=== PATIENT | male | born 1960 | race Caucasian/White ===

== ENCOUNTER → 2020-11-03 08:41 | Outpatient (CLI) | payer OTHER, SELFPAY ==
[2020-10-24 14:31] VITALS: BMI 29.0
--- NOTE | 2020-11-03 08:43 | ECHOD_ITS ---
Reason For Study: Syncope Procedure This was a 2D Doppler, Color Flow transthoracic echocardiogram. Myocardial strain analysis was performed in this exam to aid in the assessment of cardiac function. The exam was of adequate technical quality. Exam performed in department. Left Ventricle Normal LV size. Left ventricular systolic function is normal. The estimated ejection fraction is 60 %. The global longitudinal strain = -18 % (normal). Transmitral doppler flow suggestive of impaired relaxation of left ventricle. No regional wall motion abnormalities noted. Right Ventricle Normal RV size. Normal systolic function. Atria Normal left atrium. Normal right atrium. No doppler evidence for ASD. Mitral Valve There is no mitral annular calcification. Normal mitral valve. Trivial mitral valve insufficiency. Tricuspid Valve Normal tricuspid valve. Mild tricuspid valve insufficiency. Right ventricular systolic pressure estimated to be 25 mmHg. Aortic Valve Trisinus/trileaflet aortic valve. Normal aortic valve. Pulmonic Valve The pulmonic valve is not well visualized. Trivial pulmonic valve insufficiency. Great Vessels Normal sized aortic root. Pericardium/Pleural No pericardial effusion. MMode/2D Measurements & Calculations LVIDd: 4.8 cm IVSd: 0.95 cm Ao root diam: 3.5 cm LVIDs: 3.0 cm LVPWd: 0.95 cm RVDd: 3.4 cm FS: 37.5 % LAV(MOD-bp): 42.6 ml LA A4 area: 18.4 cm2 LA dimension(2D): 3.8 cm LAV(MOD-bp) Indexed: 19.4 ml/m2 LAV(MOD-sp2): 34.8 ml LAV(MOD-sp4): 51.5 ml RA A4 area: 14.2 cm2 Doppler Measurements & Calculations MV E max mao: 60.5 cm/sec Lat Peak E' Mao: 6.9 cm/sec Med Peak E' Mao: 5.7 cm/sec MV A max mao: 104.9 cm/sec E/E' lat: 8.7 E/E' med: 10.6 MV E/A: 0.58 Ao V2 max: 160.7 cm/sec LV V1 max: 104.7 cm/sec PA V2 max: 108.6 cm/sec Ao max P.3 mmHg LV V1 max P.4 mmHg TR max mao: 236.7 cm/sec TR max P.4 mmHg ECHO/Echo Complete Interpretation Summary Left ventricular systolic function is normal. The estimated ejection fraction is 60 %. The global longitudinal strain = -18 % (normal). Trivial mitral valve insufficiency. Mild tricuspid valve insufficiency. Trivial pulmonic valve insufficiency. Right ventricular systolic pressure estimated to be 25 mmHg. Transmitral doppler flow suggestive of impaired relaxation of left ventricle Ordering Physician: Jb Lozada Referring Physician: Isabel Chu Performed By: Joyce Goodman RDCS
--- NOTE | 2020-11-03 08:43 | RDU_ITS ---
Reason For Study: HTN Right Renal Artery Left Renal Artery Right renal artery ostium 133.8/35.3 Left renal artery ostium 133.7/37.8 RSV/EDV. PSV/EDV. Right renal artery proximal Left renal artery proximal PSV/EDV 180.4/68.9 PSV/EDV. 154.5/35.2 . Right renal artery mid 155.2/50.6 Left renal artery mid 167.9/57.9 PSV/EDV. PSV/EDV . Right renal artery distal 146.2/49.6 Left renal artery distal 197/64.4 PSV/EDV. PSV/EDV. Right RAR 2.00. Left RAR 2.18. Right Renal Parenchyma Left Renal Parenchyma Upper Pole Medula 27.8/12.4 PSV/EDV. Left upper pole medulla 35.7/16.4 Right upper pole medulla EDR 0.45 . PSV/EDV . Right upper pole medulla R.I. 0.55 . Left upper pole medulla EDR 0.46 . Upper Roe Cortx 17.4/7.5 PSV/EDV. Left upper pole medulla R.I. 0.54 . Right upper pole cortex EDR 0.43 . UP Cortex 24.1/8.7 PSV/EDV. Right upper pole cortex R.I. 0.57 . Left upper pole cortex EDR 0.36 . Right lower Pole medulla 32.2/14.1 Left upper pole cortex R.I. 0.64 . PSV/EDV . Left lower Pole medulla 30.7/13.1 Right lower pole medulla EDR 0.44 . PSV/EDV . Right lower pole medulla R.I. 0.56 . Left lower pole medulla EDR 0.43 . Lower Pole Cortex 22.9/10.2 PSV/EDV. Left lower pole medulla R.I. 0.57 . Right lower pole cortex EDR 0.45 . Lower Pole Cortx 23/8.7 PSV/EDV. Right lower pole cortex R.I. 0.55 . Left lower pole cortex EDR 0.38 . Right Renal Hilar Left lower pole cortex R.I. 0.62 . Right Hilar avg 70.5/23.1 PSV/EDV. Left Renal Hilar Right hilar acceleration time 40 LT Hilar avg 58.3/21.9 PSV/EDV . m/sec. Left hilar acceleration time 50 Right Renal Dimensions m/sec. Right kidney size 12.4 cm . Left Renal Dimensions Right cortical dimension 1.62 cm . Left kidney size 13.15 cm . Nonvascularized structure noted on Left cortical dimension 1.74 cm . the upper pole of the right kidney Nonvascularized structure noted on that measures 1.76 x 1.96 cm. the mid pole of the left kidney that measures 1.12 x 1.13 cm. Aorta Proximal abdominal aorta 1.71 x 1.71 cm . Proximal abdominal aorta peak systolic velocity is 90.4 cm/sec . Distal abdominal aorta 1.54 x 1.53 cm . Distal abdominal aorta peak systolic velocity is 91.6 cm/sec . VL/Renal Artery Duplex Ultrasound Interpretation Summary Bilateral renal arteries with less than 60% stenosis. Ordering Physician: Jb Lozada Referring Physician: Isabel Chu Performed By: Shruti Leung RVT
== END ==
PROVIDERS: Referring Provider Internal Medicine Cardiovascular Disease; Visit Provider Internal Medicine Cardiovascular Disease
DX: I10 Essential (primary) hypertension (principal); E78.5 Hyperlipidemia, unspecified; R55 Syncope and collapse
CPT/HCPCS: 93306; 93975

== ENCOUNTER → 2021-01-12 20:31 | Outpatient (CLI) | payer OTHER, SELFPAY | PROVIDERS: Visit Provider Physician Assistant Medical | DX: G47.33 Obstructive sleep apnea (adult) (pediatric) (principal) | CPT/HCPCS: 95810 ==

== ENCOUNTER → 2021-02-28 20:06 | Outpatient (CLI) | payer OTHER, SELFPAY | PROVIDERS: Visit Provider Nurse Practitioner Acute Care | DX: G47.33 Obstructive sleep apnea (adult) (pediatric) (principal) | CPT/HCPCS: 95811 ==

== ENCOUNTER 2021-06-02 09:03 | Outpatient (CLI) | payer OTHER, SELFPAY ==
[2021-06-02 09:33] LABS: Erythrocyte Sedimentation Rate 3 mm/hr (0-20)
[2021-06-02 09:35] LABS: Absolute Lymphocyte Count 1.25 X10^3/uL (0.83-4.51); Absolute Neutrophil Count 2.9 X10^3/uL (2.0-7.7); Basophil# 0.06 X10^3/uL; Basophil% 1.3 % (0-1); Eosinophil# 0.08 X10^3/uL; Eosinophils% 1.7 % (0-5); Hematocrit 41.4 % (40-54); Hemoglobin 14.6 g/dL (13.0-16.5); Lymphocyte # 1.25 X10^3/ul (0.83-4.51); Lymphocyte % 26.1 % (19-41); Mean Corp Hgb Conc 35.3 g/dL (32-36); Mean Corpuscular Hgb 29.9 pg (27.0-32.0); Mean Corpuscular Volume 84.8 fL (80-94); Mean Platelet Vol. 9.8 fl (6.2-12.0); Monocyte# 0.46 X10^3/uL; Monocyte% 9.6 % (0-10); NRBC Flagged by Analyzer 0 % (0-5); Neutrophil % 60.5 % (47-70); Platelet Count 207 K/mm3 (150-450); RBC Distribution Width CV 13.2 % (11.6-14.6); RBC Distribution Width SD 40.8 fl (35.1-43.9); Red Blood Count 4.88 M/mm3 (4.6-6.2); White Blood Count 4.8 K/mm3 (4.4-11.0)
[2021-06-02 09:58] LABS: ALB/GLOB Ratio 1.2 RATIO (0.9-2.4); AST(SGOT) 25 U/L (15-37); Alanine Aminotransfer ALT/SGPT 66 U/L (16-61); Albumin, Serum 4.2 g/dL (3.2-5.0); Alkaline Phosphatase 71 U/L (45-117); Anion Gap 4 (5-15); BUN 19 mg/dL (7-18); BUN/Creat Ratio 15.7 RATIO (10-20); CRP < 2.90 mg/L (0.0-3.0); Calcium,Total 9.2 mg/dL (8.5-10.1); Chloride 103 mmol/L (98-107); Creatinine, Serum 1.21 mg/dL (0.70-1.30); EST Glomerular Filtration Rate 65 mL/min (>60); Est Glom Filt Rate - Afr Amer 79 mL/min (>60); Globulin 3.5 g/dL (2.2-4.2); Glucose 180 mg/dL (74-106); Potassium 3.8 mmol/L (3.5-5.1); Protein, Total 7.7 g/dL (6.4-8.2); Sodium Level 137 mmol/L (136-145)
== END 2021-06-02 23:59 | disposition home or self-care (01) ==
LOC: LAB 09:05
PROVIDERS: Referring Provider Nurse Practitioner Adult Health; Visit Provider Nurse Practitioner Adult Health
DX: R19.7 Diarrhea, unspecified (principal); R19.8 Other specified symptoms and signs involving the digestive system and abdomen; R15.9 Full incontinence of feces; K62.5 Hemorrhage of anus and rectum
CPT/HCPCS: 36415; 80053; 85025; 85652; 86140

== ENCOUNTER 2021-06-08 10:14 | Outpatient (CLI) | payer OTHER, SELFPAY ==
[2021-06-09 16:09] LABS: Giardia Lamblia, Stool EIA Negative (Negative)
[2021-06-09 21:28] LABS: Calprotectin, Stool <16 ug/g (0-120)
== END 2021-06-08 23:59 | disposition home or self-care (01) ==
LOC: LAB 10:15
PROVIDERS: Referring Provider Nurse Practitioner Adult Health; Visit Provider Nurse Practitioner Adult Health
DX: K62.5 Hemorrhage of anus and rectum (principal); R15.9 Full incontinence of feces; R19.8 Other specified symptoms and signs involving the digestive system and abdomen; R19.7 Diarrhea, unspecified
CPT/HCPCS: 83630; 83993; 87177; 87209; 87329; 87493; 87506

== ENCOUNTER 2021-06-23 08:16 | Outpatient (CLI) | payer OTHER, SELFPAY ==
--- NOTE | 2021-06-23 08:23 | CT_ITS ---
STUDY: CT ABDOMEN AND PELVIS WITH CONTRAST REASON FOR EXAM: Male, 60 years old. Lower abd pain, blood per rectum, diarrhea -- oral and IV please RADIATION DOSAGE (If Supplied By Facility): CTDIvol = ( 16.29 ) mGy, DLP = ( 1139.51 ) mGycm TECHNIQUE: Transaxial images were obtained from the dome of the diaphragm to the symphysis pubis with oral contrast. Oral and amp; IV Readi-CAT and amp; 100mL Isovue-300 was administered. Sagittal and coronal images were reconstructed. Individualized dose optimization techniques were used for this CT. COMPARISON: None. FINDINGS: Mild degree of increased markings at the lung bases suggestive of atelectasis. There is a faint 3.5 mm noncalcified nodule at the right lung base. The visualized portions of the heart are within normal limits. There is decreased attenuation of the liver consistent with steatosis. The patient is status post cholecystectomy. There are multiple benign calcified granulomata of the spleen. Normal pancreas. Normal bilateral adrenal glands. There is a 2.7 cm cyst in the posterior medial aspect of the upper pole of the right kidney. There is a 1.2 cm cyst in the posterior lower pole of the left kidney. Normal visualized stomach. Normal small intestine. There are scattered colonic diverticula consistent with diverticulosis. The appendix is visualized and appears normal. There is scattered atherosclerotic calcification of the abdominal aorta, without a demonstrated aneurysm. Normal inferior vena cava. Normal retroperitoneum. Normal urinary bladder. There are prostatic calcifications. Prostatic enlargement. This causes indentation of the bladder base. The prostate measures 3.9 cm x 5.5 cm. Normal abdominal wall. Normal osseous structures. CT/Abdomen/Pelvis WITH Contrast IMPRESSION: Fatty infiltration of the liver. Faint 3.5 mm noncalcified nodule at the base of the right lung. Scattered sigmoid diverticula. Electronically Signed: Bennett Ivey MD at 10:27 EDT ,
== END 2021-06-23 23:59 | disposition home or self-care (01) ==
LOC: CT 08:17
PROVIDERS: Referring Provider Nurse Practitioner Adult Health; Visit Provider Nurse Practitioner Adult Health
DX: K62.5 Hemorrhage of anus and rectum (principal); R15.9 Full incontinence of feces; R19.8 Other specified symptoms and signs involving the digestive system and abdomen; R19.7 Diarrhea, unspecified
CPT/HCPCS: 74177; Q9967

== ENCOUNTER 2021-07-07 05:24 | Day surgery (SDC) | payer OTHER, SELFPAY ==
[2021-07-07] VITALS (7 sets, daily range): BP systolic 109–145; BP diastolic 69–97; PULSE 62–73; RESP 16; TEMP 36.1–36.8; O2SAT 94–97; BMI 29.2
[2021-07-07] MEDS: Lactated Ringers 1,000 ML 15 ML IV (05:45)
[2021-07-07 06:16] LABS: Bedside Glucose 207 mg/dL (74-106)
--- NOTE | 2021-07-07 06:30 | COLBX_PTH ---
PATIENT: GORDO JOSHI LOC: [facility] – [place] U#:[id number] AGE/SX: 60/M ROOM: RE07/07/[address]: Dr. Jeffrey Marshall DO : 1960 BED: DIS: 07/07/2021 SPEC #: [id number] RECD: 07/07/21 10:22 STATUS: TRACY CHAU #: [id number] HELDER: 07/07/21 06:[address]: Jeffrey Marshall DEPT: SURGICAL PATHOLOGY RECD BY: Bessy Patterson ENTERED: 07/07/21 10:32 SP TYPE: COLON BX OTHR DR: DIANA Martinez Tissues: A - Cecum, NOS B - Sigmoid colon biopsy Procedures: Surgery Specimen Level IV HEADER OPERATION: Colonoscopy (MAC) PRE-OP DIAGNOSIS: Diarrhea, tenesmus, fecal incontinence, blood per rectum, rectal pain TISSUE SUBMITTED: A ? Cecum biopsy, B ? Sigmoid colon biopsy MICROSCOPIC DIAGNOSIS A. Cecum, biopsy: No pathologic change. B. Sigmoid colon, biopsy: No pathologic change. AM:josemanuel 07/10/2021 MICROSCOPIC DESCRIPTION Slides are reviewed. GROSS DESCRIPTION A - Received in fixative is one container labeled with the patient's name and designated cecum biopsy. The specimen consists of two irregular fragments of light art soft tissue that in aggregate measure 0.6 x 0.5 x 0.1 cm. The specimen is totally submitted in one cassette. B - Received in fixative is one container labeled with the patient's name and designated sigmoid colon biopsy. The specimen consists of one irregular fragment of light art soft tissue that measures 0.6 x 0.4 x 0.1 cm. The specimen is totally submitted in one cassette. / SJ:josemanuel 07/07/2021 TC:5 [facility]: [id number] x2
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
--- NOTE | 2021-07-07 07:30 | OP.CCLET_ITS ---
12/21/2021 Newton Martinez Re : Colonoscopy procedure for Keith Espinosa Dear Vlad This procedure was performed on Wednesday, July 07, 2021. My impressions and recommendations are as follows: Impressions : - Anal fissure found on perianal exam. - Hemorrhoids found on perianal exam. - Internal hemorrhoids that prolapse with straining, but spontaneously regress to the resting position (Grade II) and hypertrophied anal papilla(e) found on perianal exam. - Congested mucosa in the sigmoid colon. Biopsied. - Congested mucosa in the cecum. Biopsied. Recommendations : - Discharge patient to home. - Resume previous diet. - Continue present medications. - Await pathology results. - Repeat colonoscopy in 5 years for surveillance based on pathology results. - Refer to a surgeon. My findings are described in the full procedure note, which is enclosed. If I can be of further assistance, please feel free to contact me at . Sincerely, Jeffrey Marshall, 07/07/2021 7:29:52 AM This report has been signed electronically.
--- NOTE | 2021-07-07 07:30 | OP.COLON_ITS ---
Patient Name: Keith Espinosa Procedure Date: 07/07/2021 6:36 AM Date of : 1960 Age: 60 Procedure: Colonoscopy Indications: Screening for colorectal malignant neoplasm Providers: Jeffrey Marshall DO Medicines: Sedation Required Anesthesia Staff Assistance Patient Profile: This is a 60 year old male. Refer to note in patient chart for documentation of history and physical. Last Colonoscopy: 10 years ago. Complications: No immediate complications. Procedure: Pre-Anesthesia Assessment: - Prior to the procedure, a History and Physical was performed, and patient medications and allergies were reviewed. The patient is competent. The risks and benefits of the procedure and the sedation options and risks were discussed with the patient. All questions were answered and informed consent was obtained. Patient identification and proposed procedure were verified by the physician in the pre-procedure area. Mental Status Examination: alert and oriented. Airway Examination: normal oropharyngeal airway and neck mobility. Respiratory Examination: clear to auscultation. CV Examination: normal. Prophylactic Antibiotics: The patient does not require prophylactic antibiotics. Prior Anticoagulants: The patient has taken no previous anticoagulant or antiplatelet agents. ASA Grade Assessment: II - A patient with mild systemic disease. After reviewing the risks and benefits, the patient was deemed in satisfactory condition to undergo the procedure. The anesthesia plan was to use moderate sedation / analgesia (conscious sedation). Immediately prior to administration of medications, the patient was re-assessed for adequacy to receive sedatives. The heart rate, respiratory rate, oxygen saturations, blood pressure, adequacy of pulmonary ventilation, and response to care were monitored throughout the procedure. The physical status of the patient was re-assessed after the procedure. After I obtained informed consent, the scope was passed under direct vision. Throughout the procedure, the patient's blood pressure, pulse, and oxygen saturations were monitored continuously. The colonoscope was introduced through the anus and advanced to the cecum, identified by appendiceal orifice and ileocecal valve. The colonoscopy was performed without difficulty. The patient tolerated the procedure well. The quality of the bowel preparation was good. Moderate Sedation: Moderate (conscious) sedation was administered by the endoscopy nurse and supervised by the endoscopist. The patient's oxygen saturation, heart rate, blood pressure and response to care were monitored. Total physician intraservice time was 15 minutes. Scope In: 7:00:16 AM Scope Withdrawal Time 0 hours 19 minutes 23 seconds Scope Out: 7:22:52 AM Total Procedure Duration Time 0 hours 22 minutes 36 seconds Findings: An anal fissure was found on perianal exam. Hemorrhoids were found on perianal exam. The perianal exam findings include internal hemorrhoids that prolapse with straining, but spontaneously regress to the resting position (Grade II) and hypertrophied anal papilla(e). An area of mildly congested mucosa was found in the sigmoid colon. Biopsies were taken with a cold forceps for histology. Verification of patient identification for the specimen was done. Estimated blood loss was minimal. An area of mildly congested mucosa was found in the cecum. Biopsies were taken with a cold forceps for histology. Verification of patient identification for the specimen was done. Estimated blood loss was minimal. A few small-mouthed diverticula were found in the sigmoid colon. Impression: - Anal fissure found on perianal exam. - Hemorrhoids found on perianal exam. - Internal hemorrhoids that prolapse with straining, but spontaneously regress to the resting position (Grade II) and hypertrophied anal papilla(e) found on perianal exam. - Congested mucosa in the sigmoid colon. Biopsied. - Congested mucosa in the cecum. Biopsied. Recommendation: - Discharge patient to home. - Resume previous diet. - Continue present medications. - Await pathology results. - Repeat colonoscopy in 5 years for surveillance based on pathology results. - Refer to a surgeon. Procedure Code(s): --- Professional --- 51266, Colonoscopy, flexible; with biopsy, single or multiple G0500, Moderate sedation services provided by the same physician or other qualified health patient care assistant performing a gastrointestinal endoscopic service that sedation supports, requiring the presence of an independent trained observer to assist in the monitoring of the patient's level of consciousness and physiological status; initial 15 minutes of intra-service time; patient age 5 years or older (additional time may be reported with 14026, as appropriate) CPT copyright 2017 [employer]. All rights reserved. The codes documented in this report are preliminary and upon certified procedural coder review may be revised to meet current compliance requirements. Jeffrey Marshall DO 07/07/2021 7:29:52 AM This report has been signed electronically. Number of Addenda: 1 Note Initiated On: 07/07/2021 6:36 AM Addendum Number: 1 Addendum Date: 12/21/2021 6:36:50 AM MAC was used as sedation for this procedure. Jeffrey Marshall, 12/21/2021 6:36:54 AM This report has been signed electronically.
[2021-07-07 07:46] LABS: Bedside Glucose 205 mg/dL (74-106)
== END 2021-07-07 08:50 | disposition home or self-care (01) ==
LOC: SDC 05:25 → AC 05:26
PROVIDERS: Visit Provider Internal Medicine Gastroenterology
PROC: 0DJD8ZZ Inspection of Lower Intestinal Tract, Via Natural or Artificial Opening Endoscopic (ICD-10-PCS; CPT 45378; principal; 2021-07-07 06:25)
DX: Z12.11 Encounter for screening for malignant neoplasm of colon (principal); K57.31 Diverticulosis of large intestine without perforation or abscess with bleeding; K60.2 Anal fissure, unspecified; E11.9 Type 2 diabetes mellitus without complications; K64.1 Second degree hemorrhoids; R19.7 Diarrhea, unspecified; R19.8 Other specified symptoms and signs involving the digestive system and abdomen; R15.9 Full incontinence of feces; K63.89 Other specified diseases of intestine; E78.5 Hyperlipidemia, unspecified; G47.33 Obstructive sleep apnea (adult) (pediatric); Z79.84 Long term (current) use of oral hypoglycemic drugs; Z79.899 Other long term (current) drug therapy; Z87.891 Personal history of nicotine dependence
CPT/HCPCS: 45380; 82962; 87426; 88305; C9803; J7120; J2405

== ENCOUNTER 2021-07-26 07:14 | Day surgery (SDC) | payer OTHER, SELFPAY ==
[2021-07-26] VITALS (11 sets, daily range): BP systolic 109–152; BP diastolic 51–89; PULSE 62–78; RESP 16–17; TEMP 35.6–36.9; O2SAT 93–99; BMI 29.6
--- NOTE | 2021-07-26 | HEM_PTH ---
PATIENT: GORDO JOSHI [place] [facility] [place][id number] AGE/SX: 60/M ROOM: RE07/26/[address]: Dr. Yohannes Rand MD : 1960 BED: DIS: 07/26/2021 SPEC #: [id number] RECD: 07/26/21 12:39 STATUS: TRACY REAdilson #: [id number] HELDER: 07/26/21 00:[address]: Yohannes Rand DEPT: SURGICAL PATHOLOGY RECD BY: Leroy Munson ENTERED: 07/27/21 08:06 SP TYPE: HEMORRHOID OTHR DR: DIANA Martinez Tissues: A - HEMORRHOIDS B - HEMORRHOIDS Procedures: Surgery Specimen Level III HEADER OPERATION: Hemorrhoidectomy PRE-OP DIAGNOSIS: External hemorrhoid, bleeding TISSUE SUBMITTED: A - Left lateral hemorrhoid, B - Right anterior hemorrhoid MICROSCOPIC DIAGNOSIS A. Left lateral hemorrhoid, hemorrhoidectomy: A piece of colonic mucosa with dilated and congested blood vessels, consistent with hemorrhoid. B. Right anterior hemorrhoid, hemorrhoidectomy: Pieces of anorectal mucosa with dilated and congested blood vessels, consistent with hemorrhoid. GENESIS:josemanuel 07/28/2021 MICROSCOPIC DESCRIPTION Slides are reviewed. GROSS DESCRIPTION A - Received in fixative is one container labeled with the patient's name and designated left lateral hemorrhoid. The specimen consists of a congested piece of mucosal tissue measuring 2 x 1.5 x 1 cm. Sections reveal congested and hemorrhagic cut surfaces. Mechanical Apprentice sections are submitted in one cassette. B - Received in fixative is one container labeled with the patient's name and designated right anterior hemorrhoid. The specimen consists of three pieces of congested and hemorrhagic tissue measuring in aggregate 1.5 x 1 x 1 cm. The largest piece is sectioned. The entire specimen is submitted in one cassette. / GENESIS:josemanuel 07/27/2021 TC: 5 CPT: 67030 x2
[2021-07-26] MEDS: Lactated Ringers 1,000 ML 15 ML IV (07:30)
[2021-07-26 08:00] LABS: Bedside Glucose 221 mg/dL (74-106)
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
[2021-07-26] MEDS: Lubricating Jelly 60 GM Tube 30 GM (09:10)
[2021-07-26] MEDS: Cefotetan 2 GM in 0.9% NS 100 ML IV (09:17)
[2021-07-26] MEDS: Dibucaine 30 GM Tube 1 APPLIC (09:46)
[2021-07-26] MEDS: Bupivacaine 0.25% 30 ML Vial OPERA.SITE (10:11)
[2021-07-26 10:40] LABS: Bedside Glucose 170 mg/dL (74-106)
--- NOTE | 2021-07-26 10:55 | PCM.OPRPT ---
Problems Associated Problem List Diagnoses (1) Hemorrhoids, internal, with bleeding: Report of Operation Date of Procedure: 07/26/21 Pre-Operative Diagnosis: Bleeding hemorrhoids Post-Operative Diagnosis: Bleeding internal hemorrhoids Surgery/Procedure Performed:: Exam under anesthesia with hemorrhoidectomy internal and external x2 Specimen's removed: Left lateral hemorrhoid Right anterior hemorrhoid Description of Procedure: Patient was brought to the operating room and general anesthesia was induced. The patient was placed in prone jackknife position. Next the perirectal area was prepped and draped in usual sterile fashion. The rectal area was examined and then a speculum was placed. The left lateral hemorrhoid was taken down using harmonic. Next 2-0 chromic was used to ligate the pedicle and then running suture close the mucosal from internal to external. In the same fashion the right anterior column was identified and the vessel was taken down using harmonic scalpel. The 2-0 chromic was used to ligate the vessel and then run the mucosa closed from internal to external. The rectal area was inspected and there was good hemostasis. He was irrigated and suctioned dry. A Gelfoam was soaked in Dibucaine and placed into the rectum and left there. Local anesthetic was injected into the perirectal area in 4 quadrants to block the nerves. Next patient was awoken and taken to PACU in stable condition. Admit VTE Documentation VTE Mechan Device Prophylaxis: SCD's
--- NOTE | 2021-07-26 10:57 | EX.PCM.DISCH ---
Discharge Instructions Procedure Rectal Surgery Diet Discharge Diet: Light diet - advance as tolerated (Pain medication may cause nausea. You should typically eat light foods as you take your pain medication.) Activity Discharge Activity: Return to Normal Activity and May Not Drive (while you are taking narcotic pain medications. Do not drive, work with heavy equipment or sign legal documents for 24 hours after your surgery.) May resume sexual activity in: No Restrictions Additional Activity Instructions:: Be aware that pain medications may cause nausea. You should typically eat light foods as you take your pain medications. Pain medications may also cause constipation, if you have difficulty with this please discuss with your doctor. Dressing / Incision Call your doctor if your incision/area has: Continuous Slow Oozing, Sudden Increased Bleeding, Increased Pain/ Swelling, Increased Redness, Foul Smelling Discharge and Swelling at the incision site Call your doctor if you observe: Fever of 101 or Higher and Uncontrolled pain Cleanse incision/area with: Soap & Water Additional Dressing/Incision Instructions:: Leave the operative bandage on for 2 days. If a local anesthetic plug was placed in the anal area, try not to expel for 24-[address] dibucaine ointment on the perianal area as needed. Sitz baths twice daily and after bowel movements. Follow Up Care Please Follow Up With: Yohannes Rand MD When: Please call to schedule 2 week follow up appointment. [phone] Test Results: Test results from this visit will be discussed in further detail at your follow-up appointment, if applicable. Discharge Plan Admission Attending Provider: Yohannes Rand Primary Care Provider: Isabel Chu Discharge Orders/Prescriptions Prescriptions: New oxycodone-acetaminophen [Percocet] 5-325 mg tablet 1 - 2 tab PO Q4H PRN (Reason: pain) 7 Days Qty: 40 RF: 0 No Action cholecalciferol (vitamin D3) 25 mcg (1,000 unit) tablet 25 mcg PO DAILY RF: 0 lovastatin 20 mg tablet 20 mg PO QPM RF: 0 amlodipine 10 mg tablet 10 mg PO DAILY Qty: 90 RF: 3 losartan-hydrochlorothiazide 100-25 mg tablet 1 tab PO DAILY Qty: 90 RF: 3 metformin 500 mg tablet 500 mg PO DAILY Qty: 1 RF: 0 allopurinol 100 mg tablet 100 mg PO DAILY Qty: 1 RF: 0 hydrocortisone 100 mg/60 mL enema 100 mg SD BID Qty: 1680 RF: 0 Referrals / Follow Up: Isabel Chu PA [Primary Care Provider] - Disposition Disposition (needs filled in before D/C Order can be placed): Home, Self Care
[2021-07-26] MEDS: Acetaminophen 500 MG Tablet PO (12:27)
[2021-07-26] MEDS: oxyCODONE 5 MG Tablet 10 MG PO (12:28)
[2021-07-26] MEDS: Tamsulosin HCl 0.4 MG Capsule 0.8 MG PO (16:16)
== END 2021-07-26 16:39 | disposition home or self-care (01) ==
LOC: SDC 07:17 → AC 07:17
PROVIDERS: Referring Provider Surgery; Visit Provider Surgery
PROC: (CPT 46260; principal; 2021-07-26 08:45)
DX: K64.8 Other hemorrhoids (principal); E11.9 Type 2 diabetes mellitus without complications; K64.4 Residual hemorrhoidal skin tags; I10 Essential (primary) hypertension; E78.5 Hyperlipidemia, unspecified; G47.33 Obstructive sleep apnea (adult) (pediatric); M10.9 Gout, unspecified; F17.220 Nicotine dependence, chewing tobacco, uncomplicated; Z79.84 Long term (current) use of oral hypoglycemic drugs; Z79.899 Other long term (current) drug therapy; Z87.891 Personal history of nicotine dependence
CPT/HCPCS: 46260; 00902; 82962; 87426; 88304; J7120; J2405

== ENCOUNTER → 2021-08-16 | Outpatient (CLI) | payer OTHER, SELFPAY ==
--- NOTE | 2021-08-16 07:44 | US_ITS ---
STUDY: ABDOMINAL ULTRASOUND - ELASTOGRAPHY REASON FOR VISIT: Male, 60 years old. Fatty infiltration of the liver. TECHNIQUE: Liver stiffness measurements were obtained on a [employer] RS 85 ultrasound machine using a CA 1-7 probe following the SRU guidelines. 3 measurements were obtained using a 2-D-SWE method. The IQR/M was 12% suggesting a quality data set. TECHNICAL QUALITY: Adequate. COMPARISON: Comparison is made with prior study done earlier today. FINDINGS: Liver: Fatty infiltration of the liver. Median liver stiffness measured 9 kPa. US/Elastography Parenchyma/Organ IMPRESSION: Liver stiffness measures 9 kPa compatible with F2-F3 (Mild to moderate liver fibrosis) Metavir score. Electronically Signed: Bennett Ivey MD at 10:20 EDT ,
--- NOTE | 2021-08-16 07:50 | US_ITS ---
STUDY: ABDOMINAL ULTRASOUND - RIGHT UPPER QUADRANT REASON FOR VISIT: Male, 60 years old FATTY LIVER TECHNIQUE: Ultrasound evaluation of the right upper quadrant was performed with real-time and static sidhu-scale imaging. TECHNICAL QUALITY: Adequate. COMPARISON: Comparison is made with prior CT scan of the abdomen and pelvis dated 06/23/2021. FINDINGS: Liver: The liver measures 18 cm. There is increased echogenicity consistent with fatty infiltration. The bile ducts are within normal limits. There is hepatic color flow. The direction of portal flow is hepatopetal. There is no demonstrated mass lesion. Gallbladder: The patient is status post cholecystectomy. Common Bile Duct (C.B.D.): The common bile duct measures 5 mm. Pancreas: Normal size of the head, body and tail of the pancreas. There is normal echogenicity of the pancreas. There is no demonstrated pancreatic mass or cyst. Right Kidney: Normal size of the right kidney. The right kidney measures 13.5 cm x 5.4 cm x 5.5 cm. Normal renal cortex. The right cortex measures 2 cm. There is a 2.8 cm x 2.7 cm x 2.7 cm cyst in the upper pole of the right kidney. There is no right hydronephrosis. US/Abdomen Limited IMPRESSION: Mild hepatomegaly. Status post cholecystectomy. Diffuse fatty infiltration of the liver. Right renal cyst. Electronically Signed: Bennett Ivey MD at 9:56 EDT ,
== END | disposition home or self-care (01) ==
LOC: US 07:43
PROVIDERS: Visit Provider Nurse Practitioner Adult Health
DX: K76.0 Fatty (change of) liver, not elsewhere classified (principal)
CPT/HCPCS: 76705; 76981

== ENCOUNTER → 2022-04-18 | Outpatient (CLI) | payer OTHER, SELFPAY ==
--- NOTE | 2022-04-18 08:12 | US_ITS ---
STUDY: ABDOMINAL ULTRASOUND - RIGHT UPPER QUADRANT REASON FOR VISIT: Male, 61 years old liver elastography, f/u treatment NAFLD TECHNIQUE: Ultrasound evaluation of the right upper quadrant was performed with real-time and static sidhu-scale imaging. TECHNICAL QUALITY: Adequate. COMPARISON: Comparison is made with prior study dated 08/16/2021. FINDINGS: Liver: The liver is mildly enlarged and measures 18 cm. There is increased echogenicity consistent with fatty infiltration. The bile ducts are within normal limits. There is hepatic color flow. The direction of portal flow is hepatopetal. There is no demonstrated mass lesion. Gallbladder: The patient is status post cholecystectomy. Common Bile Duct (C.B.D.): The common bile duct measures 6.5 mm. Pancreas: Normal size of the head, body and tail of the pancreas. There is increased echogenicity of the pancreas. There is no demonstrated pancreatic mass or cyst. Right Kidney: Normal size of the right kidney. The right kidney measures 13.6 cm x 6.4 cm x 5.8 cm. Normal renal cortex. The right cortex measures 1.8 cm. There is a 1.9 cm x 2.1 cm x 2.8 cm renal cysts. There is no right hydronephrosis. US/Abdomen Limited IMPRESSION: Mild hepatomegaly with diffuse fatty infiltration of the liver. Status post cholecystectomy. Right renal cyst. Electronically Signed: Bennett Ivey MD at 11:54 EST ,
--- NOTE | 2022-04-18 08:12 | US_ITS ---
STUDY: ABDOMINAL ULTRASOUND - ELASTOGRAPHY REASON FOR VISIT: Male, 61 years old. Fatty infiltration of the liver. TECHNIQUE: Liver stiffness measurements were obtained on a [employer] RS 85 ultrasound machine using a CA 1-7 probe following the SRU guidelines. 3 measurements were obtained using a 2-D-SWE method. The IQR/M was 21 % suggesting a quality data set. TECHNICAL QUALITY: Adequate. COMPARISON: None. FINDINGS: Liver: Fatty infiltration of the liver. Median liver stiffness measured 7.3 kPa. US/Elastography Parenchyma/Organ IMPRESSION: Liver stiffness measures 7.3 kPa compatible with F2-F3 (Mild to moderate liver fibrosis) Metavir score. Electronically Signed: Bennett Ivey MD at 11:55 EST ,
== END | disposition home or self-care (01) ==
LOC: US 08:11
PROVIDERS: Visit Provider Nurse Practitioner Adult Health
DX: K76.0 Fatty (change of) liver, not elsewhere classified (principal)
CPT/HCPCS: 76705; 76981

== ENCOUNTER → 2022-04-24 | Outpatient (CLI) | payer OTHER, SELFPAY ==
[2022-04-24 12:30] LABS: Erythrocyte Sedimentation Rate 3 mm/hr (0-20)
[2022-04-24 12:32] LABS: Absolute Lymphocyte Count 1.24 X10^3/uL (0.83-4.51); Basophil# 0.04 X10^3/uL; Basophil% 0.8 % (0-1); Eosinophil# 0.08 X10^3/uL; Eosinophils% 1.6 % (0-5); Hematocrit 43.2 % (40-54); Hemoglobin 14.8 g/dL (13.0-16.5); Lymphocyte # 1.24 X10^3/ul (0.83-4.51); Lymphocyte % 25.6 % (19-41); Mean Corp Hgb Conc 34.3 g/dL (32-36); Mean Corpuscular Hgb 29.9 pg (27.0-32.0); Mean Corpuscular Volume 87.3 fL (80-94); Mean Platelet Vol. 9.9 fl (6.2-12.0); Monocyte# 0.41 X10^3/uL; Monocyte% 8.5 % (0-10); NRBC Flagged by Analyzer 0 % (0-5); Neutrophil # 3.04 X10^3/uL (2.7-7.7); Neutrophil % 62.7 % (47-70); Platelet Count 188 K/mm3 (150-450); RBC Distribution Width CV 13.2 % (11.6-14.6); RBC Distribution Width SD 41.8 fl (35.1-43.9); Red Blood Count 4.95 M/mm3 (4.6-6.2); White Blood Count 4.9 K/mm3 (4.4-11.0)
[2022-04-24 12:42] LABS: International Normalized Ratio 0.9; Prothrombin Time (Protime)PT. 12.3 SECONDS (11.7-14.9)
[2022-04-24 13:12] LABS: ALB/GLOB Ratio 1.2 RATIO (0.9-2.4); AST(SGOT) 17 U/L (15-37); Alanine Aminotransfer ALT/SGPT 33 U/L (16-61); Albumin, Serum 4.1 g/dL (3.2-5.0); Alkaline Phosphatase 66 U/L (45-117); Anion Gap 11 (5-15); BUN 21 mg/dL (7-18); BUN/Creat Ratio 16.4 RATIO (10-20); CRP < 2.90 mg/L (0.0-3.0); Calcium,Total 9.4 mg/dL (8.5-10.1); Chloride 101 mmol/L (98-107); Creatinine, Serum 1.28 mg/dL (0.70-1.30); EST Glomerular Filtration Rate 61 mL/min (>60); Est Glom Filt Rate - Afr Amer 73 mL/min (>60); Ferritin 335 ng/mL (26-388); Globulin 3.4 g/dL (2.2-4.2); Glucose 185 mg/dL (74-106); LDH 166 U/L (87-241); Potassium 3.7 mmol/L (3.5-5.1); Protein, Total 7.5 g/dL (6.4-8.2); Sodium Level 139 mmol/L (136-145)
[2022-04-25 14:10] LABS: Anti-Centromere B Ab <0.2 AI (0.0-0.9); Anti-Chromatin <0.2 AI (0.0-0.9); Anti-Jo <0.2 AI (0.0-0.9); Anti-Scleroderma-70 AB <0.2 AI (0.0-0.9); RNP Ab <0.2 AI (0.0-0.9); SJOGREN'S Anti-SS-A test < 0.2 AI (0.0-0.9); SJOGREN'S Anti-SS-B test < 0.2 AI (0.0-0.9); Smith Ab <0.2 AI (0.0-0.9)
[2022-04-25 16:34] LABS: Anti-Mitochondrial AB <20.0 Units (0.0-20.0); Anti-dsDNA Ab 1 IU/mL (0-9)
[2022-04-26 08:09] LABS: Angiotensin Convert Enzyme 28 U/L (14-82); Ceruloplasmin 18.7 mg/dL (16.0-31.0); HEPATITIS B SURFACE AG Negative (Negative); Hep C Antibodies <0.1 s/co ratio (0.0-0.9); Hepatitis A IgM Antibody Negative (Negative); Hepatitis B Core AB IgM Negative (Negative)
[2022-04-26 15:15] LABS: AFP, Tumor Marker < 1.8 ng/mL (0.0-8.4); Anti-Smooth Muscle ABS 5 Units (0-19); Copper, Serum or Plasma 86 ug/dL (69-132); Cytoplasmic Ab (C-ANCA) <1:20 titer (Neg:<1:20); Haptoglobin 140 mg/dL (32-363); Perinuclear Ab (P-ANCA) <1:20 titer (Neg:<1:20)
== END | disposition home or self-care (01) ==
LOC: LAB 11:46
PROVIDERS: Referring Provider Nurse Practitioner Adult Health; Visit Provider Nurse Practitioner Adult Health
DX: K76.0 Fatty (change of) liver, not elsewhere classified (principal)
CPT/HCPCS: 36415; 80053; 80074; 82105; 82140; 82164; 82390; 82525; 82728; 83010; 83516; 83615; 85025; 85610; 85652; 86140; 86225; 86235; 86256

== ENCOUNTER → 2023-06-24 | Outpatient (CLI) | payer OTHER, SELFPAY ==
[2023-06-24 13:27] LABS: PSA,Total- Diagnostic 4.38 ng/mL (0.0-4.0)
== END | disposition home or self-care (01) ==
LOC: LAB 12:00
PROVIDERS: PCP Internal Medicine; Referring Provider Nurse Practitioner; Visit Provider Nurse Practitioner
DX: R97.20 Elevated prostate specific antigen [PSA] (principal)
CPT/HCPCS: 36415; 84153

== ENCOUNTER → 2023-07-01 | Outpatient (CLI) | payer OTHER, SELFPAY ==
--- NOTE | 2023-07-01 07:21 | CT_ITS ---
STUDY: CT CHEST WITH CONTRAST REASON FOR EXAM: Male, 62 years old. Hilar adenopathy RADIATION DOSAGE (If Supplied By Facility): CTDIvol = ( 16.52 ) mGy, DLP = ( 562.38 ) mGycm TECHNIQUE: Transaxial imaging was performed following intravenous administration of IV 100mL [id number]-300. Multiplanar coronal and sagittal images were reformatted. Individualized dose optimization techniques were used for this CT. COMPARISON: No relevant priors. FINDINGS: CHEST There is a 6.9 mm calcified granuloma in the superior posterior aspect of the right lower lobe. There is no demonstrated pleural abnormality. There are mild calcifications of the coronary arteries. Normal mediastinum. Normal hilar regions. Normal unenhanced pulmonary arteries. There is atherosclerotic calcification of the aortic arch. There are degenerative changes of the thoracic spine. There is a 1.5 cm hypodensity in the right adrenal gland suggestive of a small adrenal adenoma. Status post cholecystectomy. CT/Chest WITH Contrast IMPRESSION: 6.9 mm calcified granuloma in the superior posterior aspect of the right lower lobe. No evidence of hilar enlargement. Electronically Signed: Bennett Ivey MD at 10:48 EDT ,
[2023-07-01 07:45] LABS: CREATININE FINGERSTICK 1.4 mg/dL (0.70-1.30)
== END | disposition home or self-care (01) ==
LOC: CT 07:21
PROVIDERS: PCP Internal Medicine; Referring Provider Internal Medicine; Visit Provider Internal Medicine
DX: R59.0 Localized enlarged lymph nodes (principal)
CPT/HCPCS: 71260; Q9967

== ENCOUNTER → 2024-01-20 | Outpatient (CLI) | payer OTHER, SELFPAY ==
--- NOTE | 2024-01-21 07:30 | US_ITS ---
INDICATION: hepatic fibrosis EXAMINATION: Ultrasound US Abdomen Limited (quadrant) TECHNIQUE: Bruce scale and color doppler imaging was performed of the right upper quadrant. COMPARISON: Prior study dated: 04/18/2022 FINDINGS: LIVER: Liver is borderline in size measuring about 17 cm in length and is mildly echogenic in texture. No focal hepatic lesion. There is no free fluid. GALLBLADDER AND BILIARY TREE: Status post cholecystectomy. The proximal common bile duct measures 6 mm, which is within normal limits for the patient''s age. Sonographic Crooks''s sign: Not assessed. PANCREAS: Pancreas is obscured by bowel gas and not visualized. Right kidney: The right kidney measures 13 cm in length. The renal cortex measures 1.7 cm. No evidence of hydronephrosis. US/Abdomen Limited IMPRESSION: Mild hepatic steatosis. Right renal cyst. Electronically Signed: Tim Licona MD at 12:42 EDT ,
== END | disposition home or self-care (01) ==
PROVIDERS: PCP Internal Medicine; Referring Provider Internal Medicine; Visit Provider Internal Medicine
DX: R94.2 Abnormal results of pulmonary function studies (principal)
CPT/HCPCS: 76705; 94060; 94726; 94729

== ENCOUNTER → 2024-01-21 | Outpatient (CLI) | payer OTHER, SELFPAY ==
--- OUTSIDE RECORDS SUMMARY | 2024-01-21 07:13 | XMS RPT_ITS | CCD ---
Author Organization [facility] Care Team Providers Care Weatherization Crew Leader Name Role Phone JENNIFER LOVELL Attending Unavailable JENNIFER LOVELL Primary Care Unavailable JENNIFER LOVELL Admitting Unavailable DIMITRY CHEN Consulting Unavailable SOHAIL WILKINSON DO Attending Unavailable SOHAIL WILKINSON DO Primary Care Unavailable SOHAIL WILKINSON DO Admitting Unavailable PROVIDER, UNKNOWN Consulting Unavailable PROVIDER, UNKNOWN Consulting Unavailable PROVIDER, UNKNOWN Consulting Unavailable SKINCARE Attending Unavailable SKINCARE Consulting Unavailable SKINCARE Unavailable Vlad LINTON, Isabel Ruiz Unavailable [phone] Jeffrey VERAS, Dr. Jennifer Guerrero Unavailable Dr. Dejuan Felix MD Unavailable ENT Provider Unavailable Unavailable Steph Ndiaye RN Unavailable Unavailable Dereck VERAS, Ken Vivas Unavailable Amanda Ingram MA Unavailable Unavailable Gogoi (scribe), Hemanta Unavailable Unavaila randy Jarrett LPN, Ольга Unavailable Unavailable Dimitry Chen MD Unavailable Anisha Gill Unavailable Unavailable Coby Gomez MA Unavailable Unavailable Kat Cotto LPN Unavailable Unavailable Jennifer Solomon RN Unavailable Unavaila randy Alexander LPN, Juliana Unavailable Unavailable Marques (Scribe)Darnell Unavailable Unavailab Salima Garland RN Unavailable [phone] Kelechi NEWSOME, Bernie K Unavailable Anna Cortez (Scribe), Yuriy Unavailable Unavailab Steph Nichole Unavailable Juan Carlos NEWSOME, Savannah Perez Unavailable Unavailab marvin Espinosa LPN, Ariadne M Unavailable Unavailab le Domenic HOTEL OR MOTEL MANAGER, Ernestina Sierra Unavailable Unavailab le Varsaherdavid HOTEL OR MOTEL MANAGER, Meagan Unavailable Unavailabl e Sigourney HOTEL OR MOTEL MANAGER, Nikki Whitlock Unavailable Unavaila ble Brandyemerald HOTEL OR MOTEL MANAGER, rTesa Unavailable Unavailable Unavailable Unavailable Fast DOAlden Primary Care Provider ALDEN MELENDEZ A Referring Unavailable FAST, ALDEN A Primary Care Unavailable Allergies Allergy Classification Reported Allergen(s) Allergy Type Date of Onset Reaction(s) Facility (1 source) ALLERGIES NOT ON FILE; Translations: [ALLERGIES NOT ON FILE] Propensity to adverse reactions (disorder) [facility] 2 Repository Medications Current Medications Medication Drug Class(es) Dates Sig (Normalized) Sig (Original) allopurinol 100 mg oral tablet (9 sources) Xanthine Oxidase Inhibitor Start: 10-28-2023 allopurinoL 100 mg tablet ; 1 (one) Tablet daily for 0 days Quantity: 90 {Tablet} Refills: 1 Ordered: 28-Oct-2023 ROYER Chu Start: 28-Oct-2023 Start: 05-10-2023 allopurinoL 10 0 mg tablet ; 1 (one) Tablet daily for 0 days Quantity: 90 {Tablet} Refills: 1 Ordered: 10-May-2023 ROYER Chu Start: 10-May-2023 Start: 11-16-2022 allopurinoL 10 0 mg tablet ; 1 (one) Tablet daily for 0 days Quantity: 90 {Tablet} Refills: 1 Ordered: 16-Nov-2022 ROYER Chu Start: 16-Nov-2022 amLODIPine 10 mg oral tablet (9 sources) Dihydropyridine Calcium Channel Tyson take 1 tablet by mouth once daily amLODIPine Besylate 10 MG Oral Tablet ; 1 daily (10 MG) Comments: Dr. Lozada Comment on above: Dr. Lozada carvedilol 3.125 mg oral tablet (9 sources) alpha-Adrenergic Tyson, beta-Adrenergic Tyson take 1 tablet by mouth twice daily Carvedilol 3.125 MG Oral Tablet ; 1 two times daily (3.125 MG) Comments: cardio Comment on above: cardio cholecalciferol 0.05 mg oral capsule (9 sources) Vitamin D take 1 capsule by mouth once daily Vitamin D3 50 MCG (1999 UT) Oral Capsule ; 1 daily (50 MCG (2000 UT)) FreeStyle Blane 2 [place] (9 sources) Start: 07-07-19 FreeStyle Blane 2 [place] ; 1 (one) Device daily for 0 days Quantity: 1 {Each} Refills: 1 Ordered: 06-Jul-2022 ROYER Rose Start: 06-Jul-2022 Comments: One device Comment on above: One device FreeStyle Blane 2 Sensor kit (9 sources) Start: 07-10-19 FreeStyle Blane 2 Sensor kit ; as directed for 0 days Quantity: 6 {Each} Refills: 1 Ordered: 09-Jul-2022 MD Ken Harden Start: 09-Jul-2022 lovastatin 20 mg oral tablet (9 sources) HMG-CoA Reductase Inhibitor Start: 07-07-19 lovastatin 20 mg tablet ; 1 (one) Tablet daily in the evening, on Sat for 0 days Quantity: 39 {Tablet} Refills: 3 Ordered: 09-Apr-2023 ROYER Chu Start: 09-Apr-2023 Comment on above: future fill metFORMIN hydrochloride 500 mg oral tablet (9 sources) Biguanide Start: 04-09-19 metFORMIN 500 mg tablet ; 1 (one) Tablet two times daily for 0 days Quantity: 180 {Tablet} Refills: 3 Ordered: 09-Apr-2023 ROYER Chu Start: 09-Apr-2023 Dispense as Written Start: 07-13-2022 take 1 tablet by stacia once daily at mealtime metFORMIN HCl 500 MG Oral Tablet ; 1 (one) Tablet daily with largest meal for 0 days Quantity: 90 {Tablet} Refills: 3 Ordered: 13-Jul-2022 MD Lalit Johnson Start: 13-Jul-2022 Dispense as Written Comments: future fill Comment on above: future fill semaglutide 14 mg oral table t (18 sources) Start: 06-18-2023 Rybelsus 14 mg tablet ; 1 (one) Tablet daily for 0 days Quantity: 30 {Tablet} Refills: 2 Ordered: 18-Jun-2023 ROYER Chu Start: 18-Jun-2023 Start: 12-14-2022 Rybelsus 14 mg tablet ; 1 (one) Tablet daily for 0 days Quantity: 30 {Tablet} Refills: 2 Ordered: 14-Dec-2022 ROYER Chu Start: 14-Dec-2022 Start: 04-24-2022 End: 09-19-2022 Rybelsus 3 mg tablet ; 1 (on e) Tablet daily for 0 days Quantity: 30 {Tablet} Refills: 0 Ordered: 19-Sep-2022 ROYER Chu Start: 24-Apr-2022 End: 19-Sep-2022 Status: Inactive sildenafil 50 mg oral tablet (9 sources) Phosphodiesterase 5 Inhibitor Start: 05-07-2019 take 1 tablet by mouth every hour Sildenafil Citrate 50 MG Oral Tablet ; 1 (one) Tablet Tablet one hour prior to intercourse for 0 days Quantity: 12 {Tablet} Refills: 5 Ordered: 07-May-2019 SAYDA Solomon Start: 07-May-2019 ursodiol 300 mg oral capsule (9 sources) Bile Acid take 1 capsule by mouth twice daily Ursodiol 300 MG Oral Capsule ; 1 two times daily (300 MG) Comments: GI Comment on above: GI vitamin e 180 mg oral capsule (9 sources) take 1 capsule by mouth twice daily Vitamin E 400 UNIT Oral Capsule ; 1 two times daily (400 UNIT) Completed/Discontinued Medications Medication Drug Class(es) Dates Sig (Normalized) Sig (Original) aspirin 81 mg delayed release oral tablet (9 sources) Platelet Aggregation Inhibitor, Nonsteroidal Anti-inflammator y Drug take 1 tablet by mouth once daily ASPIRIN EC, 81MG (Oral Tablet Delayed Release) ; 1 daily (81 MG) Status: Inactive atorvastatin 20 mg oral tablet (9 sources) HMG-CoA Reductase Inhibitor Start: 7 End: 8 take 1 tablet by mouth once daily Atorvastatin Calcium 20 MG Oral Tablet ; 1 (one) Tablet daily on Saturday, Sat, and Saturday for 0 days Quantity: 39 {Tablet} Refills: 3 Ordered: 30-May-2017 MERCEDEZ Jarrett Start: 07-Feb-2017 End: 30-May-2017 Status: Inactive Cinnamon Bark (9 sources) Cinnamon ; daily Status: Inactive colchicine 0.6 mg oral tablet (9 sources) take 1 tablet by mouth once daily Colchicine 0.6 MG Oral Tablet ; 1 daily (0.6 MG) Status: Inactive Garlic preparation (9 sources) Non-Standardized Food Allergenic Extract Garlic ; daily Statu s: Inactive hydroCHLOROthiazide 12.5 mg oral tablet (9 sources) Thiazide Diuretic Start: 7 End: 7 take 1 tablet by mouth once daily HydroCHLOROthiazide 12.5 MG Oral Tablet ; 1 Tablet once a day for 0 days Quantity: 90 {Tablet} Refills: 3 Ordered: 27-Aug-2016 MD Dimitry Chen Start: 27-Aug-2016 End: 27-Aug-2016 Status: Discontinued hydroCHLOROthiazide 12.5 mg / lisinopril 10 mg oral tablet (9 sources) Thiazide Diuretic, Angiotensin Converting Enzyme Inhibitor Start: 7 End: 8 take 1 tablet by mouth once daily Lisinopril-Hydrochloro thiazide 10-12.5 MG Oral Tablet ; 1 (one) Tab Tab daily for 0 days Quantity: 60 {Tablet} Refills: 2 Ordered: 30-May-2017 MERCEDEZ Jarrett Start: 27-Aug-2016 End: 30-May-2017 Status: Inactive hydroCHLOROthiazide 12.5 mg / losartan potassium 100 mg oral tablet (18 sources) Thiazide Diuretic, Angiotensin 2 Receptor Tyson Start: 1 End: 2 take 1 tablet by mouth once daily Losartan Potassium-HCTZ 100-12.5 MG Oral Tablet ; 1 (one) Tablet daily for 0 days Quantity: 30 {Tablet} Refills: 2 Ordered: 02-May-2021 MERCEDEZ Cotto Start: 23-Mar-2021 End: 02-May-2021 Status: Inactive take 1 tablet by mouth once lesia y Losartan Potassium-HCTZ 100-25 MG Oral Tablet ; 1 daily (100-25 MG) Comments: Dr. Lozada Comment on above: Dr. Lozada levETIRAcetam 500 mg oral tablet (9 sources) take 1 tablet by mouth twice daily KEPPRA, 500MG (Oral Tablet) ; 1 two times daily (500 MG) Status: Inactive lisinopril 20 mg oral tablet (9 sources) Angiotensin Converting Enzyme Inhibitor Start: 09-10-19 20 End: 03-02-20 20 take 1 tablet by mouth twice daily Lisinopril 20 MG Oral Tablet ; 1 (one) Tablet two times daily for 0 days Quantity: 180 {Tablet} Refills: 3 Ordered: 02-Mar-2020 MD Dimitry Chen Start: 10-Sep-2019 End: 02-Mar-2020 Status: Discontinued Comments: pharmacist: new dosage Comment on above: pharmacist: new beatrice taylor losartan potassium 50 mg oral tablet (9 sources) Angiotensin 2 Receptor Tyson Start: 03-02-20 End: 10-14-19 take 1 tablet by mouth once daily Losartan Potassium 50 MG Oral Tablet ; 1 (one) Tablet daily for 0 days Quantity: 90 {Tablet} Refills: 3 Ordered: 13-Oct-2020 Start: 02-Mar-2020 End: 13-Oct-2020 Status: Inactive predniSONE 20 mg oral tablet (9 sources) Start: 04-26-19 End: 06-03-19 take 3 tablets by mouth once daily, then take 2 tablets by mouth once daily, then take 1 tablet by mouth once daily, then take 0.5 tablet by mouth once daily predniSONE 20 MG Oral Tablet ; 1 (one) Tablet as directed for 0 days Quantity: 20 {Tablet} Refills: 0 Ordered: 02-Jun-2020 MERCEDEZ Cotto Start: 26-Apr-2020 End: 02-Jun-2020 Status: Inactive Comments: Take 3tabs qd for 3 days thenTake 2tabs qd for 3 days thenTake 1tab qd for 3 days thenTake 1/2tab qd for 4 days. Comment on above: Take 3tabs qd for 3 days thenTake 2tabs qd for 3 days thenTake 1tab qd for 3 days thenTake 1/2tab qd for 4 days. Problems Active Problems Problem Classification Problem Date Documented Date Episodic/Chronic Abdominal pain (20 sources) Abdominal pain; Translations: [Unspecified abdominal pain] 08-26-2018 Episodic Anxiety disorders (20 sources) Mixed anxiety and depressive disorder; Translations: [Other specified anxiety disorders] 12-03-2022 Chronic Diabetes mellitus without complication (20 sources) Diabetes mellitus; Translations: [Type 2 diabetes mellitus without complications] 04-04-2023 Chronic Comment on above: metformin A1C=7.0% Diabetes mellitus without complication (20 sources) Hyperglycemia; Translations: [Hyperglycemia, unspecified] 01-02-2019 Episodic Disorders of lipid metabolism (20 sources) Hyperlipidemia; Translations: [Hyperlipidemia, unspecified] Onset: 01-02-2019 01-02-2019 Chronic Comment on above: lovastatin 20mg (did n't tolerate atorvastatin) Essential hypertension (20 sources) Hypertensive disorder; Translations: [Essential (primary) hypertension] Onset: 01-02-2019 04-04-2023 Chronic Genitourinary symptoms and ill-defined conditions (18 sources) Blood in urine; Translations: [Hematuria, unspecified] 12-03-2022 Episodic Gout and other crystal arthropathies (20 sources) Gout; Translations: [Gout, unspecified] 06-02-2020 Chronic Comment on above: Uric acid 8.4 Immunizations and screening for infectious disease (20 sources) Needs influenza immunization; Translations: [Encounter for immunization] 03-02-2020 Episodic Other and ill-defined cerebrovascular disease (18 sources) Unspecified transient cerebral ischemia 04-14-2018 Chronic Other ear and sense organ disorders (18 sources) Otalgia, left ear; Translations: [Otalgia, unspecified] 12-03-2022 Episodic Other male genital disorders (20 sources) Male erectile dysfunction, unspecified; Translations: [Impotence of organic origin] 05-07-2019 Chronic Other non-traumatic joint disorders (18 sources) Joint pain; Translations: [Pain in unspecified joint] 12-03-2022 Episodic Other nutritional; endocrine; and metabolic disorders (9 sources) Obesity; Translations: [Obesity, unspecified] 06-25-2016 Chronic Other nutritional; endocrine; and metabolic disorders (20 sources) Overweight in adulthood with body mass index of 25 or more but less than 30; Translations: [Body mass index (BMI) 28.0-28.9, adult] 08-26-2018 Episodic Other nutritional; endocrine; and metabolic disorders (20 sources) Overweight; Translations: [Overweight] 12-03-2022 Episodic Other nutritional; endocrine; and metabolic disorders (10 sources) Body mass index 25-29 - overweight; Translations: [Body mass index (BMI) 28.0-28.9, adult] 08-26-2018 Episodic Other screening for suspected conditions (not mental disorders or infectious disease) (20 sources) Patient encounter status; Translations: [Encounter for screening for lipoid disorders] 12-03-2022 Episodic Residual codes; unclassified (18 sources) Influenza vaccination declined; Translations: [Immunization not carried out because of patient refusal] 05-30-2017 Episodic Rheumatoid arthritis and related disease (2 sources) Inflammatory polyarthropathy; 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 Unclassified (9 sources) Follow up for multiple chronic conditions - The patient is here for follow-up of anxiety, depression, diabetes, gout, hyperlipidemia and hypertension. The patient always takes the prescribed medications. No side effects noted (Reports that he is feeling well on Rybelsus. Patient is interested in increasing dose to further help his blood sugar and weight. He denies any episodes of hypoglycemia since starting the medication.). The patient has an active lifestyle but no regular exercise program. The patient's glucose levels are monitored several time(s) a month, out of office blood pressure checks occur frequently and dietary compliance is good with close adherance to recommendations. The patient states that there is no recent angina or dyspnea, weight has decreased (down 9lbs) and they do not have headaches. Note for Multiple chronic conditions follow-up : Patient reports that he is feeling well overall. 09-19-2022 Unclassified (9 sources) Follow Up for Multiple Chronic Conditions - The patient is here for follow-up of depression, diabetes, gout, hyperlipidemia and hypertension. The patient always takes the prescribed medications. No side effects noted (does not need refills). The patient engages in regular exercise program 3-5 times per week (walks on treadmill). The patient's glucose levels are monitored daily (checks multiple times a day - has continuous glucose monitoring), out of office blood pressure checks occur occasionally and dietary compliance is fairly good usually adhering to recommendations. The patient states that there is no recent angina or dyspnea, there are no vision changes or weakness (is past due for eye exam.), weight has increased (up 3 pounds) and headaches are rarely noted. Note for Multiple chronic conditions follow-up : Patient reports that he is interested in trying a medication for diabetes that may also help him lose weight. He has been trying for several years to lose weight through diet and exercise.Patient also reports that he is considering starting hormone replacement through a doctor that his currently sees (not a PCP though he cannot remember exactly which type of specialist). He reports that they took a testosterone level and told him it was low. He cannot recall the exact number or the time of day that the blood test was drawn. 04-24-2022 Unclassified (9 sources) [ADDITIONAL REASON] Transition into care - The patient is transitioning into care from another physician (cardiology) and a summary of care was reviewed. 04-24-2022 Unclassified (9 sources) Well adult male - The patient feels well with no complaints, has good energy level and is sleeping well (for the most part he does-- he uses a CPAP). The patient has a balanced diet. The patient exercises none (active). The patient sleeps 7 hours per night. Note for Well adult male : 07/07/2021 colonoscopy w doctor friend - normalPatient reports that he is interested in looking into continuous glucose monitoring at this time. He states that he is willing to pay out of pocket if it is not covered by insurance. 10-31-2021 Unclassified (9 sources) Follow up for multiple chronic conditions - The patient is here for follow-up of diabetes, gout, hyperlipidemia and hypertension. The patient always takes the prescribed medications. No side effects noted (pt has not been taking the allopurinol since october wants to discuss if he needs to keep taking it). The patient has an active lifestyle but no regular exercise program (Patient had planned to restart cross fit training with his at the start of the year. She sustained a fracture in her spine and he has been caring for her since early March.). The patient's out of office blood pressure checks occur frequently (every am - running in the 120s and 130s) and dietary compliance is fairly good usually adhering to recommendations. The patient states that there is no recent angina or dyspnea, weight has decreased (down 4lbs) and they do not have headaches. Note for Multiple chronic conditions follow-up : pt will get a little dizzy at times but thinks its due to his BP. Dose of HCTZ was recently changed by cardiology.pt has had 2 covid shots 05-02-2021 Unclassified (5 sources) Transition into care - The patient is transitioning into care from another physician (Transitional Care Manager Dr. Lozada 10/24/2020) and a summary of care was reviewed. Note for Transition into care : The end of September, he was down in [place]. He noticed his BP was elevated so he took Catapres in the evening, then again the next morning and the following evening. Later on that evening, he passed out. Afterwards, his BP was 120's/75. He then was seen by Dr. Lozada Transitional Care Manager. 12-02-2020 Unclassified (5 sources) [ADDITIONAL REASON] Follow up for multiple chronic conditions - The patient is here for follow-up of diabetes, hyperlipidemia, hypertension and other condition(s) (Gout). The patient usually takes the prescribed medications. No side effects noted (needs refill). The patient has an active lifestyle but no regular exercise program (goes walking occasionally, averages 5-6 thousand steps daily). The patient's glucose levels are monitored on rare occasion (checks about once a month), out of office blood pressure checks occur frequently (brought a list of readings with him today) and dietary compliance is fairly good usually adhering to recommendations. The patient states that there is no recent angina or dyspnea, there are no vision changes or weakness, weight has increased (5lbs since ADRIA) and headaches have been noticed occasionally. The patient states that the disease has no overall impact. Note for Multiple chronic conditions follow-up : The end of September, he was down in [place] and noticed his BP was elevated, so he took Catapres that he got previously at the ER. He took 1 Catapres that evening, took another in the morning and then again the next evening. Later on, he passed out. He BP after passing out was 120's/75. He was seen by bioinformatics programmer Dr. Lozada that put him on Amlodipine 5mg daily. Also scheduled him for echo and renal artery duplex... was told that he has narrowing renal arteries. Has follow up appointment regarding this at the end of the month.Has not had recent issues with gout, would like to discuss if he should continue taking Allopurinol or not. Has not had any gout flares in the last 3 months.Patient reports that he has been vaccinated for COVID since his last office visit. 12-02-2020 Unclassified (9 sources) [facility] Routine follow-up - The patient is here for follow-up of hypertension, hyperlipidemia, diabetes, depression, anxiety and gout. The patient always takes the prescribed medications. No side effects noted. The patient has an active lifestyle but no regular program (pt said when weather is nice walking 3 miles a day). The patient's out of office blood pressure checks occur rarely (pt has not recently) and dietary compliance is fairly good usually adhering to recommendations (pt does try to make healthier choicesless sweets). The patient states that there is no recent angina or dyspnea, weight has increased (up 3 lbs) and they do not have headaches. Note for Routine chronic follow-up : ADRIA 04/04/20labs printed 06-02-2020 Unclassified (9 sources) [facility] Routine follow-up - The patient is here for follow-up of hypertension, hyperlipidemia, diabetes, depression and anxiety. The patient always takes the prescribed medications. No side effects noted. (pt was in the hospital about a month ago for covid and they switched his lisinopril to losartan he thinks its losartan 50 but isnt totally sure) The patient has an active lifestyle but no regular program (pt was doing cross fit 3x a week but not right now). The patient's out of office blood pressure checks occur rarely (hasnt checked it recently) and dietary compliance is fairly good usually adhering to recommendations (pt does try to cut out carbs and sugars). The patient states that there is no recent angina or dyspnea, weight has increased (up 1 lb) and they do not have headaches. The patient tests blood sugar never (hasnt been recently). Note for Routine chronic follow-up : ADRIA a1c 6.03/06/20 pas04/2019 cmp, lipid 03-02-2020 Unclassified (9 sources) Follow up for multiple chronic conditions - The patient is here for follow-up of anxiety, depression, diabetes, hyperlipidemia and hypertension. The patient always takes the prescribed medications. No side effects noted (no refills needed today). The patient engages in regular exercise program 3-5 times per week (treadmill). The patient's glucose levels are monitored several time(s) per week (in the morning will run about 120-140), out of office blood pressure checks occur frequently (usually in the 120-140's/80-90's) and dietary compliance is fairly good usually adhering to recommendations. The patient states that there is no recent angina or dyspnea, there are no vision changes or weakness (pt states he had eye exam Mar 2019 at [facility] weight has decreased (4lbs) and they do not have headaches. Note for Multiple chronic conditions follow-up : ADRIA 05/07/2019. Last PSA 05/07/2019.Last CMP and Lipid 04/28/2019.A1C today. 08-06-2019 Unclassified (9 sources) Follow up for multiple chronic conditions - The patient is here for follow-up of anxiety, depression, hyperlipidemia and hypertension. The patient always takes the prescribed medications. No side effects noted. The patient engages in regular exercise program 3-5 times per week. The patient's out of office blood pressure checks occur frequently. The patient states that weight has decreased. The patient states that the disease has no overall impact. Note for Multiple chronic conditions follow-up : ADRIA 08/26/18, Lipid, CMP 03/28/18. no vaccines 01-02-2019 Unclassified (9 sources) [facility] Routine follow-up - The patient is here for follow-up of hypertension, hyperlipidemia, obesity, depression and anxiety. The patient always takes the prescribed medications. No side effects noted. The patient engages in regular program 3-5 time(s) per week (crossfit). The patient's out of office blood pressure checks occur frequently (in morning /80sevening 130/80) and dietary compliance is fairly good usually adhering to recommendations. The patient states that there is no recent angina or dyspnea, there are no vision changes or weakness, weight has increased (5 lbs) and headaches are rarely noted. Note for Routine chronic follow-up : ADRIA 04/14/2018lipid cmp 03/28/2018had DOT physical and they noticesd a small amount of blood in urine - 1/2 months ago 08-26-2018 Unclassified (9 sources) Follow Up for Multiple Chronic Conditions - The patient is here for follow-up of anxiety, hyperlipidemia and hypertension. The patient always takes the prescribed medications. No side effects noted (does not need refill). The patient engages in regular exercise program 3-5 times per week (Cross Fit 3 times a week.). The patient's out of office blood pressure checks occur occasionally and dietary compliance is fairly good usually adhering to recommendations. The patient states that there is no recent angina or dyspnea, weight has decreased (down 5 pounds) and headaches are rarely noted. Note for Multiple chronic conditions follow-up : Patient blood pressure today is good at 138/90. Otherwise, no other question or concerns. Last routine office visit 03-12-18. 04-14-2018 Unclassified (9 sources) [facility] Routine Follow up - The patient is here for follow-up of hypertension, hyperlipidemia, obesity and anxiety. The patient always takes the prescribed medications. No side effects noted. (does not need refill) The patient has an active lifestyle but no regular program. The patient's out of office blood pressure checks occur occasionally. The patient states that there is no recent angina or dyspnea, weight has decreased (Down 5 pounds) and headaches are rarely noted. Note for Routine chronic follow-up : Last routine office visit 06-25-16. Restarted HCTZ 12.5mg at that office visit. 08-27-2016 Unclassified (7 sources) Well adult male - The patient feels well with no complaints, has good energy level and is sleeping well. The patient has a balanced diet (Patient admits that he slipped on his diet over the holidays.) and takes supplemental vitamins. The patient exercises none (Reports an active lifestyle, but no regular exercise program.). The patient sleeps 7 hours per night. Note for Well adult male : Has labs to be reviewed today.Last colonoscopy 2021 - repeat 5 years 04-09-2023 Unclassified (4 sources) Follow up for multiple chronic conditions - The patient is here for follow-up of diabetes, hyperlipidemia, hypertension and other condition(s) (Gout). The patient usually takes the prescribed medications. No side effects noted (needs refill). The patient has an active lifestyle but no regular exercise program (goes walking occasionally, averages 5-6 thousand steps daily). The patient's glucose levels are monitored on rare occasion (checks about once a month), out of office blood pressure checks occur frequently (brought a list of readings with him today) and dietary compliance is fairly good usually adhering to recommendations. The patient states that there is no recent angina or dyspnea, there are no vision changes or weakness, weight has increased (5lbs since ADRIA) and headaches have been noticed occasionally. The patient states that the disease has no overall impact. Note for Multiple chronic conditions follow-up : The end of September, he was down in [place] and noticed his BP was elevated, so he took Catapres that he got previously at the ER. He took 1 Catapres that evening, took another in the morning and then again the next evening. Later on, he passed out. He BP after passing out was 120's/75. He was seen by bioinformatics programmer Dr. Lozada that put him on Amlodipine 5mg daily. Also scheduled him for echo and renal artery duplex... was told that he has narrowing renal arteries. Has follow up appointment regarding this at the end of the month.Has not had recent issues with gout, would like to discuss if he should continue taking Allopurinol or not. Has not had any gout flares in the last 3 months.Patient reports that he has been vaccinated for COVID since his last office visit. 12-02-2020 Unclassified (4 sources) [ADDITIONAL REASON] Transition into care - The patient is transitioning into care from another physician (Transitional Care Manager Dr. Lozada 10/24/2020) and a summary of care was reviewed. Note for Transition into care : The end of September, he was down in [place]. He noticed his BP was elevated so he took Catapres in the evening, then again the next morning and the following evening. Later on that evening, he passed out. Afterwards, his BP was 120's/75. He then was seen by Dr. Lozada Transitional Care Manager. 12-02-2020 Viral infection (9 sources) Disease caused by 2019-nCoV; Translations: [COVID-19] 03-02-2020 Episodic Past or Other Problems Problem Classification Problem Date Documented Da te Episodic/Chronic Unclassified (9 sources) Ear pain - The onset of the pain has been gradual and has been occurring in a persistent pattern for weeks (3-4 weeks he woke up and noticed some drainage from his ear on his pillow. He had cold symptoms at that time (cough, sore throat, post nasal drainage). He was seen at [facility] and was put on ATB (Amoxicillin 12 days, last dose would be taken tonight). He is concerned because he is still having pain of his left ear.). The course has been constant. The pain is described as a moderate sharp pain, pressure and plugged. The pain is described as being located in the inner ear. The pain is felt in the left ear. There has been no associated chills, decreased hearing, fever, sore throat, runny nose, cough, tinnitus or vertigo. Medical History does not include ear infections, seasonal allergies or recurrent sinusitis. 12-03-2022 Unclassified (9 sources) Hypertension - The hypertension has been occurring in a continuous pattern for weeks (about 2-3 weeks). The course has been constant. The JNC classification is Stage 2 hypertension - >=160 or >=100 (in the mornings will be about 170/ over 100. This past week his BP has been running about 150's/100.) The symptoms do not include chest pain, dyspnea on exertion, edema, fatigue, headache (will feel a twinge of his head at times, will be gone 10 seconds later. Denies having headaches.), palpitations, visual changes or shortness of breath. There is no tobacco use (did use chewing tobacco, stopped about 4-5 years ago). Note for Hypertension : Patient is currently on Losartan Potassium 50mg once daily. He usually takes this in the evening. 10-07-2020 Unclassified (9 sources) Foot pain - The pain is in the right foot and is located in the great toe (and ankle). The onset of the foot pain was acute and has been occurring in a persistent pattern for 2 weeks. The course has been worsening (worse since yesterday.). Note for Foot pain : Recently though he was ill w Covid and hospitalized and that is when he flared up. 04-04-2020 Unclassified (9 sources) Well adult male - The patient feels well with minor complaints (pt says he cant keep up the the other ppl at crossf[facility] bp recently), has decreased energy level and is sleeping poorly. The patient exercises 3 - 4 times per week (3x a week crossfit). The patient sleeps 5 hours per night. Note for Well adult male : adria 01/02/19labs printed 05-07-2019 Unclassified (9 sources) Follow up for multiple chronic conditions - The patient is here for follow-up of anxiety, depression, hyperlipidemia and hypertension. The patient has stopped the recommended medications (Pt is not taking medications at this time). The patient engages in regular exercise program 3-5 times per week. The patient's out of office blood pressure checks occur occasionally. The patient states that weight has increased (10 lb) and they do not have headaches. The patient states that the disease has no overall impact. 03-13-2018 Unclassified (9 sources) High blood sugar - Pt Had high blood sugar on labs that were done for surgery. Pt's mom is diabetic 08-09-2017 Unclassified (9 sources) Abdominal pain - The onset of the abdominal pain has been acute and has been occurring in an intermittent pattern for 2 days (thinks has had this for about a year, sx getting worse recently). The course has been increasing. The pain is described as a moderate burning and sharp pain. The pain is located in the right upper quadrant and radiates to the back. The symptoms are aggravated by meals (1/2 to 1 hour after eating) but have no relieving factors. The symptoms have been associated with bloating and heartburn (not with recent symptoms), while the symptoms have not been associated with constipation or diarrhea. Note for Abdominal pain : has lost weight recently and quit taking medications 05-30-2017 Unclassified (7 sources) Well adult male - The patient feels well with no complaints, has good energy level and is sleeping poorly (reports that he had more trouble with sleeping this summer, since doing exercise he is sleeping better. Trouble with falling and staying asleep. ). The patient has a balanced diet (trying to eat a low carb diet) and takes supplemental vitamins (plexus vitamins). The patient exercises 3 - 4 times per week (crossfit). The patient sleeps 5 (5-6 hours) hours per night. Note for Well adult male : ADRIA 08/27/2016, last lipid and BMP 08/27/2016Has not taken his lisinopril-HCTZ medication in the past month. 02-07-2017 Unclassified (7 sources) [ADDITIONAL REASON] Transition into care - The patient is transitioning into care from an emergency room (11/10/2016) and a summary of care was reviewed. 02-07-2017 Unclassified (9 sources) Hypertension - The onset of the hypertension has been gradual. The hypertension has been occurring in an episodic pattern for years. The course has been constant. The JNC classification is Stage 2 hypertension - >=160 or >=100 The symptoms do not include chest pain or headache. Habits include tobacco use. 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 There are no current symptoms. The patient exercises every other day. The patient has an appropriate balanced diet and takes suppemental vitamins and sleeps on average 6 hours per night. Safety measures include appropriate use of car seats/safety belts, appropriate use of helmets, appropriate use of safety belts, avoiding exposure to passive smoke and awareness of dangers of passenger-side air bags. There are no behavioral problems. Last tetanus vaccination: unknown/unsure. 05-30-2012 Unclassified (9 sources) Abdominal pain - The onset of the abdominal pain has been acute and has been occurring in an intermittent pattern for 3 weeks. The course has been increasing. The pain is described as a moderate burning. The pain is located in the right lower quadrant and does not radiate. The symptoms are aggravated by lying down (flat on back). There has been no associated bloating, bloody stools, bulky stools, dysuria or nausea. Note for Abdominal pain : pt thinks he might have a hernia he can smetimes see bulging 04-01-2012 Unclassified (9 sources) Follow up consultation - The patient is here to follow-up after hospitalization ([place] for TIA) on : (12/15/11-12/17/11). Current symptoms include other (dizziness and fatigue). Note for Consultation follow-up : Patient was started on Keppra 500mg twice a day and Aspirin 81mg daily. 12-28-2011 Unclassified (9 sources) Form Completion Physicals - The patient feels well with no complaints and has good energy level. There are no current symptoms. The patient exercises every other day. The patient has an appropriate balanced diet and takes suppemental vitamins. Habits include tobacco use. Safety measures include appropriate use of safety belts. There are no behavioral problems. 06-08-2010 Unclassified (1 source) Well adult male - The patient feels well with no complaints, has good energy level and is sleeping well. The patient has a balanced diet and takes supplemental vitamins. The patient exercises every other day. The patient sleeps 7 hours per night. The patient's libido is normal. Note for Well adult male : pt checks his sugar in the morning and feels it is coming up 04-09-2023 Unclassified (2 sources) Transition into care - The patient is transitioning into care from an emergency room (11/10/2016) and a summary of care was reviewed. 02-07-2017 Unclassified (2 sources) [ADDITIONAL REASON] Well adult male - The patient feels well with no complaints, has good energy level and is sleeping poorly (reports that he had more trouble with sleeping this summer, since doing exercise he is sleeping better. Trouble with falling and staying asleep. ). The patient has a balanced diet (trying to eat a low carb diet) and takes supplemental vitamins (plexus vitamins). The patient exercises 3 - 4 times per week (crossfit). The patient sleeps 5 (5-6 hours) hours per night. Note for Well adult male : ADRIA 08/27/2016, last lipid and BMP 08/27/2016Has not taken his lisinopril-HCTZ medication in the past month. 02-07-2017 NEGATED: Highlighted row has been ruled out!Residual codes; unclassified (1 source) Disease Episodic Results Test Name Value Interpretation Reference Range Facility CT for calcium scoring WO co ntrast and CTA W contrast IV Heart and coronary arterieson 06-07-2023 1. Coronary artery calcium score of 283.1*. 2. Mild prominence ascending thoracic aorta up to 3.9 cm. There is also mild dilatation pulmonary outflow tract can be seen in the setting of pulmonary arterial hypertension. 3. Mildly prominent nonspecific mediastinal nodes and suspected prominent nonspecific right hilar nodes as described. 4. Additional findings as above. *Coronary artery calcium scoring may be helpful in predicting the risk for future coronary heart disease events. According to the [employer] Clinical Expert Consensus Task Force, such testing provides important prognostic information in patients with more than one coronary heart disease risk factor. The coronary artery calcium score correlates with the annual risk of a non-fatal myocardial infarction or coronary heart disease . Coronary artery score Annual Risk 0-99 0.4% 100-399 1.3% >400 2.4% These three breakpoints correspond to lower, intermediate and high risk states for future coronary events. Such information should be used, along with appropriate clinical judgment, to make decisions regarding the intensity of risk factor management strategies to treat blood lipids and to modify other non-lipid coronary risk factors. Reference: Maria D P et al. Circulation. 2007; 115:402-426 MACRO: None Signed by: Rubens De Oliveira 06/07/2023 10:16 AM Dictation workstation: [id number] MMODAL Interpreted By: Rubens Rico, STUDY: CT CARDIAC SCORING WO IV CONTRAST; 06/06/2023 10:11 am INDICATION: Signs/Symptoms:SCREENING. COMPARISON: None. ACCESSION NUMBER(S): [id number] ORDERING CLINICIAN: ALDEN MELENDEZ TECHNIQUE: Using prospective ECG gating, limited CT scan of the chest for evaluation of coronary arteries was performed without intravenous contrast. Coronary calcium scoring was performed according to the method of Agatston. FINDINGS: The score and distribution of calcium in the coronary arteries is as follows: LM: 2.8. LAD: 119.5. LCx: 0. RCA: 161. Total: 283.1. The visualized segments of the lungs are normally expanded. The visualized mid/lower ascending thoracic aorta measures 3.9 cm in diameter. Mild vascular calcifications. There is mild dilatation pulmonary outflow tract up to 3.3 cm caliber. The heart is borderline enlarged. Trace pericardial effusion is present. Mildly prominent nonspecific subcarinal nodes up to 9 mm short axis. Limited evaluation for hilar adenopathy due to lack of intravenous contrast. Suspected prominent nonspecific right hilar nodes partially imaged up to 1.2 cm short axis. Suspected fatty liver. MMODAL Rubens De Oliveira, DO - 06/07/2023 Interpreted By: Rubens De Oliveira, STUDY: CT CARDIAC SCORING WO IV CONTRAST; 06/06/2023 10:11 am INDICATION: Signs/Symptoms:SCREENING. COMPARISON: None. ACCESSION NUMBER(S): [id number] ORDERING CLINICIAN: ALDEN MELENDEZ TECHNIQUE: Using prospective ECG gating, limited CT scan of the chest for evaluation of coronary arteries was performed without intravenous contrast. Coronary calcium scoring was performed according to the method of Agatston. FINDINGS: The score and distribution of calcium in the coronary arteries is as follows: LM: 2.8. LAD: 119.5. LCx: 0. RCA: 161. Total: 283.1. The visualized segments of the lungs are normally expanded. The visualized mid/lower ascending thoracic aorta measures 3.9 cm in diameter. Mild vascular calcifications. There is mild dilatation pulmonary outflow tract up to 3.3 cm caliber. The heart is borderline enlarged. Trace pericardial effusion is present. Mildly prominent nonspecific subcarinal nodes up to 9 mm short axis. Limited evaluation for hilar adenopathy due to lack of intravenous contrast. Suspected prominent nonspecific right hilar nodes partially imaged up to 1.2 cm short axis. Suspected fatty liver. IMPRESSION: 1. Coronary artery calcium score of 283.1*. 2. Mild prominence ascending thoracic aorta up to 3.9 cm. There is also mild dilatation pulmonary outflow tract can be seen in the setting of pulmonary arterial hypertension. 3. Mildly prominent nonspecific mediastinal nodes and suspected prominent nonspecific right hilar nodes as described. 4. Additional findings as above. *Coronary artery calcium scoring may be helpful in predicting the risk for future coronary heart disease events. According to the [employer] Clinical Expert Consensus Task Force, such testing provides important prognostic information in patients with more than one coronary heart disease risk factor. The coronary artery calcium score correlates with the annual risk of a non-fatal myocardial infarction or coronary heart disease . Coronary artery score Annual Risk 0-99 0.4% 100-399 1.3% >400 2.4% These three breakpoints correspond to lower, intermediate and high risk states for future coronary events. Such information should be used, along with appropriate clinical judgment, to make decisions regarding the intensity of risk factor management strategies to treat blood lipids and to modify other non-lipid coronary risk factors. Reference: [place] P et al. Circulation. 2007; 115:402-426 MACRO: None Signed by: Rubens De Oliveira 06/07/2023 10:16 AM Dictation workstation: [id number] [facility] Work Phone: CT for calcium scoring WO co ntrast and CTA W contrast IV Heart and coronary arteriesOrdered By: Rubens De Oliveira on 06-07-2023 [facility] Work Phone: CT CARDIAC SCORING WO IV CON TRASTon 06-06-2023 CT CARDIAC SCORING WO IV CONTRAST Interpreted By: Rubens De Oliveira, STUDY: CT CARDIAC SCORING WO IV CONTRAST; 06/06/2023 10:11 am INDICATION: Signs/Symptoms:SCREENING. COMPARISON: None. ACCESSION NUMBER(S): [id number] ORDERING CLINICIAN: ALDEN MELENDEZ TECHNIQUE: Using prospective ECG gating, limited CT scan of the chest for evaluation of coronary arteries was performed without intravenous contrast. Coronary calcium scoring was performed according to the method of Agatston. FINDINGS: The score and distribution of calcium in the coronary arteries is as follows: LM: 2.8. LAD: 119.5. LCx: 0. RCA: 161. Total: 283.1. The visualized segments of the lungs are normally expanded. The visualized mid/lower ascending thoracic aorta measures 3.9 cm in diameter. Mild vascular calcifications. There is mild dilatation pulmonary outflow tract up to 3.3 cm caliber. The heart is borderline enlarged. Trace pericardial effusion is present. Mildly prominent nonspecific subcarinal nodes up to 9 mm short axis. Limited evaluation for hilar adenopathy due to lack of intravenous contrast. Suspected prominent nonspecific right hilar nodes partially imaged up to 1.2 cm short axis. Suspected fatty liver. IMPRESSION: 1. Coronary artery calcium score of 283.1*. 2. Mild prominence ascending thoracic aorta up to 3.9 cm. There is also mild dilatation pulmonary outflow tract can be seen in the setting of pulmonary arterial hypertension. 3. Mildly prominent nonspecific mediastinal nodes and suspected prominent nonspecific right hilar nodes as described. 4. Additional findings as above. *Coronary artery calcium scoring may be helpful in predicting the risk for future coronary heart disease events. According to the [employer] Clinical Expert Consensus Task Force, such testing provides important prognostic information in patients with more than one coronary heart disease risk factor. The coronary artery calcium score correlates with the annual risk of a non-fatal myocardial infarction or coronary heart disease . Coronary artery score Annual Risk 0-99 0.4% 100-399 1.3% >400 2.4% These three breakpoints correspond to lower, intermediate and high risk states for future coronary events. Such information should be used, along with appropriate clinical judgment, to make decisions regarding the intensity of risk factor management strategies to treat blood lipids and to modify other non-lipid coronary risk factors. Reference: [place] P et al. Circulation. 2007; 115:[id number] MACRO: None Signed by: Rubens De Oliveira 06/07/2023 10:16 AM Dictation workstation: [id number] [facility] CT for calcium scoring WO co ntrast and CTA W contrast IV Heart and coronary arterieson 06-06-2023 Radiology Study observation (narrative) [facility] Work Phone: Laboratory - Chemistry and C hemistry - challengeon 04-04-2023 Albumin [Mass/Vol] 4.4 g/dL Normal 3.6 - 5.1 g/dL [facility]; [facility], [facility] Albumin/Globulin [Mass ratio] 2.1 {ratio} Normal 1.0 - 2.5 [facility].; [place] [employer] [facility], [facility] ALP [Catalytic activity/Vol] 56 U/L Normal 35 - 144 U/L [facility].; [facility], [facility] ALT [Catalytic activity/Vol] 24 U/L Normal 9 - 46 U/L [facility].; [facility], [facility] AST [Catalytic activity/Vol] 14 U/L Normal 10 - 35 U/L [facility].; [place] [employer] [facility], [facility] Bilirubin [Mass/Vol] 0.8 mg/dL Normal 0.2 - 1.2 mg/dL [facility].; [place] [employer], [facility] Calcium [Mass/Vol] 9.4 mg/dL Normal 8.6 - 10. 3 mg/dL [facility].; [place] [employer] Chloride [Moles/Vol] 103 mmol/L Normal 98 - 110 mmol/L [facility].; [place] [employer] Cholesterol [Mass/Vol] 212 mg/dL Abnormal [facility].; [place] [employer]. Cholesterol in HDL [Mass/Vol] 41 mg/dL Normal [place] [employer] [facility].; [place] [employer], [employer]. Cholesterol in LDL [Mass/Vol] 132 mg/dL Abnormal [facility].; [place] [employer]. CO2 [Moles/Vol] 31 mmol/L Normal 20 - 32 mmol/L [facility].; [place] [employer], [employer]. Creatinine [Mass/Vol] 1.04 mg/dL Normal 0.70 - 1.35 mg/dL [facility].; [place] [employer], [facility]. GFR/1.73 sq M.predicted among non-blacks MDRD (S/P/Bld) [Vol rate/Area] 81 mL/min/{1.73_m2} Normal [facility].; [place] [facility]. Glucose [Mass/Vol] 160 mg/dL Abnormal 65 - 99 mg/dL [facility].; [facility], [facility]. Potassium [Moles/Vol] 4.0 mmol/L Normal 3.5 - 5.3 mmol/L [facility].; [facility], [facility]. Protein [Mass/Vol] 6.5 g/dL Normal 6.1 - 8.1 g/dL [facility].; [facility] Sodium [Moles/Vol] 141 mmol/L Normal 135 - 146 mmol/L [facility].; [place] [employer] [facility] Triglyceride [Mass/Vol] 251 mg/dL Abnormal [facility]; [facility] [facility] Urea nitrogen [Mass/Vol] 15 mg/dL Normal 7 - 25 mg/dL [facility] Laboratory - Hematology and Cell countson 04-04-2023 HbA1c (Bld) [Mass fraction] 7.2 % Abnormal [facility].; [place] [employer] [facility] No Panel Informationon 04-04 BUN/CREATININE RATIO SEE NOTE: Normal 6 - 22 [facility] [place] [employer] [facility], [facility]. CHOL/HDLC RATIO 5.2 Abnormal [facility]; [facility], [facility]. GLOBULIN 2.1 Normal 1.9 - 3.7 [facility] [place] [employer] [facility], [facility] NON HDL CHOLESTEROL 171 Abnormal [facility]; [place] [employer] [facility] - Hematology and Cell countson 09-19-2022 HbA1c (Bld) [Mass fraction] 6.9 % Normal 4.6 - 7.1 % [facility] [place] [facility]. Laboratory - Hematology and Cell countson 04-24-2022 HbA1c (Bld) [Mass fraction] 7.0 % Normal 4.6 - 7.1 % [facility] [place] [employer], [facility]. COMPREHENSIVE METABOLIC PANE [place] 10-26-2021 Albumin [Mass/Vol] 4.7 g/dL Normal 3.6-5.1 [facility] Comment on above: Performed By: #### 1 0974, 061, 6181 #### [facility] of [address], [address] [place] [address] [employer]: Hira Hawkins MD Albumin/Globulin [Mass ratio] 2.1 {ratio} Normal 1.0-2.5 [facility] Comment on above: Performed By: #### 1 0231, 496, 7600 #### [facility] of [address], [address] [place] [address] [employer]: Hira Hawkins MD ALP [Catalytic activity/Vol] 58 U/L Normal 35-144 [facility] Comment on above: Performed By: #### 1 0231,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 headache off and on. He presently denies headache. He denies any numbness, unsteady gait, weakness, neck or back pain. No joint pain. He has complained of some dizziness intermittently. Further review of systems is negative. PHYSICAL EXAM: Blood pressure 185/124, pulse 80, respirations 16, temperature 96.9, pulse ox 96%. Weight is 210 pounds. PCP is [facility]. He used Page 1 of 2 GORDO ESPINOSA Emergency Room Report GORDO ESPINOSA : [address] Chen before he retired. Now he sees Isabel Chu. The patient is alert and oriented x3. The patient is in no acute distress. Pleasant and cooperative. He makes eye contact. He speaks in full sentences. He was ambulatory without difficulty. HEENT: Head appears atraumatic. Pupils are equal and reactive to light. Red reflex is intact bilaterally. Extraocular muscles are intact. No conjunctival injection. No scleral icterus or lid edema. Nose exhibits no rhinorrhea or epistaxis. TM's intact bilaterally. No erythema noted. No external auditory canal edema or bleeding. Mucous membranes are moist. No pharyngeal erythema. Uvula is midline and elevates. NECK: Supple. Trachea is midline. No JVD or lymphadenopathy. No posterior cervical tenderness. No nuchal rigidity. LUNGS: Lungs are clear to auscultation in all lung silva. No adventitious sounds are noted. No accessory muscle use. CV: Heart rate and rhythm are regular without murmur. ABDOMEN: Soft and nontender with normoactive bowel sounds x4 quadrants. No guarding or rigidity. No rebound. No palpable abdominal masses. No hepatosplenomegaly. BACK: No midline or paraspinal region tenderness. No increased paraspinal muscle rigidity. Negative Lloyds sign. EXTREMITIES: No edema or cyanosis. Peripheral pulses are intact. No motor or sensory deficits are noted. Hand coal picker are strong and symmetric. SKIN: Skin is warm and dry. No diaphoresis or rash. NEURO: The patient is alert and oriented x4. No motor or sensory deficits noted. Speech is normal. No facial droop or slurred speech. EMERGENCY DEPARTMENT COURSE AND TREATMENT: Presently I am going to obtain a cardiac workup and I have ordered labetalol 10 mg IV for his blood pressure. We will then reevaluate. DIAGNOSIS: Dictated By: Sohail Wilkinson DO 10/08/20 23:05 JOB #: [id number] Transcribed By: yanni 10/09/20 09:15 Electronically signed by: E-Sign: Dr. Sohail Wilkinson D.O. 10/11/20 10:58 Page 2 of 2 GORDO ESPINOSA Emergency Room Report Normal [facility] CBC + DIFFon 10-09-2020 Baso # 0.00 x10EE3/UL Normal 0.00 - 0.10 [facility] Comment on above: Performed By: #### 2 04062 #### [place] [id number] Basophils/100 WBC (Bld) 0.5 % Normal 0.0 - 2.0 [facility] Comment on above: Performed By: #### 2 11251 #### [facility],[address] [place] [address] CBC + DIFF Normal [facility] Comment on above: Result Comment: CBC- COMPLETE BLOOD COUNT Performed By: #### 2 29534 #### [place] [id number] EO # 0.10 x10EE3/UL Normal 0.00 - 0.50 [facility] Comment on above: Performed By: #### 2 24768 #### [address] [address] Eosinophils/100 WBC (Bld) 1.9 % Normal 0.0 - 7.0 [facility] Comment on above: Performed By: #### 2 47259 #### [facility],[address] [place] [address] Erythrocyte distribution width (RBC) [Ratio] 13.9 % Normal 12.0 - 15.6 [facility] Comment on above: Performed By: #### 2 65180 #### [facility],[address] [place] [address] Hematocrit (Bld) [Volume fraction] 42.0 % Normal 40.0 - 52.0 [facility] Comment on above: Performed By: #### 2 93643 #### [facility],[address] [place] [address] Hemoglobin (Bld) [Mass/Vol] 14.6 g/dL Normal 13.0 - 17.5 [facility] Comment on above: Performed By: #### 2 14717 #### [facility],[address] [place] [address] Lymph # 1.30 x10EE3/UL Normal 0.80 - 2.80 [facility] Comment on above: Performed By: #### 2 07495 #### [facility],[address] [place], [place] [id number] Lymphocytes/100 WBC (Bld) 25.7 % Normal 20.0 - 45.0 [facility] Comment on above: Performed By: #### 2 41154 #### [facility],[address] [place] [address] MANUAL DIFF N/A Normal [facility] Comment on above: Performed By: #### 2 90953 #### [facility],[address] [place] [address] MCH (RBC) [Entitic mass] 29 pg Normal 27 - 33 [facility] Comment on above: Performed By: #### 2 11233 #### [facility],[address] [place] [address] MCHC 35 X10 3 Normal 32 - 36 [facility] Comment on above: Performed By: #### 2 50673 #### [facility],[address] [place] [address] MCV (RBC) [Entitic vol] 85 fL Normal 81 - 98 [facility] Comment on above: Performed By: #### 2 01274 #### [facility],[address] [place] [address] [place] # 0.40 x10EE3/UL Normal 0.20 - 1.00 [facility] Comment on above: Performed By: #### 2 08021 #### [facility],[address] [place] [address] MONOS % 8.7 % Normal 0.0 - 10.0 [facility] Comment on above: Performed By: #### 2 72885 #### [facility],[address] [place] [address] Morphology Daniel (Bld) [Interp] N/A Normal [facility] Comment on above: Result Comment: {CD] Performed By: #### 2 02779 #### [facility],[address] [place] [address] Neut # 3.20 x10EE3/UL Normal 1.50 - 7.10 [facility] Comment on above: Performed By: #### 2 69690 #### [facility],[address] [place] [address] Neutrophils/100 WBC (Bld) 63.2 % Normal 46.0 - 76.0 [facility] Comment on above: Performed By: #### 2 60988 #### [facility],[address] [place] [address] PLATELET 173 x10EE3/UL Normal 150 - 450 [facility] Comment on above: Performed By: #### 2 35876 #### [facility],[address] [place] [address] Platelet mean volume (Bld) [Entitic vol] 7.3 fL Normal 6.4 - 10.5 [facility] Comment on above: Result Comment: AUTO MATED DIFFERENTIAL Performed By: #### 2 84865 #### [facility],[address] [place] [address] RBC 4.95 x 10EE6/UL Normal 4.50 - 6.00 [facility] Comment on above: Performed By: #### 2 04244 #### [facility],[address] [place] [address] WBC 5.1 x 10EE3/UL Normal 4.5 - 10.8 [facility] Comment on above: Performed By: #### 2 05150 #### [facility],[address] [place] [address] CHEST 1 VIEWon 10-09-2020 CHEST 1 VIEW [place] [address] Patient: GORDO ESPINOSA Phone#: : 1960 Age: 59 Gender: M Pt. Type: ER Account: [id number] Location: [facility] Ordering: SOHAIL WILKINSON Exam Date: 10/08/2020/22:48 Family Phys: DIMITRY CHEN Charge Code: [id number] Physician: Dewitt Order #: [id number] DLP Dose#: PROCEDURE: X-RAY CHEST 1 VIEW COMPARISON: [facility], XR, CHEST 1 VIEW, 01/29/2020, 6:25. INDICATIONS: Chest pain. FINDINGS: LUNGS: Normal. No significant pulmonary parenchymal abnormalities. VASCULATURE: Normal. Unremarkable pulmonary vasculature. CARDIAC: Normal. No cardiac silhouette abnormality or cardiomegaly. MEDIASTINUM: Normal. No visible mass or adenopathy. PLEURA: Normal. No effusion or pleural thickening. BONES: Normal. No fracture or visible bony lesion. OTHER: Negative. CONCLUSION: No acute disease. No significant change has occurred. Dictated by: Waleska Kuhn MD on 10/09/2020 at 18:41 Approved by: Waleska Kuhn MD on 10/09/2020 at 18:41 Normal [facility] CMP with eGFRon 10-09-2020 AGE 59 years Normal [facility] Comment on above: Performed By: #### 2 10177 #### [facility],[address] [place] [address] Albumin [Mass/Vol] 3.7 g/dL Normal 3.4 - 5.0 [facility] Comment on above: Performed By: #### 2 42299 #### [facility],[address] [place] [address] Albumin/Globulin [Mass ratio] 1.3 {ratio} Normal 0.9 - 1.6 [facility] Comment on above: Performed By: #### 2 03371 #### [facility],[address] [place] [address] ALK PHOS 61 U/L Normal 46 - 116 [facility] Comment on above: Performed By: #### 2 86083 #### [facility],[address] [place] [address] ALT [Catalytic activity/Vol] 34 U/L Normal 16 - 63 [facility] Comment on above: Performed By: #### 2 94718 #### [facility],[address] [place] [address]75 Anion gap [Moles/Vol] 12 mmol/L Normal 10 - 20 [facility] Comment on above: Performed By: #### 2 37708 #### [facility],[address] [place] [address] AST [Catalytic activity/Vol] 7 U/L Low 15 - 37 [facility] Comment on above: Performed By: #### 2 06145 #### [facility],[address] [place] [address] B/C RATIO 16 ratio Normal 0 - 30 [facility] Comment on above: Performed By: #### 2 11008 #### [facility],[address] [place] [address] Bilirubin [Mass/Vol] 0.6 mg/dL Normal 0.2 - 1.0 [facility] Comment on above: Performed By: #### 2 55433 #### [facility],[address] [place] [address]233 Calcium [Mass/Vol] 8.6 mg/dL Normal 8.5 - 10.1 [facility] Comment on above: Performed By: #### 2 82820 #### [facility],[address] [place] [address] Chloride [Moles/Vol] 102 mmol/L Normal 98 - 107 [facility] Comment on above: Performed By: #### 2 07531 #### [facility],[address] [place] [address] CMP with eGFR Normal [facility] Comment on above: Result Comment: COMP REHENSIVE METABOLIC PANEL Performed By: #### 2 20449 #### [facility],[address] [place] [address] CO2 [Moles/Vol] 28.8 mmol/L Normal 21.0 - 32.0 [facility] Comment on above: Performed By: #### 2 34330 #### [facility],[address] [place] [address] Creatinine [Mass/Vol] 1.14 mg/dL Normal 0.70 - 1.30 [facility] Comment on above: Performed By: #### 2 46253 #### [facility],[address] [place] [address] GFR/1.73 sq M.predicted among non-blacks MDRD (S/P/Bld) [Vol rate/Area] mL/min/{1.73_m2} Normal 60 - 999 [facility] Comment on above: Performed By: #### 2 02484 #### [facility],[address] [place] [address] Result Comment: ACCO RDING TO THE NATIONAL KIDNEY DISEASE EDUCATION PROGRAM(NKDE), A NORMAL eGFR IS A VALUE GREATER THAN OR EQUAL TO 60 ML/MIN/1.73 SQ METERS. CHRONIC KIDNEY DISEASE: <60mL/MIN/1.73 SQ METERS KIDNEY FAILURE: <15mL/MIN/1.73 SQ METERS THIS TEST SHOULD ONLY BE USED FOR PATIENTS 18 YEARS OF AGE AND OLDER. Globulin (S) [Mass/Vol] 2.9 g/dL Normal 1.5 - 3.8 [facility] Comment on above: Performed By: #### 2 71669 #### [place] [id number] Glucose [Mass/Vol] 144 mg/dL High 74 - 106 [facility] Comment on above: Performed By: #### 2 29769 #### [place] [id number] Potassium [Moles/Vol] 3.7 mmol/L Normal 3.5 - 5.1 [facility] Comment on above: Performed By: #### 2 68156 #### [address] [address] Protein [Mass/Vol] 6.6 g/dL Normal 6.4 - 8.2 [facility] Comment on above: Performed By: #### 2 57599 #### [facility],[address] [place] [address] Sodium [Moles/Vol] 139 mmol/L Normal 136 - 145 [facility] Comment on above: Performed By: #### 2 47276 #### [address] [address] Urea nitrogen [Mass/Vol] 18 mg/dL Normal 7 - 18 [facility] Comment on above: Performed By: #### 2 50038 #### [address] [address] NT-proBNPon 07-18-2021 Natriuretic peptide B (Bld) [Mass/Vol] 35 pg/mL Normal 0 - 125 [facility] Comment on above: Performed By: #### 2 47121 #### [facility],[address] [place] [address] TROPONIN I, HIGH SENSITIVITY on 10-09-2020 HS TROPONIN 6.3 pg/mL Normal 0.0 - 76.2 [facility] Comment on above: Performed By: #### 2 56403 #### [facility],[address] [place] [address] 13675 TSHon 10-09-2020 TSH Qn 3.43 m[IU]/L Normal 0.35 - 3.74 [facility] Comment on above: Performed By: #### 2 14398 #### [facility],[address] [place] [address] CCP IgG Abon 07-19-2020 Cyclic Citrullinated Peptide AB 2 Units Normal 0-19 [facility] Comment on above: Result Comment: INTE RPRETIVE INFORMATION: Cyclic Citrullinated Peptide Antibody, IgG 19 Units or less ................... Negative 20-39 Units ........................ Weak Positive 40-59 Units ........................ Moderate Positive 60 Units or greater ................ Strong Positive Anti-cyclic citrullinated peptide (anti-CCP), IgG antibodies are present in about 69-83 percent of patients with rheumatoid arthritis (RA) and have specificities of 93-95 percent. These autoantibodies may be present in the preclinical phase of disease, are associated with future RA development, and may predict radiographic joint destruction. Patients with weak positive results should be monitored and testing repeated. Performed By: [facility] [address] [place] [address] Residential Monitor: Sivan Neal MD Performed By: #### C CPIGG #### [facility] [address] [place], [place] [address] ANAon 07-17-2020 Antinuclear Antibodies, IFA Positive Abnormal [facility] Comment on above: Order Comment: Perfo rmed at: [facility] [place] [address] Armorer Technician: vEan Soni PhD, Phone: [phone] Result Comment: Nega tive <1:80 Borderline 1:80 Positive >1:80 Performed By: #### A NA #### [facility] RES[facility] Centriole Pattern [facility] Comment on above: Order Comment: Perfo rmed at: [place] [address] Armorer Technician: Evan Soni PhD, Phone: [phone] Performed By: #### A NA #### [facility] RESULTS Centromere Pattern Normal [facility] Comment on above: Order Comment: Perfo rmed at: [facility] [place] [address] Armorer Technician: Evan Soni PhD, Phone: [phone] Performed By: #### A NA #### [facility] RESULTS Homogeneous Pattern Normal [facility] Comment on above: Order Comment: Perfo rmed at: [facility] [place] [address] Armorer Technician: Evan Soni PhD, Phone: [phone] Performed By: #### A NA #### [facility] RESULTS Midbody Pattern [facility] Comment on above: Order Comment: Perfo rmed at: [facility] [place] [address] Armorer Technician: Evan Soni PhD, Phone: [phone] Performed By: #### A NA #### [facility] RESULTS Note: Comment [facility] Comment on above: Order Comment: Perfo rmed at: [facility] [place] [address] Armorer Technician: Evan Soni PhD, Phone: [phone] Result Comment: A po sitive NIECY result may occur in healthy individuals (low titer) or be associated with a variety of diseases. See interpretation chart which is not all inclusive: . Pattern Antigen Detected Suggested Disease Association Homogeneous DNA(ds,ss), SLE - High titers Nucleosomes, Histones Drug-induced SLE Speckled Sm, CHEF DE FROID, SCL-70, SLE,MCTD,PSS (diffuse form), SS-A/SS-B Sjogrens Nucleolar SCL-70, PM-1/SCL High titers Scleroderma, PM/DM Centromere Centromere PSS (limited form) w/Crest syndrome variable Nuclear Dot [id number] Primary Biliary Cirrhosis Nuclear GP210, Primary Biliary Cirrhosis Membrane asia A,B,C Performed By: #### A NA #### [facility] RESULTS Nucear Membrane Pattern [facility] Comment on above: Order Comment: Perfo rmed at: [facility] [place] [address] Armorer Technician: Evan Soni PhD, Phone: [phone] Performed By: #### A NA #### [facility] RESULTS Nuceolar Pattern [facility] Comment on above: Order Comment: Perfo rmed at: [facility] [place] [address] Armorer Technician: Evan Soni PhD, Phone: [phone] Performed By: #### A NA #### [facility] RESULTS Nuclear Dot Pattern [facility] Comment on above: Order Comment: Perfo rmed at: [facility] [place] [address] Armorer Technician: Evan Soni PhD, Phone: [phone] Performed By: #### A NA #### [facility] RESULTS PCNA Pattern [facility] Comment on above: Order Comment: Perfo rmed at: [facility] [place] [address] Armorer Technician: Evan Soni PhD, Phone: [phone] Performed By: #### A NA #### [facility] RESULTS Speckled Pattern [facility] Comment on above: Order Comment: Perfo rmed at: [facility] [place] [address] Armorer Technician: Evan Soni PhD, Phone: [phone] Performed By: #### A NA #### [facility] RESULTS Spindle Apparatus Pattern 1:160 [facility] Comment on above: Order Comment: Perfo rmed at: [facility] [place] [address] Armorer Technician: Evan Soni PhD, Phone: [phone] Performed By: #### A NA #### [facility] RESULTS C-Reactive Proteinon 021 CRP [Mass/Vol] mg/L Normal <=9.9 [facility] Comment on above: Performed By: #### U RICACD, CRPR, CMP #### [facility] [address] [place], [place] [id number] Comprehensive Metabolic Pane holden 07-13-2020 Albumin [Mass/Vol] 4.5 g/dL Normal 3.5-5.2 [facility] Comment on above: Performed By: #### U RICACD, CRPR, CMP #### [facility] [address] [place], [place] [id number] ALP [Catalytic activity/Vol] 67 U/L Normal 35-129 [facility] Comment on above: Performed By: #### U RICACD, CRPR, CMP #### [facility] [address] [place] [address] ALT [Catalytic activity/Vol] 25 U/L Normal <=41 [facility] Comment on above: Performed By: #### U RICACD, CRPR, CMP #### [facility] [address] [place] [address] Anion gap [Moles/Vol] 11 mmol/L Normal 8-15 [facility] Comment on above: Performed By: #### U RICACD, CRPR, CMP #### [facility] [address] [place], [place] [phone] AST [Catalytic activity/Vol] 15 U/L Normal <=40 [facility] Comment on above: Performed By: #### U RICACD, CRPR, CMP #### [facility] [address] [place], [place] [phone] Bili, Total 0.5 mg/dL Normal <=1.2 [facility] Comment on above: Performed By: #### U RICACD, CRPR, CMP #### [facility] [address] [place], [place] [phone] Calcium [Mass/Vol] 9.6 mg/dL Normal 8.6-10.6 [facility] Comment on above: Performed By: #### U RICACD, CRPR, CMP #### [facility] [address] [place] [phone] Chloride [Moles/Vol] 103 mmol/L Normal 98-107 [facility] Comment on above: Performed By: #### U RICACD, CRPR, CMP #### [facility] [address] [place] [phone] CO2 [Moles/Vol] 28 mmol/L Normal 22-29 [facility] Comment on above: Performed By: #### U RICACD, CRPR, CMP #### [facility] [address] [place] [phone] Creatinine [Mass/Vol] 1.0 mg/dL Normal 0.5-1.2 [facility] Comment on above: Performed By: #### U RICACD, CRPR, CMP #### [facility] [address] [place] [address] eGFR -Amer >=60 Normal >=60 [facility] Comment on above: Performed By: #### U RICACD, CRPR, CMP #### [facility] [address] [place] [address] GFR/1.73 sq M.predicted among non-blacks MDRD (S/P/Bld) [Vol rate/Area] mL/min/{1.73_m2} Normal >=60 [facility] Comment on above: Performed By: #### U RICACD, CRPR, CMP #### [facility] [address] [place] [phone] Glucose [Mass/Vol] 177 mg/dL High 74-109 [facility] Comment on above: Performed By: #### U RICACD, CRPR, CMP #### [facility] [address] [place] [address] Potassium [Moles/Vol] 4.4 mmol/L Normal 3.4-5.1 [facility] Comment on above: Performed By: #### U RICACD, CRPR, CMP #### [facility] [address] [place] [address]194 Prot Total 6.5 g/dL Normal 6.4-8.3 [facility] Comment on above: Performed By: #### U RICACD, CRPR, CMP #### [facility] [address] [place] [phone] Sodium [Moles/Vol] 142 mmol/L Normal 136-145 [facility] Comment on above: Performed By: #### U RICACD, CRPR, CMP #### [facility] [address] [place] [address] 29567 Urea nitrogen [Mass/Vol] 15 mg/dL Normal 6-23 [facility] Comment on above: Performed By: #### U RICACD, CRPR, CMP #### [facility] [address] [place] [address]251 Rheumatoid Factor (Quant)on 07-13-2020 Rheumatoid Factor <10 Normal <=13 [facility] Comment on above: Performed By: #### R F #### [facility] [address] [place] [address] Sed Rate - Westergrenon 04-2 Sed Rate 3 mm/hr Normal 0-10 [facility] Comment on above: Performed By: #### E SR #### [facility] [address] [place] [phone] Uric Acidon 07-13-2020 Urate [Mass/Vol] 4.9 mg/dL Normal 3.4-7.0 [facility] Comment on above: Performed By: #### U RICACD, CRPR, CMP #### [facility] [address] [place] [address] Laboratory - Chemistry and C hemistry - challengeon 05-26-2020 Calcium [Mass/Vol] 9.8 mg/dL Normal 8.6 - 10. 3 mg/dL [facility] Chloride [Moles/Vol] 101 mmol/L Normal 98 - 110 mmol/L [facility] Cholesterol [Mass/Vol] 209 mg/dL Abnormal [facility] Cholesterol in HDL [Mass/Vol] 35 mg/dL Abnormal [facility], [facility]. Cholesterol in LDL [Mass/Vol] 131 mg/dL Abnormal [facility], [facility].; [facility], [facility]. CO2 [Moles/Vol] 29 mmol/L Normal 20 - 32 mmol/L [facility], [facility].; [place] [employer] [facility], [facility]. Creatinine [Mass/Vol] 1.07 mg/dL Normal 0.70 - 1.33 mg/dL [facility], [facility].; [facility], [facility]. GFR/1.73 sq M.predicted among blacks MDRD (S/P/Bld) [Vol rate/Area] 88 mL/min/{1.73_m2} Normal [facility], [facility].; [place] [employer] [facility], [facility]. Glucose [Mass/Vol] 147 mg/dL Abnormal 65 - 99 mg/dL [facility], [facility].; [place] [employer] [facility], [facility]. Potassium [Moles/Vol] 4.0 mmol/L Normal 3.5 - 5.3 mmol/L [facility].; [place] [employer] [facility], [facility]. Sodium [Moles/Vol] 138 mmol/L Normal 135 - 146 mmol/L [facility], [facility].; [place] [employer] [facility], [facility]. Triglyceride [Mass/Vol] 277 mg/dL Abnormal [facility].; [place] [employer] [facility] Urate [Mass/Vol] 8.1 mg/dL Abnormal 4.0 - 8.0 mg/dL [facility], [facility].; [place] [employer], [facility]. Urea nitrogen [Mass/Vol] 16 mg/dL Normal 7 - 25 mg/dL [facility], [facility].; [employer], [facility]. Laboratory - Hematology and Cell countson 05-26-2020 HbA1c (Bld) [Mass fraction] 7.1 % Abnormal [facility].; [place], [employer]. No Panel Informationon 05-26 BUN/CREATININE RATIO NOT APPLICABLE Normal 6 - 22 [facility], [facility].; [employer] CHOL/HDLC RATIO 6.0 Abnormal [facility], [facility].; [employer] eGFR NON-AFR. NIUEAN 76 Normal [facility].; [employer] NON HDL CHOLESTEROL 174 Abnormal [facility].; [facility] Laboratory - Hematology and Cell countson 03-02-2020 HbA1c (Bld) [Mass fraction] 6.6 % Normal 4.6 - 7.1 % [facility]; [facility], [facility] Hemoglobin A1con 01-29-2020 HbA1c (Bld) [Mass fraction] 6.4 % High 4.3-5.6 [facility] Comment on above: Performed By: #### H BA1C #### [facility] Routine Lab [address] [place], [place] [id number] HbA1c (Bld) [Mass fraction] 137 mg/dL Normal [facility] Comment on above: Performed By: #### H BA1C #### [facility] Routine Lab [address] [place], [place] [address] Laboratory - Chemistry and C hemistry - challengeon 08-06-2019 Albumin/Creatinine DL <= 20 mg/L (U) [Mass ratio] 30-300 mg/g Abnormal [facility]; [facility], [facility] Creatinine (U) [Mass/Vol] 100 mg/dL Normal [facility]; [employer], [facility]. Laboratory - Hematology and Cell countson 08-06-2019 HbA1c (Bld) [Mass fraction] 6.1 % Normal 4.6 - 7.1 % [facility].; [employer], [employer]. Laboratory - Urinalysison Protein Ql (U) 80 mg/dL Normal [facility].; [employer], [employer]. No Panel Informationon 05-07 HEMOGLOBIN A1c Normal [facility].; [place] [employer] [facility]. PSA, TOTAL 2.6 ng/mL Normal [facility]; [place] [employer] [facility], [facility]. Laboratory - Chemistry and C hemistry - challengeon 04-28-2019 Albumin [Mass/Vol] 4.8 g/dL Normal 3.6 - 5.1 g/dL [facility], [facility].; [place] [employer] [facility], [facility] Albumin/Globulin [Mass ratio] 2.3 {ratio} Normal 1.0 - 2.5 [facility], [facility].; [facility], [facility]. ALP [Catalytic activity/Vol] 64 U/L Normal 35 - 144 U/L [facility].; [facility], [facility]. ALT [Catalytic activity/Vol] 39 U/L Normal 9 - 46 U/L [facility], [facility].; [facility], [facility]. AST [Catalytic activity/Vol] 18 U/L Normal 10 - 35 U/L [facility], [facility].; [facility], [facility]. Bilirubin [Mass/Vol] 0.8 mg/dL Normal 0.2 - 1.2 mg/dL [facility], [facility].; [facility], [facility]. Calcium [Mass/Vol] 9.5 mg/dL Normal 8.6 - 10. 3 mg/dL [facility], [facility].; [place] [employer] [facility], [facility]. Chloride [Moles/Vol] 102 mmol/L Normal 98 - 110 mmol/L [facility], [facility].; [facility] [employer], [facility]. Cholesterol [Mass/Vol] 248 mg/dL Abnormal [facility].; [employer], [facility]. Cholesterol in HDL [Mass/Vol] 36 mg/dL Abnormal [facility].; [place] [employer], [employer]. Cholesterol in LDL [Mass/Vol] 166 mg/dL Abnormal [facility], [facility].; [employer], [employer]. CO2 [Moles/Vol] 30 mmol/L Normal 20 - 32 mmol/L [facility], [facility].; [employer], [facility]. Creatinine [Mass/Vol] 1.17 mg/dL Normal 0.70 - 1.33 mg/dL [facility].; [employer], [facility]. GFR/1.73 sq M.predicted among blacks MDRD (S/P/Bld) [Vol rate/Area] 79 mL/min/{1.73_m2} Normal [facility], [facility].; [employer] Glucose [Mass/Vol] 165 mg/dL Abnormal 65 - 99 mg/dL [facility], [facility].; [employer] Potassium [Moles/Vol] 4.2 mmol/L Normal 3.5 - 5.3 mmol/L [facility].; [employer]. Protein [Mass/Vol] 6.9 g/dL Normal 6.1 - 8.1 g/dL [facility].; [employer]. Sodium [Moles/Vol] 138 mmol/L Normal 135 - 146 mmol/L [facility].; [employer]. Triglyceride [Mass/Vol] 300 mg/dL Abnormal [facility] [employer] [facility].; [employer] Urea nitrogen [Mass/Vol] 17 mg/dL Normal 7 - 25 mg/dL [facility] [employer] [facility].; [employer]. No Panel Informationon 04-28 BUN/CREATININE RATIO NOT APPLICABLE Normal 6 - 22 [facility]; [employer] CHOL/HDLC RATIO 6.9 Abnormal [facility].; [employer]. eGFR NON-AFR. NIUEAN 68 Normal [facility].; [employer] GLOBULIN 2.1 Normal 1.9 - 3.7 [facility] [employer]; [employer]. NON HDL CHOLESTEROL 212 Abnormal [facility] [employer]. Laboratory - Chemistry and C hemistry - challengeon 08-27-2018 Bilirubin Ql (U) Negative Normal [facility].; [employer]. Ketones Ql (U) Negative Normal [facility].; [employer]. pH (U) 5.5 [pH] Normal [facility] [employer]; [employer]. Specific gravity (U) [Rel density] 1.015 Normal [employer].; [employer]. Urobilinogen Qn (U) 0.2 mg/dL Normal [facility].; [employer]. Laboratory - Hematology and Cell countson 08-27-2018 Hemoglobin Ql (U) trace Normal [employer].; [employer]. Laboratory - Specimen inform ationon 08-27-2018 Appearance (U) clear Normal [facility].; [employer]. Color (U) yellow Normal [employer].; [employer]. Laboratory - Urinalysison Glucose Test strip (U) [Mass/Vol] Negative Normal [facility].; [employer]. Leukocyte esterase Test strip Ql (U) Negative Normal [facility].; [employer], [employer]. Nitrite Ql (U) Negative Normal [facility].; [employer]. Protein Ql (U) Negative Normal [facility] [employer]; [employer], [employer]. Laboratory - Chemistry and C hemistry - challengeon 03-28-2018 Albumin [Mass/Vol] 5.1 g/dL Normal 3.6 - 5.1 g/dL [place] [employer] [facility].; [place] [employer], [employer]. Albumin/Globulin [Mass ratio] 2.4 {ratio} Normal 1.0 - 2.5 [facility].; [place] [employer]. ALP [Catalytic activity/Vol] 68 U/L Normal 40 - 115 U/L [facility].; [employer], [employer]. ALT [Catalytic activity/Vol] 29 U/L Normal 9 - 46 U/L [facility] [employer]; [place], [employer]. AST [Catalytic activity/Vol] 17 U/L Normal 10 - 35 U/L [facility].; [employer], [employer]. Bilirubin [Mass/Vol] 0.8 mg/dL Normal 0.2 - 1.2 mg/dL [facility].; [employer], [employer]. Calcium [Mass/Vol] 9.7 mg/dL Normal 8.6 - 10. 3 mg/dL [facility].; [employer]. Chloride [Moles/Vol] 99 mmol/L Normal 98 - 110 mmol/L [place] [employer].; [employer], [employer]. Cholesterol [Mass/Vol] 265 mg/dL Abnormal [place] [employer].; [employer], [employer]. Cholesterol in HDL [Mass/Vol] 34 mg/dL Abnormal [place] [employer].; [employer], [employer]. Cholesterol in LDL [Mass/Vol] 178 mg/dL Abnormal 0 - 100 mg/dL [facility].; [facility], [facility]. Cholesterol non HDL [Mass/Vol] 231 mg/dL Abnormal [facility].; [facility], [facility]. Cholesterol.total/C holesterol in HDL [Mass ratio] 7.8 {ratio} Abnormal [facility].; [facility], [facility]. CO2 [Moles/Vol] 29 mmol/L Normal 20 - 32 mmol/L [facility].; [facility], [facility]. Creatinine [Mass/Vol] 1.14 mg/dL Normal 0.70 - 1.33 mg/dL [facility], [facility].; [facility], [facility]. GFR/1.73 sq M.predicted among blacks MDRD (S/P/Bld) [Vol rate/Area] 82 {ML/MIN/1.73M2} Normal [facility], [facility].; [facility], [facility]. GFR/1.73 sq M.predicted MDRD (S/P/Bld) [Vol rate/Area] 71 {ML/MIN/1.73M2} Normal [facility].; [place] [employer] [facility], [facility]. Globulin (S) [Mass/Vol] 2.2 g/dL Normal 1.9 - 3.7 g/dL [facility], [facility].; [place] [employer] [facility], [facility]. Glucose [Mass/Vol] 130 mg/dL Abnormal 65 - 99 mg/dL [facility], [facility].; [place] [employer] [facility], [facility]. Potassium [Moles/Vol] 4.3 mmol/L Normal 3.5 - 5.3 mmol/L [facility].; [facility], [facility]. Protein [Mass/Vol] 7.3 g/dL Normal 6.1 - 8.1 g/dL [facility], [facility].; [place] [employer] [facility], [facility]. Sodium [Moles/Vol] 137 mmol/L Normal 135 - 146 mmol/L [facility], [facility].; [place] [employer] [facility], [facility]. Triglyceride [Mass/Vol] 313 mg/dL Abnormal [facility], [facility].; [place] [employer] [facility], [facility]. Urea nitrogen [Mass/Vol] 18 mg/dL Normal 7 - 25 mg/dL [facility].; [place] [employer] [facility], [facility]. Urea nitrogen/Creatinine [Mass ratio] 16.0 mg/mg Normal 6 - 22 [facility]. Final Surgical Pathology Rep [facility] 03-05-2018 Final Surgical Pathology Report . Pathology ReportsAccession: Collected Date/Time: Received Date/Time: Pathologist:[id number] 03/03/2018 14:16 EST 03/04/2018 14:16 EST MD ALEXANDRA POTTER Final Surgical Pathology ReportDIAGNOSIS:CECUM, BIOPSY: TUBULAR ADENOMA.COMMENT:[facility] #[id number] INFORMATION:HISTORY OF POLYPSSPECIMEN:A CECUM POLYPSGROSS DESCRIPTION:Received in formalin labeled with the patient's name are two art glistening soft tissues averaging 0.5 cm. TS -1Dictated by Agatha ORTIZ ([facility])MICROSCOPIC DESCRIPTION:Slides reviewed.Electronically Signed byPathology Report verified by [facility] CenterElectronically signed by ALEXANDRA POTTER MDSign out Date: 03/05/2018 17:35Performing Lab: [facility], [address] [place] [address] ([place]) Comment on above: Performed By: #### S PFR ####[place] [address] Final Surgical Pathology Rep [facility] 08-08-2017 Final Surgical Pathology Report . Pathology ReportsAccession: Collected Date/Time: Received Date/Time: Pathologist:[id number] 08/05/2017 07:23 EDT 08/06/2017 07:23 EDT MD IRWIN SANDOVAL Final Surgical Pathology ReportDIAGNOSIS:GALLBLADD ER, CHOLECYSTECTOMY SPECIMEN -- MILD CHRONIC CHOLECYSTITIS WITH CHOLELITHIASIS AND CHOLESTEROL POLYP FORMATION.COMMENT:[facility]# [id number] INFORMATION:BILIARY COLIC / GALLBLADDER SLUDGESPECIMEN:A GALLBLADDERGROSS DESCRIPTION:Submitted in formalin consists of a gallbladder measuring 6.5 x 3 x 2.8 cm. The serosa is smooth and chauhdari-green. The wall measures up to 0.2 cm. thick. The mucosa is green and velvety. The lumen contains viscid green bile. Multiple cholesterol polyps are identified, There are multiple small mulberry shaped mixed stones ranging in size from less than 0.1 to 0.3 cm. in greatest dimension present. No mass lesions are present. RS-1 dictated by Sarah Sandoval M.D.Dictated by IRWIN SANDOVAL MDMICROSCOPIC DESCRIPTION:Slides reviewed.Electronically Signed byPathology Report verified by [facility] CenterElectronically signed by IRWIN Sroto out Date: 08/08/2017 10:22Performing Lab: [address] ([place]) Comment on above: Performed By: #### S PFR ####[place] [address] Laboratory - Chemistry and C hemistry - challengeon 08-07-2017 Glucose Glucometer (BldC) [Moles/Vol] 105 Normal 60 - 120 [facility] [employer] [facility]. Laboratory - Hematology and Cell countson 08-07-2017 HbA1c (Bld) [Mass fraction] 5.8 % Normal 4.6 - 7.1 % [facility] [employer].; [facility]. Final Surgical Pathology Rep [facility] 07-31-2017 Final Surgical Pathology Report . Pathology ReportsAccession: Collected Date/Time: Received Date/Time: Pathologist:[id number] 07/29/2017 14:05 EDT 07/30/2017 14:05 EDT MD ALEXANDRA POTTER Final Surgical Pathology ReportDIAGNOSIS:COLON @ 85 CM, BIOPSY: - SESSILE SERRATED POLYP.COMMENT:[facility]# [id number] INFORMATION:SCREENINGSPEC IMEN:A POLYP, COLON - @ 85 CM. [id number] DESCRIPTION:Received in formalin labeled 85 cm are 2 art glistening soft tissues, 0.4 and 0.6 cm. TS -1Dictated by AGATHA ORTIZ ([facility])MICROSCOPIC DESCRIPTION:Slides reviewed.Electronically Signed byPathology Report verified by [facility] CenterElectronically signed by ALEXANDRA Sorto out Date: 07/31/2017 15:31Performing Lab: [address] ([place]) Comment on above: Performed By: #### S PFR ####[place] [address] Laboratory - Chemistry and C hemistry - challengeon 01-24-2017 Cholesterol [Mass/Vol] 247 mg/dL Abnormal [employer]. Cholesterol in HDL [Mass/Vol] 30 mg/dL Abnormal [employer].; [employer], [employer]. Cholesterol in LDL [Mass/Vol] 165 mg/dL Abnormal [employer].; [employer], [employer]. Cholesterol non HDL [Mass/Vol] 218 mg/dL Abnormal [employer].; [employer], [employer]. Cholesterol.total/C holesterol in HDL [Mass ratio] 8.2 {ratio} Abnormal [employer].; [employer]. Triglyceride [Mass/Vol] 339 mg/dL Abnormal [employer].; [employer], [employer]. Laboratory - Chemistry and C hemistry - challengeon 08-27-2016 Calcium [Mass/Vol] 9.5 mg/dL Normal 8.6 - 10. 3 mg/dL [employer].; [employer], [employer]. Chloride [Moles/Vol] 106 mmol/L Normal 98 - 110 mmol/L [employer].; [employer], [employer]. CO2 [Moles/Vol] 27 mmol/L Normal 20 - 31 mmol/L [employer].; [employer], [employer]. Creatinine [Mass/Vol] 1.03 mg/dL Normal 0.70 - 1.33 mg/dL [employer], [employer].; [employer], [employer]. GFR/1.73 sq M.predicted among blacks MDRD (S/P/Bld) [Vol rate/Area] 94 {ML/MIN/1.73M2} Normal [employer].; [employer], [employer]. GFR/1.73 sq M.predicted MDRD (S/P/Bld) [Vol rate/Area] 81 {ML/MIN/1.73M2} Normal [employer].; [employer] Glucose [Mass/Vol] 136 mg/dL Abnormal 65 - 99 mg/dL [employer], [employer].; [employer], [employer]. Potassium [Moles/Vol] 4.3 mmol/L Normal 3.5 - 5.3 mmol/L [employer]. Sodium [Moles/Vol] 142 mmol/L Normal 135 - 146 mmol/L [facility].; [employer]. Urea nitrogen [Mass/Vol] 17 mg/dL Normal 7 - 25 mg/dL [facility].; [employer], [employer]. Urea nitrogen/Creatinine [Mass ratio] 16.6 mg/mg Normal 6 - 22 [facility].; [employer]. Laboratory - Chemistry and C hemistry - challengeon 05-30-2012 Bilirubin Ql (U) Negative Normal [facility].; [employer]. Ketones Ql (U) Negative Normal [facility].; [employer]. pH (U) 5.5 [pH] Normal 4.6 - 8.0 [facility].; [employer]. Specific gravity (U) [Rel density] 1.015 Normal 1.001 - 1.025 [facility].; [employer]. Laboratory - Hematology and Cell countson 05-30-2012 Hemoglobin Ql (U) small Abnormal [place] [employer]. Laboratory - Specimen inform ationon 05-30-2012 Appearance (U) clear Normal [facility] [employer]. Color (U) yellow Normal [facility].; [employer]. Laboratory - Urinalysison Glucose Test strip (U) [Mass/Vol] Negative Normal [facility] [employer]; [employer]. Leukocyte esterase Test strip Ql (U) Negative Normal [place] [employer].; [employer]. Nitrite Ql (U) Negative Normal [facility].; [employer]. Protein Ql (U) Trace Normal [facility] [employer]; [employer], [employer]. No Panel Informationon 05-30 UA - UROBILINOGEN 0.2 mg/dL Normal [place] [employer].; [employer]. Laboratory - Chemistry and C hemistry - challengeon 12-15-2011 Albumin [Mass/Vol] 4.0 g/dL Normal 3.5 - 5.0 g/dL [facility].; [facility] Albumin/Globulin [Mass ratio] 1.5 {ratio} Normal [facility]; [facility] ALP [Catalytic activity/Vol] 57 U/L Normal 50 - 136 U/L [facility].; [facility] ALT [Catalytic activity/Vol] 57 mmol/L Abnormal 12 - 49 mmol/L [facility]; [facility]. AST [Catalytic activity/Vol] 19 U/L Normal 15 - 37 U/L [facility]; [facility] Bilirubin [Mass/Vol] 0.6 mg/dL Normal 0.3 - 1.0 mg/dL [facility]; [facility], [facility] Calcium [Mass/Vol] 8.9 mg/dL Normal 8.4 - 10. 6 mg/dL [facility].; [facility] Chloride [Moles/Vol] 104 mmol/L Normal 98 - 110 mmol/L [facility]; [facility] Cholesterol [Mass/Vol] 248 mg/dL Abnormal 0 - 200 mg/dL [facility].; [facility], [facility]. Cholesterol in HDL [Mass/Vol] 30 mg/dL Abnormal 40 - 60 mg/dL [facility].; [facility], [facility]. Cholesterol in LDL [Mass/Vol] 165 mg/dL Abnormal 50.0 - 130.0 mg/dL [facility].; [facility]. Cholesterol in VLDL [Mass/Vol] 53 mg/dL Normal [facility]; [facility] Cholesterol.total/C holesterol in HDL [Mass ratio] - Normal 0 - 5.0 [facility]; [facility], [facility] CO2 [Moles/Vol] 28 {irene/L} Normal 22.0 - 32.0 {irene/L} [facility].; [place] [employer] [facility], [facility] Creatinine [Mass/Vol] 1.23 mg/dL Normal 0.6 - 1.4 mg/dL [facility].; [facility]. Globulin (S) [Mass/Vol] 2.7 g/dL Normal 1.5 - 3.8 g/dL [facility].; [facility], [facility]. Glucose [Mass/Vol] 111 mg/dL Abnormal 75 - 105 mg/dL [facility].; [facility], [facility] Potassium [Moles/Vol] 3.7 mmol/L Normal 3.50 - 5.00 meq/L [facility]; [facility], [facility] Protein [Mass/Vol] 6.7 g/dL Normal 6.4 - 8.2 g/dL [facility]; [facility], [facility]. Sodium [Moles/Vol] 140 mmol/L Normal 136 - 145 mmol/L [facility]; [facility], [facility] Triglyceride [Mass/Vol] 265 mg/dL Abnormal 40 - 150 mg/dL [facility]; [facility], [facility]. Urea nitrogen [Mass/Vol] 11.0 mg/dL Normal 7.0 - 20.0 mg/dL [facility].; [facility], [facility] Urea nitrogen/Creatinine [Mass ratio] 8.9 mg/mg Normal 0 - 30 [facility]; [facility] No Panel Informationon 12-14 GFR >60 Normal [facility]; [facility], [facility] GFR2 >60 Normal [facility]; [facility]. Laboratory - Chemistry and C hemistry - challengeon 06-08-2010 Bilirubin Ql (U) Negative Normal [facility].; [place] [employer] [facility], [facility]. Ketones Ql (U) Negative Normal [facility].; [facility], [facility]. pH (U) 7.0 [pH] Normal 4.6 - 8.0 [facility].; [facility], [facility]. Specific gravity (U) [Rel density] 1.025 Normal 1.001 - 1.025 [facility].; [facility] Laboratory - Hematology and Cell countson 06-08-2010 Hemoglobin Ql (U) trace, non-hemolyzed Abnormal [employer].; [employer]. Laboratory - Specimen inform ationon 06-08-2010 Appearance (U) clear Normal [facility] [employer].; [employer]. Color (U) yellow Normal [employer].; [employer]. Laboratory - Urinalysison Glucose Test strip (U) [Mass/Vol] Negative Normal [employer].; [employer]. Leukocyte esterase Test strip Ql (U) Negative Normal [employer].; [employer], [employer]. Nitrite Ql (U) Negative Normal [facility] [employer].; [employer]. Protein Ql (U) 100 mg/dL Abnormal [facility] [employer].; [employer]. No Panel Informationon 06-08 UA - UROBILINOGEN 1.0 mg/dL Normal [employer].; [employer]. Laboratory - Chemistry and C hemistry - challengeon 05-31-2010 Cholesterol [Mass/Vol] 203 mg/dL Abnormal 125 - 200 mg/dL [employer].; [employer]. Cholesterol in HDL [Mass/Vol] 32 mg/dL Abnormal [employer].; [employer], [employer]. Cholesterol in LDL [Mass/Vol] 129 mg/dL Normal [employer].; [employer]. Cholesterol.total/C holesterol in HDL [Mass ratio] 6.3 {ratio} Abnormal [employer].; [employer]. Glucose [Mass/Vol] 113 mg/dL Abnormal 65 - 99 mg/dL [employer].; [employer]. Triglyceride [Mass/Vol] 208 mg/dL Abnormal [employer].; [employer]. Vital Signs Date Time Vital Sign Value Performing Clinician Facility 04-09-2023 08:28-0500 Body height 185.42 cm Coby Gomez MA [employer].; [employer] 04-09-2023 08:28-0500 Body mass index (BMI) [Ratio] 27.76 kg/m2 Coby Gomez [facility].; [employer] [facility]. 04-09-2023 08:28-0500 Body surface area Derived from formula 2.2 m2 Coby Gomez MA [facility].; [place] [employer] [facility]. 04-09-2023 08:28-0500 Body weight 95.43 kg Coby Jason BRAVO [facility].; [place] [employer] [facility]. 04-09-2023 08:28-0500 Diastolic blood pressure 89 mm[Hg] Cobymelecio Gomez LAWRENCE [facility].; [employer]. Comment on above: Patient Position: Sitting; Cuff Location : Left Arm; Cuff Size: Standard 04-09-2023 08:28-0500 Heart rate 89 /min Cobymelecio Gomez LAWRENCE [facility].; [employer]. Comment on above: Pattern: Regular 04-09-2023 08:28-0500 Systolic blood pressure 131 mm[Hg] Coby Jason BRAVO [facility].; [employer]. Comment on above: Patient Position: Sitting; Cuff Location : Left Arm; Cuff Size: Standard 12-03-2022 14:39-0400 Body height 185.42 cm Jennifer Solomon RN [place] [employer] [facility].; [employer]. 12-03-2022 14:39-0400 Body mass index (BMI) [Ratio] 27.44 kg/m2 Jennifer Solomon RN [place] [employer] [facility].; [employer]. 12-03-2022 14:39-0400 Body surface area Derived from formula 2.19 m2 Jennifer Solomon RN [place] [employer] [facility].; [employer]. 12-03-2022 14:39-0400 Body temperature 98.5 [degF] Jennifer Solomon RN [place] [employer] [facility].; [employer]. Comment on above: Method: Tympanic 12-03-2022 14:39-0400 Body weight 94.35 kg Jennifer Solomon RN [place] [employer] [facility].; [employer]. 12-03-2022 14:39-0400 Diastolic blood pressure 75 mm[Hg] Jennifer Solomon RN [facility].; [employer]. Comment on above: Patient Position: Sitting; Cuff Location : Left Arm; Cuff Size: Standard 12-03-2022 14:39-0400 Heart rate 89 /min Jennifer Solomon RN [facility].; [employer]. Comment on above: Pattern: Regular 12-03-2022 14:39-0400 Systolic blood pressure 111 mm[Hg] Jennifer Solomon RN [facility].; [employer], [employer]. Comment on above: Patient Position: Sitting; Cuff Location : Left Arm; Cuff Size: Standard 09-19-2022 08:07-0400 Body height 185.42 cm Amanda Ingram MA [facility].; [employer], [facility]. 09-19-2022 08:07-0400 Body mass index (BMI) [Ratio] 27.97 kg/m2 Amanda Ingram MA [facility].; [employer], [facility]. 09-19-2022 08:07-0400 Body surface area Derived from formula 2.21 m2 Amanda Ingram MA [facility].; [employer] [facility], [facility]. 09-19-2022 08:07-0400 Body weight 96.16 kg Amanda Ingram MA [facility].; [employer], [facility]. 09-19-2022 08:07-0400 Diastolic blood pressure 85 mm[Hg] Amanda Ingram MA [facility].; [employer]. Comment on above: Patient Position: Sitting; Cuff Location : Left Arm; Cuff Size: Standard 09-19-2022 08:07-0400 Heart rate 85 /min Amanda Ingram MA [facility].; [employer]. Comment on above: Pattern: Regular 09-19-2022 08:07-0400 Systolic blood pressure 119 mm[Hg] Amanda Ingram MA [facility].; [employer]. Comment on above: Patient Position: Sitting; Cuff Location : Left Arm; Cuff Size: Standard 04-24-2022 07:54-0500 Body height 185.42 cm Ernestina Sheth [employer]EL [employer] [facility], Inc.; [employer] [facility], Inc. 04-24-2022 07:54-0500 Body mass index (BMI) [Ratio] 29.16 kg/m2 Ernestina Sheth [employer]EL [employer]NA[employer] [facility], Inc.; [employer] Inc[employer] 04-24-2022 07:54-0500 Body surface area Derived from formula 2.25 m2 Ernestina Sheth [facility], Inc.; [employer], Inc. 04-24-2022 07:54-0500 Body weight 100.25 kg Ernestina Sheth [facility], Inc.; [employer], Inc. 04-24-2022 07:54-0500 Diastolic blood pressure 89 mm[Hg] Ernestina Sheth [facility], Inc.; [employer], Inc. Comment on above: Patient Position: Sitting; Cuff Location : Left Arm; Cuff Size: Large 04-24-2022 07:54-0500 Heart rate 91 /min Ernestina Sheth [facility], Inc.; [employer], Inc. Comment on above: Pattern: Regular 04-24-2022 07:54-0500 Systolic blood pressure 138 mm[Hg] Ernestina Sheth [facility], Inc.; [employer], [employer]. Comment on above: Patient Position: Sitting; Cuff Location : Left Arm; Cuff Size: Large 10-31-2021 08:32-0400 Body height 185.42 cm Kat Cotto LPN [facility], [facility].; [employer] [facility], Inc. 10-31-2021 08:32-0400 Body mass index (BMI) [Ratio] 28.76 kg/m2 Kat Cotto [employer]EL [employer]NA[employer] [facility], Inc.; [employer], Inc[employer] 10-31-2021 08:32-0400 Body surface area Derived from formula 2.23 m2 Kat Cotto LPN [facility], Inc.; [employer], [employer] 10-31-2021 08:32-0400 Body weight 98.88 kg Kat Cotto LPN [facility], [facility].; [facility], [facility]. 10-31-2021 08:32-0400 Diastolic blood pressure 78 mm[Hg] Kat Cotto LPN [facility], [facility].; [place] [employer] [facility], [employer]. Comment on above: Patient Position: Sitting; Cuff Location : Left Arm; Cuff Size: Standard 10-31-2021 08:32-0400 Heart rate 85 /min Kat Cotto LPN [facility], Inc.; [employer], [employer]. Comment on above: Pattern: Regular 10-31-2021 08:32-0400 Systolic blood pressure 119 mm[Hg] Kat Cotto LPN [facility], Inc.; [employer] [facility], [employer]. Comment on above: Patient Position: Sitting; Cuff Location : Left Arm; Cuff Size: Standard 05-02-2021 14:11-0500 Body height 185.42 cm Kta Cotto LPN [facility], [facility].; [place] [employer] [facility], Inc. 05-02-2021 14:11-0500 Body mass index (BMI) [Ratio] 28.76 kg/m2 Kat Cotto LPN [facility], [facility].; [place] [employer] [facility], Inc. 05-02-2021 14:11-0500 Body surface area Derived from formula 2.23 m2 Kat Cotto LPN [facility], [facility].; [place] [employer] [facility], [facility]. 05-02-2021 14:11-0500 Body weight 98.88 kg Kat Cotto LPN [facility], [facility].; [facility], [facility]. 05-02-2021 14:11-0500 Diastolic blood pressure 69 mm[Hg] Kat Cotto LPN [facility], [facility].; [employer] [facility], [employer]. Comment on above: Patient Position: Sitting; Cuff Location : Left Arm; Cuff Size: Standard 05-02-2021 14:11-0500 Heart rate 88 /min Kat Cotto LPN [facility], [facility].; [employer], [employer]. Comment on above: Pattern: Regular 05-02-2021 14:11-0500 Systolic blood pressure 103 mm[Hg] Kat Cotto LPN [facility], Inc.; [employer], [employer]. Comment on above: Patient Position: Sitting; Cuff Location : Left Arm; Cuff Size: Standard 12-02-2020 08:00-0400 Body height 185.42 cm Jennifer Solomon RN [place] [employer] [facility].; [employer]. 12-02-2020 08:00-0400 Body mass index (BMI) [Ratio] 29.29 kg/m2 Jennifer Solomon RN [place] [employer] [facility].; [employer]. 12-02-2020 08:00-0400 Body surface area Derived from formula 2.25 m2 Jennifer Solomon RN [place] [employer] [facility].; [employer] [facility]. 12-02-2020 08:00-0400 Body weight 100.7 kg Jennifer Solomon RN [place] [employer] [facility]Br[facility].; [employer]. 12-02-2020 08:00-0400 Diastolic blood pressure 97 mm[Hg] Jennifer Solomon RN [place] [employer] [facility].; [employer]. Comment on above: Patient Position: Sitting; Cuff Location : Left Arm; Cuff Size: Standard 12-02-2020 08:00-0400 Heart rate 82 /min Jennifer Solomon RN [employer] [facility]Br[facility].; [employer]. Comment on above: Pattern: Regular 12-02-2020 08:00-0400 Systolic blood pressure 161 mm[Hg] Jennifer Solomon RN [place] [employer] [facility].; [employer]. Comment on above: Patient Position: Sitting; Cuff Location : Left Arm; Cuff Size: Standard 10-07-2020 10:43-0400 Body height 185.42 cm Jennifer Solomon RN [place] [employer] [facility].; [employer]. 10-07-2020 10:43-0400 Body mass index (BMI) [Ratio] 28.63 kg/m2 Jennifer Solomon RN [place] [employer] [facility].; [employer]. 10-07-2020 10:43-0400 Body surface area Derived from formula 2.23 m2 Jennifer Solomon RN [place] [employer] [facility].; [employer]. 10-07-2020 10:43-0400 Body weight 98.43 kg Jennifer [facility] RN [facility].; [employer]. 10-07-2020 10:43-0400 Diastolic blood pressure 107 mm[Hg] Jennifer Solomon RN [facility].; [employer]. Comment on above: Patient Position: Sitting; Cuff Location : Left Arm; Cuff Size: Large 10-07-2020 10:43-0400 Heart rate 86 /min Jennifer Solomon RN [facility].; [employer]. Comment on above: Pattern: Regular 10-07-2020 10:43-0400 Inhaled oxygen concentration 20 % Jennifer Solomon RN [facility].; [place] [employer]. Comment on above: Room air 10-07-2020 10:43-0400 Inhaled oxygen concentration 21 % Jennifer Solomon RN [place] [employer] [facility].; [employer]. Comment on above: Room air 10-07-2020 10:43-0400 SaO2% (BldA) [Mass fraction] 98 % Jennifer Solomon RN [place] [employer] [facility].; [employer]. 10-07-2020 10:43-0400 Systolic blood pressure 155 mm[Hg] Jennifer Solomon RN [place] [employer].; [employer]. Comment on above: Patient Position: Sitting; Cuff Location : Left Arm; Cuff Size: Large 06-02-2020 08:08-0500 Body height 185.42 cm Dimitry Chen MD Work Phone: [place] [employer].; [employer]. 06-02-2020 08:08-0500 Body mass index (BMI) [Ratio] 28.89 kg/m2 Dimitry Chen MD Work Phone: [employer].; [employer]. 06-02-2020 08:08-0500 Body surface area Derived from formula 2.24 m2 Dimitry Chen MD Work Phone: [employer].; [employer]. 06-02-2020 08:08-0500 Body weight 99.34 kg Dimitry Chen MD Work Phone: [facility].; [employer] 06-02-2020 08:08-0500 Diastolic blood pressure 80 mm[Hg] Dimitry Chen MD Work Phone: [facility].; [employer]. Comment on above: Patient Position: Sitting; Cuff Location : Left Arm; Cuff Size: Standard 06-02-2020 08:08-0500 Heart rate 87 /min Dimitry Chen MD Work Phone: [place] [employer] [facility], [employer].; [employer]. Comment on above: Pattern: Regular 06-02-2020 08:08-0500 Systolic blood pressure 136 mm[Hg] Dimitry Chen MD Work Phone: [facility].; [employer]. Comment on above: Patient Position: Sitting; Cuff Location : Left Arm; Cuff Size: Standard 04-04-2020 09:02-0500 Body height 185.42 cm [facility], Inc.; [employer], [employer]. 04-04-2020 09:02-0500 Body mass index (BMI) [Ratio] 28.5 kg/m2 [facility], Inc.; [employer], [employer] 04-04-2020 09:02-0500 Body surface area Derived from formula 2.22 m2 [facility], [facility].; [employer], [employer]. 04-04-2020 09:02-0500 Body weight 97.[address] [facility] [employer] [facility], Inc.; [employer]. 04-04-2020 09:02-0500 Diastolic blood pressure 101 mm[Hg] [facility], Inc.; [employer]. Comment on above: Patient Position: Sitting; Cuff Location : Left Arm; Cuff Size: Large 04-04-2020 09:02-0500 Heart rate 88 /min Ernestina Sheth [employer] [facility].; [employer], [employer]. Comment on above: Pattern: Regular 04-04-2020 09:02-0500 Systolic blood pressure 141 mm[Hg] Ernestina Sheth [employer] [facility].; [employer] Comment on above: Patient Position: Sitting; Cuff Location : Left Arm; Cuff Size: Large 03-02-2020 08:14-0500 Body height 185.42 cm Kat Cotto LPN [facility], [facility].; [employer], [employer]. 03-02-2020 08:14-0500 Body mass index (BMI) [Ratio] 28.89 kg/m2 Kat Cotto LPN [facility].; [place] [employer] [facility], Inc. 03-02-2020 08:14-0500 Body surface area Derived from formula 2.24 m2 Kat Cotto LPN [facility].; [place] [employer] [facility], Inc. 03-02-2020 08:14-0500 Body weight 99.34 kg Kat Cotto LPN [facility], [facility].; [employer], [employer]. 03-02-2020 08:14-0500 Diastolic blood pressure 85 mm[Hg] Kat Cotto LPN [facility], [facility].; [employer], [employer]. Comment on above: Patient Position: Sitting; Cuff Location : Left Arm; Cuff Size: Standard 03-02-2020 08:14-0500 Heart rate 87 /min Kat Cotto LPN [facility].; [employer], [employer]. Comment on above: Pattern: Regular 03-02-2020 08:14-0500 Systolic blood pressure 148 mm[Hg] Kat Cotto LPN [facility], [facility].; [employer], [employer]. Comment on above: Patient Position: Sitting; Cuff Location : Left Arm; Cuff Size: Standard 08-06-2019 08:02-0400 Body height 185.42 cm Jennifer Solomon RN [facility], [facility].; [employer] 08-06-2019 08:02-0400 Body mass index (BMI) [Ratio] 28.76 kg/m2 Jennifer Solomon RN [facility], [facility].; [facility]. 08-06-2019 08:02-0400 Body surface area Derived from formula 2.23 m2 Jennifer Solomon RN [facility].; [facility]. 08-06-2019 08:02-0400 Body weight 98.88 kg Jennifer Solomon RN [facility].; [place] [employer] [facility]. 08-06-2019 08:02-0400 Diastolic blood pressure 91 mm[Hg] Jennifer Solomon RN [facility].; [place] [employer] [facility]. Comment on above: Patient Position: Sitting; Cuff Location : Left Arm; Cuff Size: Standard 08-06-2019 08:02-0400 Heart rate 78 /min Jennifer Solomon RN [facility].; [place] [employer]. Comment on above: Pattern: Regular 08-06-2019 08:02-0400 Systolic blood pressure 159 mm[Hg] Jennifer Solomon RN [facility].; [place] [employer] [facility]. Comment on above: Patient Position: Sitting; Cuff Location : Left Arm; Cuff Size: Standard 05-07-2019 14:38-0500 Body height 185.42 cm Kat Cotto LPN [facility].; [facility], [facility]. 05-07-2019 14:38-0500 Body mass index (BMI) [Ratio] 29.29 kg/m2 Kat Cotto LPN [facility].; [facility]. 05-07-2019 14:38-0500 Body surface area Derived from formula 2.25 m2 Kat Cotto LPN [facility].; [place] [employer] [facility]. 05-07-2019 14:38-0500 Body weight 100.7 kg Kat Cotto LPN [facility], [facility].; [place] [employer] [facility], [facility]. 05-07-2019 14:38-0500 Diastolic blood pressure 83 mm[Hg] Kat Cotto LPN [facility], [facility].; [employer] [facility]. Comment on above: Patient Position: Sitting; Cuff Location : Left Arm; Cuff Size: Standard 05-07-2019 14:38-0500 Heart rate 91 /min Kat Cotto LPN [employer].; [employer]. Comment on above: Pattern: Regular 05-07-2019 14:38-0500 Systolic blood pressure 124 mm[Hg] Kat Cotto LPN [employer].; [employer]. Comment on above: Patient Position: Sitting; Cuff Location : Left Arm; Cuff Size: Standard 01-02-2019 08:46-0400 Body height 185.42 cm Dimitry Chen MD Work Phone: [employer].; [employer]. 01-02-2019 08:46-0400 Body mass index (BMI) [Ratio] 28.89 kg/m2 Dimitry Chen MD Work Phone: [employer]; [employer]. 01-02-2019 08:46-0400 Body surface area Derived from formula 2.24 m2 Dimitry Chen MD Work Phone: [employer]; [employer]. 01-02-2019 08:46-0400 Body weight 99.34 kg Dimitry Chen MD Work Phone: [employer].; [employer]. 01-02-2019 08:46-0400 Diastolic blood pressure 88 mm[Hg] Dimitry Chen MD Work Phone: [employer].; [employer]. Comment on above: Patient Position: Sitting; Cuff Location : Left Arm; Cuff Size: Standard 01-02-2019 08:46-0400 Heart rate 78 /min Dimitry Chen MD Work Phone: [employer]. Comment on above: Pattern: Regular 01-02-2019 08:46-0400 Systolic blood pressure 136 mm[Hg] Dimitry Chen MD Work Phone: [employer]. Comment on above: Patient Position: Sitting; Cuff Location : Left Arm; Cuff Size: Standard 08-26-2018 10:36-0400 Body height 185.42 cm Hemanta Gogoi (scribe) [employer] [facility] [employer] 08-26-2018 10:36-0400 Body mass index (BMI) [Ratio] 29.42 kg/m2 Hemanta Gogoi (scribe) [employer] [facility], Inc.; [employer] 08-26-2018 10:36-0400 Body surface area Derived from formula 2.25 m2 Hemanta Gogoi (scribe) [employer] 08-26-2018 10:36-0400 Body weight 101.15 kg Hemanta Gogoi (scribe) [employer] [facility], [facility] [employer] 08-26-2018 10:36-0400 Diastolic blood pressure 84 mm[Hg] Hemanta Gogoi (scribe) [employer] [facility], [facility] [employer] Comment on above: Patient Position: Sitting; Cuff Location : Left Arm; Cuff Size: Standard 08-26-2018 10:36-0400 Heart rate 98 /min Hemqueta Beachgoi (scribe) [employer] [facility], [facility] [employer]. Comment on above: Pattern: Regular 08-26-2018 10:36-0400 Systolic blood pressure 154 mm[Hg] Hemanta Yonggoi (scribe) [employer] [facility] [employer] Comment on above: Patient Position: Sitting; Cuff Location : Left Arm; Cuff Size: Standard 04-14-2018 13:13-0500 Body height 185.42 cm Hemanta Yonggoi (scribe) [employer] [facility], [facility] [employer] 04-14-2018 13:13-0500 Body mass index (BMI) [Ratio] 28.76 kg/m2 Hemanta Gogoi (scribe) [employer] 04-14-2018 13:13-0500 Body surface area Derived from formula 2.23 m2 Hemanta Gogoi (scribe) [employer] 04-14-2018 13:13-0500 Body weight 98.88 kg Hemanta Gogoi (scribe) [employer]. 04-14-2018 13:13-0500 Diastolic blood pressure 90 mm[Hg] [facility] (scribe) [employer]. Comment on above: Patient Position: Sitting; Cuff Location : Left Arm; Cuff Size: Large 04-14-2018 13:13-0500 Heart rate 86 /min [facility] newScalegoi (scribe) [employer]. Comment on above: Pattern: Regular 04-14-2018 13:13-0500 Systolic blood pressure 138 mm[Hg] City[employer]aresanta Gogoi (scribe) [employer]. Comment on above: Patient Position: Sitting; Cuff Location : Left Arm; Cuff Size: Large 03-12-2018 11:31-0500 Diastolic blood pressure 102 mm[Hg] Dimitry Chen MD Work Phone: [employer]. Comment on above: Patient Position: Sitting; Cuff Location : Left Arm; Cuff Size: Standard 03-12-2018 11:31-0500 Systolic blood pressure 158 mm[Hg] Dimitry Chen MD Work Phone: [employer]. Comment on above: Patient Position: Sitting; Cuff Location : Left Arm; Cuff Size: Standard 03-12-2018 10:59-0500 Body height 185.42 cm Dimitry Chen MD Work Phone: [employer]. 03-12-2018 10:59-0500 Body mass index (BMI) [Ratio] 29.42 kg/m2 Dimitry Chen MD Work Phone: [employer]. 03-12-2018 10:59-0500 Body surface area Derived from formula 2.25 m2 Dimitry Chen MD Work Phone: [employer]. 03-12-2018 10:59-0500 Body weight 101.15 kg Dimitry Chen MD Work Phone: [place] [employer]. 03-12-2018 10:59-0500 Diastolic blood pressure 102 mm[Hg] Dimitry Chen MD Work Phone: [employer] [employer]. Comment on above: Patient Position: Sitting; Cuff Location : Right Arm; Cuff Size: Standard 03-12-2018 10:59-0500 Heart rate 79 /min Dimitry Chen MD Work Phone: [place] [employer]. Comment on above: Pattern: Regular 03-12-2018 10:59-0500 Systolic blood pressure 182 mm[Hg] Dimitry Chen MD Work Phone: [place] [employer]. Comment on above: Patient Position: Sitting; Cuff Location : Right Arm; Cuff Size: Standard 08-07-2017 10:28-0400 Body height 185.42 cm Ariadne Potter Madelyn [facility] [employer] [facility].; [employer]. 08-07-2017 10:28-0400 Body mass index (BMI) [Ratio] 28.1 kg/m2 Ariadne M Madelyn [facility] [employer]. 08-07-2017 10:28-0400 Body surface area Derived from formula 2.21 m2 Ariadne M Madelyn [facility] [employer].; [employer]. 08-07-2017 10:28-0400 Body weight 96.62 kg Ariadne M [facility].; [employer]. 08-07-2017 10:28-0400 Diastolic blood pressure 120 mm[Hg] Ariadne Potter Madelyn [facility].; [employer]. Comment on above: Patient Position: Sitting; Cuff Location : Right Arm; Cuff Size: Standard 08-07-2017 10:28-0400 Heart rate 91 /min Ariadne Ptoter Madelyn [facility] [employer]. Comment on above: Pattern: Regular 08-07-2017 10:28-0400 Systolic blood pressure 151 mm[Hg] Ariadne Espinosa LPN [facility] [employer]. Comment on above: Patient Position: Sitting; Cuff Location : Right Arm; Cuff Size: Standard 05-30-2017 10:18-0500 Body height 185.42 cm Yuriy Diego (Scribe) [facility], [facility].; [employer] 05-30-2017 10:18-0500 Body mass index (BMI) [Ratio] 28.1 kg/m2 Yuriy Diego (Scribe) [facility] [employer] 05-30-2017 10:18-0500 Body surface area Derived from formula 2.21 m2 [facility] (Scribe) [place] [employer] [facility] [employer] 05-30-2017 10:18-0500 Body weight 96.62 kg [facility] (Scribe) [place] [employer] [facility] [employer], [employer]. 05-30-2017 10:18-0500 Diastolic blood pressure 102 mm[Hg] Yuriy Diego (Scribe) [place] [employer] [facility] [employer]. Comment on above: Patient Position: Sitting; Cuff Location : Right Arm; Cuff Size: Standard 05-30-2017 10:18-0500 Heart rate 90 /min [facility] (Scribe) [facility] [employer] Comment on above: Pattern: Regular 05-30-2017 10:18-0500 Systolic blood pressure 136 mm[Hg] Yuriy Diego (Scribe) [place] [employer] [facility] [employer]. Comment on above: Patient Position: Sitting; Cuff Location : Right Arm; Cuff Size: Standard 05-30-2017 09:43-0500 Body height 185.42 cm [facility] (Scribe) [place] [employer] 05-30-2017 09:43-0500 Body mass index (BMI) [Ratio] 28.1 kg/m2 Yuriy Diego (Scribe) [place] [employer] 05-30-2017 09:43-0500 Body surface area Derived from formula 2.21 m2 Yuriy Diego (Scribe) [place] [employer] [facility] [employer] 05-30-2017 09:43-0500 Body weight 96.62 kg Yuriy Diego (Scribe) [facility] [employer] 05-30-2017 09:43-0500 Diastolic blood pressure 102 mm[Hg] Yuriy Diego (Scribe) [facility] [employer] Comment on above: Patient Position: Sitting; Cuff Location : Left Arm; Cuff Size: Standard 05-30-2017 09:43-0500 Heart rate 90 /min Yuriy Diego (Scribe) [facility] [employer] Comment on above: Pattern: Regular 05-30-2017 09:43-0500 Systolic blood pressure 156 mm[Hg] Yuriy Diego (Scribe) [facility] [employer] Comment on above: Patient Position: Sitting; Cuff Location : Left Arm; Cuff Size: Standard 02-07-2017 08:53-0500 Body height 185.42 cm Yuriy Diego (Scribe) [place] [employer] [facility] [employer] 02-07-2017 08:53-0500 Body mass index (BMI) [Ratio] 29.42 kg/m2 Yuriy Diego (Scribe) [place] [employer] [facility] [employer] 02-07-2017 08:53-0500 Body surface area Derived from formula 2.25 m2 Yuriyjanes Cortez (Scribe) [place] [employer] [facility].; [employer] 02-07-2017 08:53-0500 Body weight 101.15 kg Yuriy Diego (Scribe) [employer] 02-07-2017 08:53-0500 Diastolic blood pressure 102 mm[Hg] Yuriyjanes Cortez (Scribe) [employer] Comment on above: Patient Position: Sitting; Cuff Location : Left Arm; Cuff Size: Standard 02-07-2017 08:53-0500 Heart rate 95 /min Yuriy Diego (Scribe) [employer]. Comment on above: Pattern: Regular 02-07-2017 08:53-0500 Systolic blood pressure 160 mm[Hg] Yuriy Sale) [facility] [employer]. Comment on above: Patient Position: Sitting; Cuff Location : Left Arm; Cuff Size: Standard 02-07-2017 08:16-0500 Body height 185.42 cm Jennifer Solomon RN [facility] [employer] [facility].; [employer]. 02-07-2017 08:16-0500 Body mass index (BMI) [Ratio] 29.42 kg/m2 Jennifer Solomon RN [place] [employer] [facility].; [employer]. 02-07-2017 08:16-0500 Body surface area Derived from formula 2.25 m2 Jennifer Solomon RN [place] [employer]. 02-07-2017 08:16-0500 Body weight 101.15 kg Jennifer Solomon RN [employer]. 02-07-2017 08:16-0500 Diastolic blood pressure 108 mm[Hg] Jennifer Solomon RN [employer] [facility].; [employer]. Comment on above: Patient Position: Sitting; Cuff Location : Right Arm; Cuff Size: Standard 02-07-2017 08:16-0500 Heart rate 95 /min Jennifer Solomon RN [place] [employer] [facility].; [employer]. Comment on above: Pattern: Regular 02-07-2017 08:16-0500 Systolic blood pressure 158 mm[Hg] Jennifer Solomon RN [employer]. Comment on above: Patient Position: Sitting; Cuff Location : Right Arm; Cuff Size: Standard 08-27-2016 07:57-0400 Body height 185.42 cm Darnell Ann) [place] [employer] [facility].; [employer]. 08-27-2016 07:57-0400 Body mass index (BMI) [Ratio] 28.63 kg/m2 Darnell Mohan (Malathi) [place] [employer] 08-27-2016 07:57-0400 Body surface area Derived from formula 2.23 m2 DarnellyouwhoMarques (Scribe) [employer] 08-27-2016 07:57-0400 Body weight 98.43 kg Darnell Marques (Scribe) [employer] 08-27-2016 07:57-0400 Diastolic blood pressure 86 mm[Hg] Darnell Marques (Scribe) [employer] Comment on above: Patient Position: Sitting; Cuff Location : Left Arm; Cuff Size: Large 08-27-2016 07:57-0400 Heart rate 86 /min [employer] (Scribe) [employer] Comment on above: Pattern: Regular 08-27-2016 07:57-0400 Systolic blood pressure 144 mm[Hg] Darnell Marques (Scribe) [employer] Comment on above: Patient Position: Sitting; Cuff Location : Left Arm; Cuff Size: Large 06-25-2016 10:48-0400 Body height 180.34 cm Darnell Marques (Scribe) [employer] 06-25-2016 10:48-0400 Body mass index (BMI) [Ratio] 30.96 kg/m2 Darnell Marques (Scribe) [employer] 06-25-2016 10:48-0400 Body surface area Derived from formula 2.2 m2 Darnell Marques (Scribe) [employer], [employer]. 06-25-2016 10:48-0400 Body weight 100.7 kg DarnellyouwhoMarques (Scribe) [employer] 06-25-2016 10:48-0400 Diastolic blood pressure 102 mm[Hg] Darnell Marques (Scribe) [employer] Comment on above: Patient Position: Sitting; Cuff Location : Left Arm; Cuff Size: Standard 04-03-2017 10:48-0400 Heart rate 80 /min Darnell Mohan (Scribe) [facility] [employer] Comment on above: Pattern: Regular 06-25-2016 10:48-0400 Systolic blood pressure 166 mm[Hg] Darnell Mohan (Scribe) [place] [employer] [facility] [employer] Comment on above: Patient Position: Sitting; Cuff Location : Left Arm; Cuff Size: Standard 06-02-2012 13:13-0400 Diastolic blood pressure 84 mm[Hg] Ernestina Sheth [facility] [employer] [facility], [facility].; [employer] Comment on above: Patient Position: Sitting; Cuff Location : Left Arm; Cuff Size: Large 06-02-2012 13:13-0400 Heart rate 78 /min Ernestina Sheth [facility] [employer] [facility], [facility].; [employer] Comment on above: Pattern: Regular 06-02-2012 13:13-0400 Systolic blood pressure 120 mm[Hg] Ernestina Sheth [facility] [employer] Comment on above: Patient Position: Sitting; Cuff Location : Left Arm; Cuff Size: Large 05-30-2012 15:03-0500 Body height 180.34 cm Nikki Sandhu [facility] [employer] [facility], [facility] [employer] 05-30-2012 15:03-0500 Body mass index (BMI) [Ratio] 30.68 kg/m2 Nikki Sandhu [facility].; [employer] 05-30-2012 15:03-0500 Body surface area Derived from formula 2.2 m2 Nikki Sandhu HOTEL OR MOTEL MANAGER [employer] [facility], [facility].; [employer] 05-30-2012 15:03-0500 Body weight 99.79 kg Nikki Sandhu [facility] Center[facility], Inc.; [employer], [employer] 03-31-2012 09:59-0500 Body height 186.06 cm Meagan Nation [facility] [employer], [employer] 03-31-2012 09:59-0500 Body mass index (BMI) [Ratio] 28.3 kg/m2 Meagan Foleylacey NEWSOME [facility], [facility].; [employer] 03-31-2012 09:59-0500 Body surface area Derived from formula 2.23 m2 Meagan Foleylacey NEWSOME [facility].; [employer], [employer] 03-31-2012 09:59-0500 Body weight 97.98 kg Meagan Welacey NEWSOME [facility] [employer], [employer] 03-31-2012 09:59-0500 Diastolic blood pressure 96 mm[Hg] Meagan Welacey [facility] [employer], [employer]. Comment on above: Patient Position: Sitting; Cuff Location : Left Arm; Cuff Size: Standard 03-31-2012 09:59-0500 Heart rate 88 /min Meagan Welacey NEWSOME [facility], [facility] [employer], [employer]. Comment on above: Pattern: Regular 03-31-2012 09:59-0500 Systolic blood pressure 141 mm[Hg] Meagan Nation [employer] [facility], Inc.; [employer], [employer]. Comment on above: Patient Position: Sitting; Cuff Location : Left Arm; Cuff Size: Standard 12-26-2011 15:24-0400 Body height 186.06 cm Savannah Rangel LPN [facility], Inc.; [employer] 12-26-2011 15:24-0400 Body mass index (BMI) [Ratio] 27.65 kg/m2 Savannah L Juan Carlos NEWSOME [facility], Inc.; [employer] 12-26-2011 15:24-0400 Body surface area Derived from formula 2.21 m2 Savannah Rangel HOTEL OR MOTEL MANAGER [place] [employer] [facility], [facility].; [employer], [facility]. 12-26-2011 15:24-0400 Body weight 95.71 kg Savannah Rangel LPN [place] [employer] [facility], Inc.; [employer] 12-26-2011 15:24-0400 Diastolic blood pressure 86 mm[Hg] Savannah Rangel [employer] [place] [employer]. Comment on above: Patient Position: Sitting; Cuff Location : Left Arm; Cuff Size: Standard 12-26-2011 15:24-0400 Heart rate 94 /min Savannah Rangel LPN [facility], Inc.; [employer] Comment on above: Pattern: Regular 12-26-2011 15:24-0400 Systolic blood pressure 127 mm[Hg] Savannah Rangel LPN [place] [employer] [facility], Inc.; [employer] Comment on above: Patient Position: Sitting; Cuff Location : Left Arm; Cuff Size: Standard 06-08-2010 14:56-0400 Body height 186.06 cm Salima Felix RN Work Phone: [place] [employer], [employer] 06-08-2010 14:56-0400 Body mass index (BMI) [Ratio] 27.91 kg/m2 Salima Felix RN Work Phone: [place] [employer].; [employer]. 06-08-2010 14:56-0400 Body surface area Derived from formula 2.22 m2 Salima Felix RN Work Phone: [employer].; [employer], [employer]. 06-08-2010 14:56-0400 Body weight 96.62 kg Salima Felix RN Work Phone: [employer].; [employer], [employer]. 06-08-2010 14:56-0400 Heart rate 94 /min Salima Felix RN Work Phone: [employer].; [employer]. Comment on above: Pattern: Regular Encounters Encounter Date Encounter Type Care Provider Facility Start: 06-06-2023 End: 06-07-2023 ambulatory [facility] Start: 06-06-2023 End: 06-06-2023 Subsequent hospital visit by physician [address] Comment on above: Hyperlipidemia, unsp ecified Start: 04-09-2023 End: 04-09-2023 Patient encounter status Coby Gomez MA [facility] [employer]. Start: 04-09-2023 End: 04-09-2023 Periodic preventive med est patient 40-64yrs Isabel Chu PA-C [facility] Start: 04-09-2023 Review Isabel Chu P A-C Work Phone: [facility] Start: 04-04-2023 End: 04-05-2023 Orders Isabel Chu PA-C Work Phone: [place] [employer] [facility] Start: 03-11-2023 End: 03-11-2023 Orders Isabel Chu PA-C Work Phone: [place] [employer] [facility] Start: 12-03-2022 End: 12-03-2022 Office outpatient visit 15 minutes Isabel Chu PA-C Work Phone: [employer] Start: 09-19-2022 End: 09-19-2022 Office outpatient visit 25 minutes Isabel Chu PA-C Work Phone: [employer] Start: 06-01-2022 [facility] Start: 04-24-2022 End: 04-24-2022 Office outpatient visit 40 minutes Isabel Chu PA-C Work Phone: [employer] Start: 10-31-2021 End: 10-31-2021 Patient encounter status Isabel Chu PA-C Work Phone: [employer]; [employer]. Start: 10-31-2021 End: 10-31-2021 Periodic preventive med est patient 40-64yrs Isabel Chu PA-C Work Phone: [employer] Start: 10-24-2021 End: 10-24-2021 Orders Isabel Chu PA-C Work Phone: [employer] Start: 07-10-2021 End: 07-10-2021 Admission to establishment Isabel Chu PA-C Work Phone: [employer] Start: 05-03-2021 End: 05-03-2021 Orders Isabel Chu PA-C Work Phone: [employer] Start: 05-02-2021 End: 05-02-2021 Office outpatient visit 25 minutes Isabel Chu PA-C Work Phone: [employer] Start: 04-24-2021 End: 04-24-2021 Orders Isabel Chu PA-C Work Phone: [employer] Start: 04-20-2021 End: 04-20-2021 Orders Isabel Chu PA-C Work Phone: [employer] Start: 12-02-2020 End: 12-02-2020 Office outpatient visit 25 minutes Isabel Chu PA-C Work Phone: [employer] Start: 10-12-2020 End: 10-12-2020 Telephone follow-up Isabel Chu PA-C Work Phone: [employer] Start: 10-11-2020 End: 10-11-2020 Medication Isabel Chu PA-C Work Phone: [employer] Start: 10-09-2020 End: 10-09-2020 Emergency department patient visit [facility] Start: 10-07-2020 End: 10-07-2020 Office outpatient visit 15 minutes Isabel Chu PA-C Work Phone: [employer] Start: 07-13-2020 End: 07-14-2020 ambulatory [facility] Start: 06-21-2020 End: 06-21-2020 Orders Isabel Chu PA-C Work Phone: [employer] Start: 06-02-2020 End: 06-02-2020 Office outpatient visit 25 minutes Isabel Chu PA-C Work Phone: [employer] Start: 05-26-2020 End: 05-26-2020 Orders Isabel Chu PA-C Work Phone: [employer]. Start: 04-04-2020 End: 04-04-2020 Office outpatient visit 15 minutes Isabel Chu PA-C Work Phone: [employer]. Start: 03-02-2020 End: 03-02-2020 Office outpatient visit 25 minutes Isabel Chu PA-C Work Phone: [employer] Start: 02-09-2020 End: 02-09-2020 Telephone follow-up Isabel Chu PA-C Work Phone: [employer] Start: 02-03-2020 End: 02-03-2020 Telephone follow-up Isabel Chu PA-C Work Phone: [employer]. Start: 08-06-2019 End: 08-06-2019 Office outpatient visit 25 minutes Isabel Chu PA-C Work Phone: [employer]. Start: 05-07-2019 End: 05-07-2019 Office outpatient visit 25 minutes Isabel Chu PA-C Work Phone: [employer] Start: 05-07-2019 End: 05-07-2019 Patient encounter status Kat Cotto LPN [employer]. Start: 04-28-2019 End: 04-29-2019 Orders Isabel Chu PA-C Work Phone: [employer] Start: 01-02-2019 End: 01-02-2019 Office outpatient visit 25 minutes Isabel Chu PA-C Work Phone: [employer] Start: 08-27-2018 End: 08-28-2018 Orders Isabel Chu PA-C Work Phone: [employer] Start: 08-26-2018 End: 08-26-2018 Office outpatient visit 25 minutes Isabel Chu PA-C Work Phone: [employer]. Start: 04-14-2018 End: 04-14-2018 Office outpatient visit 25 minutes Isabel Chu PA-C Work Phone: [employer]. Start: 03-28-2018 End: 03-31-2018 Orders Isabel Chu PA-C Work Phone: [employer]. Start: 03-12-2018 End: 03-13-2018 Office outpatient visit 25 minutes Isabel Chu PA-C Work Phone: [employer]. Start: 08-07-2017 End: 08-09-2017 Office outpatient visit 15 minutes Isabel Chu PA-C Work Phone: [employer] Start: 08-02-2017 End: 08-02-2017 Historical Summary Isabel Chu PA-C Work Phone: [employer]. Start: 06-07-2017 End: 06-07-2017 Orders Isabel Chu PA-C Work Phone: [employer]. Start: 05-30-2017 End: 05-30-2017 Office outpatient visit 15 minutes Isabel Chu PA-C Work Phone: [employer] Start: 02-07-2017 End: 02-07-2017 Office outpatient visit 15 minutes Isabel Chu PA-C Work Phone: [employer]. Start: 02-07-2017 End: 02-07-2017 Patient encounter status Isabel Cuh PA-C Work Phone: [employer] Start: 01-24-2017 End: 01-24-2017 Orders Isabel Chu PA-C Work Phone: [employer] Start: 12-18-2016 End: 12-18-2016 Orders Isabel Chu PA-C Work Phone: [employer] Start: 11-14-2016 End: 11-14-2016 Telephone follow-up Isabel Chu PA-C Work Phone: [facility] [employer] Start: 08-27-2016 End: 08-27-2016 Office outpatient visit 15 minutes Isabel Chu PA-C Work Phone: [employer]. Start: 06-25-2016 End: 06-25-2016 Patient encounter procedure Isabel Chu PA-C Work Phone: [employer]. Start: 06-02-2012 End: 06-02-2012 Nursing evaluation of patient and report Isabel Chu PA-C Work Phone: [facility] [employer] Start: 05-31-2012 End: 05-31-2012 Medication Isabel Chu PA-C Work Phone: [employer]. Start: 05-30-2012 End: 05-30-2012 Patient encounter procedure Isabel Chu PA-C Work Phone: [employer] Start: 05-30-2012 End: 05-30-2012 Routine general medical examination at a health care facility Nikki Sandhu LPN [employer].; [employer]. Start: 05-29-2012 End: 05-29-2012 Orders Isabel Chu PA-C Work Phone: [employer]. Start: 05-29-2012 End: 05-29-2012 Historical Summary Isabel Chu PA-C Work Phone: [employer]. Start: 03-31-2012 End: 04-01-2012 Patient encounter procedure Isabel Chu PA-C Work Phone: [employer]. Start: 12-26-2011 End: 12-28-2011 Patient encounter procedure Isabel Chu PA-C Work Phone: [employer] Start: 06-08-2010 End: 06-08-2010 Patient encounter procedure Isabel Chu PA-C Work Phone: [employer]. Start: 06-08-2010 End: 06-08-2010 Routine general medical examination at a health care facility Isabel Chu PA-C Work Phone: [employer]. Start: 05-31-2010 End: 05-31-2010 Orders Isabelvenice Chu PA-C Work Phone: [employer]. Start: 05-31-2010 End: 05-31-2010 Routine general medical examination at a health care facility Isabel Chu PA-C Work Phone: [employer].; [employer] Start: 05-08-2010 End: 05-08-2010 Orders Isabel Chu PA-C Work Phone: [employer]. Start: 05-08-2010 End: 05-08-2010 Routine general medical examination at a health care facility Isabel Chu PA-C Work Phone: [employer].; [employer] Follow-up encounter Jennifer kendall RN [employer].; [employer] Follow-up encounter Isabel roman PA-C Work Phone: [employer].; [employer] Patient encounter status Ольга Whitlock [employer].; [employer] [facility] Procedures Date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
== END | disposition home or self-care (01) ==
LOC: US 07:10
PROVIDERS: PCP Internal Medicine; Referring Provider Internal Medicine; Visit Provider Internal Medicine
DX: Z00.00 Encounter for general adult medical examination without abnormal findings (principal)

== ENCOUNTER → 2024-04-24 | Outpatient (CLI) | payer OTHER, SELFPAY | END | disposition home or self-care (01) | LOC: PSN 07:56 | PROVIDERS: PCP Internal Medicine; Referring Provider Internal Medicine; Visit Provider Internal Medicine | DX: R00.2 Palpitations (principal) | CPT/HCPCS: 93225; 93226 ==

== ENCOUNTER → 2024-05-22 | Outpatient (CLI) | payer OTHER, SELFPAY ==
--- NOTE | 2024-05-22 06:12 | CDU_ITS ---
Reason For Study Reason For Study: Syncope Rt. Velocities/BP Lt. Velocities/BP Prox CCA 78/17 cm/sec. Prox CCA 114/18 cm/sec. Mid CCA 69/21 cm/sec. Mid CCA 111/29 cm/sec. Dist CCA 77/20 cm/sec. Dist CCA 70/23 cm/sec. Prox ICA 64/15 cm/sec. Prox ICA 73/19 cm/sec. Mid ICA 56/22 cm/sec. Mid ICA 64/27 cm/sec. Dist ICA 74/33 cm/sec. Dist ICA 55/23 cm/sec. Rt. ICA/CCA = 1.1. Lt. ICA/CCA = 0.7. Prox ECA 121/21 cm/sec. Prox ECA 222/40 cm/sec. Rt. Vert. 33/3 cm/sec. Lt. Vert. 62/24 cm/sec. Right Extracranial There is heterogeneous, irregular atherosclerotic plaque noted in the right common carotid artery. There is heterogeneous, irregular atherosclerotic plaque noted in the right internal carotid artery. There is intimal thickening but no significant atherosclerotic plaque noted in the right external carotid artery. Antegrade flow is noted in the right vertebral artery. High resistant waveform noted Rt Vert A. Left Extracranial There is heterogeneous, irregular atherosclerotic plaque noted in the left common carotid artery. There is heterogeneous, smooth atherosclerotic plaque noted in the left internal carotid artery. There is heterogeneous, irregular atherosclerotic plaque noted in the left external carotid artery. Antegrade flow is noted in the left vertebral artery. Procedure Carotid Duplex 28361. This is a Carotid Duplex examination using B-mode, color flow and specral Doppler. Exam performed in department. VL/Carotid Duplex Ultrasound Interpretation Summary Mild (<50%) stenosis right extracranial internal carotid. Mild (<50%) stenosis left extracranial internal carotid. Flow within the vertebral arteries is antegrade bilaterally. Elevated velocities in the left external carotid artery are suggestive of stenosis >50%. Ordering Physician: Reina Wolff Referring Physician: Reina Wolff Performed By: Lilly Howe RDCS, RVT
--- NOTE | 2024-05-23 11:02 | STRESSREP_ITS ---
Stress Test Report Date: 05/22/2024 Procedure: Exercise tolerance test/imaging study Indications: Syncope Consent: Per the patient Procedure: The patient exercised on a Lucian protocol for 9 minutes and 15 seconds achieving a peak heart rate of 144 bpm (91% predicted maximal heart rate) with a peak blood pressure 178/86 mmHg and a peak MET capacity of 10.9 METs. The baseline ECG demonstrated normal sinus rhythm. The peak exercise ECG demonstrated no significant ischemic changes. EKG during recovery revealed no significant ischemic changes [There were no cardiac dysrhythmias pretest, during exercise, or recovery]. The functional capacity was considered excellent for age. There was [no complaint of chest discomfort during exercise or recovery]. The examination was discontinued secondary to achieving target heart rate. Impression: 1. Technically adequate (percent predicted maximal heart rate greater than 85%) exercise tolerance test 2. Stress test is negative for exercise-induced EKG changes of ischemia 3. The test test is negative for exercise-induced chest pain 4. Functional capacity is excellent for age 5. Nuclear images pending Myocardial perfusion imaging study: Technique: The patient was injected with 11.9 mCi of technetium 99m Cardiolite and subsequently rest SPECT Cardiolite nuclear imaging was obtained in the horizontal long, vertical long, and short axis views. The patient exercised on a Lucian protocol. Please see above for details. The patient was injected with 35.3 mCi of technetium 99m Cardiolite and subsequently stress SPECT Cardiolite nuclear imaging was obtained in the horizontal long, vertical long, and short axis views. A gated Cardiolite study at peak stress was obtained. Interpretation: Rest and stress SPECT Cardiolite nuclear imaging status post realignment, normalization, and attenuation correction, demonstrates no evidence of significant ischemia or infarction. The gated Cardiolite study demonstrates no significant regional wall motion abnormalities. The reported LVEF is 61%. Impression: 1. There is no evidence of significant ischemia or infarction. 2. The gated Cardiolite study reports an LVEF of 61%. This note was generated with [id number] software. It may contain incorrect words, spelling, and punctuation that were not noted in checking the note before signing.
== END | disposition home or self-care (01) ==
PROVIDERS: PCP Internal Medicine; Referring Provider Internal Medicine; Visit Provider Internal Medicine
DX: R55 Syncope and collapse (principal); I25.10 Atherosclerotic heart disease of native coronary artery without angina pectoris
CPT/HCPCS: 78452; 93017; 93880; A9500; A4216

== ENCOUNTER → 2024-06-12 | Outpatient (CLI) | payer OTHER, SELFPAY ==
--- NOTE | 2024-06-12 09:16 | CT_ITS ---
PROCEDURE: CTA HEAD AND NECK W/ CONTRAST 06/12/2024 REASON FOR EXAM: CTA OF BOTH CAROTID ARTERIES (ATTN EXTERNAL CAROTID) - ABNORMAL C TECHNIQUE: CTA imaging of the head and neck from the aortic arch to the skull vertex with intravenous contrast. 3D reconstructions. Coronal and Sagittal reconstruction series were provided. One or more dose reduction techniques were used (e.g., Automated exposure control, adjustment of the mA and/or kV according to patient size, use of iterative reconstruction technique). CONTRAST: Isovue 370 VOLUME: 100mL RADIATION DOSE SUMMARY: CTDlvol: 28 mGy DLP: 1685.72 mGycm COMPARISON: None FINDINGS: Aortic Arch: Normal size and branching pattern. Mild atherosclerotic plaque. Brachiocephalic and Subclavians: Mild atherosclerotic plaque without significant stenosis. RIGHT Carotid: Right CCA: Unremarkable. Right ICA: Mild calcified and soft plaque. Maximum stenosis (NASCET): <50 % Right ECA: Unremarkable. LEFT Carotid: Left CCA: Unremarkable. Left ICA: Mild calcified and soft plaque. Maximum stenosis (NASCET): <50 % Left ECA: Unremarkable. Vertebrals: Codominant. Arise from the subclavians. Both vertebrals form the basilar. RIGHT Vertebral: Unremarkable. LEFT Vertebral: Unremarkable. Anatomy: [place] of [place] anatomy is normal. Aneurysm or avm: No intracranial aneurysms or large vascular malformations are identified. Anterior cerebral arteries: Unremarkable: Middle cerebral arteries: Unremarkable. Basilar artery: Unremarkable. Posterior cerebral arteries: Unremarkable. Other major branches of the posterior circulation: Unremarkable. Major venous structures: Unremarkable. CT/CTA Head AND Neck W/ Contrast IMPRESSION: RIGHT CAROTID: Calcified plaque at the carotid bifurcation causing less than 50 % narrowing of the right internal carotid artery LEFT CAROTID: Calcific plaque at the carotid bifurcation causing less than 50% narrowing. VERTEBRALS: Unremarkable INTRACRANIAL: Menorrhagia Reading Location: [place] [address]
[2024-06-12 09:34] LABS: CREATININE FINGERSTICK 1.1 mg/dL (0.70-1.30); EGFR FINGERSTICK > 60.0000 mL/min (>60)
== END | disposition home or self-care (01) ==
PROVIDERS: PCP Internal Medicine; Referring Provider Internal Medicine; Visit Provider Internal Medicine
DX: Z01.812 Encounter for preprocedural laboratory examination (principal); R93.89 Abnormal findings on diagnostic imaging of other specified body structures
CPT/HCPCS: 70496; 70498; Q9967; A4216

== ENCOUNTER → 2024-08-10 | Outpatient (CLI) | payer OTHER, SELFPAY ==
[2024-08-11 13:08] LABS: PSA, Free 0.54 ng/mL; PSA, Free % 12.6 % (.)
== END | disposition home or self-care (01) ==
LOC: LAB 09:01
PROVIDERS: PCP Internal Medicine; Referring Provider Urology; Visit Provider Urology
DX: C61 Malignant neoplasm of prostate (principal)
CPT/HCPCS: 36415; 84153; 84154

== ENCOUNTER → 2025-02-04 | Outpatient (CLI) | payer OTHER, SELFPAY ==
[2025-02-04 10:31] LABS: Hematocrit 43.4 % (40-54); Hemoglobin 15.3 g/dL (13.0-16.5); Immature Granulocytes Count 0.030 X10^3/uL (0.0-0.0); Mean Corp Hgb Conc 35.3 g/dL (32-36); Mean Corpuscular Volume 87.5 fL (80-94); Mean Platelet Vol. 9.8 fl (6.2-12.0); NRBC Flagged by Analyzer 0 % (0-5); Platelet Count 179 K/mm3 (150-450); RBC Distribution Width CV 12.5 % (11.6-14.6); RBC Distribution Width SD 39.8 fl (35.1-43.9); Red Blood Count 4.96 M/mm3 (4.6-6.2); White Blood Count 6.2 K/mm3 (4.4-11.0)
[2025-02-04 11:04] LABS: Creatinine, Urine (random) 179.00 mg/dL (39.00-259.00); Microalbumin,Random Urine 33.7 mg/L (<20 mg/L)
[2025-02-04 11:09] LABS: AST(SGOT) 16 U/L (<=37); Alanine Aminotransfer ALT/SGPT 17 U/L (<=46); Albumin, Serum 4.4 g/dL (3.4-4.8); Alkaline Phosphatase 53 U/L (40-129); Anion Gap 9 (5-15); BUN 15 mg/dL (4-19); BUN/Creat Ratio 13.2 RATIO (10-20); Calcium,Total 9.4 mg/dL (7.6-11.0); Carbon Dioxide 29.5 mmol/L (21.0-32.0); Chloride 102 mmol/L (98-108); Cholesterol 130 mg/dL (<=200); Globulin 2.3 g/dL (2.2-4.2); Glucose 125 mg/dL (70-99); Low Density Lipoprotein Calc. 66 mg/dL; Potassium 4.1 mmol/L (3.3-5.1); Triglycerides 107 mg/dL; Very Low Density Lipoprotein 21 mg/dL (5-40); cholesterol:hdl ratio screen 2.95
== END | disposition home or self-care (01) ==
LOC: MTLAB 08:41
PROVIDERS: PCP Internal Medicine; Referring Provider Internal Medicine; Visit Provider Internal Medicine
DX: I10 Essential (primary) hypertension (principal); E11.21 Type 2 diabetes mellitus with diabetic nephropathy; E78.5 Hyperlipidemia, unspecified
CPT/HCPCS: 36415; 80053; 80061; 82043; 82570; 83036; 85025

== ENCOUNTER → 2025-02-04 | Outpatient (CLI) | payer OTHER, SELFPAY ==
--- NOTE | 2025-02-04 07:18 | US_ITS ---
PROCEDURE: ABD LIMITED W/ ELASTOGRAPHY REASON FOR EXAM: HEPATIC FIBROSIS DUE TO NONALCOHOLIC FATTY LIVER DISEASE COMPARISON: None. TECHNIQUE: Procedure Code: [id number] Modality: US Procedure: ABD LIMITED W/ ELASTOGRAPHY Right upper quadrant abdominal ultrasound. Shel[employer]X ElastQ Imaging shear wave elastography for non-invasive assessment of liver tissue stiffness. Марина EPIQ Elite. FINDINGS: LIVER: Size: Unremarkable Length: 16.4 cm Echotexture: Normal Contour: Normal Lesions: None identified Elastography: EQI Med: 6.4 kPa EQI Med Mao: 1.47 m/s IQR/Med: 13.2 %* GALLBLADDER: Surgically absent. COMMON BILE DUCT: Normal measuring 5.7 mm. . PANCREAS: Normal Visualized portions of the right kidney are unremarkable except for 2, adjacent cysts in the upper pole. The largest cyst measures 2.4 cm 2.9 cm 2.3 cm.. No right upper quadrant ascites. US/ABD Limited w/ Elastography IMPRESSION: Mild hepatic fibrosis. Status post cholecystectomy. Small renal cysts. Reference Values: SRU <1.37 m/s (5.7kPa): No to mild fibrosis 1.37 m/s - 2.2 m/s: Moderate to severe fibrosis >2.2 m/s (15kPa): Significant fibrosis / cirrhosis METAVIR Score F2 or higher: 1.34 m/s (5.7kPa) F3 or higher: 1.55 m/s (7.3kPa) F4: 1.80 m/s (10kPa) * If the IQR/Med is >30%, the variance in the measurements is a large and the a ccuracy of the measurement may be in question. Reading Location: [place] [address]
--- OUTSIDE RECORDS SUMMARY | 2025-02-04 07:35 | XMS RPT_ITS | CCD ---
Author Organization [facility] Care Team Providers Care Commercial Drafter Name Role Phone JENNIFER LOVELL Attending Unavailable JENNIFER LOVELL Primary Care Unavailable JENNIFER LOVELL Admitting Unavailable DIANA Chu Primary Care Provider Xiomara INSIDE CHANNEL ACCOUNT MANAGER, INSIDE CHANNEL ACCOUNT MANAGER-C Jenny Attending Provider Xiomara INSIDE CHANNEL ACCOUNT MANAGER, INSIDE CHANNEL ACCOUNT MANAGER-C Jenny Referring Provider DIANA Chu Referring Provider [phone] DIANA Webb Attending Provider Dr. Lucian Connelly Attending Provider [phone] Clint INSIDE CHANNEL ACCOUNT MANAGER, INSIDE CHANNEL ACCOUNT MANAGER-C Isabel Potter Attending Provider DIANA Chu Primary Care Provider Dr. Jeffrey Marshall Attending Provider Dr. Jeffrey Marshall Other Provider Dr. Yohannes Rand Attending Provider Dr. Yohannes Rand Referring Provider Dr. Yohannes Rand Other Provider DIANA Chu Primary Care Provider DIANA Chu Referring Provider DIMITRY CHEN Consulting Unavailable SOHAIL WILKINSON DO Attending Unavailable DIDSOHAIL YAÑEZ DO Primary Care Unavailable DIDSOHAIL YAÑEZ DO Admitting Unavailable PROVIDER, UNKNOWN Consulting Unavailable PROVIDER, UNKNOWN Consulting Unavailable PROVIDER, UNKNOWN Consulting Unavailable DIANA Chu Primary Care Provider [phone] DIANA Chu Referring Provider DIANA Webb Attending Provider Clint INSIDE CHANNEL ACCOUNT MANAGER, INSIDE CHANNEL ACCOUNT MANAGER-C Isabel Potter Attending Provider SKINCARE Attending Unavailable SKINCARE Consulting Unavailable SKINCARE Unavailable Vlad LINTON, Isabel Ruiz Unavailable Jeffrey VERAS, Dr. Jennifer Guerrero Unavailable Isidro VERAS, Dr. Zaiid Unavailable ENT Provider Unavailable Unavailable Senthil ALFREDO, Steph Unavailable Unavailable Dereck VERAS, Ken Vivas Unavailable Juan Jose BRAVO, Amanda Unavailable Unavailable Gogoi (scribe), Hemanta Unavailable Unavaila ble Kolby EMBROIDERY WORKER, Ольга Unavailable Unavailable Ochoa VERAS, Dimitry Guerrero Unavailable Jairo, Anisha C Unavailable Unavailable Jason BRAVO, Coby Unavailable Unavailable Yadiel EMBROIDERY WORKER, Kat Unavailable Unavailable Juanito ALFREDO, Jennifer Guerrero Unavailable Unavaila ble Martheclarence EMBROIDERY WORKER, Juliana Unavailable Unavailable Marques (Scribe), Darnell Unavailable Unavailab marvin Felix RN, Salima Unavailable Mutersbaugh EMBROIDERY WORKER, Bernie K Unavailable Unavai rosales Cortez (Scribe), Yuriy Unavailable Unavailab le Sushil, Steph L Unavailable Franklinert EMBROIDERY WORKER, Savannah L Unavailable Unavailab le Madelyn EMBROIDERY WORKER, Ariadne M Unavailable Unavailab le Domenic EMBROIDERY WORKER, Ernestina Sierra Unavailable Unavailab le Wengerd EMBROIDERY WORKER, Meagan Unavailable Unavailabl e Phoebe EMBROIDERY WORKER, Nikki N Unavailable Unavaila ble Zaugg EMBROIDERY WORKER, Tresa Unavailable Unavailable Unavailable Unavailable Alden Melendez DO Primary Care Provider DIANA Chu Primary Care Provider DIANA Chu Referring Provider DIANA Webb Attending Provider Dr. Alden Melendez DO Primary Care Provider Nirali VERAS, Dr. Melendez Attending Provider Fast DO, Dr. Huang Attending Provider Fast DO, Dr. Huang Referring Provider Haleigh VERAS, Dr. Ayala Attending Provider Fast DO, Dr. Huang Other Provider Jed VERAS, Dr. Constantin Guerrero Attending Provider [phone] AIDANANDRÉS Referring Unavailable FAST, ALDEN A Primary Care Unavailable Fast, Alden Attending Unavailable Fast, Alden Referring Unavailable Fast, Alden Primary Care Unavailable Fast, Alden Referring Unavailable Nagajothi, Jamie Attending Unavailabl e Fast, Alden Primary Care Unavailable Fast, Alden Referring Unavailable Nirali, Al Attending Unavailable Fast, Alden Primary Care Unavailable Fast, Alden Referring Unavailable Nagajothi, Jamie Attending Unavailabl e Fast, Alden Primary Care Unavailable Fast, Alden Consulting Unavailable Fast, Alden Referring Unavailable Fast, Alden Primary Care Unavailable Fast, Alden Attending Unavailable Nirali, Dover Attending Unavailable Fast, Alden Primary Care Unavailable Fast, Adlen Referring Unavailable Fast, Alden Primary Care Unavailable Fast, Alden Attending Unavailable Fast, Alden Primary Care Unavailable Fast, Alden Attending Unavailable Fast, Alden Referring Unavailable Fast, Alden Primary Care Unavailable Andrés Bermudez Attending Unavailable AidanAndrés Referring Unavailable Medications Current Medications Medication Drug Class(es) Dates Sig (Normalized) Sig (Original) allopurinol 100 mg oral tablet (19 sources) Xanthine Oxidase Inhibitor Start: 04-22-2024 allopurinoL 100 mg tablet ; 1 (one) Tablet daily for 0 days Quantity: 90 {Tablet} Refills: 1 Ordered: 22-Apr-2024 ROYER Chu Start: 22-Apr-2024 Start: 10-28-2023 allopurinoL 10 0 mg tablet ; 1 (one) Tablet daily for 0 days Quantity: 90 {Tablet} Refills: 1 Ordered: 28-Oct-2023 ROYER Chu Start: 28-Oct-2023 Start: 10-21-2020 take 1 tablet by stacia once daily Allopurinol 100 mg tablet Active 100 mg PO DAILY October 21, 2020 12:00am cholecalciferol 0.025 mg oral tablet (20 sources) Vitamin D Start: 05-27-2023 take 1 tablet by mouth once daily Cholecalciferol (Vitamin D3) 25 mcg (1,000 unit) tablet Active 5000 U PO DAILY May 27, 2023 11:48am Start: 10-24-2020 End: 05-27-2023 take 1 tablet by mouth once daily Cholecalciferol (Vitamin D3) 25 mcg (1,000 unit) tablet Discontinued 25 ug PO DAILY October 24, 2020 12:00am May 27, 2023 11:49am take 1 capsule by mo [facility] once daily Vitamin D3 50 MCG (1999 UT) Oral Capsule ; 1 daily (50 MCG (1999 UT)) FreeStyle Blane 2 [place] (11 sources) Start: 07-06-2022 FreeStyle Libr e 2 [place] ; 1 (one) Device daily for 0 days Quantity: 1 {Each} Refills: 1 Ordered: 06-Jul-2022 ROYER Rose Start: 06-Jul-2022 Comments: One device Comment on above: One device FreeStyle Blane 2 Sensor kit (11 sources) Start: 07-09-2022 FreeStyle Libr e 2 Sensor kit ; as directed for 0 days Quantity: 6 {Each} Refills: 1 Ordered: 09-Jul-2022 MD Ken Harden Start: 09-Jul-2022 lovastatin 20 mg oral tablet (20 sources) HMG-CoA Reductase Inhibitor Start: 04-09-2023 lovastatin 20 mg tablet ; 1 (one) Tablet daily in the evening, on Sat for 0 days Quantity: 39 {Tablet} Refills: 3 Ordered: 09-Apr-2023 ROYER Chu Start: 09-Apr-2023 Start: 10-21-2020 End: 12-21-2020 lovastatin 20 mg tablet ; 1 (one) Tablet daily in the evening, on Sat for 0 days Quantity: 39 {Tablet} Refills: 3 Ordered: 09-Apr-2023 ROYER Chu Start: 09-Apr-2023 Comment on above: future fill metFORMIN hydrochloride 500 mg oral tablet (19 sources) Biguanide Start: 04-09-2023 metFORMIN 500 mg tablet ; 1 (one) Tablet two times daily for 0 days Quantity: 180 {Tablet} Refills: 3 Ordered: 09-Apr-2023 ROYER Chu Start: 09-Apr-2023 Dispense as Written Start: 10-21-2020 take 1 tablet by stacia once daily Metformin 500 mg tablet Active 500 mg PO DAILY October 21, 2020 12:00am Comment on above: future fill semaglutide 14 mg oral table t (20 sources) Start: 06-18-2023 Rybelsus 14 mg tablet ; 1 (one) Tablet daily for 0 days Quantity: 30 {Tablet} Refills: 2 Ordered: 18-Jun-2023 ROYER Chu Start: 18-Jun-2023 Start: 12-14-2022 Rybelsus 14 mg tablet ; 1 (one) Tablet daily for 0 days Quantity: 30 {Tablet} Refills: 2 Ordered: 14-Dec-2022 ROYER Chu Start: 14-Dec-2022 Start: 07-12-2022 take 1 tablet by stacia once daily Semaglutide (Rybelsus) 7 mg tablet Active 7 mg PO DAILY July 12, 2022 12:00am Start: 04-24-2022 End: 09-19-2022 Rybelsus 3 mg tablet ; 1 (on e) Tablet daily for 0 days Quantity: 30 {Tablet} Refills: 0 Ordered: 19-Sep-2022 ROYER Chu Start: 24-Apr-2022 End: 19-Sep-2022 Status: Inactive ursodiol 300 mg oral capsule (17 sources) Bile Acid Start: 08-22-2021 take 1 capsule by mouth twice daily Ursodiol 300 mg capsule Active 300 mg PO TWICE A DAY August 22, 2021 12:00am Comment on above: GI vitamin e 180 mg oral capsule (11 sources) take 1 capsule by mouth twice daily Vitamin E 400 UNIT Oral Capsule ; 1 two times daily (400 UNIT) Completed/Discontinued Medications Medication Drug Class(es) Dates Sig (Normalized) Sig (Original) acetaminophen 325 mg / oxyCODONE hydrochloride 5 mg oral tablet (7 sources) Opioid Agonist Start: 07-26-2021 End: 09-11-2021 Oxycodone-Acetami nophen (Percocet) 5-325 mg tablet Discontinued 1 - 2 {tbl} PO Q4H as needed for pain 40 7 July 26, 2021 September 11, 2021 8:26am amLODIPine 10 mg oral tablet (20 sources) Dihydropyridine Calcium Channel Tyson Start: 08-01-2022 End: 05-27-2023 take 5 mg by mouth once daily Amlodipine 10 mg tablet Discontinued 5 mg PO DAILY April 15, 2023 9:45am May 27, 2023 11:49am Start: 08-01-2022 End: 05-27-2023 take 5 mg by mouth once daily Amlodipine Discontinued 5 MG PO DAILY April 15, 2023 9:45am May 27, 2023 11:49am Start: 12-21-2020 End: 08-01-2022 take 1 tablet by mouth once daily Amlodipine 10 mg tablet Discontinued 10 mg PO DAILY February 08, 2022 6:04pm August 01, 2022 5:15pm Start: 10-24-2020 End: 12-21-2020 take 1 tablet by mouth once daily Amlodipine 5 mg tablet Discontinued 5 mg PO DAILY October 24, 2020 12:00am December 21, 2020 12:09pm Comment on above: Dr. Lozada amoxicillin 500 mg / clavulanate 125 mg oral tablet (5 sources) Penicillin-class Antibacterial Star t: 10-11 End: 09-22 Amoxicillin-Pot Clavulanate (Augmentin) 500-125 mg tablet Discontinued 1 {tbl} PO TWICE A DAY August 29, 2021 12:00am October 02, 2021 10:25am aspirin 81 mg delayed release oral tablet (11 sources) Platelet Aggregation Inhibitor, Nonsteroidal Anti-inflammatory Drug take 1 tablet by mouth once daily ASPIRIN EC, 81MG (Oral Tablet Delayed Release) ; 1 daily (81 MG) Status: Inactive atorvastatin 20 mg oral tablet (11 sources) HMG-CoA Reductase Inhibitor Star t: 01-23 End: 11-11 18 take 1 tablet by mouth once daily Atorvastatin Calcium 20 MG Oral Tablet ; 1 (one) Tablet daily on Saturday, Sat, and Saturday for 0 days Quantity: 39 {Tablet} Refills: 3 Ordered: 30-May-2017 MERCEDEZ Jarrett Start: 07-Feb-2017 End: 30-May-2017 Status: Inactive carvedilol 3.125 mg oral tablet (20 sources) alpha-Adrenergic Tyson, beta-Adrenergic Tyson Star t: 09-22 End: 08-11 take 1 tablet by mouth twice daily at mealtime Carvedilol 3.125 mg tablet Discontinued 3.125 mg PO TWICE A DAY 180 November 22, 2022 3:24pm October 28, 2023 8:12am must administer with a meal/food Comment on above: cardio Cinnamon Bark (11 sources) Cinnamon ; daily Status: Inactive cloNIDine hydrochloride 0.1 mg oral tablet (8 sources) Central alpha-2 Adrenergic Agonist Star t: 09-24 End: 05-23 Clonidine Hcl 0.1 mg tablet Discontinued 0.1 mg PO Q12H as needed for hypertensive emergency October 21, 2020 12:00am June 02, 2021 9:15am for systolic blood pressure greater than 180 and diastolic greater than 90 colchicine 0.6 mg oral tablet (20 sources) Star t: 09-24 End: 07-12 take 1 tablet by mouth once daily as needed Colchicine 0.6 mg tablet Discontinued 0.6 mg PO DAILY as needed October 24, 2020 2:33pm January 26, 2021 1:20pm Flucelvax Quad (flu vac qs (6 ms up) CD) 60 mcg (15 mcg x (3 sources) Star t: 02-22 End: 02-22 inject 15 ug by intramuscular injection once Flucelvax Quad (flu vac qs (6 ms up) CD) 60 mcg (15 mcg x Discontinued 60 MCG IM ONCE 0.5 March 09, 2021 9:03am March 09, 2021 9:48am gadoterate meglumine (Dotarem) 0.5 mmol/mL contrast injection 17 mL (1 source) Star t: 06-11 End: 06-11 inject 17 mL intravenously once 17 mL, intravenous, Once in imaging, Starting on Sat08/25/24 at 1132, For 1 dose, Administer undiluted as rapid I.V. bolus injection Garlic preparation (11 sources) Non-Standardized Food Allergenic Extract Garlic ; daily Statu s: Inactive hydroCHLOROthiazide 12.5 mg oral tablet (11 sources) Thiazide Diuretic Star t: 08-11 17 End: 08-11 17 take 1 tablet by mouth once daily HydroCHLOROthiazide 12.5 MG Oral Tablet ; 1 Tablet once a day for 0 days Quantity: 90 {Tablet} Refills: 3 Ordered: 27-Aug-2016 MD Dimitry Chen Start: 27-Aug-2016 End: 27-Aug-2016 Status: Discontinued hydroCHLOROthiazide 12.5 mg / lisinopril 10 mg oral tablet (11 sources) Thiazide Diuretic, Angiotensin Converting Enzyme Inhibitor Star t: 08-11 17 End: 11-11 18 take 1 tablet by mouth once daily Lisinopril-Hydrochlorot hiazide 10-12.5 MG Oral Tablet ; 1 (one) Tab Tab daily for 0 days Quantity: 60 {Tablet} Refills: 2 Ordered: 30-May-2017 MERCEDEZ Jarrett Start: 27-Aug-2016 End: 30-May-2017 Status: Inactive hydroCHLOROthiazide 25 mg / losartan potassium 100 mg oral tablet (20 sources) Thiazide Diuretic, Angiotensin 2 Receptor Tyson Star t: 03-25 End: 02-23 24 Losartan-Hydrochlorothi azide 100-25 mg tablet Discontinued 1 {tbl} PO DAILY April 04, 2023 2:06pm March 19, 2024 4:10pm Start: 04-04-2021 End: 04-04-2023 take 1 tablet by mouth once daily Losartan-Hydrochlorothiazide Discontinue d 1 TABLET PO DAILY May 04, 2022 12:23pm April 04, 2023 2:06pm Start: 10-24-2020 End: 05-02-2021 take 1 tablet by mouth once daily Losartan Potassium-HCTZ 100-12.5 MG Oral Tablet ; 1 (one) Tablet daily for 0 days Quantity: 30 {Tablet} Refills: 2 Ordered: 02-May-2021 MERCEDEZ Cotto Start: 23-Mar-2021 End: 02-May-2021 Status: Inactive Start: 10-24-2020 End: 04-04-2021 take 1 tablet by mouth once daily Losartan-Hydrochlorothiazide Discontinue d 1 TABLET PO DAILY October 24, 2020 12:00am April 04, 2021 10:58am Comment on above: Dr. Lozada hydrocortisone 1.67 mg/ml enema (8 sources) Corticosteroid Start: End: Hydrocortisone 100 mg/60 mL enema Discontinued 100 mg RC TWICE A DAY 1679June 02, 2021 1:00am October 02, 2021 10:25am lie on left side and retain for at least 30 min levETIRAcetam 500 mg oral tablet (11 sources) take 1 tablet by mouth twice daily KEPPRA, 500MG (Oral Tablet) ; 1 two times daily (500 MG) Status: Inactive lisinopril 20 mg oral tablet (11 sources) Angiotensin Converting Enzyme Inhibitor Start: End: take 1 tablet by mouth twice daily Lisinopril 20 MG Oral Tablet ; 1 (one) Tablet two times daily for 0 days Quantity: 180 {Tablet} Refills: 3 Ordered: 02-Mar-2020 MD Dimitry Chen Start: 10-Sep-2019 End: 02-Mar-2020 Status: Discontinued Comments: pharmacist: new dosage Comment on above: pharmacist: new dosa ge losartan potassium 50 mg oral tablet (19 sources) Angiotensin 2 Receptor Tyson Start: End: take 1 tablet by mouth twice daily Losartan 50 mg tablet Discontinued 50 mg PO TWICE A DAY October 21, 2020 12:00am October 24, 2020 2:32pm Start: 03-02-2020 End: 10-13-2020 take 1 tablet by mouth once daily Losartan Potassium 50 MG Oral Tablet ; 1 (one) Tablet daily for 0 days Quantity: 90 {Tablet} Refills: 3 Ordered: 13-Oct-2020 Start: 02-Mar-2020 End: 13-Oct-2020 Status: Inactive predniSONE 20 mg oral tablet (11 sources) Start: 04-26-2020 End: 06-02-2020 take 3 tablets by mouth once daily, [...] days thenTake 1/2tab qd for 4 days. sildenafil 50 mg oral tablet (19 sources) Phosphodiesterase 5 Inhibitor Start: 10-21-2020 End: 10-24-2020 Sildenafil 50 mg tablet Discontinued 50 mg PO DAILY as needed for sexual activity October 21, 2020 12:00am October 24, 2020 2:34pm administer 30 minutes to 4 hours before activity Start: 05-07-2019 take 1 tablet by stacia th every hour Sildenafil Citrate 50 MG Oral Tablet ; 1 (one) Tablet Tablet one hour prior to intercourse for 0 days Quantity: 12 {Tablet} Refills: 5 Ordered: 07-May-2019 SAYDA Solomon Start: 07-May-2019 Problems Active Problems Problem Classification Problem Date Documented Da te Episodic/Chronic Abdominal pain (20 sources) Abdominal pain; Translations: [Unspecified abdominal pain] 08-26-2018 Episodic Anal and rectal conditions (20 sources) Rectal pain; Translations: [Other specified diseases of anus and rectum] Episodic Anxiety disorders (20 sources) Mixed anxiety and depressive disorder; Translations: [Other specified anxiety disorders] 12-03-2022 Chronic Cancer of prostate (1 source) Malignant neoplasm of prostate; Translations: [Malignant neoplasm of prostate] Onset: 08-13-2024 Chronic Coronary atherosclerosis and other heart disease (1 source) Atherosclerotic heart disease of [place] coronary artery without angina pectoris; Translations: [Atherosclerotic heart disease of [place] coronary artery without angina pectoris] Onset: 06-02-2024 Chronic Diabetes mellitus with complications (1 source) Type 2 diabetes mellitus; Translations: [Type 2 diabetes mellitus with other specified complication] 04-09-2023 Chronic Diabetes mellitus without complication (20 sources) Diabetes mellitus; Translations: [Type 2 diabetes mellitus without complications] 04-04-2023 Chronic Comment on above: metformin A1C=7.0% Diabetes mellitus without complication (20 sources) Hyperglycemia; Translations: [Hyperglycemia, unspecified] 01-02-2019 Episodic Disorders of lipid metabolism (20 sources) Hyperlipidemia; Translations: [Hyperlipidemia, unspecified] Onset: 01-02-2019 Chronic Comment on above: lovastatin 20mg (did n't tolerate atorvastatin) Essential hypertension (20 sources) Essential hypertension; Translations: [Essential (primary) hypertension] Onset: 01-02-2019 Chronic Comment on above: CONTROLLED WITH MED Gastrointestinal hemorrhage (11 sources) Rectal hemorrhage; Translations: [Hemorrhage of anus and rectum] Episodic Genitourinary symptoms and ill-defined conditions (20 sources) Blood in urine; Translations: [Hematuria, unspecified] 12-03-2022 Episodic Gout and other crystal arthropathies (20 sources) Gout; Translations: [Gout, unspecified] 06-02-2020 Chronic Comment on above: Uric acid 8.4 Hemorrhoids (20 sources) Bleeding internal hemorrhoids; Translations: [Other hemorrhoids] Episodic Immunizations and screening for infectious disease (20 sources) Needs influenza immunization; Translations: [Encounter for immunization] 03-02-2020 Episodic Other and ill-defined cerebrovascular disease (20 sources) Unspecified transient cerebral ischemia 04-14-2018 Chronic Other ear and sense organ disorders (20 sources) Otalgia, left ear; Translations: [Otalgia, unspecified] 12-03-2022 Episodic Other gastrointestinal disorders (8 sources) Diarrhea; Translations: [Diarrhea, unspecified] 06-02-2021 Episodic Other gastrointestinal disorders (8 sources) Incontinence of feces; Translations: [Full incontinence of feces] 06-02-2021 Episodic Other gastrointestinal disorders (4 sources) Tenesmus; Translations: [Other specified symptoms and signs involving the digestive system and abdomen] 06-02-2021 Episodic Other gastrointestinal disorders (3 sources) Diarrhea, unspecified; Translations: [Diarrhea] Episodic Other gastrointestinal disorders (3 sources) Full incontinence of feces; Translations: [Full incontinence of feces] Episodic Other gastrointestinal disorders (3 sources) Other specified symptoms and signs involving the digestive system and abdomen; Translations: [Other symptoms involving digestive system] Episodic Other gastrointestinal disorders (4 sources) Observation of sensation; Translations: [Other specified symptoms and signs involving the digestive system and abdomen] 06-02-2021 Episodic Other liver diseases (7 sources) Steatosis of liver; Translations: [Fatty (change of) liver, not elsewhere classified] 07-11-2021 Chronic Other liver diseases (9 sources) Fatty (change of) liver, not elsewhere classified; Translations: [Other chronic nonalcoholic liver disease] Onset: 01-27-2025 Chronic Other male genital disorders (20 sources) Male erectile dysfunction, unspecified; Translations: [Impotence of organic origin] 05-07-2019 Chronic Other non-traumatic joint disorders (20 sources) Joint pain; Translations: [Pain in unspecified joint] 12-03-2022 Episodic Other nutritional; endocrine; and metabolic disorders (11 sources) Obesity; Translations: [Obesity, unspecified] 06-25-2016 Chronic Other nutritional; endocrine; and metabolic disorders (11 sources) Body mass index 25-29 - overweight; Translations: [Body mass index (BMI) 29.0-29.9, adult] 08-26-2018 Episodic Other nutritional; endocrine; and metabolic disorders (4 sources) Body mass index (BMI) 29.0-29.9, adult; Translations: [Body Mass Index 29.0-29.9, adult] Episodic Other nutritional; endocrine; and metabolic disorders (20 sources) Overweight in adulthood with body mass index of 25 or more but less than 30; Translations: [Body mass index (BMI) 29.0-29.9, adult] 01-26-2021 Episodic Other nutritional; endocrine; and metabolic disorders (20 sources) Overweight; Translations: [Overweight] 12-03-2022 Episodic Other screening for suspected conditions (not mental disorders or infectious disease) (20 sources) Patient encounter status; Translations: [Encounter for screening for lipoid disorders] Onset: 08-25-2024 12-03-2022 Episodic Residual codes; unclassified (8 sources) Obstructive sleep apnea syndrome; Translations: [Obstructive sleep apnea (adult) (pediatric)] 01-26-2021 Chronic Comment on above: overall AHI of 23.9 Residual codes; unclassified (9 sources) Obstructive sleep apnea (adult) (pediatric); Translations: [Obstructive sleep apnea (adult)(pediatric)] Chronic Residual codes; unclassified (20 sources) Influenza vaccination declined; Translations: [Immunization not carried out because of patient refusal] 05-30-2017 Episodic Rheumatoid arthritis and related disease (2 sources) Inflammatory polyarthropathy; Translations: [INFLAMMATORY POLYARTHROPATHY] Onset: 07-14-2020 Chronic Transient cerebral ischemia (20 sources) Transient global amnesia; Translations: [Transient global amnesia] 01-02-2019 Chronic Unclassified (11 sources) Number of Children 05-02-2021 Comment on above: 3. Unclassified (11 sources) Follow up for multiple chronic conditions [...] have headaches. Note for Multiple chronic conditions follow-up: Patient reports that he is feeling well overall. 09-19-2022 Unclassified (10 sources) Follow Up for Multiple Chronic Conditions [...] rarely noted. Note for Multiple chronic conditions follow-up: Patient reports that he is interested in [...] the blood test was drawn. 04-24-2022 Unclassified (10 sources) [ADDITIONAL REASON] Transition into care - The patient is transitioning into care from another physician (cardiology) and a summary of care was reviewed. 04-24-2022 Unclassified (11 sources) Well adult male - The patient feels well with no complaints, has good energy level and is sleeping well (for the most part he does-- he uses a CPAP). The patient has a balanced diet. The patient exercises none (active). The patient sleeps 7 hours per night. Note for Well adult male: 07/07/2021 colonoscopy w doctor friend - normalPatient reports that he is interested in looking into continuous glucose monitoring at this time. He states that he is willing to pay out of pocket if it is not covered by insurance. 10-31-2021 Unclassified (11 sources) Follow up for multiple chronic conditions [...] have headaches. Note for Multiple chronic conditions follow-up: pt will get a little dizzy at times but thinks its due to his BP. Dose of HCTZ was recently changed by cardiology.pt has had 2 covid shots 05-02-2021 Unclassified (6 sources) Transition into care - The patient is transitioning into care from another physician (Senior Database Engineer Dr. Lozada 10/24/2020) and a summary of care was reviewed. Note for Transition into care: The end of September, he was down in [place]. He noticed his BP was elevated so he took Catapres in the evening, then again the next morning and the following evening. Later on that evening, he passed out. Afterwards, his BP was 120's/75. He then was seen by Dr. Lozada Senior Database Engineer. 12-02-2020 Unclassified (6 sources) [ADDITIONAL REASON] Follow up for multiple [...] overall impact. Note for Multiple chronic conditions follow-up: The end of September, he was down in [place] and noticed his BP was elevated, so he took Catapres that he got previously at the ER. He took 1 Catapres that evening, took another in the morning and then again the next evening. Later on, he passed out. He BP after passing out was 120's/75. He was seen by mash filter cloth changer Dr. Lozada that put him on Amlodipine [...] since his last office visit. 12-02-2020 Unclassified (11 sources) [facility] Routine follow-up - The patient is here [...] not have headaches. Note for Routine chronic follow-up: ADRIA 04/04/20labs printed 06-02-2020 Unclassified (11 sources) [facility] Routine follow-up - The patient is here [...] (hasnt been recently). Note for Routine chronic follow-up: ADRIA 08/05// a1c 6.03/06/20 pas04/2019 cmp, lipid 03-02-2020 Unclassified (11 sources) Follow up for multiple chronic conditions [...] he had eye exam Mar 2019 at [facility] weight has decreased (4lbs) and they do not have headaches. Note for Multiple chronic conditions follow-up: ADRIA 05/07/2019. Last PSA 05/07/2019.Last CMP and Lipid 04/28/2019.A1C today. 08-06-2019 Unclassified (11 sources) Follow up for multiple chronic conditions [...] overall impact. Note for Multiple chronic conditions follow-up: ADRIA 08/26/18, Lipid, CMP 03/28/18. no vaccines 01-02-2019 Unclassified (11 sources) [facility] Routine follow-up - The patient is here [...] are rarely noted. 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 Note for Multiple chronic conditions follow-up: Patient blood pressure today is good at 138/90. Otherwise, no other question or concerns. Last routine office visit 03-12-18. 04-14-2018 Unclassified (11 sources) [facility] Routine Follow up - The patient is [...] are rarely noted. Note for Routine chronic follow-up: Last routine office visit 06-25-16. Restarted HCTZ 12.5mg at that office visit. 08-27-2016 Unclassified (8 sources) Well adult male - The patient [...] hours per night. Note for Well adult male: Has labs to be reviewed today.Last colonoscopy 2021 - repeat 5 years 04-09-2023 Unclassified (5 sources) Follow up for multiple chronic conditions [...] overall impact. Note for Multiple chronic conditions follow-up: The end of September, he was down in [place] and noticed his BP was elevated, so he took Catapres that he got previously at the ER. He took 1 Catapres that evening, took another in the morning and then again the next evening. Later on, he passed out. He BP after passing out was 120's/75. He was seen by mash filter cloth changer Dr. Lozada that put him on Amlodipine [...] since his last office visit. 12-02-2020 Unclassified (5 sources) [ADDITIONAL REASON] Transition into care - The patient is transitioning into care from another physician (Senior Database Engineer Dr. Lozada 10/24/2020) and a summary of care was reviewed. Note for Transition into care: The end of September, he was down in [place]. He noticed his BP was elevated so he took Catapres in the evening, then again the next morning and the following evening. Later on that evening, he passed out. Afterwards, his BP was 120's/75. He then was seen by Dr. Lozada Senior Database Engineer. 12-02-2020 Unclassified (1 source) Transition into care - The patient is transitioning into care from another physician (cardiology) and a summary of care was reviewed. 04-24-2022 Unclassified (1 source) [ADDITIONAL REASON] Follow Up for Multiple Chronic Conditions - [...] rarely noted. Note for Multiple chronic conditions follow-up: Patient reports that he is interested in [...] that the blood test was drawn. 04-24-2022 Viral infection (11 sources) Disease caused by 2019-nCoV; Translations: [COVID-19] 03-02-2020 Episodic Past or Other Problems Problem Classification Problem Date Documented Date Episodic/Chronic Cardiac dysrhythmias (1 source) Palpitations; Translations: [Palpitations] Onset: 05-06-2024 Episodic Spondylosis; intervertebral disc disorders; other back problems (1 source) Radiculopathy, lumbar region; Translations: [Radiculopathy, lumbar region] Onset: 04-09-2024 Episodic Syncope (10 sources) Syncope; Translations: [Syncope and collapse] Onset: 06-02-2024 10-24-2020 Episodic Unclassified (11 sources) Ear pain - The onset of the pain has been gradual and has been occurring in a persistent pattern for weeks (3-4 weeks he woke up and noticed some drainage from his ear on his pillow. He had cold symptoms at that time (cough, sore throat, post nasal drainage). He was seen at [facility] and was put on ATB (Amoxicillin [...] seasonal allergies or recurrent sinusitis. 12-03-2022 Unclassified (11 sources) Hypertension - The hypertension has been [...] stopped about 4-5 years ago). Note for Hypertension: Patient is currently on Losartan Potassium 50mg once daily. He usually takes this in the evening. 10-07-2020 Unclassified (11 sources) Foot pain - The pain is in the right foot and is located in the great toe (and ankle). The onset of the foot pain was acute and has been occurring in a persistent pattern for 2 weeks. The course has been worsening (worse since yesterday.). Note for Foot pain: Recently though he was ill w Covid and hospitalized and that is when he flared up. 04-04-2020 Unclassified (11 sources) Well adult male - The patient feels well with minor complaints (pt says he cant keep up the the other ppl at [facility] bp recently), has decreased energy level and is sleeping poorly. The patient exercises 3 - 4 times per week (3x a week crossfit). The patient sleeps 5 hours per night. Note for Well adult male: adria 01/02/19labs printed 05-07-2019 Unclassified (11 sources) Follow up for multiple chronic conditions [...] disease has no overall impact. 03-13-2018 Unclassified (11 sources) High blood sugar - Pt Had high blood sugar on labs that were done for surgery. Pt's mom is diabetic 08-09-2017 Unclassified (11 sources) Abdominal pain - The onset of [...] with constipation or diarrhea. Note for Abdominal pain: has lost weight recently and quit taking medications 05-30-2017 Unclassified (8 sources) Well adult male - The patient [...] hours per night. Note for Well adult male: ADRIA 08/27/2016, last lipid and BMP 08/27/2016Has not taken his lisinopril-HCTZ medication in the past month. 02-07-2017 Unclassified (8 sources) [ADDITIONAL REASON] Transition into care - The patient is transitioning into care from an emergency room (11/10/2016) and a summary of care was reviewed. 02-07-2017 Unclassified (11 sources) Hypertension - The onset of the hypertension has been gradual. The hypertension has been occurring in an episodic pattern for years. The course has been constant. The JNC classification is Stage 2 hypertension - >=160 or >=100 The symptoms do not include chest pain or headache. Habits include tobacco use. 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 Last tetanus vaccination: unknown/unsure. 05-30-2012 Unclassified (11 sources) Abdominal pain - The onset of [...] stools, dysuria or nausea. Note for Abdominal pain: pt thinks he might have a hernia he can smetimes see bulging 04-01-2012 Unclassified (11 sources) Follow up consultation - The patient is here to follow-up after hospitalization ([facility]) on : (12/15/11-12/17/11). Current symptoms include other (dizziness and fatigue). Note for Consultation follow-up: Patient was started on Keppra 500mg twice a day and Aspirin 81mg daily. 12-28-2011 Unclassified (11 sources) Form Completion Physicals - The patient [...] libido is normal. Note for Well adult male: pt checks his sugar in the morning and feels it is coming up 04-09-2023 Unclassified (3 sources) Transition into care - The patient is transitioning into care from an emergency room (11/10/2016) and a summary of care was reviewed. 02-07-2017 Unclassified (3 sources) [ADDITIONAL REASON] Well adult male - [...] hours per night. Note for Well adult male: ADRIA 08/27/2016, last lipid and BMP 08/27/2016Has not taken his lisinopril-HCTZ medication in the past month. 02-07-2017 NEGATED: Highlighted row has been ruled out!Residual codes; unclassified (1 source) Disease Episodic Results Test Name Value Interpretation Reference Range Facility MR PROSTATE WITH BRIDGER BOUNDAR IES IF PIRADS 3 OR ABOVEon 08-25-2024 MR PROSTATE WITH BRIDGER BOUNDARIES IF PIRADS 3 OR ABOVE Interpreted By: Bao Mcgowan, STUDY: MR PROSTATE WITH BRIDGER BOUNDARIES IF PIRADS 3 OR ABOVE; 08/25/2024 12:47 pm INDICATION: Signs/Symptoms:ELEVATED PSA. ,R97.20 Elevated prostate specific antigen (PSA) COMPARISON: None. ACCESSION NUMBER(S): [id number] ORDERING CLINICIAN: ANDRÉS BERMUDEZ TECHNIQUE: Multiplanar MRI of the pelvis was obtained including axial, sagittal and coronal T2 weighted SSFSE, axial and sagittal T2 FSE, axial DWI, pre and post gadolinium dynamic T1 GRE sequences. Multiparametric analysis was performed. 17 ML of Dotarem was administered intravenously without immediate complications. FINDINGS: PROSTATE VOLUME: The prostate measures 5.8 cm x 4.6 cm x 5.4 cm in disao-ko-fkkf, anterior-posterior and craniocaudal dimension. Prostate weight is estimated at 75g. PROSTATE PARENCHYMA: There is heterogeneous enlargement of the transition zone, consistent with benign prostatic hyperplasia. The peripheral zone shows diffuse decrease in T2 signal without diffusion restriction or abnormal enhancement consistent with changes of prostatitis. There is no focal lesion suspicious for clinically significant prostate cancer. EXTRACAPSULAR EXTENSION: None. SEMINAL VESICLES: Within normal limits. PELVIC LYMPH NODES: No abnormally enlarged pelvic lymph nodes are identified. PERITONEUM: No free or loculated fluid collections are evident in the pelvis. OTHER ORGANS: Urinary bladder is mildly thick-walled and trabeculated. Visualized bowel loops are within normal limits. BONES: No focal lesions are noted in the bone. Exam Quality: Is T2WI weighted imaging of diagnostic quality: Yes. T2WI assessment: Adequate. Is DWI of diagnostic quality: Yes. DWI assessment: Adequate. Is DCE of diagnostic quality: Yes. DCE assessment: Adequate. PI-QUAL score: Two or more sequences independently are of diagnostic quality Comments: IMPRESSION: 1. There is no evidence of clinically significant neoplasm. 2. Diffuse decrease in the T2 signal in the peripheral zone without diffusion restriction or abnormal enhancement consistent with changes of prostatitis (PI-RADS 2). PI-RADS 2 - Low (clinically significant cancer is unlikely to be present). I personally reviewed the images/study and I agree with the findings as stated. This study was interpreted at [place], [place]. MACRO: None Signed by: Bao Mcgowan 08/25/2024 1:27 PM Dictation workstation: [id number] [facility] MR Prostateon 08-25-2024 1. There is no evide nce of clinically significant neoplasm. 2. Diffuse decrease in the T2 signal in the peripheral zone without diffusion restriction or abnormal enhancement consistent with changes of prostatitis (PI-RADS 2). PI-RADS 2 - Low (clinically significant cancer is unlikely to be present). I personally reviewed the images/study and I agree with the findings as stated. This study was interpreted at [place], [place]. MACRO: None Signed by: Bao Mcgowan 08/25/2024 1:27 PM Dictation workstation: [id number] Interpreted By: Bao Mcgowan, STUDY: MR PROSTATE WITH BRIDGER BOUNDARIES IF PIRADS 3 OR ABOVE; 08/25/2024 12:47 pm INDICATION: Signs/Symptoms:ELEVATED PSA. ,R97.20 Elevated prostate specific antigen (PSA) COMPARISON: None. ACCESSION NUMBER(S): [id number] ORDERING CLINICIAN: ANDRÉS BERMUDEZ TECHNIQUE: Multiplanar MRI of the pelvis was obtained including axial, sagittal and coronal T2 weighted SSFSE, axial and sagittal T2 FSE, axial DWI, pre and post gadolinium dynamic T1 GRE sequences. Multiparametric analysis was performed. 17 ML of Dotarem was administered intravenously without immediate complications. FINDINGS: PROSTATE VOLUME: The prostate measures 5.8 cm x 4.6 cm x 5.4 cm in oezsf-bp-maeg, anterior-posterior and craniocaudal dimension. Prostate weight is estimated at 75g. PROSTATE PARENCHYMA: There is heterogeneous enlargement of the transition zone, consistent with benign prostatic hyperplasia. The peripheral zone shows diffuse decrease in T2 signal without diffusion restriction or abnormal enhancement consistent with changes of prostatitis. There is no focal lesion suspicious for clinically significant prostate cancer. EXTRACAPSULAR EXTENSION: None. SEMINAL VESICLES: Within normal limits. PELVIC LYMPH NODES: No abnormally enlarged pelvic lymph nodes are identified. PERITONEUM: No free or loculated fluid collections are evident in the pelvis. OTHER ORGANS: Urinary bladder is mildly thick-walled and trabeculated. Visualized bowel loops are within normal limits. BONES: No focal lesions are noted in the bone. Exam Quality: Is T2WI weighted imaging of diagnostic quality: Yes. T2WI assessment: Adequate. Is DWI of diagnostic quality: Yes. DWI assessment: Adequate. Is DCE of diagnostic quality: Yes. DCE assessment: Adequate. PI-QUAL score: Two or more sequences independently are of diagnostic quality Comments: Bao Powers MD - 08/25/2024 Interpreted By: Bao Mcgowan, STUDY: MR PROSTATE WITH BRIDGER BOUNDARIES IF PIRADS 3 OR ABOVE; 08/25/2024 12:47 pm INDICATION: Signs/Symptoms:ELEVATED PSA. ,R97.20 Elevated prostate specific antigen (PSA) COMPARISON: None. ACCESSION NUMBER(S): [id number] ORDERING CLINICIAN: ANDRÉS BERMUDEZ TECHNIQUE: Multiplanar MRI of the pelvis was obtained including axial, sagittal and coronal T2 weighted SSFSE, axial and sagittal T2 FSE, axial DWI, pre and post gadolinium dynamic T1 GRE sequences. Multiparametric analysis was performed. 17 ML of Dotarem was administered intravenously without immediate complications. FINDINGS: PROSTATE VOLUME: The prostate measures 5.8 cm x 4.6 cm x 5.4 cm in efads-ij-iqys, anterior-posterior and craniocaudal dimension. Prostate weight is estimated at 75g. PROSTATE PARENCHYMA: There is heterogeneous enlargement of the transition zone, consistent with benign prostatic hyperplasia. The peripheral zone shows diffuse decrease in T2 signal without diffusion restriction or abnormal enhancement consistent with changes of prostatitis. There is no focal lesion suspicious for clinically significant prostate cancer. EXTRACAPSULAR EXTENSION: None. SEMINAL VESICLES: Within normal limits. PELVIC LYMPH NODES: No abnormally enlarged pelvic lymph nodes are identified. PERITONEUM: No free or loculated fluid collections are evident in the pelvis. OTHER ORGANS: Urinary bladder is mildly thick-walled and trabeculated. Visualized bowel loops are within normal limits. BONES: No focal lesions are noted in the bone. Exam Quality: Is T2WI weighted imaging of diagnostic quality: Yes. T2WI assessment: Adequate. Is DWI of diagnostic quality: Yes. DWI assessment: Adequate. Is DCE of diagnostic quality: Yes. DCE assessment: Adequate. PI-QUAL score: Two or more sequences independently are of diagnostic quality Comments: IMPRESSION: 1. There is no evidence of clinically significant neoplasm. 2. Diffuse decrease in the T2 signal in the peripheral zone without diffusion restriction or abnormal enhancement consistent with changes of prostatitis (PI-RADS 2). PI-RADS 2 - Low (clinically significant cancer is unlikely to be present). I personally reviewed the images/study and I agree with the findings as stated. This study was interpreted at [place], [place]. MACRO: None Signed by: Bao Mcgowan 08/25/2024 1:27 PM Dictation workstation: [id number] [facility] Work Phone: Radiology Study observation (narrative) [facility] Work [facility]: MR ProstateOrdered By: Bao Mcgowan on 08-25-2024 [facility] Work Phone: PSA Total+%Freeon 08-11-2024 PSA, FREE 0.54 ng/mL Normal N/A [facility] Comment on above: Result Comment: Antionette RUBIN methodology. Performed By: #### L 3110.0500 #### [facility] [address] [place], [address] PSA, FREE % 12.6 Normal . [facility] Comment on above: Result Comment: The table below lists the probability of prostate cancer for men with non-suspicious BEATA results and total PSA between 4 and 10 ng/mL, by patient age (Richardson et al, ORQUIDEA 1998, 279:1542). % Free PSA 50-64 yr 65-75 yr 0.00-10.00% 56% 55% 10.01-15.00% 24% 35% 15.01-20.00% 17% 23% 20.01-25.00% 10% 20% >25.00% 5% 9% Please note: Richardson et al did not make specific recommendations regarding the use of percent free PSA for any other population of men. Performed at: [address] [id number] Agricultural Equipment Test Engineer: Evan Soni PhD, Phone: [phone] Performed By: #### L 3110.0500 #### [facility] [address] [place], [place], [id number] PSA, TOTAL ULTR 4.270 ng/mL Abnormal 0.000-4.00 0 [facility] Comment on above: Result Comment: Antionette RUBIN methodology. According to the [employer], Serum PSA should decrease and remain at undetectable levels after radical prostatectomy. The AUA defines biochemical recurrence as an initial PSA value 0.200 ng/mL or greater followed by a subsequent confirmatory PSA value 0.200 ng/mL or greater. Values obtained with different assay methods or kits cannot be used interchangeably. Results cannot be interpreted as absolute evidence of the presence or absence of malignant disease. Performed By: #### L 3110.0500 #### [facility] [address] [place], [place], [id number] CREATININE FINGERSTICKon Creatinine [Mass/Vol] 1.1 mg/dL Normal 0.70-1.30 [facility] Comment on above: Performed By: #### L 9100.0200 #### [facility] [address] [place], [place], [id number] EGFR WB > 60.0000 Normal >60 [facility] Comment on above: Performed By: #### L 9100.0200 #### [facility] [address] [place], [place], [id number] CTA Head AND Neck W/ Contras ton 06-12-2024 CTA Head AND Neck W/ Contrast [facility] Services [address] [place], [place] [address] ([phone]) CTA Head AND Neck W/ Contrast MR#: [id number] Acct: [id number] Name: KEITH JOSHI Rep #: [id number] : 1960 M 63 From: Bennett cason MD PCP: Dr. Alden Melendez DO Status: REG CLI Study: CTA Head AND Neck W/ Contrast Date of Exam: Exam# [id number] Ordering Dr: Alden Melendez DO PROCEDURE: CTA HEAD AND NECK W/ CONTRAST 06/12/2024 REASON FOR EXAM: CTA OF BOTH CAROTID ARTERIES (ATTN EXTERNAL CAROTID) - ABNORMAL C TECHNIQUE: CTA imaging of the head and neck from the aortic arch to the skull vertex with intravenous contrast. 3D reconstructions. Coronal and Sagittal reconstruction series were provided. One or more dose reduction techniques were used (e.g., Automated exposure control, adjustment of the mA and/or kV according to patient size, use of iterative reconstruction technique). CONTRAST: Isovue 370 VOLUME: 100mL RADIATION DOSE SUMMARY: CTDlvol: 28 mGy DLP: 1685.72 mGycm COMPARISON: None FINDINGS: Aortic Arch: Normal size and branching pattern. Mild atherosclerotic plaque. Brachiocephalic and Subclavians: Mild atherosclerotic plaque without significant stenosis. RIGHT Carotid: Right CCA: Unremarkable. Right ICA: Mild calcified and soft plaque. Maximum stenosis (NASCET): <50 % Right ECA: Unremarkable. LEFT Carotid: Left CCA: Unremarkable. Left ICA: Mild calcified and soft plaque. Maximum stenosis (NASCET): <50 % Left ECA: Unremarkable. Vertebrals: Codominant. Arise from the subclavians. Both vertebrals form the basilar. RIGHT Vertebral: Unremarkable. LEFT Vertebral: Unremarkable. Anatomy: [place] anatomy is normal. Aneurysm or avm: No intracranial aneurysms or large vascular malformations are identified. Anterior cerebral arteries: Unremarkable: Middle cerebral arteries: Unremarkable. Basilar artery: Unremarkable. Posterior cerebral arteries: Unremarkable. Other major branches of the posterior circulation: Unremarkable. Major venous structures: Unremarkable. CT/CTA Head AND Neck W/ Contrast IMPRESSION: RIGHT CAROTID: Calcified plaque at the carotid bifurcation causing less than 50% narrowing of the right internal carotid artery LEFT CAROTID: Calcific plaque at the carotid bifurcation causing less than 50% narrowing. VERTEBRALS: Unremarkable INTRACRANIAL: Menorrhagia Reading Location: [facility] CC: Dr. Alden Melendez DO Nylon Winder: Signed Normal [facility] Creatinine measurement at be dsideOrdered By: Alden Melendez on 06-12-2024 Creatinine [Mass/Vol] 1.1 mg/dL 0.70-1.30 [facility] EGFROrdered By: Alden Melendez o n 06-12-2024 Bedside Estimated GFR (eGFR) > 60.0000 mL/min >60 [facility] Cardiovascular stress test r eportOrdered By: Jamie Ricardo on 05-23-2024 Study report [facility] [address] [place] [address] MR#: [id number] Acct: [id number] Name: KEITH JOSHI Rep #: [id number] : 1960 63 From: Jamie lomas MD Primary Care: Dr. Alden Melendez DO Status: REG CLI Referring Dr: Alden Melendez DO Sex: M C Stress Test Report Date: 05/22/2024 Procedure: Exercise tolerance test/imaging study Indications: Syncope Consent: Per the patient Procedure: The patient exercised on a Lucian protocol for 9 minutes and 15 seconds achievinga peak heart rate of 144 bpm (91% predicted maximal heart rate) with a peak blood pressure 178/86 mmHg and a peak MET capacity of 10.9 METs. The baseline ECG demonstrated normal sinus rhythm. The peak exercise ECG demonstrated no significant ischemic changes. EKG during recovery revealed no significant ischemic changes [There were no cardiac dysrhythmias pretest, during exercise, or recovery]. The functional capacity was considered excellent for age. There was [no complaint of chest discomfort during exercise or recovery]. The examination was discontinued secondary to achieving target heart rate. Impression: 1. Technically adequate (percent predicted maximal heart rate greater than 85%)exercise tolerance test 2. Stress test is negative for exercise-induced EKG changes of ischemia 3. The test test is negative for exercise-induced chest pain 4. Functional capacity is excellent for age 5. Nuclear images pending Myocardial perfusion imaging study: Technique: The patient was injected with 11.9 mCi of technetium 99m Cardiolite and subsequently rest SPECT Cardiolite nuclear imaging was obtained in the horizontal long, vertical long, and short axis views. The patient exercised on aBruce protocol. Please see above for details. The patient was injected with 35.3 mCi of technetium 99m Cardiolite and subsequently stress SPECT Cardiolite nuclear imaging was obtained in the horizontal long, vertical long, and short axis views. A gated Cardiolite study at peak stress was obtained. Interpretation: Rest and stress SPECT Cardiolite nuclear imaging status post realignment, normalization, and attenuation correction, demonstrates no evidence of significant ischemia or infarction. The gated Cardiolite study demonstrates no significant regional wall motion abnormalities. The reported LVEF is 61%. Impression: 1. There is no evidence of significant ischemia or infarction. 2. The gated Cardiolite study reports an LVEF of 61%. This note was generated with Wittlebeeation software. It may contain incorrectwords, spelling, and punctuation that were not noted in checking the note beforesigning. 05/23/24 1110 Date _ Jamie Ricardo MD CC: Dr. Alden Melendez DO ~ Date Dictated: 05/23/24 1102 Date Transcribed: 05/23/241101 Nylon Winder: JANES Signed [facility] Work Phone: Stress Reporton 05-23-2024 Stress Report [facility] [address] [place] [address] MR#: [id number] Acct: [id number] Name: KEITH JOSHI Rep #: [id number] : 1960 63 From: Jamie Ricardo MD Primary Care: Dr. Alden Melendez DO Status: R EG CLI Referring : Alden Melendez DO Sex: M C Stress Test Report Date: 05/22/2024 Procedure: Exercise tolerance test/imaging study Indications: Syncope Consent: Per the patient Procedure: The patient exercised on a Lucian protocol for 9 minutes and 15 seconds achieving a peak heart rate of 144 bpm (91% predicted maximal heart rate) with a peak blood pressure 178/86 mmHg and a peak MET capacity of 10.9 METs. The baseline ECG demonstrated normal sinus rhythm. The peak exercise ECG demonstrated no significant ischemic changes. EKG during recovery revealed no significant ischemic changes [There were no cardiac dysrhythmias pretest, during exercise, or recovery]. The functional capacity was considered excellent for age. There was [no complaint of chest discomfort during exercise or recovery]. The examination was discontinued secondary to achieving target heart rate. Impression: 1. Technically adequate (percent predicted maximal heart rate greater than 85%) exercise tolerance test 2. Stress test is negative for exercise-induced EKG changes of ischemia 3. The test test is negative for exercise-induced chest pain 4. Functional capacity is excellent for age 5. Nuclear images pending Myocardial perfusion imaging study: Technique: The patient was injected with 11.9 mCi of technetium 99m Cardiolite and subsequently rest SPECT Cardiolite nuclear imaging was obtained in the horizontal long, vertical long, and short axis views. The patient exercised on a Lucian protocol. Please see above for details. The patient was injected with 35.3 mCi of technetium 99m Cardiolite and subsequently stress SPECT Cardiolite nuclear imaging was obtained in the horizontal long, vertical long, and short axis views. A gated Cardiolite study at peak stress was obtained. Interpretation: Rest and stress SPECT Cardiolite nuclear imaging status post realignment, normalization, and attenuation correction, demonstrates no evidence of significant ischemia or infarction. The gated Cardiolite study demonstrates no significant regional wall motion abnormalities. The reported LVEF is 61%. Impression: 1. There is no evidence of significant ischemia or infarction. 2. The gated Cardiolite study reports an LVEF of 61%. This note was generated with Wittlebeeation software. It may contain incorrect words, spelling, and punctuation that were not noted in checking the note before signing. 05/23/24 1110 Date Jamie Ricardo MD CC: Dr. Alden Melendez, DO Date Dictated: 05/23/24 1102 Date Transcribed: 05/23/241101 Nylon Winder: NN Signed Normal [facility] Carotid Duplex Ultrasoundon 05-22-2024 Carotid Duplex Ultrasound [facility] [address] [place] [address] Carotid Duplex Ultrasound 05/22/24 0838 MR#: [id number] Acct: [id number] Name: KEITH JOSHI Rep #: [id number] : 1960 63 From: Constantin Adkins MD Attending Dr: Dr. Alden Melendez, Status: REG CL I Ordering Dr: Alden Melendez DO Date: 05/22/24 Location: CVS Sex: M C Admitted: Reason For Study Reason For Study: Syncope Rt. Velocities/BP Lt. Velocities/BP Prox CCA 78/17 cm/sec. Prox CCA 114/18 cm/sec. Mid CCA 69/21 cm/sec. Mid CCA 111/29 cm/sec. Dist CCA 77/20 cm/sec. Dist CCA 70/23 cm/sec. Prox ICA 64/15 cm/sec. Prox ICA 73/19 cm/sec. Mid ICA 56/22 cm/sec. Mid ICA 64/27 cm/sec. Dist ICA 74/33 cm/sec. Dist ICA 55/23 cm/sec. Rt. ICA/CCA = 1.1. Lt. ICA/CCA = 0.7. Prox ECA 121/21 cm/sec. Prox ECA 222/40 cm/sec. Rt. Vert. 33/3 cm/sec. Lt. Vert. 62/24 cm/sec. Right Extracranial There is heterogeneous, irregular atherosclerotic plaque noted in the right common carotid artery. There is heterogeneous, irregular atherosclerotic plaque noted in the right internal carotid artery. There is intimal thickening but no significant atherosclerotic plaque noted in the right external carotid artery. Antegrade flow is noted in the right vertebral artery. High resistant waveform noted Rt Vert A. Left Extracranial There is heterogeneous, irregular atherosclerotic plaque noted in the left common carotid artery. There is heterogeneous, smooth atherosclerotic plaque noted in the left internal carotid artery. There is heterogeneous, irregular atherosclerotic plaque noted in the left external carotid artery. Antegrade flow is noted in the left vertebral artery. Procedure Carotid Duplex 83295. This is a Carotid Duplex examination using B-mode, color flow and specral Doppler. Exam performed in department. VL/Carotid Duplex Ultrasound Interpretation Summary Mild (<50%) stenosis right extracranial internal carotid. Mild (<50%) stenosis left extracranial internal carotid. Flow within the vertebral arteries is antegrade bilaterally. Elevated velocities in the left external carotid artery are suggestive of stenosis >50%. Ordering Physician: Alden Melendez Referring Physician: Alden Melendez Performed By: Lilly Howe, YELITZA, RVT 05/22/242226 Date Constantin Adkins MD CC: Dr. Alden Melendez DO Date Dictated: 05/22/24837 Date Transcribed: 05/22/242226 Nylon Winder: Signed Normal [facility] Duplex ultrasound of carotid artery reportOrdered By: Constantin Adkins on 05-22-2024 Study report [facility] [address] [place] [address]. [place] [address] Carotid Duplex Ultrasound 05/22/24837 MR#: [id number] Acct: [id number] Name: KEITH JOSHI Rep #:[id number] : 1960 63 From: Constantin Adkins MD Attending Dr: Dr. Alden Melendez DO atus: REG CLI Ordering Dr: Alden Melendez DO Date: 04/26 11/16 Location: [facility] Sex: M C Admitted: Reason For Study Reason For Study: Syncope Rt. Velocities/BP Lt. Velocities/BP Prox CCA 78/17 cm/sec. Prox CCA 114/18 cm/sec. Mid CCA 69/21 cm/sec. Mid CCA 111/29 cm/sec. Dist CCA 77/20 cm/sec. Dist CCA 70/23 cm/sec. Prox ICA 64/15 cm/sec. Prox ICA 73/19 cm/sec. Mid ICA 56/22 cm/sec. Mid ICA 64/27 cm/sec. Dist ICA 74/33 cm/sec. Dist ICA 55/23 cm/sec. Rt. ICA/CCA = 1.1. Lt. ICA/CCA = 0.7. Prox ECA 121/21 cm/sec. Prox ECA 222/40 cm/sec. Rt. Vert. 33/3 cm/sec. Lt. Vert. 62/24 cm/sec. Right Extracranial There is heterogeneous, irregular atherosclerotic plaque noted in the right common carotid artery. There is heterogeneous, irregular atherosclerotic plaque noted in the right internal carotid artery. There is intimal thickening but no significant atherosclerotic plaque noted in the right external carotid artery. Antegrade flow is noted in the right vertebral artery. High resistant waveform noted Rt Vert A. Left Extracranial There is heterogeneous, irregular atherosclerotic plaque noted in the left common carotid artery. There is heterogeneous, smooth atherosclerotic plaque noted in the left internal carotid artery. There is heterogeneous, irregular atherosclerotic plaque noted in the left external carotid artery. Antegrade flow is noted in the left vertebral artery. Procedure Carotid Duplex 13432. This is a Carotid Duplex examination using B-mode, color flow and specral Doppler. Exam performed in department. VL/Carotid Duplex Ultrasound Interpretation Summary Mild (<50%) stenosis right extracranial internal carotid. Mild (<50%) stenosis left extracranial internal carotid. Flow within the vertebral arteries is antegrade bilaterally. Elevated velocities in the left external carotid artery are suggestive of stenosis >50%. Ordering Physician: Alden Melendez Referring Physician: Alden Melendez Performed By: Lilly Howe, YELITZA, RVT 05/22/242226 Date _ Constantin Adkins MD CC: Dr. Alden Melendez DO ~ Date Dictated: 05/22/24 0838 Date Transcribed: 05/22/242226 Nylon Winder: Signed [facility] Other Phone: Lumbar Spine 2 or 3 Viewson 04-09-2024 Lumbar Spine 2 or 3 Views [facility] [address] [place] [address] Lumbar Spine 2 or 3 Views MR#: [id number] Acct: [id number] Name: KEITH JOSHI Rep #: [id number] : 1960 M 63 From: Diego kaur MD PCP: Dr. Alden Melendez DO Status: DEP AMB Study: Lumbar Spine 2 or 3 Views Date of Exam: Exam# [id number] Ordering Dr: Alden Melendez DO [id number] INDICATION: Lumbar Xray, 3views - lumbar radiculopathy -- Lumbar Xray, 3views - lumbar radiculopathy EXAMINATION/TECHNIQUE: X-RAY - XR Spine Lumbar 2 or 3 Views COMPARISON: None. FINDINGS: VERTEBRAE: Preserved vertebral body height. No fracture. 4 mm anterolisthesis L4 on L5. Preservation of the normal lumbar lordosis. Moderate to severe multilevel facet arthropathy. DISCS: Moderate multilevel degenerative disc disease and spondylosis. INCLUDED ABDOMEN: Included bowel gas pattern is non-obstructive. RAD/Lumbar Spine 2 or 3 Views IMPRESSION: No evidence of lumbar spinal fracture. Grade 1 anterolisthesis L4 on L5. Moderate multilevel degenerative disc disease and spondylosis. Electronically Signed: Diego Ortega MD at 8:59 EST , CC: Dr. Alden Melendez DO Nylon Winder: Signed Normal [facility] Basophil percentageOrdered B y: Alden Fast on 07-01-2023 Creatinine [Mass/Vol] 1.4 mg/dL 0.70-1.30 [facility] Laboratory - Chemistry and C hemistry - challengeOrdered By: Alden Melendez on 07-01-2023 GFR/1.73 sq M.predicted among non-blacks MDRD (S/P/Bld) [Vol rate/Area] 56.0000 mL/min/{1.73_m2} >60 [facility] Basophil percentageOrdered B y: Nikki Gay on 06-24-2023 Basophil percentage 4.38 ng/mL 0.0-4.0 [facility] Comment on above: This test was perfor med using the TPSA assay method for thePlumbr chemistry system. Values obtained with differentassay methods cannot be used interchangably.When changing PSA assays in the course of monitoring apatient, additional sequential testing should be carriedout to confirm baseline values. CT for calcium scoring WO nm ntrast and CTA W contrast IV Heart [...] coronary heart disease events. According to the [employer] Clinical Expert Consensus [...] De Oliveira 06/07/2023 10:16 AM Dictation workstation: [id number] Interpreted By: Rubens Rico, STUDY: CT CARDIAC SCORING WO IV CONTRAST; 06/06/2023 10:11 am INDICATION: Signs/Symptoms:SCREENING . COMPARISON: None. ACCESSION NUMBER(S): [id number] ORDERING CLINICIAN: ALDEN MELENDEZ TECHNIQUE: Using prospective [...] WO IV CONTRAST; 06/06/2023 10:11 am INDICATION: Signs/Symptoms:SCREENING . COMPARISON: None. ACCESSION NUMBER(S): [id number] ORDERING CLINICIAN: ALDEN MELENDEZ TECHNIQUE: Using prospective [...] coronary heart disease events. According to the [employer] Clinical Expert Consensus [...] modify other non-lipid coronary risk factors. Reference: Uvalde P et al. Circulation. 2007; 115:402-426 MACRO: None Signed by: Rubens De Oliveira 06/07/2023 10:16 AM Dictation workstation: [id number] [facility] Work Phone: CT for calcium scoring WO co ntrast and CTA W contrast IV Heart and coronary arteriesOrdered By: Rubens De Oliveira on 06-07-2023 [facility] Work Phone: CT for calcium scoring WO co ntrast and CTA W contrast IV Heart and coronary arterieson 06-06-2023 Radiology Study observation (narrative) [facility] Work Phone: Laboratory - Chemistry and C hemistry - challengeon 04-04-2023 Albumin [Mass/Vol] 4.4 g/dL Normal 3.6 - 5.1 g/dL [facility] Albumin/Globulin [Mass ratio] 2.1 {ratio} Normal 1.0 - 2.5 [facility], [facility]. ALP [Catalytic activity/Vol] 56 U/L Normal 35 - 144 U/L [facility], [facility]. ALT [Catalytic activity/Vol] 24 U/L Normal 9 - 46 U/L [facility], [facility].; [facility], [facility]. AST [Catalytic activity/Vol] 14 U/L Normal 10 - 35 U/L [facility], [facility]. Bilirubin [Mass/Vol] 0.8 mg/dL Normal 0.2 - 1 .2 mg/dL [facility], [facility].; [facility], [facility]. Calcium [Mass/Vol] 9.4 mg/dL Normal 8.6 - 10. 3 mg/dL [facility], [facility]. Chloride [Moles/Vol] 103 mmol/L Normal 98 - 11 0 mmol/L [facility], [facility].; [facility], [facility]. Cholesterol [Mass/Vol] 212 mg/dL Abnormal [facility], [facility]. Cholesterol in HDL [Mass/Vol] 41 mg/dL Normal [facility], [facility].; [facility], [facility]. Cholesterol in LDL [Mass/Vol] 132 mg/dL Abnormal [facility] [place] [facility], [facility]. CO2 [Moles/Vol] 31 mmol/L Normal 20 - 32 mmol/L [facility], [facility].; [facility], [facility]. Creatinine [Mass/Vol] 1.04 mg/dL Normal 0.70 - 1.35 mg/dL [facility], [facility].; [employer] [employer] [facility], [facility]. GFR/1.73 sq M.predicted among non-blacks MDRD (S/P/Bld) [Vol rate/Area] 81 mL/min/{1.73_m2} Normal [facility], [facility].; [facility] Glucose [Mass/Vol] 160 mg/dL Abnormal 65 - 99 mg/dL [facility], [facility].; [place] [employer] [facility], [facility]. Potassium [Moles/Vol] 4.0 mmol/L Normal 3.5 - 5.3 mmol/L [facility] [employer] [facility].; [employer]. Protein [Mass/Vol] 6.5 g/dL Normal 6.1 - 8.1 g/dL [place] [employer] Sodium [Moles/Vol] 141 mmol/L Normal 135 - 146 mmol/L [place] [employer]. Triglyceride [Mass/Vol] 251 mg/dL Abnormal [facility] [employer]. Urea nitrogen [Mass/Vol] 15 mg/dL Normal 7 - 25 mg/dL [place] [employer] Laboratory - Hematology and Cell countson 04-04-2023 HbA1c (Bld) [Mass fraction] 7.2 % Abnormal [employer] No Panel Informationon 04-04 BUN/CREATININE RATIO SEE NOTE: Normal 6 - 22 [facility] [employer]. CHOL/HDLC RATIO 5.2 Abnormal [employer] GLOBULIN 2.1 Normal 1.9 - 3.7 [employer] NON HDL CHOLESTEROL 171 Abnormal [facility] [employer] Laboratory - Hematology and Cell countson 09-19-2022 HbA1c (Bld) [Mass fraction] 6.9 % Normal 4.6 - 7.1 % [place] [employer]. Absolute lymphocyte countOrd ered By: Isabel Jaramillo on 04-24-2022 Lymphocytes Auto (Unsp spec) [#/Vol] 1.24 10*3/uL 0.83-4.51 [facility] Atypical perinuclear antineu trophil cytoplasmic antibodies measurementOrdered By: Isabel Jaramillo on 04-24-2022 Neutrophil cytoplasmic Ab.perinuclear.atypical IF (S) [Titer] <1:20 titer Neg:<1:20 [facility] Comment on above: Please Note: Specime n is lipemic.The atypical pANCA pattern has been observed in asignificant percentage of patients with ulcerative colitis,primary sclerosing cholangitis and autoimmune hepatitis. Basophil percentageOrdered B y: Isabel Jaramillo on 04-24-2022 Ammonia (P) [Moles/Vol] 43.0 umol/L 11-32 [facility] Basophil percentage < 0.2 AI 0.0-0.9 [facility] Basophils/100 WBC (Bld) 0.8 % 0-1 [facility] Bilirubin [Mass/Vol] 0.60 mg/dL 0.20-1.00 [facility] Comment on above: For patients on eltr ombopag therapy, use of Dimension [place] TBIL is not recommended. Chloride [Moles/Vol] 101 mmol/L 98-107 [facility] Eosinophils/100 WBC (Bld) 1.6 % 0-5 [facility] Glucose [Mass/Vol] 185 mg/dL 74-106 [facility] Comment on above: Fasting Glucose resu lt greater than or equal to 126 mg/dL suggests DIABETES MELLITUS per A.D.A. criteria. LDH [Catalytic activity/Vol] 166 U/L 87-241 [facility] Comment on above: Slight Hemolysis, Re sult may be falsely increased. Neutrophils (Bld) [#/Vol] 3.0 10*3/uL 2.0-7.7 [facility] Neutrophils/100 WBC (Bld) 62.7 % 47-70 [facility] Potassium [Moles/Vol] 3.7 mmol/L 3.5-5.1 [facility] Comment on above: Slight Hemolysis, Re sult may be falsely increased. Protein [Mass/Vol] 7.5 g/dL 6.4-8.2 [facility] Sodium [Moles/Vol] 139 mmol/L 136-145 [facility] WBC (Bld) [#/Vol] 4.9 10*3/uL 4.4-11.0 [facility] Blood erythrocytes count (nu mber/volume)Ordered By: Isabel Jaramillo on 04-24-2022 RBC (Bld) [#/Vol] 4.95 10*6/uL 4.6-6.2 [facility] Blood hemoglobin measurement (mass/volume)Ordered By: Isabel Jaramillo on 04-24-2022 Hemoglobin (Bld) [Mass/Vol] 14.8 g/dL 13.0-16.5 [facility] Blood lymphocytes/100 leukoc ytesOrdered By: Isabel Jaramillo on 04-24-2022 Lymphocytes/100 WBC (Bld) 25.6 % 19-41 [facility] Blood monocytes/100 leukocyt esOrdered By: Isabel Jaramillo on 04-24-2022 Monocytes/100 WBC (Bld) 8.5 % 0-10 [facility] Blood platelet mean volumeOr dered By: Isabel Jaramillo on 04-24-2022 Platelet mean volume (Bld) [Entitic vol] 9.9 fL 6.2-12.0 [facility] Determination of erythrocyte mean corpuscular volume (MCV)Ordered By: Isabel Jaramillo on 04-24-2022 MCV (RBC) [Entitic vol] 87.3 fL 80-94 [facility] Erythrocyte sedimentation ra teOrdered By: Isabel Jaraimllo on 04-24-2022 ESR (Bld) [Velocity] 3 mm/h 0-20 [facility] Hematocrit Auto (Bld) [Volum e fraction]Ordered By: Isabel Jaramillo on 04-24-2022 Hematocrit (Bld) [Volume fraction] 43.2 % 40-54 [facility] INR in Blood by Coagulation assayOrdered By: Isabel Jaramillo on 04-24-2022 INR Coag (Bld) [Relative time] 0.9 {INR} [facility] Laboratory - Chemistry and C hemistry - challengeOrdered By: Isabel Jaramillo on 04-24-2022 ALP [Catalytic activity/Vol] 66 U/L 45-117 [facility] ALT [Catalytic activity/Vol] 33 U/L 16-61 [facility] CO2 [Moles/Vol] 27.0 mmol/L 21.0-32.0 [facility] Globulin (S) [Mass/Vol] 3.4 g/dL 2.2-4.2 [facility] Urea nitrogen/Creatinine [Mass ratio] 16.4 mg/mg 10-20 [facility] Laboratory - CoagulationOrde red By: Isabel Jaramillo on 04-24-2022 PT Coag (PPP) [Time] 12.3 s 11.7-14.9 [facility] Laboratory - Hematology and Cell countson 04-24-2022 HbA1c (Bld) [Mass fraction] 7.0 % Normal 4.6 - 7.1 % [facility] Laboratory - Hematology and Cell countsOrdered By: Isabel Jaramillo on 04-24-2022 Erythrocyte distribution width (RBC) [Entitic vol] 41.8 fL 35.1-43.9 [facility] Erythrocyte distribution width (RBC) [Ratio] 13.2 % 11.6-14.6 [facility] Immature granulocytes/100 WBC (Bld) 0.800 % 0.0-0.9 [facility] Comment on above: IG% - Immature Granu locytes (promyelocytes, myelocytes and metamyelocytes) > 1% indicates that a LEFT SHIFT is Present. MCH (RBC) [Entitic mass] 29.9 pg 27.0-32.0 [facility] Nucleated RBC/100 WBC (Bld) [Ratio] 0 % 0-5 [facility] MCHC Auto (RBC) [Mass/Vol]Or dered By: Isabel Jaramillo on 04-24-2022 MCHC (RBC) [Mass/Vol] 34.3 g/dL 32-36 [facility] No Panel InformationOrdered By: Isabel Jaramillo on 04-24-2022 Centromere B Antibody <0.2 AI 0.0-0.9 [facility] Ceruloplasmin 18.7 mg/dL 16.0-31.0 [facility] Estimated GFR (MDRD) Amer 73 mL/min >60 [facility] Comment on above: GFR Calc Estimated GFR (MDRD) Non-Af Amer 61 mL/min >60 [facility] Comment on above: Non- GFR Calc Haptoglobin 140 mg/dL 32-363 [facility] Comment on above: Performed at: [facility] Ana rebolledo [address] [id number] Director: Evan Soni PhD, Phone: [phone] at: [facility] [id number] Director: Le Gonzalez MD, Phone: [phone] Hepatitis A IgM Antibody Negative Negative [facility] Hepatitis B Core IgM Antibody Negative Negative [facility] Hepatitis C Antibody (EIA) <0.1 s/co ratio 0.0-0.9 [facility] Hepatitis C Antibody Comment Comment . [facility] Comment on above: NegativeNot infected with HCV, unless recent infection issuspected or other evidence exists to indicate HCVinfection. SURGICAL PATHOLOGIST Antibody <0.2 AI 0.0-0.9 [facility] Platelets bldOrdered By: Alondra Jaramillo on 04-24-2022 Platelets (Bld) [#/Vol] 188 10*3/uL 150-450 [facility] Serum DNA double strand anti body assay (units/volume)Ordered By: Isabel Jaramillo on 04-24-2022 DNA double strand Ab Qn (S) 1 [IU]/mL 0-9 [facility] Comment on above: Negative <5 Equivoca l 5 - 9 Positive >9 Serum Lilibeth-1 antibody assay (u nits/volume)Ordered By: Isabel Jaramillo on 04-24-2022 Lilibeth-1 extractable nuclear Ab Qn (S) <0.2 AI 0.0-0.9 [facility] Serum Scl-70 extractable nuc lear antibody assay (units/volume)Ordered By: Isabel Jaramillo on 04-24-2022 SCL-70 extractable nuclear Ab Qn (S) <0.2 AI 0.0-0.9 [facility] Serum Ndiaye extractable nucl ear antibody detectionOrdered By: Isabel Jaramillo on 04-24-2022 Ndiaye extractable nuclear Ab Ql (S) <0.2 AI 0.0-0.9 [facility] Serum classic neutrophil cyt oplasmic antibody assay (units/volume)Ordered By: Isabel Jaramillo on 04-24-2022 Neutrophil cytoplasmic Ab.classic Qn (S) <1:20 titer Neg:<1:20 [facility] Comment on above: Please Note: Specime n is lipemic. Serum mitochondria antibody detectionOrdered By: Isabel Jaramillo on 04-24-2022 Mitochondria Ab Ql (S) <20.0 Units 0.0-20.0 [facility] Comment on above: Negative 0.0 - 20.0 Equivocal 20.1 - 24.9 Positive >24.9Mitochondrial (M2) Antibodies are found in 90-96% ofpatients with primary biliary cirrhosis.Performed at: [facility] [id number] Director: Evan Soni PhD, Phone: [phone] Serum or plasma C reactive p rotein measurement (mass/volume)Ordered By: Isabel Jaramillo on 04-24-2022 CRP [Mass/Vol] mg/L 0.0-3.0 [facility] Comment on above: C-Reactive Protein ( CRP) provides useful information for thediagnosis, therapy and monitoring of inflammatory processesand associated diseases. For the evaluation of Relative Riskfor Cardiovascular Disease, a High Sensitivity CRP (HSCRP)should be ordered. Serum or plasma actin IgG an tibody assay (units/volume)Ordered By: Isabel Jaramillo on 04-24-2022 Actin IgG Qn 5 Units 0-19 [facility] Comment on above: Negative 0 - 19 Weak positive 20 - 30 Moderate to strong positive >30 Actin Antibodies are found in 52-85% of patients with autoimmune hepatitis or chronic active hepatitis and in 22% of patients with primary biliary cirrhosis. Serum or plasma albumin andre urement (mass/volume)Ordered By: Isabel Jaramillo on 04-24-2022 Albumin [Mass/Vol] 4.1 g/dL 3.2-5.0 [facility] Serum or plasma albumin/glob ulin mass ratioOrdered By: Isabel Jaramillo on 04-24-2022 Albumin/Globulin [Mass ratio] 1.2 {ratio} 0.9-2.4 [facility] Serum or plasma [id number]-[id number] protein tumor marker measurement (units/volume)Ordered By: Isabel Jaramillo on 04-24-2022 AFP.tumor marker Qn < 1.8 ng/mL 0.0-8.4 [facility] Comment on above: [employer] El ectrochemiluminescence Immunoassay(ECLIA)Values obtained with different assay methods or kits cannotbe used interchangeably. Results cannot be interpreted asabsolute evidence of the presence or absence of malignantdisease.This test is not interpretable in females. Serum or plasma angiotensin converting enzyme measurement (enzymatic activity/volume)Ordered By: Isabel Jaramillo on 04-24-2022 Angiotensin converting enzyme [Catalytic activity/Vol] 28 U/L 14-82 [facility] Serum or plasma calcium andre urement (mass/volume)Ordered By: Isabel Jaramillo on 04-24-2022 Calcium [Mass/Vol] 9.4 mg/dL 8.5-10.1 [facility] Serum or plasma creatinine m easurement (mass/volume)Ordered By: Isabel Jaramillo on 04-24-2022 Creatinine [Mass/Vol] 1.28 mg/dL 0.70-1.30 [facility] Comment on above: The validity of the calculated GFR & GFRAA in patients over 70 years has not been determined. Clinical correlation is essential. Serum or plasma ferritin marcela surement (mass/volume)Ordered By: Isabel Jaramillo on 04-24-2022 Ferritin [Mass/Vol] 335 ng/mL 26-388 [facility] Serum or plasma hepatitis B virus surface antigen detection by immunoassayOrdered By: Isabel Jaramillo on 04-24-2022 HBV surface Ag IA Ql Negative Negative [facility] Serum or plasma urea nitroge n measurement (mass/volume)Ordered By: Isabel Jaramillo on 04-24-2022 Urea nitrogen [Mass/Vol] 21 mg/dL 7-18 [facility] Serum perinuclear neutrophil cytoplasmic antibody titer by immunofluorescenceOrdered By: Isabel Jaramillo on 04-24-2022 Neutrophil cytoplasmic Ab.perinuclear IF (S) [Titer] <1:20 titer Neg:<1:20 [facility] Comment on above: Please Note: Specime n is lipemic.The presence of positive fluorescence exhibiting P-ANCA orC-ANCA patterns alone is not specific for the diagnosis ofWegener's Granulomatosis (WG) or microscopic polyangiitis.Decisions about treatment should not be based solely onANCA IFA results. The [employer] ANCA Group Consensusrecommends follow up testing of positive sera with both NE-3 and MPO-ANCA enzyme immunoassays. As many as 5% serumsamples are positive only by EIA. Ref. AM J Clin Feoddp5772;111:507-513. Thin prep Papanicolaou smear with manual screeningOrdered By: Isabel Jaramillo on 04-24-2022 Thin prep Papanicolaou smear with manual screening 17 U/L 15-37 [facility] Comment on above: Slight Hemolysis, Re sult may be falsely increased. Thin prep Papanicolaou smear with manual screening 11 5-15 [facility] Thin prep Papanicolaou smear with manual screening 86 ug/dL 69-132 [facility] Comment on above: Detection Limit = 5 COMPREHENSIVE METABOLIC PANE [place]en 10-26-2021 Albumin [Mass/Vol] 4.7 g/dL Normal 3.6-5.1 [facility] Comment on above: Performed By: #### 1 0231, 496, 7600 #### [facility] [address], [address] [place] [address] Road Passenger Firer: Hira Hawkins MD Albumin/Globulin [Mass ratio] 2.1 {ratio} Normal 1.0-2.5 [facility] Comment on above: Performed By: #### 1 0231, 496, 7600 #### [facility] [place] [address] [address] Passenger Firer: Hira Hawkins MD ALP [Catalytic activity/Vol] 58 U/L Normal 35-144 [facility] Comment on above: Performed By: #### 1 0231, 496, 7600 #### [facility] [place] [address] [address] Passenger Firer: Hira Hawkins MD ALT [Catalytic activity/Vol] 28 U/L Normal 9-46 [facility] Comment on above: Performed By: #### 1 0231, 496, 7600 #### [facility] [place] [address] [address] Passenger Firer: Hira Hawkins MD AST [Catalytic activity/Vol] 16 U/L Normal 10-35 [facility] Comment on above: Performed By: #### 1 0231, 496, 7600 #### [facility] [place] [address] [address] Passenger Firer: Hira Hawkins MD Bilirubin [Mass/Vol] 0.7 mg/dL Normal 0.2-1.2 [facility] Comment on above: Performed By: #### 1 0231, 496, 7600 #### [facility] [address], [address] [place] [address] Road Passenger Firer: Hira Hawkins MD BUN/CREATININE RATIO NOT APPLICABLE Normal 6-22 [facility] Comment on above: Performed By: #### 1 0231, 496, 7600 #### [facility] [address], [address] [place] [address] Road Passenger Firer: Hira Hawkins MD Calcium [Mass/Vol] 9.6 mg/dL Normal 8.6-10.3 [facility] Comment on above: Performed By: #### 1 0231, 496, 7600 #### [facility] [place] [address] [address] Passenger Firer: Hira Hawkins MD Chloride [Moles/Vol] 102 mmol/L Normal 98-110 [facility] Comment on above: Performed By: #### 1 0231, 496, 7600 #### [facility] [place] [address] [address] Passenger Firer: Hira Hawkins MD CO2 [Moles/Vol] 31 mmol/L Normal 20-32 [facility] Comment on above: Performed By: #### 1 0231, 496, 7600 #### [facility] [place] [address] [address] Passenger Firer: Hira Hawkins MD Creatinine [Mass/Vol] 1.04 mg/dL Normal 0.70-1.35 [facility] Comment on above: Performed By: #### 1 0231, 496, 7600 #### [facility] of [place] [address] [address] Passenger Firer: Hira Hawkins MD GFR/1.73 sq M.predicted among non-blacks MDRD (S/P/Bld) [Vol rate/Area] 82 mL/min/{1.73_m2} Normal > OR = 60 [facility] Comment on above: Result Comment: The eGFR is based on the CKD-EPI 2020 equation. To calculate the new eGFR from a previous Creatinine or Cystatin C result, go to https://www.kidney.org/professionals/ kdoqi/gfr%5Fcalculator Performed By: #### 1 0231, 496, 7600 #### [facility] [place] [address] [address] Passenger Firer: Hira Hawkins MD Globulin (S) [Mass/Vol] 2.2 g/dL Normal 1.9-3.7 [facility] Comment on above: Performed By: #### 1 023, 496, 7600 #### [facility] [place] [address] [address] Passenger Firer: Hira Hawkins MD Glucose [Mass/Vol] 175 mg/dL High 65-99 [facility] Comment on above: Result Comment: Fasting reference interval For someone without known diabetes, a glucose value >125 mg/dL indicates that they may have diabetes and this should be confirmed with a follow-up test. Performed By: #### 1 023, 496, 7600 #### [facility] [place] [address] [address] Passenger Firer: Hira Hawkins MD Potassium [Moles/Vol] 3.7 mmol/L Normal 3.5-5.[address] [facility] Comment on above: Performed By: #### 1 230, 496, 7600 #### [facility] [place] [address] [address] Passenger Firer: Hira Hawkins MD Protein [Mass/Vol] 6.9 g/dL Normal 6.1-8.1 [facility] Comment on above: Performed By: #### 1 023, 496, 7600 #### [facility] [place] [address] [address] Passenger Firer: Hira Hawkins MD Sodium [Moles/Vol] 140 mmol/L Normal 135-146 [facility] Comment on above: Performed By: #### 1 023, 496, 7600 #### [facility] [address] [address] Road Passenger Firer: Hira Hawkins MD Urea nitrogen [Mass/Vol] 17 mg/dL Normal 7-25 [facility] Comment on above: Performed By: #### 1 023, 496, 7600 #### [facility] [address], [address] [place] [address] Road Passenger Firer: Hira Hawkins MD HEMOGLOBIN A1con 10-26-2021 HEMOGLOBIN [...] diabetes for children. Performed By: #### 1 023, 496, 0700 #### [facility] [place] [address] [address] Passenger Firer: Hira Hawkins MD LIPID PANEL, STANDARDon Cholesterol [Mass/Vol] 206 mg/dL High <200 [facility] Comment on above: Performed By: #### 1 023, 496, 2160 #### [facility] [place] [address] [address] Passenger Firer: Hira Hawkins MD Cholesterol in HDL [Mass/Vol] 39 mg/dL Low > OR = 40 [facility] Comment on above: Performed By: #### 1 0231, 496, 7600 #### [facility] [place] [address] [address] Passenger Firer: Hira Hawkins MD Cholesterol in LDL [Mass/Vol] [...] LDL-C. Davi IZQUIERDO et al. ORQUIDEA. 2013;310(19): 6505-8119 (http://education.Microco.sm/faq/CBK474) Performed By: #### 1 0231, 496, 6840 #### [facility] [address], [address] [place] [address] Road Passenger Firer: Hira Hawkins MD Cholesterol.total/Choles terol in HDL [Mass ratio] 5.3 {ratio} High <5.0 [facility] Comment on above: Performed By: #### 1 023, 496, 8410 #### [facility] [address], [address] [place] [address] Road Passenger Firer: Hira Hawkins MD NON HDL CHOLESTEROL 167 mg/dL (calc) High <130 [facility] Comment on above: Result Comment: For patients with diabetes plus 1 major ASCVD risk factor, treating to a non-HDL-C goal of <100 mg/dL (LDL-C of <70 mg/dL) is considered a therapeutic option. Performed By: #### 1 023, 495, 4320 #### [facility] [address], [address] [place] [address] Road Passenger Firer: Hira Hawkins MD Triglyceride [Mass/Vol] 271 mg/dL High <150 [facility] Comment on above: Result Comment: If a non-fasting specimen was collected, consider repeat triglyceride testing on a fasting specimen if clinically indicated. Joanne et al. J. of Clin. Lipidol. 2015;9:129-169. Performed By: #### 1 0231, 496, 1960 #### [facility] [address], [address] [place] [address] Road Passenger Firer: Hira Hawkins MD Laboratory - Chemistry and C hemistry - challengeon 10-24-2021 Albumin [Mass/Vol] 4.7 g/dL Normal 3.6 - 5.1 g/dL [facility], [facility]. Albumin/Globulin [Mass ratio] 2.1 {ratio} Normal 1.0 - 2.5 [facility], [facility]. ALP [Catalytic activity/Vol] 58 U/L Normal 35 - 144 U/L [facility], [facility]. ALT [Catalytic activity/Vol] 28 U/L Normal 9 - 46 U/L [facility], [facility]. AST [Catalytic activity/Vol] 16 U/L Normal 10 - 35 U/L [facility], [facility]. Bilirubin [Mass/Vol] 0.7 mg/dL Normal 0.2 - 1 .2 mg/dL [facility], [facility]. Calcium [Mass/Vol] 9.6 mg/dL Normal 8.6 - 10. 3 mg/dL [facility], [facility]. Chloride [Moles/Vol] 102 mmol/L Normal 98 - 11 0 mmol/L [facility], [facility]. Cholesterol [Mass/Vol] 206 mg/dL Abnormal [facility], [facility]. Cholesterol in HDL [Mass/Vol] 39 mg/dL Abnormal [facility], [facility]. Cholesterol in LDL [Mass/Vol] 125 mg/dL Abnormal [facility], [facility]. CO2 [Moles/Vol] 31 mmol/L Normal 20 - 32 mmol/L [facility] [employer] [facility].; [facility], [facility]. Creatinine [Mass/Vol] 1.04 mg/dL Normal 0.70 - 1.35 mg/dL [facility], [facility].; [facility], [facility]. GFR/1.73 sq M.predicted among non-blacks MDRD (S/P/Bld) [Vol rate/Area] 82 mL/min/{1.73_m2} Normal [facility], [facility].; [facility], [facility]. Glucose [Mass/Vol] 175 mg/dL Abnormal 65 - 99 mg/dL [facility], [facility].; [employer]. Potassium [Moles/Vol] 3.7 mmol/L Normal 3.5 - 5.3 mmol/L [place] [employer]. Protein [Mass/Vol] 6.9 g/dL Normal 6.1 - 8.1 g/dL [place] [employer]. Sodium [Moles/Vol] 140 mmol/L Normal 135 - 146 mmol/L [place] [employer]. Triglyceride [Mass/Vol] 271 mg/dL Abnormal [facility] [employer] [facility].; [employer]. Urea nitrogen [Mass/Vol] 17 mg/dL Normal 7 - 25 mg/dL [place] [employer]. Laboratory - Hematology and Cell countson 10-24-2021 HbA1c (Bld) [Mass fraction] 7.0 % Abnormal [employer]. No Panel Informationon 10-24 BUN/CREATININE RATIO NOT APPLICABLE Normal 6 - 22 [place] [employer] [address] CHOL/HDLC RATIO 5.3 Abnormal [employer] GLOBULIN 2.2 Normal 1.9 - 3.7 [place] [employer]. NON HDL CHOLESTEROL 167 Abnormal [facility] [employer]. Glucose Glucometer (BldC) [M ass/Vol]on 07-26-2021 Glucose [Mass/Vol] 170 mg/dL 74-106 [facility] Work Phone: Comment on above: MANAGEMENT OF PATIEN T CARE PER NURSING PROTOCOL Glucose Glucometer (BldC) [M ass/Vol]on 07-07-2021 Glucose [Mass/Vol] 205 mg/dL 74-106 [facility] Work Phone: Comment on above: MANAGEMENT OF PATIEN T CARE PER NURSING PROTOCOL Giardia lamblia ag stool EIA on 06-08-2021 G. lamblia Ag IA Ql (Stl) Negative Negative [facility] Work Phone: Comment on above: Performed at: - [facility] [id number] [place], [place] [id number] Director: Evan Soni PhD, Phone: [phone] No Panel Informationon 06-08 Stool Calprotectin <16 ug/g [facility] Work Phone: Comment on above: Concentration Interp retation Follow-Up<16 - 50 ug/g Normal None>50 -120 ug/g Borderline Re-evaluate in 4-6 weeks >120 ug/g Abnormal Repeat as clinically indicatedPerformed at: BN - [facility] [address] [id number] Director: Le Gonzalez MD, Phone: [phone] Absolute lymphocyte counton 06-02-2021 Lymphocytes Auto (Unsp spec) [#/Vol] 1.25 10*3/uL 0.83-4.51 [facility] Work Phone: Basophil percentageon 2021 Basophils/100 WBC (Bld) 1.3 % 0-1 [facility] Work Phone: Bilirubin [Mass/Vol] 0.70 mg/dL 0.20-1.00 [facility] Work Phone: Comment on above: For patients on eltr ombopag therapy, use of Dimension [place] TBIL is not recommended. Chloride [Moles/Vol] 103 mmol/L 98-107 [facility] Work Phone: Eosinophils/100 WBC (Bld) 1.7 % 0-5 [facility] Work Phone: Glucose [Mass/Vol] 180 mg/dL 74-106 [facility] Work Phone: Comment on above: Fasting Glucose resu lt greater than or equal to 126 mg/dL suggests DIABETES MELLITUS per A.D.A. criteria. Neutrophils (Bld) [#/Vol] 2.9 10*3/uL 2.0-7.7 [facility] Work Phone: Neutrophils/100 WBC (Bld) 60.5 % 47-70 [facility] Work Phone: Potassium [Moles/Vol] 3.8 mmol/L 3.5-5.1 [facility] Work Phone: Protein [Mass/Vol] 7.7 g/dL 6.4-8.2 [facility] Work Phone: Sodium [Moles/Vol] 137 mmol/L 136-145 [facility] Work Phone: WBC (Bld) [#/Vol] 4.8 10*3/uL 4.4-11.0 [facility] Work Phone: Blood erythrocytes count (nu mber/volume)on 06-02-2021 RBC (Bld) [#/Vol] 4.88 10*6/uL 4.6-6.2 [facility] Work Phone: Blood hemoglobin measurement (mass/volume)on 06-02-2021 Hemoglobin (Bld) [Mass/Vol] 14.6 g/dL 13.0-16.5 [facility] Work Phone: Blood lymphocytes/100 leukoc yteson 06-02-2021 Lymphocytes/100 WBC (Bld) 26.1 % 19-41 [facility] Work Phone: Blood monocytes/100 leukocyt eson 06-02-2021 Monocytes/100 WBC (Bld) 9.6 % 0-10 [facility] Work Phone: Blood platelet mean volumeon 06-02-2021 Platelet mean volume (Bld) [Entitic vol] 9.8 fL 6.2-12.0 [facility] Work Phone: Determination of erythrocyte mean corpuscular volume (MCV)on 06-02-2021 MCV (RBC) [Entitic vol] 84.8 fL 80-94 [facility] Work Phone: Erythrocyte sedimentation ra josette 06-02-2021 ESR (Bld) [Velocity] 3 mm/h 0-20 [facility] Work [facility]: Hematocrit Auto (Bld) [Volum e fraction]on 06-02-2021 Hematocrit (Bld) [Volume fraction] 41.4 % 40-54 [facility] Work Phone: [phone] Laboratory - Chemistry and C hemistry - challengeon 06-02-2021 ALP [Catalytic activity/Vol] 71 U/L 45-117 [facility] Work Phone: [phone] ALT [Catalytic activity/Vol] 66 U/L 16-61 [facility] Work Phone: [phone] CO2 [Moles/Vol] 30.0 mmol/L 21.0-32.0 [facility] Work Phone: [phone] Globulin (S) [Mass/Vol] 3.5 g/dL 2.2-4.2 [facility] Work Phone: [phone] Urea nitrogen/Creatinine [Mass ratio] 15.7 mg/mg 10-20 [facility] Work Phone: [phone] Laboratory - Hematology and Cell countson 06-02-2021 Erythrocyte distribution width (RBC) [Entitic vol] 40.8 fL 35.1-43.9 [facility] Work Phone: [phone] Erythrocyte distribution width (RBC) [Ratio] 13.2 % 11.6-14.6 [facility] Work Phone: [phone] Immature granulocytes/100 WBC (Bld) 0.800 % 0.0-0.9 [facility] Work Phone: [phone] Comment on above: IG% - Immature Granu locytes (promyelocytes, myelocytes and metamyelocytes) > 1% indicates that a LEFT SHIFT is Present. MCH (RBC) [Entitic mass] 29.9 pg 27.0-32.0 [facility] Work Phone: [phone] Nucleated RBC/100 WBC (Bld) [Ratio] 0 % 0-5 [facility] Work Phone: [phone] MCHC Auto (RBC) [Mass/Vol]on 06-02-2021 MCHC (RBC) [Mass/Vol] 35.3 g/dL 32-[address] [facility] Work [facility]: [phone] Panel Informationon 06-02 Estimated GFR (MDRD) Amer 79 mL/min >60 [facility] Work Phone: Comment on above: GFR Calc Estimated GFR (MDRD) Non-Af Amer 65 mL/min >60 [facility] Work Phone: Comment on above: Non- GFR Calc Platelets bldon 06-02-2021 Platelets (Bld) [#/Vol] 207 10*3/uL 150-450 [facility] Work Phone: Serum or plasma C reactive p rotein measurement (mass/volume)on 06-02-2021 CRP [Mass/Vol] mg/L 0.0-3.0 [facility] Work Phone: Comment on above: C-Reactive Protein ( CRP) provides useful information for thediagnosis, therapy and monitoring of inflammatory processesand associated diseases. For the evaluation of Relative Riskfor Cardiovascular Disease, a High Sensitivity CRP (HSCRP)should be ordered. Serum or plasma albumin andre urement (mass/volume)on 06-02-2021 Albumin [Mass/Vol] 4.2 g/dL 3.2-5.0 [facility] Work Phone: Serum or plasma albumin/glob ulin mass ratioon 06-02-2021 Albumin/Globulin [Mass ratio] 1.2 {ratio} 0.9-2.4 [facility] Work Phone: Serum or plasma calcium andre urement (mass/volume)on 06-02-2021 Calcium [Mass/Vol] 9.2 mg/dL 8.5-10.1 [facility] Work Phone: Serum or plasma creatinine m easurement (mass/volume)on 06-02-2021 Creatinine [Mass/Vol] 1.21 mg/dL 0.70-1.30 [facility] Work Phone: Comment on above: The validity of the calculated GFR & GFRAA in patients over 70 years has not been determined. Clinical correlation is essential. Serum or plasma urea nitroge n measurement (mass/volume)on 06-02-2021 Urea nitrogen [Mass/Vol] 19 mg/dL 7-18 [facility] Work Phone: Thin prep Papanicolaou smear with manual screeningon 06-02-2021 Thin prep Papanicolaou smear with manual screening 25 U/L 15-37 [facility] Work Phone: Thin prep Papanicolaou smear with manual screening 4 5-15 [facility] Work Phone: COMPREHENSIVE METABOLIC PANE [place]en 04-25-2021 Albumin [Mass/Vol] 5.0 g/dL Normal 3.6-5.1 [facility] Comment on above: Performed By: #### 7 600, 06477, 496, 5363 #### [facility] [place] [address] [address] Passenger Firer: Hira Hawkins MD Albumin/Globulin [Mass ratio] 2.3 {ratio} Normal 1.0-2.5 [facility] Comment on above: Performed By: #### 7 600, 87136, 496, 5363 #### [facility] [place] [address] [address] Passenger Firer: Hira Hawkins MD ALP [Catalytic activity/Vol] 67 U/L Normal 35-144 [facility] Comment on above: Performed By: #### 7 600, 02290, 496, 5363 #### [facility] [place] [address] [address] Passenger Firer: Hira Hawkins MD ALT [Catalytic activity/Vol] 39 U/L Normal 9-46 [facility] Comment on above: Performed By: #### 7 600, 04186, 496, 5363 #### [facility] [place] [address] [address] Passenger Firer: Hira Hawkins MD AST [Catalytic activity/Vol] 19 U/L Normal 10-35 [facility] Comment on above: Performed By: #### 7 600, 80488, 496, 5363 #### [facility] [place] [address] [address] Passenger Firer: Hira Hawkins MD Bilirubin [Mass/Vol] 0.8 mg/dL Normal 0.2-1.2 [facility] Comment on above: Performed By: #### 7 600, 46792, 496, 5363 #### [facility] [place] [address] [address] Passenger Firer: Hira Hawkins MD BUN/CREATININE RATIO NOT APPLICABLE Normal 6-22 [facility] Comment on above: Performed By: #### 7 600, 54870, 496, 5363 #### [facility] [place] [address] [address] Passenger Firer: Hira Hawkins MD Calcium [Mass/Vol] 9.8 mg/dL Normal 8.6-10.3 [facility] Comment on above: Performed By: #### 7 600, 30446, 496, 5363 #### [facility] [place] [address] [address] Passenger Firer: Hira Hawkins MD Chloride [Moles/Vol] 102 mmol/L Normal 98-110 [facility] Comment on above: Performed By: #### 7 600, 48749, 496, 5363 #### [facility] [place] [address] [address] Passenger Firer: Hira Hawkins MD CO2 [Moles/Vol] 29 mmol/L Normal 20-32 [facility] Comment on above: Performed By: #### 7 600, 50405, 496, 5363 #### [facility] [place] [address] [address] Passenger Firer: Hira Hawkins MD Creatinine [Mass/Vol] 1.19 mg/dL Normal 0.70-1.25 [facility] Comment on above: Result Comment: For patients >49 years of age, the reference limit for Creatinine is approximately 13% higher for people identified as -Syrian. Performed By: #### 7 600, 80272, 496, 5363 #### [facility] [place] [address] [address] Passenger Firer: Hira Hawkins MD eGFR NON-AFR. [facility] 66 mL/min/1.73m2 Normal > OR = 60 [facility] Comment on above: Performed By: #### 7 600, 59603, 496, 5363 #### [facility] [place] [address] [address] Passenger Firer: Hira Hawkins MD GFR/1.73 sq M.predicted among blacks MDRD (S/P/Bld) [Vol rate/Area] 76 mL/min/{1.73_m2} Normal > OR = 60 [facility] Comment on above: Performed By: #### 7 600, 10109, 496, 5363 #### [facility] [place] [address] [address] Passenger Firer: Hira Hawkins MD Globulin (S) [Mass/Vol] 2.2 g/dL Normal 1.9-3.7 [facility] Comment on above: Performed By: #### 7 600, 73441, 496, 5363 #### [facility] [place] [address] [address] Passenger Firer: Hira Hawkins MD Glucose [Mass/Vol] 146 mg/dL High 65-99 [facility] Comment on above: Result Comment: Fasting reference interval For someone without known diabetes, a glucose value >125 mg/dL indicates that they may have diabetes and this should be confirmed with a follow-up test. Performed By: #### 7 600, 78740, 496, 5363 #### [facility] [place] [address] [address] Passenger Firer: Hira Hawkins MD Potassium [Moles/Vol] 3.8 mmol/L Normal 3.5-5.[address] [facility] Comment on above: Performed By: #### 7 600, 72687, 496, 5363 #### [facility] [place] [address] [address] Passenger Firer: Hira Hawkins MD Protein [Mass/Vol] 7.2 g/dL Normal 6.1-8.1 [facility] Comment on above: Performed By: #### 7 600, 60785, 496, 5363 #### [facility] [address], [address] [place] [address] Road Passenger Firer: Hira Hawkins MD Sodium [Moles/Vol] 140 mmol/L Normal 135-146 [facility] Comment on above: Performed By: #### 7 600, 08457, 496, 5363 #### [facility] [address], [address] [place] [address] Road Passenger Firer: Hira Hawkins MD Urea nitrogen [Mass/Vol] 22 mg/dL Normal 7-25 [facility] Comment on above: Performed By: #### 7 600, 33845, 496, 5363 #### [facility] [address], [address] [place] [address] Road Passenger Firer: Hira Hawkins MD HEMOGLOBIN A1con 04-25-2021 HEMOGLOBIN [...] for children. Performed By: #### 7 600, 87891, 496, 5363 #### [facility] [address], [address] [place] [address] Road Passenger Firer: Hira Hawkins MD LIPID PANEL, STANDARDon Cholesterol [Mass/Vol] 234 mg/dL High <200 [facility] Comment on above: Performed By: #### 7 600, 69241, 496, 5363 #### [facility] [address], [address] [place] [address] Road Passenger Firer: Hira Hawkins MD Cholesterol in HDL [Mass/Vol] 34 mg/dL Low > OR = 40 [facility] Comment on above: Performed By: #### 7 600, 02978, 496, 5363 #### [facility] [place] [address] [address] Passenger Firer: Hira Hawkins MD Cholesterol in LDL [Mass/Vol] [...] LDL-C. Davi IZQUIERDO et al. ORQUIDEA. 2013;310(19): 0735-5121 (http://education.Blippex.Haivision/faq/XNP970) Performed By: #### 7 600, 08167, 496, 5363 #### [facility] [place] [address] [address] Passenger Firer: Hira Hawkins MD Cholesterol.total/Choles terol in HDL [Mass ratio] 6.9 {ratio} High <5.0 [facility] Comment on above: Performed By: #### 7 600, 14153, 496, 5363 #### [facility] [place] [address] [address] Passenger Firer: Hira Hawkins MD NON HDL CHOLESTEROL 200 mg/dL (calc) High <130 [facility] Comment on above: Result Comment: For patients with diabetes plus 1 major ASCVD risk factor, treating to a non-HDL-C goal of <100 mg/dL (LDL-C of <70 mg/dL) is considered a therapeutic option. Performed By: #### 7 600, 84769, 496, 5363 #### [facility] [place] [address] [address] Passenger Firer: Hira Hawkins MD Triglyceride [Mass/Vol] 222 mg/dL High <150 [facility] Comment on above: Result Comment: If a non-fasting specimen was collected, consider repeat triglyceride testing on a fasting specimen if clinically indicated. Joanne et al. J. of Clin. Lipidol. 2015;9:129-169. Performed By: #### 7 600, 85782, 496, 5363 #### [facility] [address], [address] [place] [address] Road Passenger Firer: Hira Hawkins MD PSA, TOTALon 04-25-2021 PSA, TOTAL 3.03 ng/mL Normal < OR = 4.00 [facility] Comment on above: Result Comment: The total PSA value from this assay system is standardized against the WHO standard. The test result will be approximately 20% lower when compared to the equimolar-standardized total PSA (Nicole Maria). Comparison of serial PSA results should be interpreted with this fact in mind. This test was performed using the Siemens chemiluminescent method. Values obtained from different assay methods cannot be used interchangeably. PSA levels, regardless of value, should not be interpreted as absolute evidence of the presence or absence of disease. Performed By: #### 7 600, 32407, 496, 5363 #### [facility] [address], [address] [place] [address] Road Passenger Firer: Hira Hawkins MD URIC ACIDon 04-25-2021 Urate [Mass/Vol] 8.4 mg/dL High 4.0-8.0 [facility] Comment on above: Result Comment: Ther apeutic target for gout patients: <6.0 mg/dL Performed By: #### 9 05 #### [facility] [address], [address] [place] [address] Road Passenger Firer: Hira Hawkins MD Laboratory - Chemistry and C hemistry - challengeon 04-24-2021 Albumin [Mass/Vol] 5.0 g/dL Normal 3.6 - 5.1 g/dL [facility] Albumin/Globulin [Mass ratio] 2.3 {ratio} Normal 1.0 - 2.5 [facility], [facility].; [facility] ALP [Catalytic activity/Vol] 67 U/L Normal 35 - 144 U/L [facility], [facility].; [facility], [facility]. ALT [Catalytic activity/Vol] 39 U/L Normal 9 - 46 U/L [facility], [facility]. AST [Catalytic activity/Vol] 19 U/L Normal 10 - 35 U/L [facility], [facility].; [facility], [facility]. Bilirubin [Mass/Vol] 0.8 mg/dL Normal 0.2 - 1 .2 mg/dL [facility], [facility]. Calcium [Mass/Vol] 9.8 mg/dL Normal 8.6 - 10. 3 mg/dL [facility], [facility].; [facility], [facility]. Chloride [Moles/Vol] 102 mmol/L Normal 98 - 11 0 mmol/L [facility], [facility].; [facility], [facility]. Cholesterol [Mass/Vol] 234 mg/dL Abnormal [facility], [facility].; [facility], [facility] Cholesterol in HDL [Mass/Vol] 34 mg/dL Abnormal [facility], [facility].; [facility], [facility]. Cholesterol in LDL [Mass/Vol] 162 mg/dL Abnormal [facility], [facility].; [facility], [facility]. CO2 [Moles/Vol] 29 mmol/L Normal 20 - 32 mmol/L [facility], [facility].; [facility], [facility]. Creatinine [Mass/Vol] 1.19 mg/dL Normal 0.70 - 1.25 mg/dL [facility], [facility].; [facility], [facility]. GFR/1.73 sq M.predicted among blacks MDRD (S/P/Bld) [Vol rate/Area] 76 mL/min/{1.73_m2} Normal [facility], [facility].; [facility], [facility]. Glucose [Mass/Vol] 146 mg/dL Abnormal 65 - 99 mg/dL [facility], [facility].; [facility], [facility]. Potassium [Moles/Vol] 3.8 mmol/L Normal 3.5 - 5.3 mmol/L [facility], [facility].; [facility], [facility]. Protein [Mass/Vol] 7.2 g/dL Normal 6.1 - 8.1 g/dL [facility] [employer] [facility].; [place] [employer] [facility] [employer] [facility] Sodium [Moles/Vol] 140 mmol/L Normal 135 - 146 mmol/L [facility] [employer] [facility]; [place] [employer] [facility] [employer] [facility] Triglyceride [Mass/Vol] 222 mg/dL Abnormal [facility] [place] [employer] [facility], [facility] Urate [Mass/Vol] 8.4 mg/dL Abnormal 4.0 - 8.0 mg/dL [facility] [employer] [facility]; [place] [employer] [facility] [employer] [facility] Urea nitrogen [Mass/Vol] 22 mg/dL Normal 7 - 25 mg/dL [facility] [employer] [facility]; [place] [employer] [facility] Laboratory - Hematology and Cell countson 04-24-2021 HbA1c (Bld) [Mass fraction] 7.7 % Abnormal [facility] [employer] [facility]; [place] [employer] [facility] No Panel Informationon 04-24 BUN/CREATININE RATIO NOT APPLICABLE Normal 6 - 22 [facility] [employer] [facility]; [place] [employer] CHOL/HDLC RATIO 6.9 Abnormal [facility] [employer] [facility]; [place] [employer] [facility] eGFR NON-AFR. [facility] 66 Normal [facility] [employer] [facility]; [place] [employer] [facility] [employer] [facility] GLOBULIN 2.2 Normal 1.9 - 3.7 [facility] [employer] [facility]; [place] [employer] NON HDL CHOLESTEROL 200 Abnormal [facility] [employer] [facility]; [employer] PSA, TOTAL 3.03 ng/mL Normal [place] [employer] [facility] [employer] [facility]; [place] [employer] URIC ACIDon 12-04-2020 Urate [Mass/Vol] 7.9 mg/dL Normal 4.0-8.0 [facility] Comment on above: Result Comment: Ther apeutic target for gout patients: <6.0 mg/dL Performed By: #### 9 05 #### [facility] [address], [address] [place] [id number] Road Passenger Firer: Hira Hawkins MD Laboratory - Chemistry and C hemistry - challengeon 12-02-2020 Urate [Mass/Vol] 7.9 mg/dL Normal 4.0 - 8.0 mg/dL [facility], [facility]; [facility] - Hematology and Cell countson 12-02-2020 HbA1c (Bld) [Mass fraction] 6.8 % Normal 4.6 - 7.1 % [facility] EMERGENCY REPORTon EMERGENCY REPORT [facility] EMERGENCY ROOM REPORT NAME ACCOUNT SEX AGE ADMIT DISCHARGE PT MED. RECORD# NUMBER DATE DATE TYPE MADELYN [id number] Tariq 59 10/08/20 10/09/20 3 KEITH Sara [id number] ROOM: ER DATE OF : 1960 DICTATING [...] No acute ST segment changes were noted. [place] is approximately 0 degrees. EMERGENCY DEPARTMENT COURSE [...] prescribed and then to follow up with [facility] this coming week. Patient was discharged in a clinically stable condition. Nurse notes reviewed. DIAGNOSIS: Hypertension, poorly controlled. Dictated By: Sohail Wilkinson DO 10/09/20 00:52 JOB #: [id number] Transcribed By: [email or web address] 10/09/20 09:49 Electronically signed by: E-Sign: Dr. Sohail Wilkinson D.O. 10/11/20 10:58 Page 1 of 2 KEITH JOSHI Emergency Room Report KEITH JOSHI : 1960 Page 2 of 2 KEITH JOSHI Emergency Room Report Normal [facility] EMERGENCY REPORT [facility] EMERGENCY ROOM REPORT NAME ACCOUNT SEX AGE ADMIT DISCHARGE PT MED. RECORD# NUMBER DATE DATE TYPE MADELYN [id number] 10/08/20 10/09/20 3 KEITH Ruiz [id number] ROOM: ER DATE OF : 1960 DICTATING PHYSICIAN: Sohail Wilkinson TIME SEEN: 2235 hours. HISTORY OF PRESENT ILLNESS: This is a 58-year-old white male who states he has noticed his blood pressure has been intermittently running high off and on for the past 1 week. He states it has just been gradually creeping up. He did see Isabel Chu at [facility] on Saturday. They increased his Losartan from [...] 96%. Weight is 210 pounds. PCP is [facility]. He used Page 1 of 2 KEITH JOSHI Emergency Room Report KEITH JOSHI : [address] Chen before [...] motor or sensory deficits are noted. 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 SKIN: Skin is [...] Sohail Wilkinson DO 10/08/20 23:05 JOB #: [id number] Transcribed By: yanni 10/09/20 09:15 Electronically signed by: E-Sign: Dr. Sohail Wilkinson D.O. 10/11/20 10:58 Page 2 of 2 KEITH JOSHI Emergency Room Report Normal [facility] CBC + DIFFon 10-09-2020 Baso # 0.00 x10EE3/UL Normal 0.00 - 0.10 [facility] Comment on above: Performed By: #### 2 33852 #### [facility],[address] [place] [address] Basophils/100 WBC (Bld) 0.5 % Normal 0.0 - 2.0 [facility] Comment on above: Performed By: #### 2 78186 #### [facility],[address] [place] [address] CBC + DIFF Normal [facility] Comment on above: Result Comment: CBC- COMPLETE BLOOD COUNT Performed By: #### 2 15108 #### [facility],[address] [place] [address] EO # 0.10 x10EE3/UL Normal 0.00 - 0.50 [facility] Comment on above: Performed By: #### 2 38438 #### [facility],[address] [place] [address]59 Eosinophils/100 WBC (Bld) 1.9 % Normal 0.0 - 7.0 [facility] Comment on above: Performed By: #### 2 57306 #### [facility],[address] [place] [address] 12837 Erythrocyte distribution width (RBC) [Ratio] 13.9 % Normal 12.0 - 15.6 [facility] Comment on above: Performed By: #### 2 42028 #### [facility],[address] [place], [place] [id number] Hematocrit (Bld) [Volume fraction] 42.0 % Normal 40.0 - 52.0 [facility] Comment on above: Performed By: #### 2 21553 #### [facility],[address] [place] [address] Hemoglobin (Bld) [Mass/Vol] 14.6 g/dL Normal 13.0 - 17.5 [facility] Comment on above: Performed By: #### 2 81229 #### [facility],[address] [place] [address] Lymph # 1.30 x10EE3/UL Normal 0.80 - 2.80 [facility] Comment on above: Performed By: #### 2 99143 #### [facility],[address] [place] [address] Lymphocytes/100 WBC (Bld) 25.7 % Normal 20.0 - 45.0 [facility] Comment on above: Performed By: #### 2 78570 #### [facility],[address] [place], [place] [id number] MANUAL DIFF N/A Normal [facility] Comment on above: Performed By: #### 2 86389 #### [facility],[address] [place], [place] [id number] MCH (RBC) [Entitic mass] 29 pg Normal 27 - 33 [facility] Comment on above: Performed By: #### 2 41478 #### [facility],[address] [place], [place] [id number] MCHC 35 X10 3 Normal 32 - 36 [facility] Comment on above: Performed By: #### 2 36548 #### [facility],[address] [place] [address] 38481 MCV (RBC) [Entitic vol] 85 fL Normal 81 - 98 [facility] Comment on above: Performed By: #### 2 78962 #### [facility],[address] [place] [address] 64342 Pershing # 0.40 x10EE3/UL Normal 0.20 - 1.00 [facility] Comment on above: Performed By: #### 2 72158 #### [facility],[address] [place] [address] 85911 MONOS % 8.7 % Normal 0.0 - 10.0 [facility] Comment on above: Performed By: #### 2 26457 #### [facility],[address] [place] [address] 60619 Morphology Daniel (Bld) [Interp] N/A Normal [facility] Comment on above: Result Comment: {CD] Performed By: #### 2 42642 #### [facility],[address] [place] [address] 85198 Neut # 3.20 x10EE3/UL Normal 1.50 - 7.10 [facility] Comment on above: Performed By: #### 2 69423 #### [facility],[address] [place] [address] 14350 Neutrophils/100 WBC (Bld) 63.2 % Normal 46.0 - 76.0 [facility] Comment on above: Performed By: #### 2 52938 #### [facility],[address] [place] [address] 64980 PLATELET 173 x10EE3/UL Normal 150 - 450 [facility] Comment on above: Performed By: #### 2 64823 #### [facility],[address] [place] [address] 47190 Platelet mean volume (Bld) [Entitic vol] 7.3 fL Normal 6.4 - 10.5 [facility] Comment on above: Result Comment: AUTO MATED DIFFERENTIAL Performed By: #### 2 74050 #### [facility],[address] [place] [address] 10647 RBC 4.95 x 10EE6/UL Normal 4.50 - 6.00 [facility] Comment on above: Performed By: #### 2 43790 #### [facility],[address] [place] [address] 54800 WBC 5.1 x 10EE3/UL Normal 4.5 - 10.8 [facility] Comment on above: Performed By: #### 2 19700 #### [facility],[address] [place], [place] [id number] CHEST 1 VIEWon 10-09-2020 CHEST 1 VIEW [place] [address] Patient: KEITH JOSHI Phone#: : 1960 Age: 59 Gender: M Pt. Type: ER Account: [id number] Location: [facility] Ordering: SOHAIL WILKINSON Exam Date: 10/08/2020/22:48 Family Phys: DIMITRY CHEN Charge Code: 098486 Physician: [place] Order #: [id number] DLP Dose#: PROCEDURE: X-RAY CHEST 1 VIEW COMPARISON: [facility], , CHEST 1 VIEW, 01/29/2020, 6:25. INDICATIONS: Chest [...] Kuhn MD on 10/09/2020 at 18:41 Normal [facility] CMP with eGFRon 10-09-2020 AGE 59 years Normal [facility] Comment on above: Performed By: #### 2 45509 #### [facility],[address],[place] [address] Albumin [Mass/Vol] 3.7 g/dL Normal 3.4 - 5.0 [facility] Comment on above: Performed By: #### 2 17201 #### [facility],[address] [place] [address] 49063 Albumin/Globulin [Mass ratio] 1.3 {ratio} Normal 0.9 - 1.6 [facility] Comment on above: Performed By: #### 2 16193 #### [facility],[address] [place] [address] 88181 ALK PHOS 61 U/L Normal 46 - 116 [facility] Comment on above: Performed By: #### 2 80051 #### [facility],[address] [place] [address] 42575 ALT [Catalytic activity/Vol] 34 U/L Normal 16 - 63 [facility] Comment on above: Performed By: #### 2 88728 #### [facility],[address] [place] [address] 38182 Anion gap [Moles/Vol] 12 mmol/L Normal 10 - 20 [facility] Comment on above: Performed By: #### 2 94563 #### [facility],[address] [place] [address] 16729 AST [Catalytic activity/Vol] 7 U/L Low 15 - 37 [facility] Comment on above: Performed By: #### 2 60949 #### [facility],[address] [place] [address] 86185 B/C RATIO 16 ratio Normal 0 - 30 [facility] Comment on above: Performed By: #### 2 09881 #### [facility],[address] [place] [address] 39625 Bilirubin [Mass/Vol] 0.6 mg/dL Normal 0.2 - 1.0 [facility] Comment on above: Performed By: #### 2 43561 #### [facility],[address] [place] [address] 35404 Calcium [Mass/Vol] 8.6 mg/dL Normal 8.5 - 10.1 [facility] Comment on above: Performed By: #### 2 18278 #### [facility],[address] [place] [address] 80959 Chloride [Moles/Vol] 102 mmol/L Normal 98 - 107 [facility] Comment on above: Performed By: #### 2 42175 #### [facility],[address] [place] [address] 34747 CMP with eGFR Normal [facility] Comment on above: Result Comment: COMP REHENSIVE METABOLIC PANEL Performed By: #### 2 55842 #### [facility],[address] [place] [address] 78178 CO2 [Moles/Vol] 28.8 mmol/L Normal 21.0 - 32.0 [facility] Comment on above: Performed By: #### 2 55937 #### [facility],[address] [place] [address] 33328 Creatinine [Mass/Vol] 1.14 mg/dL Normal 0.70 - 1.30 [facility] Comment on above: Performed By: #### 2 17560 #### [facility],[address] [place] [address] 80284 GFR/1.73 sq M.predicted among non-blacks MDRD (S/P/Bld) [Vol rate/Area] mL/min/{1.73_m2} Normal 60 - 999 [facility] Comment on above: Performed By: #### 2 50272 #### [facility],[address] [place], [place] [id number] Result Comment: ACCO RDING TO THE NATIONAL KIDNEY DISEASE EDUCATION PROGRAM(NKDE), A NORMAL eGFR IS A VALUE GREATER THAN OR EQUAL TO 60 ML/MIN/1.73 SQ METERS. CHRONIC KIDNEY DISEASE: <60mL/MIN/1.73 SQ METERS KIDNEY FAILURE: <15mL/MIN/1.73 SQ METERS THIS TEST SHOULD ONLY BE USED FOR PATIENTS 18 YEARS OF AGE AND OLDER. Globulin (S) [Mass/Vol] 2.9 g/dL Normal 1.5 - 3.8 [facility] Comment on above: Performed By: #### 2 98731 #### [facility],[address] [place] [address] 91241 Glucose [Mass/Vol] 144 mg/dL High 74 - 106 [facility] Comment on above: Performed By: #### 2 85068 #### [facility],[address] [place] [address] 50570 Potassium [Moles/Vol] 3.7 mmol/L Normal 3.5 - 5.1 [facility] Comment on above: Performed By: #### 2 56630 #### [facility],[address] [place] [address] 56526 Protein [Mass/Vol] 6.6 g/dL Normal 6.4 - 8.2 [facility] Comment on above: Performed By: #### 2 21392 #### [facility],[address] [place] [address] 16926 Sodium [Moles/Vol] 139 mmol/L Normal 136 - 145 [facility] Comment on above: Performed By: #### 2 61251 #### [facility],[address] [place] [address] 54448 Urea nitrogen [Mass/Vol] 18 mg/dL Normal 7 - 18 [facility] Comment on above: Performed By: #### 2 26774 #### [facility],[address] [place] [address] 78235 NT-proBNPon 10-09-2020 Natriuretic peptide B (Bld) [Mass/Vol] 35 pg/mL Normal 0 - 125 [facility] Comment on above: Performed By: #### 2 58440 #### [facility],[address] [place] [address] 92388 TROPONIN I, HIGH SENSITIVITY on 10-09-2020 HS TROPONIN 6.3 pg/mL Normal 0.0 - 76.2 [facility] Comment on above: Performed By: #### 2 97344 #### [facility],[address] [place] [address] 75665 TSHon 10-09-2020 TSH Qn 3.43 m[IU]/L Normal 0.35 - 3.74 [facility] Comment on above: Performed By: #### 2 35733 #### [facility],[address] [place] [address] 57112 CCP IgG Abon 07-19-2020 Cyclic Citrullinated Peptide AB 2 Units Normal 0-19 [facility] Comment on above: Result Comment: INTE RPRETIVE [...] be monitored and testing repeated. Performed By: [facility] [address] [place] [address] It Communications Manager: Sivan Neal MD Performed By: #### C CPIGG #### [facility] [address] [place], [place] [address] ANAon 07-17-2020 Antinuclear Antibodies, IFA Positive Abnormal [facility] Comment on above: Order Comment: Perfo rmed at: [facility] [id number] Agricultural Equipment Test Engineer: Evan Soni PhD, Phone: [phone] Result Comment: Nega tive <1:80 Borderline 1:80 Positive >1:80 Performed By: #### A NA #### [facility] Centriole Pattern [facility] Comment on above: Order Comment: Perfo rmed at: [facility] [place] [address] Agricultural Equipment Test Engineer: Evan Soni PhD, Phone: [phone] Performed By: #### A NA #### [facility] RESULTS Centromere Pattern Normal [facility] Comment on above: Order Comment: Perfo rmed at: [facility] [place] [address] Agricultural Equipment Test Engineer: Evan Soni PhD, Phone: [phone] Performed By: #### A NA #### [facility] RESULTS Homogeneous Pattern Normal [facility] Comment on above: Order Comment: Perfo rmed at: [place] [address] Agricultural Equipment Test Engineer: Evan Soni PhD, Phone: [phone] Performed By: #### A NA #### [facility] RESULTS Midbody Pattern [facility] Comment on above: Order Comment: Perfo rmed at: [place] [address] Agricultural Equipment Test Engineer: Evan Soni PhD, Phone: [phone] Performed By: #### A NA #### [facility] RESULTS Note: Comment [facility] Comment on above: Order Comment: Perfo rmed at: [place] [address] Agricultural Equipment Test Engineer: Evan Soni PhD, Phone: [phone] Result Comment: A po sitive NIECY result may occur in healthy individuals (low titer) or be associated with a variety of diseases. See interpretation chart which is not all inclusive: . Pattern Antigen Detected Suggested Disease Association Homogeneous DNA(ds,ss), SLE - High titers Nucleosomes, Histones Drug-induced SLE Speckled Sm, SURGICAL PATHOLOGIST, SCL-70, SLE,MCTD,PSS (diffuse form), SS-A/SS-B Sjogrens Nucleolar SCL-70, PM-1/SCL High titers Scleroderma, PM/DM Centromere Centromere PSS (limited form) w/Crest syndrome variable Nuclear Dot [id number] Primary Biliary Cirrhosis Nuclear GP210, Primary Biliary Cirrhosis Membrane asia A,B,C Performed By: #### A NA #### [facility] RESULTS Nucear Membrane Pattern Normal [facility] Comment on above: Order Comment: Aileen harrisoned at: CB - [facility] [address] [id number] Agricultural Equipment Test Engineer: Evan Soni PhD, Phone: [phone] Performed By: #### A NA #### [facility] RESULTS Nuceolar Pattern [facility] Comment on above: Order Comment: Perfo rmed at: - [facility] [place] [address] Agricultural Equipment Test Engineer: Evan Soni PhD, Phone: [phone] Performed By: #### A NA #### [facility] RESULTS Nuclear Dot Pattern Normal [facility] Comment on above: Order Comment: Perfo rmed at: CB - [facility] [place] [address] Agricultural Equipment Test Engineer: Evan Soni PhD, Phone: [phone] Performed By: #### A NA #### [facility] RESULTS PCNA Pattern [facility] Comment on above: Order Comment: Perfo rmed at: - [facility] [place] [address] Agricultural Equipment Test Engineer: Evan Soni PhD, Phone: [phone] Performed By: #### A NA #### [facility] RESULTS Speckled Pattern [facility] Comment on above: Order Comment: Perfo rmed at: - [facility] [address] [id number] Agricultural Equipment Test Engineer: Evan Soni PhD, Phone: [phone] Performed By: #### A NA #### [facility] RESULTS Spindle Apparatus Pattern 1:160 High [facility] Comment on above: Order Comment: Perfo rmed at: - [facility] [place] [address] Agricultural Equipment Test Engineer: Evan Soni PhD, Phone: [phone] Performed By: #### A NA #### [facility] RESULTS C-Reactive Proteinon 021 CRP [Mass/Vol] mg/L Normal <=9.9 [facility] Comment on above: Performed By: #### U ROSENDA, CRPR, CMP #### [facility] [address] [place] [address] Comprehensive Metabolic Pane holden 07-13-2020 Albumin [Mass/Vol] 4.5 g/dL Normal 3.5-5.2 [facility] Comment on above: Performed By: #### U RICACD, CRPR, CMP #### [facility] [address] [place], [place] [phone] ALP [Catalytic activity/Vol] 67 U/L Normal 35-129 [facility] Comment on above: Performed By: #### U RICACD, CRPR, CMP #### [facility] [address] [place], [place] [phone] ALT [Catalytic activity/Vol] 25 U/L Normal <=41 [facility] Comment on above: Performed By: #### U RICACD, CRPR, CMP #### [facility] [address] [place], [place] [phone] Anion gap [Moles/Vol] 11 mmol/L Normal 8-15 [facility] Comment on above: Performed By: #### U RICACD, CRPR, CMP #### [facility] [address] [place], [place] [phone] AST [Catalytic activity/Vol] 15 U/L Normal <=40 [facility] Comment on above: Performed By: #### U RICACD, CRPR, CMP #### [facility] [address] [place], [place] [phone] Bili, Total 0.5 mg/dL Normal <=1.2 [facility] Comment on above: Performed By: #### U RICACD, CRPR, CMP #### [facility] [address] [place], [place] [phone] Calcium [Mass/Vol] 9.6 mg/dL Normal 8.6-10.6 [facility] Comment on above: Performed By: #### U RICACD, CRPR, CMP #### [facility] [address] [place], [place] [phone] Chloride [Moles/Vol] 103 mmol/L Normal 98-107 [facility] Comment on above: Performed By: #### U RICACD, CRPR, CMP #### [facility] [address] [place], [place] [phone] CO2 [Moles/Vol] 28 mmol/L Normal 22-29 [facility] Comment on above: Performed By: #### U RICACD, CRPR, CMP #### [facility] [address] [place] [address] Creatinine [Mass/Vol] 1.0 mg/dL Normal 0.5-1.2 [facility] Comment on above: Performed By: #### U RICACD, CRPR, CMP #### [facility] [address] [place] [address]178 eGFR -Amer >=60 Normal >=60 [facility] Comment on above: Performed By: #### U RICACD, CRPR, CMP #### [facility] [address] [place], [place] [phone] GFR/1.73 sq M.predicted among non-blacks MDRD (S/P/Bld) [Vol rate/Area] mL/min/{1.73_m2} Normal >=60 [facility] Comment on above: Performed By: #### U RICACD, CRPR, CMP #### [facility] [address] [place], [place] [phone] Glucose [Mass/Vol] 177 mg/dL High 74-109 [facility] Comment on above: Performed By: #### U RICACD, CRPR, CMP #### [facility] [address] [place], [place] [phone] Potassium [Moles/Vol] 4.4 mmol/L Normal 3.4-5.1 [facility] Comment on above: Performed By: #### U RICACD, CRPR, CMP #### [facility] [address] [place] [address] Prot Total 6.5 g/dL Normal 6.4-8.3 [facility] Comment on above: Performed By: #### U RICACD, CRPR, CMP #### [facility] [address] [place], [place] [phone] Sodium [Moles/Vol] 142 mmol/L Normal 136-145 [facility] Comment on above: Performed By: #### U RICACD, CRPR, CMP #### [facility] [address] [place] [address] Urea nitrogen [Mass/Vol] 15 mg/dL Normal 6-23 [facility] Comment on above: Performed By: #### U ROSENDA CRPR, CMP #### [facility] [address] [place] [address] Rheumatoid Factor (Quant)on 07-13-2020 Rheumatoid Factor <10 Normal <=13 [facility] Comment on above: Performed By: #### R F #### [facility] [address] [place] [address] Sed Rate - Westergrenon 04-2 Sed Rate 3 mm/hr Normal 0-10 [facility] Comment on above: Performed By: #### E SR #### [facility] [address] [place] [phone] Uric Acidon 07-13-2020 Urate [Mass/Vol] 4.9 mg/dL Normal 3.4-7.0 [facility] Comment on above: Performed By: #### U ROSENDA CRPR, CMP #### [facility] [address] [place] [address] Laboratory - Chemistry and C hemistry - challengeon 05-26-2020 Calcium [Mass/Vol] 9.8 mg/dL Normal 8.6 - 10. 3 mg/dL [facility], [facility].; [employer] [facility] Chloride [Moles/Vol] 101 mmol/L Normal 98 - 11 0 mmol/L [facility], [facility].; [employer] [facility], [employer] Cholesterol [Mass/Vol] 209 mg/dL Abnormal [facility], [facility].; [employer] [facility], [employer] Cholesterol in HDL [Mass/Vol] 35 mg/dL Abnormal [employer] [facility], [facility].; [employer] [facility], [employer] Cholesterol in LDL [Mass/Vol] 131 mg/dL Abnormal [employer] [facility], [employer].; [employer], [employer] CO2 [Moles/Vol] 29 mmol/L Normal 20 - 32 mmol/L [facility], [facility].; [place] [employer], [employer] [facility], [employer] Creatinine [Mass/Vol] 1.07 mg/dL Normal 0.70 - 1.33 mg/dL [facility] [employer] [facility].; [place] [employer], [employer] [facility], [facility]. GFR/1.73 sq M.predicted among blacks MDRD (S/P/Bld) [Vol rate/Area] 88 mL/min/{1.73_m2} Normal [facility].; [facility], [facility] Glucose [Mass/Vol] 147 mg/dL Abnormal 65 - 99 mg/dL [facility] [employer] [facility].; [place] [employer], [employer] [facility], [facility]. Potassium [Moles/Vol] 4.0 mmol/L Normal 3.5 - 5.3 mmol/L [facility].; [facility], [facility] Sodium [Moles/Vol] 138 mmol/L Normal 135 - 146 mmol/L [facility] [employer] [facility].; [place] [employer], [employer] [facility], [facility]. Triglyceride [Mass/Vol] 277 mg/dL Abnormal [facility].; [place] [employer], [employer] [facility], [facility] Urate [Mass/Vol] 8.1 mg/dL Abnormal 4.0 - 8.0 mg/dL [facility] [employer] [facility].; [employer], [facility] Urea nitrogen [Mass/Vol] 16 mg/dL Normal 7 - 25 mg/dL [facility] [employer] [facility]; [place] [employer], [employer] [facility], [facility]. Laboratory - Hematology and Cell countson 05-26-2020 HbA1c (Bld) [Mass fraction] 7.1 % Abnormal [facility] [employer] [facility].; [employer], [facility] No Panel Informationon 05-26 BUN/CREATININE RATIO NOT APPLICABLE Normal 6 - 22 [facility] [employer] [facility]; [employer], [facility] CHOL/HDLC RATIO 6.0 Abnormal [facility] [employer] [facility].; [employer], [facility] eGFR NON-AFR. [facility] 76 Normal [facility] [employer] [facility].; [employer], [facility] NON HDL CHOLESTEROL 174 Abnormal [facility] [employer] [facility].; [place] [employer], [employer] [facility], [facility]. Laboratory - Hematology and Cell countson 03-02-2020 HbA1c (Bld) [Mass fraction] 6.6 % Normal 4.6 - 7.1 % [facility] [employer] [facility].; [employer], [facility]. Hemoglobin A1con 01-29-2020 HbA1c (Bld) [Mass fraction] 6.4 % High 4.3-5.6 [facility] Comment on above: Performed By: #### H BA1C #### [facility] Routine Lab [address] [place], [place] [id number] HbA1c (Bld) [Mass fraction] 137 mg/dL Normal [facility] Comment on above: Performed By: #### H BA1C #### [facility] Routine Lab [address] [place], [place] [address] Laboratory - Chemistry and C hemistry - challengeon 08-06-2019 Albumin/Creatinine DL <= 20 mg/L (U) [Mass ratio] 30-300 mg/g Abnormal [facility] [employer] [facility]; [employer] [facility] [employer] [facility]2 Creatinine (U) [Mass/Vol] 100 mg/dL Normal [place] [employer], [employer] [facility] [employer] [facility].; [employer]. Laboratory - Hematology and Cell countson 08-06-2019 HbA1c (Bld) [Mass fraction] 6.1 % Normal 4.6 - 7.1 % [place] [employer], [employer] [facility]; [employer] Laboratory - Urinalysison Protein Ql (U) 80 mg/dL Normal [employer] [facility].; [employer] No Panel Informationon 05-07 HEMOGLOBIN A1c Normal [employer]; [employer] PSA, TOTAL 2.6 ng/mL Normal [employer] [facility].; [employer]. Laboratory - Chemistry and C hemistry - challengeon 04-28-2019 Albumin [Mass/Vol] 4.8 g/dL Normal 3.6 - 5.1 g/dL [employer] [facility].; [employer], [employer]. Albumin/Globulin [Mass ratio] 2.3 {ratio} Normal 1.0 - 2.5 [employer].; [employer]. ALP [Catalytic activity/Vol] 64 U/L Normal 35 - 144 U/L [employer] [facility].; [employer]. ALT [Catalytic activity/Vol] 39 U/L Normal 9 - 46 U/L [employer].; [employer]. AST [Catalytic activity/Vol] 18 U/L Normal 10 - 35 U/L [facility], [facility].; [facility], [facility]. Bilirubin [Mass/Vol] 0.8 mg/dL Normal 0.2 - 1 .2 mg/dL [facility].; [facility], [facility]. Calcium [Mass/Vol] 9.5 mg/dL Normal 8.6 - 10. 3 mg/dL [facility].; [facility], [facility]. Chloride [Moles/Vol] 102 mmol/L Normal 98 - 11 0 mmol/L [facility].; [facility], [facility]. Cholesterol [Mass/Vol] 248 mg/dL Abnormal [facility].; [facility], [facility]. Cholesterol in HDL [Mass/Vol] 36 mg/dL Abnormal [facility].; [facility], [facility]. Cholesterol in LDL [Mass/Vol] 166 mg/dL Abnormal [facility] [employer] [facility].; [facility], [facility]. CO2 [Moles/Vol] 30 mmol/L Normal 20 - 32 mmol/L [facility] [employer] [facility].; [place] [employer], [employer] [facility], [facility]. Creatinine [Mass/Vol] 1.17 mg/dL Normal 0.70 - 1.33 mg/dL [facility] [employer] [facility].; [facility], [facility]. GFR/1.73 sq M.predicted among blacks MDRD (S/P/Bld) [Vol rate/Area] 79 mL/min/{1.73_m2} Normal [facility], [facility].; [facility], Inc[facility] Glucose [Mass/Vol] 165 mg/dL Abnormal 65 - 99 mg/dL [facility] [employer] [facility].; [place] [employer], [employer] [facility], [facility] Potassium [Moles/Vol] 4.2 mmol/L Normal 3.5 - 5.3 mmol/L [facility], [facility].; [place] [employer], [employer]. Protein [Mass/Vol] 6.9 g/dL Normal 6.1 - 8.1 g/dL [facility], [facility].; [place] [employer], [employer] [facility], [facility] Sodium [Moles/Vol] 138 mmol/L Normal 135 - 146 mmol/L [facility], [facility].; [place] [employer], [employer] [facility], [facility] Triglyceride [Mass/Vol] 300 mg/dL Abnormal [facility] [employer].; [address] Urea nitrogen [Mass/Vol] 17 mg/dL Normal 7 - 25 mg/dL [employer].; [address]. No Panel Informationon 04-28 BUN/CREATININE RATIO NOT APPLICABLE Normal 6 - 22 [employer].; [address] CHOL/HDLC RATIO 6.9 Abnormal [employer].; [address]. eGFR NON-AFR. [facility] 68 Normal Ho [facility] [employer].; [address] GLOBULIN 2.1 Normal 1.9 - 3.7 [employer]; [address] NON HDL CHOLESTEROL 212 Abnormal [facility] [employer].; [address]. Laboratory - Chemistry and C hemistry - challengeon 08-27-2018 Bilirubin Ql (U) Negative Normal [employer]; [address]. Ketones Ql (U) Negative Normal [address] pH (U) 5.5 [pH] Normal [employer]; [address]. Specific gravity (U) [Rel density] 1.015 Normal [employer]; [address]. Urobilinogen Qn (U) 0.2 mg/dL Normal [facility] [employer] [facility].; [address]. Laboratory - Hematology and Cell countson 08-27-2018 Hemoglobin Ql (U) trace Normal [employer]; [address]. Laboratory - Specimen inform ationon 08-27-2018 Appearance (U) clear Normal [employer]; [address]. Color (U) yellow Normal [address] Laboratory - Urinalysison Glucose Test strip (U) [Mass/Vol] Negative Normal [address] Leukocyte esterase Test strip Ql (U) Negative Normal [address] Nitrite Ql (U) Negative Normal [address]. Protein Ql (U) Negative Normal [facility] [employer] [facility].; [place] [employer], [employer] [facility], [facility] Laboratory - Chemistry and C hemistry - challengeon 03-28-2018 Albumin [Mass/Vol] 5.1 g/dL Normal 3.6 - 5.1 g/dL [facility] [employer] [facility].; [place] [employer], [employer] [facility], [facility] Albumin/Globulin [Mass ratio] 2.4 {ratio} Normal 1.0 - 2.5 [facility] [employer] [facility].; [place] [employer], [employer] [facility] [employer] [facility]. ALP [Catalytic activity/Vol] 68 U/L Normal 40 - 115 U/L [facility] [employer] [facility].; [place] [employer], [employer] [facility], [facility]. ALT [Catalytic activity/Vol] 29 U/L Normal 9 - 46 U/L [facility] [employer] [facility].; [place] [employer], [employer] [facility], [facility]. AST [Catalytic activity/Vol] 17 U/L Normal 10 - 35 U/L [facility] [employer] [facility].; [place] [employer] Bilirubin [Mass/Vol] 0.8 mg/dL Normal 0.2 - 1 .2 mg/dL [facility] [employer] [facility].; [place] [employer], [employer]. Calcium [Mass/Vol] 9.7 mg/dL Normal 8.6 - 10. 3 mg/dL [facility] [employer] [facility].; [place] [employer]. Chloride [Moles/Vol] 99 mmol/L Normal 98 - 11 0 mmol/L [facility] [employer] [facility].; [place] [employer], [employer]. Cholesterol [Mass/Vol] 265 mg/dL Abnormal [facility] [employer] [facility].; [place] [employer], [employer] [facility], [facility]. Cholesterol in HDL [Mass/Vol] 34 mg/dL Abnormal [facility] [employer] [facility].; [place] [employer], [employer]. Cholesterol in LDL [Mass/Vol] 178 mg/dL Abnormal 0 - 100 mg/dL [facility] [employer] [facility].; [place] [employer], [employer]. Cholesterol non HDL [Mass/Vol] 231 mg/dL Abnormal [facility] [employer] [facility].; [place] [employer], [employer] [facility], [employer]. Cholesterol.total/Choles terol in HDL [Mass ratio] 7.8 {ratio} Abnormal [facility] [employer] [facility].; [place] [employer], [employer]. CO2 [Moles/Vol] 29 mmol/L Normal 20 - 32 mmol/L [facility] [employer] [facility].; [employer]. Creatinine [Mass/Vol] 1.14 mg/dL Normal 0.70 - 1.33 mg/dL [place] [employer].; [employer]. GFR/1.73 sq M.predicted among blacks MDRD (S/P/Bld) [Vol rate/Area] 82 {ML/MIN/1.73M2} Normal [place] [employer] [facility].; [employer], [employer]. GFR/1.73 sq M.predicted MDRD (S/P/Bld) [Vol rate/Area] 71 {ML/MIN/1.73M2} Normal [employer].; [employer]. Globulin (S) [Mass/Vol] 2.2 g/dL Normal 1.9 - 3.7 g/dL [place] [employer].; [employer], [employer]. Glucose [Mass/Vol] 130 mg/dL Abnormal 65 - 99 mg/dL [employer].; [employer]. Potassium [Moles/Vol] 4.3 mmol/L Normal 3.5 - 5.3 mmol/L [place] [employer].; [address]. Protein [Mass/Vol] 7.3 g/dL Normal 6.1 - 8.1 g/dL [employer].; [employer], [employer]. Sodium [Moles/Vol] 137 mmol/L Normal 135 - 146 mmol/L [place] [employer].; [employer], [employer]. Triglyceride [Mass/Vol] 313 mg/dL Abnormal H [facility].; [employer]. Urea nitrogen [Mass/Vol] 18 mg/dL Normal 7 - 25 mg/dL [employer].; [address]. Urea nitrogen/Creatinine [Mass ratio] 16.0 mg/mg Normal 6 - 22 [employer].; [employer]. Final Surgical Pathology Rep celso 03-05-2018 Final Surgical Pathology Report . Pathology ReportsAccession: Collected Date/Time: Received Date/Time: Pathologist:[id number] 03/03/2018 14:16 EST 03/04/2018 14:16 EST MD ALEXANDRA POTTER Final Surgical Pathology ReportDIAGNOSIS:CECUM, BIOPSY: TUBULAR ADENOMA.COMMENT:[facility] #[id number] INFORMATION:HISTORY OF POLYPSSPECIMEN:A CECUM POLYPSGROSS DESCRIPTION:Received in formalin labeled with the patient's name are two art glistening soft tissues averaging 0.5 cm. TS -1Dictated by Agatha ORTIZ ([facility])MICROSCOPIC DESCRIPTION:Slides reviewed.Electronically Signed byPathology Report verified by [facility] CenterElectronically signed by ALEXANDRA Sorto out Date: 03/05/2018 17:35Performing Lab: [address] ([place]) Comment on above: Performed By: #### S PFR ####[place] [id number] Final Surgical Pathology Rep [facility] 08-08-2017 Final Surgical Pathology Report . Pathology ReportsAccession: Collected Date/Time: Received Date/Time: Pathologist:[id number] 08/05/2017 07:23 EDT 08/06/2017 07:23 EDT MD IRWIN SANDOVAL Final Surgical Pathology ReportDIAGNOSIS:GALLBLAD MANA, CHOLECYSTECTOMY SPECIMEN -- MILD CHRONIC CHOLECYSTITIS WITH CHOLELITHIASIS AND CHOLESTEROL POLYP FORMATION.COMMENT:[facility]# [id number] INFORMATION:BILIARY COLIC / GALLBLADDER SLUDGESPECIMEN:A GALLBLADDERGROSS DESCRIPTION:Submitted in formalin consists of a gallbladder measuring 6.5 x 3 x 2.8 cm. The serosa is smooth and chaudhari-green. The wall measures up to 0.2 cm. [...] DESCRIPTION:Slides reviewed.Electronically Signed byPathology Report verified by [facility] CenterElectronically signed by IRWIN Sorto out Date: 08/08/2017 10:22Performing Lab: [address] ([place]) Comment on above: Performed By: #### S PFR ####[place] [address] Laboratory - Chemistry and C hemistry - challengeon 08-07-2017 Glucose Glucometer (BldC) [Moles/Vol] 105 Normal 60 - 120 [facility] [employer] [facility]; [facility] Laboratory - Hematology and Cell countson 08-07-2017 HbA1c (Bld) [Mass fraction] 5.8 % Normal 4.6 - 7.1 % [facility]; [employer] Laboratory - Chemistry and C hemistry - challengeon 08-05-2017 Glucose [Mass/Vol] 147 mg/dL Abnormal 74 - 106 mg/dL [facility] Orlando[facility]; [place] [employer] [facility] Work Phone: Urea nitrogen [Mass/Vol] 18 mg/dL Normal 6 - 20 mg/dL [facility] [employer] [facility]; [place] [employer] Work Phone: Final Surgical Pathology Rep [facility] 07-31-2017 Final Surgical Pathology Report . Pathology ReportsAccession: Collected Date/Time: Received Date/Time: Pathologist:[id number] 07/29/2017 14:05 EDT 07/30/2017 14:05 EDT MD ALEXANDRA POTTER Final Surgical Pathology ReportDIAGNOSIS:COLON @ 85 CM, BIOPSY: - SESSILE SERRATED POLYP.COMMENT:[facility]# [id number] INFORMATION:SCREENINGSPE CIMEN:A POLYP, COLON - @ 85 CM. [id number] DESCRIPTION:Received in formalin labeled 85 cm are 2 art glistening soft tissues, 0.4 and 0.6 cm. TS -1Dictated by AGATHA ORTIZ ([facility])MICROSCOPIC DESCRIPTION:Slides reviewed.Electronically Signed byPathology Report verified by [facility] CenterElectronically signed by ALEXANDRA POTTER MDSign out Date: 07/31/2017 15:31Performing Lab: [facility], [address] [place] [id number] [place] [address] Normal [facility] ([place]) Comment on above: Performed By: #### S PFR ####[place] [address] Laboratory - Chemistry and C hemistry - challengeon 01-24-2017 Cholesterol [Mass/Vol] 247 mg/dL Abnormal [facility], [facility] Cholesterol in HDL [Mass/Vol] 30 mg/dL Abnormal [employer], [employer], [employer] Cholesterol in LDL [Mass/Vol] 165 mg/dL Abnormal [employer], [employer].; [employer], [employer] Cholesterol non HDL [Mass/Vol] 218 mg/dL Abnormal [employer], [employer].; [employer], [employer] Cholesterol.total/Choles terol in HDL [Mass ratio] 8.2 {ratio} Abnormal [employer], [employer].; [employer], [employer] Triglyceride [Mass/Vol] 339 mg/dL Abnormal [facility], [employer].; [employer], [employer] Laboratory - Chemistry and C hemistry - challengeon 08-27-2016 Calcium [Mass/Vol] 9.5 mg/dL Normal 8.6 - 10. 3 mg/dL [employer], [employer], [employer] Chloride [Moles/Vol] 106 mmol/L Normal 98 - 11 0 mmol/L [employer], [employer] CO2 [Moles/Vol] 27 mmol/L Normal 20 - 31 mmol/L [employer], [employer], [employer] Creatinine [Mass/Vol] 1.03 mg/dL Normal 0.70 - 1.33 mg/dL [employer], [employer], [employer] GFR/1.73 sq M.predicted among blacks MDRD (S/P/Bld) [Vol rate/Area] 94 {ML/MIN/1.73M2} Normal [employer], [employer], [employer] GFR/1.73 sq M.predicted MDRD (S/P/Bld) [Vol rate/Area] 81 {ML/MIN/1.73M2} Normal [employer], [employer], [employer] Glucose [Mass/Vol] 136 mg/dL Abnormal 65 - 99 mg/dL [employer], [employer], [employer] Potassium [Moles/Vol] 4.3 mmol/L Normal 3.5 - 5.3 mmol/L [facility] [employer] [facility].; [employer] Sodium [Moles/Vol] 142 mmol/L Normal 135 - 146 mmol/L [facility] [employer] [facility].; [place] [employer], [employer] [facility] [employer] [facility]. Urea nitrogen [Mass/Vol] 17 mg/dL Normal 7 - 25 mg/dL [facility] [employer] Northern [facility].; [employer] Urea nitrogen/Creatinine [Mass ratio] 16.6 mg/mg Normal 6 - 22 [facility] [facility].; [employer]. Laboratory - Chemistry and C hemistry - challengeon 05-30-2012 Bilirubin Ql (U) Negative Normal [facility] [employer] [facility].; [employer] Ketones Ql (U) Negative Normal [facility] [facility].; [employer], [employer]. pH (U) 5.5 [pH] Normal 4.6 - 8.0 [facility] [employer] [facility] [facility].; [employer] Specific gravity (U) [Rel density] 1.015 Normal 1.001 - 1.025 [facility] [facility]; [employer]. Laboratory - Hematology and Cell countson 05-30-2012 Hemoglobin Ql (U) small Abnormal [place] [employer] [facility].; [employer]. Laboratory - Specimen inform ationon 05-30-2012 Appearance (U) clear Normal [facility] [facility].; [employer] Color (U) yellow Normal [place] [employer] [facility] [facility].; [employer]. Laboratory - Urinalysison Glucose Test strip (U) [Mass/Vol] Negative Normal [facility].; [employer], [employer]. Leukocyte esterase Test strip Ql (U) Negative Normal [place] [employer]. Nitrite Ql (U) Negative Normal [place] [employer], [employer]. Protein Ql (U) Trace Normal [place] [employer].; [employer]. No Panel Informationon 05-30 UA - UROBILINOGEN 0.2 mg/dL Normal [place] [employer].; [employer]. Laboratory - Chemistry and C hemistry - challengeon 12-15-2011 Albumin [Mass/Vol] 4.0 g/dL Normal 3.5 - 5.0 g/dL [facility]; [facility] [facility] Albumin/Globulin [Mass ratio] 1.5 {ratio} Normal [facility]; [facility] [employer] [facility] ALP [Catalytic activity/Vol] 57 U/L Normal 50 - 136 U/L [facility]; [facility] ALT [Catalytic activity/Vol] 57 mmol/L Abnormal 12 - 49 mmol/L [facility]; [facility], [facility]. AST [Catalytic activity/Vol] 19 U/L Normal 15 - 37 U/L [facility]; [facility] [employer] [facility] Bilirubin [Mass/Vol] 0.6 mg/dL Normal 0.3 - 1 .0 mg/dL [facility]; [facility], [facility] Calcium [Mass/Vol] 8.9 mg/dL Normal 8.4 - 10. 6 mg/dL [facility]; [facility] [employer] [facility] Chloride [Moles/Vol] 104 mmol/L Normal 98 - 11 0 mmol/L [facility]; [facility], [facility] Cholesterol [Mass/Vol] 248 mg/dL Abnormal 0 - 2 00 mg/dL [facility]; [facility], [facility]. Cholesterol in HDL [Mass/Vol] 30 mg/dL Abnormal 40 - 60 mg/dL [facility]; [facility] [employer] [facility] Cholesterol in LDL [Mass/Vol] 165 mg/dL Abnormal 50.0 - 130.0 mg/dL [facility].; [facility], [facility]. Cholesterol in VLDL [Mass/Vol] 53 mg/dL Normal [facility]; [facility], [facility] Cholesterol.total/Choles terol in HDL [Mass ratio] - Normal 0 - 5.0 [facility]; [facility], [facility] CO2 [Moles/Vol] 28 {irene/L} Normal 22.0 - 32.0 {irene/L} [facility], [facility] Creatinine [Mass/Vol] 1.23 mg/dL Normal 0.6 - 1.4 mg/dL [facility].; [place] [employer] [facility] [employer] [facility]. Globulin (S) [Mass/Vol] 2.7 g/dL Normal 1.5 - 3.8 g/dL [facility].; [facility], [facility]. Glucose [Mass/Vol] 111 mg/dL Abnormal 75 - 105 mg/dL [facility].; [facility] [facility] Potassium [Moles/Vol] 3.7 mmol/L Normal 3.50 - 5.00 meq/L [facility]; [facility] [employer] Protein [Mass/Vol] 6.7 g/dL Normal 6.4 - 8.2 g/dL [facility] [employer] [facility]; [facility], [facility]. Sodium [Moles/Vol] 140 mmol/L Normal 136 - 145 mmol/L [facility]; [place] [employer] [facility] [employer] [facility]. Triglyceride [Mass/Vol] 265 mg/dL Abnormal 40 - 150 mg/dL [facility] [employer] [facility].; [place] [employer] [facility] [employer] [facility]. Urea nitrogen [Mass/Vol] 11.0 mg/dL Normal 7.0 - 20.0 mg/dL [facility] [employer] [facility]; [place] [employer] [facility], [facility]. Urea nitrogen/Creatinine [Mass ratio] 8.9 mg/mg Normal 0 - 30 [facility] [employer] [facility]; [place] [employer] [facility] [employer] [facility] No Panel Informationon 12-14 GFR >60 Normal [facility] [employer] [facility]; [place] [employer] [facility] [employer] [facility] GFR2 >60 Normal [facility] [employer] [facility]; [employer] [facility]. Laboratory - Chemistry and C hemistry - challengeon 06-08-2010 Bilirubin Ql (U) Negative Normal [facility] [employer] [facility]; [employer] Ketones Ql (U) Negative Normal [facility] [employer] [facility].; [place] [employer]. pH (U) 7.0 [pH] Normal 4.6 - 8.0 [facility] [employer] [facility].; [employer] [facility] Specific gravity (U) [Rel density] 1.025 Normal 1.001 - 1.025 [facility] [employer] [facility].; [place] [employer] [facility]. Laboratory - Hematology and Cell countson 06-08-2010 Hemoglobin Ql (U) trace, non-hemolyzed Abnormal [employer].; [address] Laboratory - Specimen inform ationon 06-08-2010 Appearance (U) clear Normal [employer].; [employer], [employer]. Color (U) yellow Normal [employer].; [employer], [employer]. Laboratory - Urinalysison Glucose Test strip (U) [Mass/Vol] Negative Normal [employer].; [employer], [employer]. Leukocyte esterase Test strip Ql (U) Negative Normal [employer].; [employer], [employer]. Nitrite Ql (U) Negative Normal [employer].; [employer], [employer]. Protein Ql (U) 100 mg/dL Abnormal [employer].; [employer], [employer]. No Panel Informationon 06-08 UA - UROBILINOGEN 1.0 mg/dL Normal [employer].; [employer], [employer]. Laboratory - Chemistry and C hemistry - challengeon 05-31-2010 Cholesterol [Mass/Vol] 203 mg/dL Abnormal 125 - 200 mg/dL [employer].; [employer], [employer]. Cholesterol in HDL [Mass/Vol] 32 mg/dL Abnormal [employer].; [employer], [employer]. Cholesterol in LDL [Mass/Vol] 129 mg/dL Normal [employer].; [employer], [employer]. Cholesterol.total/Choles terol in HDL [Mass ratio] 6.3 {ratio} Abnormal [address] [employer] Glucose [Mass/Vol] 113 mg/dL Abnormal 65 - 99 mg/dL [employer].; [employer], [employer]. Triglyceride [Mass/Vol] 208 mg/dL Abnormal [facility] [employer].; [employer], [employer]. Vital Signs Date Time Vital Sign Value Performing Clinician Facility 04-09-2024 10:19-0500 Body height 182.[address] Alden Melendez DO Work Phone: [facility] 05-27-2023 10:00-0500 Body height 182.88 cm DIANA Chu Work Phone: [facility] 05-27-2023 10:00-0500 Body mass index (BMI) [Ratio] 27.6 kg/m2 PA Isabel Chu Work Phone: [facility] 05-27-2023 10:00-0500 Body weight 92.53 kg PA Isabel Chu Work Phone: [facility] 05-27-2023 10:00-0500 Diastolic blood pressure 83 mm[Hg] PA Isabel Chu Work Phone: [facility] 05-27-2023 10:00-0500 Heart rate 81 /min PA Isabel Chu Work Phone: [facility] 05-27-2023 10:00-0500 Respiratory rate 18 /min PA Isabel Chu Work Phone: [facility] 05-27-2023 10:00-0500 SaO2% (BldA) [Mass fraction] 97 % PA Isabel Chu Work Phone: [facility] 05-27-2023 10:00-0500 Systolic blood pressure 114 mm[Hg] PA Isabel Chu Work Phone: [facility] 04-09-2023 08:28-0500 Body height 185.42 cm Coby Gomez MA [facility], [facility].; [facility], [facility]. 04-09-2023 08:28-0500 Body mass index (BMI) [Ratio] 27.76 kg/m2 Coby Gomez MA [facility], [facility].; [facility], [facility]. 04-09-2023 08:28-0500 Body surface area Derived from formula 2.2 m2 Coby Gomez MA [facility], [facility].; [facility], [facility]. 04-09-2023 08:28-0500 Body weight 95.43 kg Coby Gomez MA [facility], [facility].; [facility], [facility]. 04-09-2023 08:28-0500 Diastolic blood pressure 89 mm[Hg] Coby Gomez MA [facility], [employer].; [address]. Comment on above: Patient Position: Sitting; Cuff Location : Left Arm; Cuff Size: Standard 04-09-2023 08:28-0500 Heart rate 89 /min Coby Gomez MA [facility] [employer].; [employer]. Comment on above: Pattern: Regular 04-09-2023 08:28-0500 Systolic blood pressure 131 mm[Hg] Coby Gomez MA [employer].; [address]. Comment on above: Patient Position: Sitting; Cuff Location : Left Arm; Cuff Size: Standard 12-03-2022 14:39-0400 Body height 185.42 cm Jennifer Solomon RN [employer].; [employer]. 12-03-2022 14:39-0400 Body mass index (BMI) [Ratio] 27.44 kg/m2 Jennifer Solomon RN [employer].; [employer]. 12-03-2022 14:39-0400 Body surface area Derived from formula 2.19 m2 Jennifer Solomon RN [place] [employer].; [address] 12-03-2022 14:39-0400 Body temperature 98.5 [degF] Jennifer Solomon RN [employer].; [address]. Comment on above: Method: Tympanic 12-03-2022 14:39-0400 Body weight 94.35 kg Jennifer Solomon RN [place] [employer].; [address] 12-03-2022 14:39-0400 Diastolic blood pressure 75 mm[Hg] Jennifer Solomon RN [employer].; [address]. Comment on above: Patient Position: Sitting; Cuff Location : Left Arm; Cuff Size: Standard 12-03-2022 14:39-0400 Heart rate 89 /min Jennifer Solomon RN [employer].; [address] Comment on above: Pattern: Regular 12-03-2022 14:39-0400 Systolic blood pressure 111 mm[Hg] Jennifer Solomon RN [employer].; [facility] [employer] [facility]. Comment on above: Patient Position: Sitting; Cuff Location : Left Arm; Cuff Size: Standard 09-19-2022 08:07-0400 Body height 185.42 cm Amanda Ingram MA [facility], [facility].; [facility]. 09-19-2022 08:07-0400 Body mass index (BMI) [Ratio] 27.97 kg/m2 Amanda Ingram MA [facility].; [facility] 09-19-2022 08:07-0400 Body surface area Derived from formula 2.21 m2 Amanda Ingram MA [facility].; [facility] 09-19-2022 08:07-0400 Body weight 96.16 kg Amanda Ingram MA [facility] [employer] [facility].; [facility] [employer] [facility] 09-19-2022 08:07-0400 Diastolic blood pressure 85 mm[Hg] Amanda Ingram MA [facility] [employer] [facility].; [facility] [employer] [facility]. Comment on above: Patient Position: Sitting; Cuff Location : Left Arm; Cuff Size: Standard 09-19-2022 08:07-0400 Heart rate 85 /min Amanda Ingram MA [facility] [employer] [facility].; [facility] [employer] [facility]. Comment on above: Pattern: Regular 09-19-2022 08:07-0400 Systolic blood pressure 119 mm[Hg] Amanda Ingram MA [facility] [employer] [facility].; [place] [employer] [facility] [facility]. Comment on above: Patient Position: Sitting; Cuff Location : Left Arm; Cuff Size: Standard 04-24-2022 11:14-0500 Body height 182.88 cm PA Isabel Chu Work Phone: [facility] 04-24-2022 11:14-0500 Body mass index (BMI) [Ratio] 30.4 kg/m2 PA Isabel Chu Work Phone: [facility] 04-24-2022 11:14-0500 Body weight 101.6 kg PA Isabel Chu Work Phone: [facility] 04-24-2022 11:14-0500 Diastolic blood pressure 80 mm[Hg] PA Isabel Chu Work Phone: [facility] 04-24-2022 11:14-0500 Heart rate 80 /min PA Isabel Chu Work Phone: [facility] 04-24-2022 11:14-0500 SaO2% (BldA) [Mass fraction] 96 % PA Isabel Chu Work Phone: [facility] 04-24-2022 11:14-0500 Systolic blood pressure 127 mm[Hg] PA Isabel Chu Work Phone: [facility] 04-24-2022 07:54-0500 Body height 185.42 cm ZamzamMariela Sheth EMBROIDERY WORKER [facility], [facility].; [place] [employer] [facility] [employer] 04-24-2022 07:54-0500 Body mass index (BMI) [Ratio] 29.16 kg/m2 [facility] Rule [facility].; [place] [employer] [facility] [employer] 04-24-2022 07:54-0500 Body surface area Derived from formula 2.25 m2 [facility] Domenic [facility], [facility].; [employer] [facility] 04-24-2022 07:54-0500 Body weight 100.25 kg [facility] D[employer] [facility], [facility].; [employer] 04-24-2022 07:54-0500 Diastolic blood pressure 89 mm[Hg] Zamzam Stuckey [facility].; [employer] [facility], [employer]. Comment on above: Patient Position: Sitting; Cuff Location : Left Arm; Cuff Size: Large 04-24-2022 07:54-0500 Heart rate 91 /min [facility] [employer] [facility], [employer], [employer]. Comment on above: Pattern: Regular 04-24-2022 07:54-0500 Systolic blood pressure 138 mm[Hg] ZamzamMariela Sheth EMBROIDERY WORKER [facility], [employer] [address]. Comment on above: Patient Position: Sitting; Cuff Location : Left Arm; Cuff Size: Large 01-10-2022 09:33-0400 Diastolic blood pressure 80 mm[Hg] PA Isabel Chu Work Phone: [facility] 01-10-2022 09:33-0400 Systolic blood pressure 120 mm[Hg] PA Isabel Chu Work Phone: [facility] 01-10-2022 09:07-0400 Body mass index (BMI) [Ratio] 29.1 kg/m2 PA Isabel Chu Work Phone: 7(380)[phone] [place] [address] 01-10-2022 09:07-0400 Body weight 97.52 kg PA Isabel Chu Work Phone: 9(940)[phone] [place] [address] 01-10-2022 09:07-0400 Heart rate 79 /min PA Isabel Chu Work Phone: 6(911)[phone] [place] [address] 01-10-2022 09:07-0400 Respiratory rate 18 /min PA Isabel Chu Work Phone: [facility] 01-10-2022 09:07-0400 SaO2% (BldA) [Mass fraction] 99 % PA Isabel Chu Work Phone: 5(112)[phone] [place] [address] 10-31-2021 08:32-0400 Body height 185.42 cm Kat Cotto LPN [facility], [facility].; [facility], [facility]. 10-31-2021 08:32-0400 Body mass index (BMI) [Ratio] 28.76 kg/m2 Kat Cotto LPN [facility], [facility].; [facility], [facility]. 10-31-2021 08:32-0400 Body surface area Derived from formula 2.23 m2 Kat Cotto LPN [facility], [facility].; [facility] 10-31-2021 08:32-0400 Body weight 98.88 kg Kat Cotto LPN [facility], [facility]; [facility], [facility] 10-31-2021 08:32-0400 Diastolic blood pressure 78 mm[Hg] Kat Cotto LPN [facility], [facility].; [facility], [facility]. Comment on above: Patient Position: Sitting; Cuff Location : Left Arm; Cuff Size: Standard 10-31-2021 08:32-0400 Heart rate 85 /min Kat Cotto LPN [facility] [employer], [facility]. Comment on above: Pattern: Regular 10-31-2021 08:32-0400 Systolic blood pressure 119 mm[Hg] Kat Cotto LPN [facility], [facility], [facility]. Comment on above: Patient Position: Sitting; Cuff Location : Left Arm; Cuff Size: Standard 07-26-2021 16:15-0400 Body temperature 98.3 [degF] PA Isabel Chu Work Phone: [facility] Work Phone: 07-26-2021 16:15-0400 Diastolic blood pressure 88 mm[Hg] PA Isabel Chu Work Phone: [facility] Work Phone: 07-26-2021 16:15-0400 Heart rate 76 /min PA Isabel Chu Work Phone: [facility] Work Phone: 07-26-2021 16:15-0400 Respiratory rate 16 /min PA Isabel Chu Work Phone: [facility] Work Phone: 07-26-2021 16:15-0400 SaO2% (BldA) [Mass fraction] 99 % PA Isabel Chu Work Phone: [facility] Work Phone: 07-26-2021 16:15-0400 Systolic blood pressure 152 mm[Hg] PA Isabel Chu Work Phone: [facility] Work Phone: 07-26-2021 07:44-0400 Body height 182.88 cm PA Isabel Chu Work Phone: [facility] Work Phone: 07-26-2021 07:44-0400 Body mass index (BMI) [Ratio] 29.6 kg/m2 PA Isabel Chu Work Phone: [facility] Work Phone: 07-26-2021 07:44-0400 Body weight 99 kg PA Isabel Chu Work Phone: [facility] Work Phone: 07-21-2021 13:04-0400 Body mass index (BMI) [Ratio] 30.1 kg/m2 PA Isabel Chu Work Phone: [facility] Work Phone: 07-21-2021 13:04-0400 Body temperature 98.1 [degF] PA Isabel Chu Work Phone: [facility] Work Phone: 07-21-2021 13:04-0400 Body weight 100.81 kg PA Isabel Chu Work Phone: [facility] Work Phone: 07-21-2021 13:04-0400 Diastolic blood pressure 88 mm[Hg] PA Isabel Chu Work Phone: [facility] Work Phone: 07-21-2021 13:04-0400 Heart rate 83 /min PA Isabel Chu Work Phone: [facility] Work Phone: 07-21-2021 13:04-0400 Respiratory rate 18 /min PA Isabel Chu Work Phone: [facility] Work Phone: 07-21-2021 13:04-0400 SaO2% (BldA) [Mass fraction] 95 % PA Isabel Chu Work Phone: [facility] Work Phone: 07-21-2021 13:04-0400 Systolic blood pressure 131 mm[Hg] PA Isabel Chu Work Phone: [facility] Work Phone: 07-07-2021 07:45-0400 Body temperature 98.2 [degF] PA Isabel Chu Work Phone: [facility] Work Phone: 07-07-2021 07:45-0400 Diastolic blood pressure 97 mm[Hg] PA Isabel Chu Work Phone: [facility] Work Phone: 07-07-2021 07:45-0400 Heart rate 64 /min PA Isabel Chu Work Phone: [facility] Work Phone: 07-07-2021 07:45-0400 Respiratory rate 16 /min PA Isabel Chu Work Phone: [facility] Work Phone: 07-07-2021 07:45-0400 SaO2% (BldA) [Mass fraction] 97 % PA Isabel Chu Work Phone: [facility] Work Phone: 07-07-2021 07:45-0400 Systolic blood pressure 135 mm[Hg] PA Isabel Chu Work Phone: [facility] Work Phone: 07-07-2021 06:01-0400 Body mass index (BMI) [Ratio] 29.2 kg/m2 PA Isabel Chu Work Phone: [facility] Work Phone: 07-07-2021 06:01-0400 Body weight 97.9 kg PA Isabel Chu Work Phone: [facility] Work Phone: 06-02-2021 07:15-0500 Body height 182.88 cm PA Isabel Chu Work Phone: [facility] Work Phone: 06-02-2021 07:15-0500 Body mass index (BMI) [Ratio] 29.9 kg/m2 PA Isabel Chu Work Phone: [facility] Work Phone: 06-02-2021 07:15-0500 Body weight 100.24 kg PA Isabel Chu Work Phone: [facility] Work Phone: 05-31-2021 07:05-0500 Body mass index (BMI) [Ratio] 30.1 kg/m2 PA Isabel Chu Work Phone: [facility] Work Phone: 05-31-2021 07:05-0500 Body temperature 97.3 [degF] PA Isabel Chu Work Phone: [facility] Work Phone: 05-31-2021 07:05-0500 Body weight 100.69 kg PA Isabel Chu Work Phone: [facility] Work Phone: 05-31-2021 07:05-0500 Diastolic blood pressure 88 mm[Hg] PA Isabel Chu Work Phone: [facility] Work Phone: 05-31-2021 07:05-0500 Heart rate 84 /min PA Isabel Chu Work Phone: [facility] Work Phone: 05-31-2021 07:05-0500 Respiratory rate 16 /min PA Isaebl Chu Work Phone: [facility] Work Phone: 05-31-2021 07:05-0500 SaO2% (BldA) [Mass fraction] 99 % PA Isabel Chu Work Phone: [facility] Work Phone: 05-31-2021 07:05-0500 Systolic blood pressure 130 mm[Hg] PA Isabel Chu Work Phone: [facility] Work Phone: 05-02-2021 14:11-0500 Body height 185.42 cm Kat Cotto LPN [facility], [facility].; [facility], [facility]. 05-02-2021 14:11-0500 Body mass index (BMI) [Ratio] 28.76 kg/m2 Kat Cotto LPN [facility].; [facility] 05-02-2021 14:11-0500 Body surface area Derived from formula 2.23 m2 Kat Cotto LPN [facility], [facility].; [facility]. 05-02-2021 14:11050 Body weight 98.88 kg Kat Cotto LPN [facility], [facility].; [facility]. 05-02-2021 14:11-0500 Diastolic blood pressure 69 mm[Hg] Kat Cotto LPN [facility].; [facility]. Comment on above: Patient Position: Sitting; Cuff Location : Left Arm; Cuff Size: Standard 05-02-2021 14:11-0500 Heart rate 88 /min Kat Cotto LPN [facility].; [facility] [employer] [facility]. Comment on above: Pattern: Regular 05-02-2021 14:11-0500 Systolic blood pressure 103 mm[Hg] Kat Cotto LPN [facility].; [facility]. Comment on above: Patient Position: Sitting; Cuff Location : Left Arm; Cuff Size: Standard 03-09-2021 07:15-0500 Body mass index (BMI) [Ratio] 29.8 kg/m2 PA Isabel Chu Work Phone: [facility] Work Phone: 03-09-2021 07:15-0500 Body temperature 97.4 [degF] PA Isabel Chu Work Phone: [facility] Work Phone: 03-09-2021 07:15-0500 Body weight 99.79 kg PA Isabel Chu Work Phone: [facility] Work Phone: 03-09-2021 07:15-0500 Diastolic blood pressure 92 mm[Hg] PA Isabel Chu Work Phone: [facility] Work Phone: 03-09-2021 07:15-0500 Heart rate 78 /min PA Isabel Chu Work Phone: [facility] Work Phone: 03-09-2021 07:15-0500 Respiratory rate 16 /min PA Isabel Chu Work Phone: [facility] Work Phone: 03-09-2021 07:15-0500 SaO2% (BldA) [Mass fraction] 97 % PA Isabel Chu Work Phone: [facility] Work Phone: 03-09-2021 07:15-0500 Systolic blood pressure 125 mm[Hg] PA Isabel Chu Work Phone: [facility] Work Phone: 12-02-2020 08:00-0400 Body height 185.42 cm Jennifer Solomon RN [facility], [facility].; [employer] [facility]. 12-02-2020 08:00-0400 Body mass index (BMI) [Ratio] 29.29 kg/m2 Jennifer Solomon RN [facility] [place] [employer] [facility].; [employer] [facility] [facility]. 12-02-2020 08:00-0400 Body surface area Derived from formula 2.25 m2 Jennifer Solomon RN [facility] [place].; [employer] In [facility] [employer] [facility]. 12-02-2020 08:00-0400 Body weight 100.7 kg Jennifer Solomon RN [place] [employer] [facility] [employer] [facility].; [employer]op [facility]. 12-02-2020 08:00-0400 Diastolic blood pressure 97 mm[Hg] Jennifer Solomon RN [place] [employer] [facility] [employer] [facility].; [employer]. Comment on above: Patient Position: Sitting; Cuff Location : Left Arm; Cuff Size: Standard 12-02-2020 08:00-0400 Heart rate 82 /min Jennifer Solomon RN [facility] [place], [facility].; [employer]. Comment on above: Pattern: Regular 12-02-2020 08:00-0400 Systolic blood pressure 161 mm[Hg] Jennifer Solomon RN [employer] In [facility] Troy[facility] [employer].; [address] Comment on above: Patient Position: Sitting; Cuff Location : Left Arm; Cuff Size: Standard 10-07-2020 10:43-0400 Body height 185.42 cm Jennifer Solomon RN [facility] [place].; [address] 10-07-2020 10:43-0400 Body mass index (BMI) [Ratio] 28.63 kg/m2 Jennifer Solomon RN [place] [employer] [facility] [employer] [facility].; [employer]. 10-07-2020 10:43-0400 Body surface area Derived from formula 2.23 m2 Jennifer Solomon RN [place] [employer] [facility].; [address] 10-07-2020 10:43-0400 Body weight 98.43 kg Jennifer Solomon RN [employer].; [address]. 10-07-2020 10:43-0400 Diastolic blood pressure 107 mm[Hg] Jennifer Solomon RN [employer].; [address]. Comment on above: Patient Position: Sitting; Cuff Location : Left Arm; Cuff Size: Large 10-07-2020 10:43-0400 Heart rate 86 /min Jennifer Solomon RN [employer].; [address]. Comment on above: Pattern: Regular 10-07-2020 10:43-0400 Inhaled oxygen concentration 20 % Jennifer Solomon RN [employer].; [address]. Comment on above: Room air 10-07-2020 10:43-0400 Inhaled oxygen concentration 21 % Jennifer Solomon RN [employer].; [address]. Comment on above: Room air 10-07-2020 10:43-0400 SaO2% (BldA) [Mass fraction] 98 % Jennifer Solomon RN [employer] [facility].; [address] 10-07-2020 10:43-0400 Systolic blood pressure 155 mm[Hg] Jennifer Solomon RN [place] [employer].; [employer]. Comment on above: Patient Position: Sitting; Cuff Location : Left Arm; Cuff Size: Large 06-02-2020 08:08-0500 Body height 185.42 cm Dimitry Chen MD Work Phone: [place] [employer].; [address] 06-02-2020 08:08-0500 Body mass index (BMI) [Ratio] 28.89 kg/m2 Dimitry Chen MD Work Phone: [place] [employer].; [employer]. 06-02-2020 08:08-0500 Body surface area Derived from formula 2.24 m2 Dimitry Chen MD Work Phone: [employer].; [address]. 06-02-2020 08:08-0500 Body weight 99.34 kg Dimitry Chen MD Work Phone: [employer].; [address]. 06-02-2020 08:08-0500 Diastolic blood pressure 80 mm[Hg] Dimitry Chen MD Work Phone: [employer].; [address]. Comment on above: Patient Position: Sitting; Cuff Location : Left Arm; Cuff Size: Standard 06-02-2020 08:08-0500 Heart rate 87 /min Dimitry Chen MD Work Phone: [employer].; [address]. Comment on above: Pattern: Regular 06-02-2020 08:08-0500 Systolic blood pressure 136 mm[Hg] Dimitry Chen MD Work Phone: [employer].; [address]. Comment on above: Patient Position: Sitting; Cuff Location : Left Arm; Cuff Size: Standard 04-04-2020 09:02-0500 Body height 185.42 cm Ernestina Sheth LPN [employer].; [address] 04-04-2020 09:02-0500 Body mass index (BMI) [Ratio] 28.5 kg/m2 Ernestina Sheth EMBROIDERY WORKER [facility] [place], Inc.; [employer] [facility], Inc. 04-04-2020 09:02-0500 Body surface area Derived from formula 2.22 m2 Zamzam Domenic [facility], Inc.; [employer] 04-04-2020 09:02-0500 Body weight 97.98 kg Ernestina Sheth [facility], Inc.; [employer], [employer] 04-04-2020 09:02-0500 Diastolic blood pressure 101 mm[Hg] Ernestina Sheth [facility], Inc.; [employer], [employer] Comment on above: Patient Position: Sitting; Cuff Location : Left Arm; Cuff Size: Large 04-04-2020 09:02-0500 Heart rate 88 /min Ernestina Sheth [facility], Inc.; [employer], [employer]. Comment on above: Pattern: Regular 04-04-2020 09:02-0500 Systolic blood pressure 141 mm[Hg] Ernestina Sheth [facility], Inc.; [employer] Comment on above: Patient Position: Sitting; Cuff Location : Left Arm; Cuff Size: Large 03-02-2020 08:14-0500 Body height 185.42 cm Kat Cotto LPN [facility] [place], Inc.; [employer] 03-02-2020 08:14-0500 Body mass index (BMI) [Ratio] 28.89 kg/m2 Kat Cotto LPN [facility] [place], Inc.; [employer] [facility], Inc. 03-02-2020 08:14-0500 Body surface area Derived from formula 2.24 m2 Kat Cotto LPN [facility] [place], Inc.; [employer] [facility], Inc. 03-02-2020 08:14-0500 Body weight 99.34 kg Kat Cotto EMBROIDERY WORKER [facility] [place], [facility].; [employer] 03-02-2020 08:14-0500 Diastolic blood pressure 85 mm[Hg] Kat Cotto LPN [facility] [place], Inc.; [employer], Draft. Comment on above: Patient Position: Sitting; Cuff Location : Left Arm; Cuff Size: Standard 03-02-2020 08:14-0500 Heart rate 87 /min Kat Cotto LPN [employer] [facility].; [address]. Comment on above: Pattern: Regular 03-02-2020 08:14-0500 Systolic blood pressure 148 mm[Hg] Kat Cotto LPN [employer].; [address]. Comment on above: Patient Position: Sitting; Cuff Location : Left Arm; Cuff Size: Standard 08-06-2019 08:02-0400 Body height 185.42 cm Jennifer Solomon RN [employer].; [address]. 08-06-2019 08:02-0400 Body mass index (BMI) [Ratio] 28.76 kg/m2 Jennifer Solomon RN [employer] [facility].; [address] 08-06-2019 08:02-0400 Body surface area Derived from formula 2.23 m2 Jennifer Solomon RN [employer]re[employer].; [address]. 08-06-2019 08:02-0400 Body weight 98.88 kg Jennifer Solomon RN [employer].; [employer]. 08-06-2019 08:02-0400 Diastolic blood pressure 91 mm[Hg] Jennifer Solomon RN [employer].; [address]. Comment on above: Patient Position: Sitting; Cuff Location : Left Arm; Cuff Size: Standard 08-06-2019 08:02-0400 Heart rate 78 /min Jennifer Solomon RN [employer].; [address]. Comment on above: Pattern: Regular 08-06-2019 08:02-0400 Systolic blood pressure 159 mm[Hg] Jennifer Solomon RN [employer].; [address]. Comment on above: Patient Position: Sitting; Cuff Location : Left Arm; Cuff Size: Standard 05-07-2019 14:38-0500 Body height 185.42 cm Kat Cotto LPN [employer].; [address]. 05-07-2019 14:38-0500 Body mass index (BMI) [Ratio] 29.29 kg/m2 Kat Cotto LPN [facility] [place], Inc.; [employer], [employer]. 05-07-2019 14:38-0500 Body surface area Derived from formula 2.25 m2 Kat Cotto LPN [facility] [place], Inc.; [employer], [employer] 05-07-2019 14:38-0500 Body weight 100.7 kg Kat Cotto LPN [place] [employer] [facility], [facility].; [employer], [employer]. 05-07-2019 14:38-0500 Diastolic blood pressure 83 mm[Hg] Kat Cotto LPN [place] [employer] [facility], [facility].; [employer], Draft. Comment on above: Patient Position: Sitting; Cuff Location : Left Arm; Cuff Size: Standard 05-07-2019 14:38-0500 Heart rate 91 /min Kat Cotto LPN [place] [employer] [facility], Inc.; [employer], Draft. Comment on above: Pattern: Regular 05-07-2019 14:38-0500 Systolic blood pressure 124 mm[Hg] Kat Cotto LPN [place] [employer] [facility], [facility].; [address] Comment on above: Patient Position: Sitting; Cuff Location : Left Arm; Cuff Size: Standard 01-02-2019 08:46-0400 Body height 185.42 cm Dimitry Chen MD Work Phone: [employer], [employer].; [address]. 01-02-2019 08:46-0400 Body mass index (BMI) [Ratio] 28.89 kg/m2 Dimitry Chen MD Work Phone: [employer].; [address]. 01-02-2019 08:46-0400 Body surface area Derived from formula 2.24 m2 Dimitry Chen MD Work Phone: [employer].; [address]. 01-02-2019 08:46-0400 Body weight 99.34 kg Dimitry Chen MD Work Phone: [employer].; [address]. 01-02-2019 08:46-0400 Diastolic blood pressure 88 mm[Hg] Dimitry Chen MD Work Phone: [address] Comment on above: Patient Position: Sitting; Cuff Location : Left Arm; Cuff Size: Standard 01-02-2019 08:46-0400 Heart rate 78 /min Dimirty Chen MD Work Phone: [address] Comment on above: Pattern: Regular 01-02-2019 08:46-0400 Systolic blood pressure 136 mm[Hg] Dimitry Chen MD Work Phone: [address] Comment on above: Patient Position: Sitting; Cuff Location : Left Arm; Cuff Size: Standard 08-26-2018 10:36-0400 Body height 185.42 cm Hemanta Gogoi (scribe) [employer] 08-26-2018 10:36-0400 Body mass index (BMI) [Ratio] 29.42 kg/m2 Hemanta Gogoi (scribe) [employer].; [employer] 08-26-2018 10:36-0400 Body surface area Derived from formula 2.25 m2 Zusegoi (scribe) [employer].; [employer], [employer] 08-26-2018 10:36-0400 Body weight 101.15 kg Hemanta Gogoi (scribe) [employer], [employer].; [employer] 08-26-2018 10:36-0400 Diastolic blood pressure 84 mm[Hg] Hemanta Gogoi (scribe) [employer], [employer].; [employer], [employer]. Comment on above: Patient Position: Sitting; Cuff Location : Left Arm; Cuff Size: Standard 08-26-2018 10:36-0400 Heart rate 98 /min Hemanta Gogoi (scribe) [employer], [employer].; [employer], [employer]. Comment on above: Pattern: Regular 08-26-2018 10:36-0400 Systolic blood pressure 154 mm[Hg] Hemanta Gogoi (scribe) [employer], [employer].; [address]. Comment on above: Patient Position: Sitting; Cuff Location : Left Arm; Cuff Size: Standard 04-14-2018 13:13-0500 Body height 185.42 cm [facility]) [employer].; [address] 04-14-2018 13:13-0500 Body mass index (BMI) [Ratio] 28.76 kg/m2 [employer] ([employer]) [employer].; [address] 04-14-2018 13:13-0500 Body surface area Derived from formula 2.23 m2 [employer] (Andele) [employer].; [address] 04-14-2018 13:13-0500 Body weight 98.88 kg [facility] ([employer]) [employer].; [address] 04-14-2018 13:13-0500 Diastolic blood pressure 90 mm[Hg] Thotzi (scribe) [employer].; [address]. Comment on above: Patient Position: Sitting; Cuff Location : Left Arm; Cuff Size: Large 04-14-2018 13:13-0500 Heart rate 86 /min [employer] ([employer]) [address] Comment on above: Pattern: Regular 04-14-2018 13:13-0500 Systolic blood pressure 138 mm[Hg] Thotzi (scribe) [employer].; [address]. Comment on above: Patient Position: Sitting; Cuff Location : Left Arm; Cuff Size: Large 03-12-2018 11:31-0500 Diastolic blood pressure 102 mm[Hg] Dimitry Chen MD Work Phone: [address] Comment on above: Patient Position: Sitting; Cuff Location : Left Arm; Cuff Size: Standard 03-12-2018 11:31-0500 Systolic blood pressure 158 mm[Hg] Dimitry Chen MD Work Phone: [employer].; [address]. Comment on above: Patient Position: Sitting; Cuff Location : Left Arm; Cuff Size: Standard 03-12-2018 10:59-0500 Body height 185.42 cm Dimitry Chen MD Work Phone: [employer].; [address] 03-12-2018 10:59-0500 Body mass index (BMI) [Ratio] 29.42 kg/m2 Dimitry Chen MD Work Phone: [employer].; [address] 03-12-2018 10:59-0500 Body surface area Derived from formula 2.25 m2 Dimitry Chen MD Work Phone: [address] 03-12-2018 10:59-0500 Body weight 101.15 kg Dimitry Chen MD Work Phone: [address] 03-12-2018 10:59-0500 Diastolic blood pressure 102 mm[Hg] Dimitry Chen MD Work Phone: [address] Comment on above: Patient Position: Sitting; Cuff Location : Right Arm; Cuff Size: Standard 03-12-2018 10:59-0500 Heart rate 79 /min Dimitry Chen MD Work Phone: [employer].; [address]. Comment on above: Pattern: Regular 03-12-2018 10:59-0500 Systolic blood pressure 182 mm[Hg] Dimitry Chen MD Work Phone: [address] Comment on above: Patient Position: Sitting; Cuff Location : Right Arm; Cuff Size: Standard 08-07-2017 10:28-0400 Body height 185.42 cm Ariadne Joshi LPN [employer].; [address] 08-07-2017 10:28-0400 Body mass index (BMI) [Ratio] 28.1 kg/m2 Ariadne Joshi LPN [employer].; [address] 08-07-2017 10:280400 Body surface area Derived from formula 2.21 m2 Ariadne Potter Madelyn NEWSOME [facility], Inc.; [employer] 08-07-2017 10:28-0400 Body weight 96.62 kg Ariadne Potter Madelyn NEWSOME [facility], Inc.; [employer], [employer] 08-07-2017 10:28-0400 Diastolic blood pressure 120 mm[Hg] Ariadne Potter Madelyn NEWSOME [place] [employer] [facility], Inc.; [employer] Comment on above: Patient Position: Sitting; Cuff Location : Right Arm; Cuff Size: Standard 08-07-2017 10:28-0400 Heart rate 91 /min Ariadne Potter Madelyn NEWSOME [place] [employer] [facility], Inc.; [employer], [employer]. Comment on above: Pattern: Regular 08-07-2017 10:28-0400 Systolic blood pressure 151 mm[Hg] Ariadne Potter Madelyn NEWSOME [place] [employer] [facility], Inc.; [address]. Comment on above: Patient Position: Sitting; Cuff Location : Right Arm; Cuff Size: Standard 05-30-2017 10:18-0500 Body height 185.42 cm Yuriy Cortez (Malathi) [place] [employer] [facility], Inc.; [employer], [employer]. 05-30-2017 10:18-0500 Body mass index (BMI) [Ratio] 28.1 kg/m2 Yuriy Cortez (Scrgabriela) [place] [employer] [facility], Inc.; [employer], Inc. 05-30-2017 10:180500 Body surface area Derived from formula 2.21 m2 Yuriy Cortez (Scribhossein) [place] [employer] [facility], Inc.; [employer], Inc. 05-30-2017 10:18-0500 Body weight 96.62 kg Yuriy Cortez (Scribe) [employer], Draft. 05-30-2017 10:18-0500 Diastolic blood pressure 102 mm[Hg] Yuriy Cortez (Scribe) [place] [employer] [facility], Inc.; [employer], Draft. Comment on above: Patient Position: Sitting; Cuff Location : Right Arm; Cuff Size: Standard 05-30-2017 10:18-0500 Heart rate 90 /min Yuriy Villagomezibe) [employer].; [address]. Comment on above: Pattern: Regular 05-30-2017 10:18-0500 Systolic blood pressure 136 mm[Hg] Yuriyjanes Cortez (Scribe) [place] [employer] [facility], Inc.; [address]. Comment on above: Patient Position: Sitting; Cuff Location : Right Arm; Cuff Size: Standard 05-30-2017 09:43-0500 Body height 185.42 cm Yuriy Diego (Scribe) [place] [employer].; [address]. 05-30-2017 09:43-0500 Body mass index (BMI) [Ratio] 28.1 kg/m2 Yuriy Diego (Scribe) [employer].; [employer], Draft. 05-30-2017 09:43-0500 Body surface area Derived from formula 2.21 m2 [facility] (Egomotionibe) [place] [employer] [facility], Inc.; [employer]ocal[employer]. 05-30-2017 09:43-0500 Body weight 96.62 kg Yuriyjanes Cortez (Scribe) [place] [employer] [facility].; [address] 05-30-2017 09:43-0500 Diastolic blood pressure 102 mm[Hg] Yuriyjanes Cortez (Scribe) [employer] In [facility].; [employer], Draft. Comment on above: Patient Position: Sitting; Cuff Location : Left Arm; Cuff Size: Standard 05-30-2017 09:43-0500 Heart rate 90 /min Yuriy Diego (Scribe) [employer].; [address]. Comment on above: Pattern: Regular 05-30-2017 09:43-0500 Systolic blood pressure 156 mm[Hg] Yuriyjanes Cortez (Scribe) [employer].; [address]. Comment on above: Patient Position: Sitting; Cuff Location : Left Arm; Cuff Size: Standard 02-07-2017 08:53-0500 Body height 185.42 cm Yuriy Diego (Scribe) [employer], [employer].; [address]. 02-07-2017 08:53-0500 Body mass index (BMI) [Ratio] 29.42 kg/m2 Yuriy Diego (Scribe) [facility], Inc.; [employer]. 02-07-2017 08:53-0500 Body surface area Derived from formula 2.25 m2 Yuriy Cortez (Scribe) [facility], Inc.; [employer] 02-07-2017 08:53-0500 Body weight 101.15 kg Yuriy Diego (Scribe) [facility], Inc.; [employer] 02-07-2017 08:53-0500 Diastolic blood pressure 102 mm[Hg] Yuriyjanes Cortez (Scribe) [facility], Inc.; [employer]. Comment on above: Patient Position: Sitting; Cuff Location : Left Arm; Cuff Size: Standard 02-07-2017 08:53-0500 Heart rate 95 /min Yuriy Diego (Scribe) [facility], Inc.; [employer]. Comment on above: Pattern: Regular 02-07-2017 08:53-0500 Systolic blood pressure 160 mm[Hg] Yuriy Cortez (Scribe) [facility] [place], [facility].; [employer]. Comment on above: Patient Position: Sitting; Cuff Location : Left Arm; Cuff Size: Standard 02-07-2017 08:16-0500 Body height 185.42 cm Jennifer Solomon RN [facility], [employer].; [employer], [employer] 02-07-2017 08:16-0500 Body mass index (BMI) [Ratio] 29.42 kg/m2 Jennifer Solomon RN [place] [employer], [employer] [facility] [employer] Inc.; [employer], Draft. 02-07-2017 08:16-0500 Body surface area Derived from formula 2.25 m2 Jennifer Solomon RN [place] [employer], [employer] [facility].; [employer]. 02-07-2017 08:16-0500 Body weight 101.15 kg Jennifer Solomon RN [place] [employer], [employer] [facility].; [employer]. 02-07-2017 08:16-0500 Diastolic blood pressure 108 mm[Hg] Jennifer Solomon RN [place] [employer], [employer] [facility].; [employer]. Comment on above: Patient Position: Sitting; Cuff Location : Right Arm; Cuff Size: Standard 02-07-2017 08:16-0500 Heart rate 95 /min Jennifer Solomon RN [employer], [employer].; [employer], Draft. Comment on above: Pattern: Regular 02-07-2017 08:16-0500 Systolic blood pressure 158 mm[Hg] Jennifer Solomon RN [employer], [employer].; [employer], [employer]. Comment on above: Patient Position: Sitting; Cuff Location : Right Arm; Cuff Size: Standard 08-27-2016 07:57-0400 Body height 185.42 cm DarnellHackHandsMarques (Scribe) [employer], [employer].; [employer], Draft. 08-27-2016 07:57-0400 Body mass index (BMI) [Ratio] 28.63 kg/m2 [employer] (Scribe) [employer], [employer].; [employer], [employer] 08-27-2016 07:57-0400 Body surface area Derived from formula 2.23 m2 [employer] (Scribe) [employer], [employer].; [employer] 08-27-2016 07:57-0400 Body weight 98.43 kg [employer] (Scribe) [employer], [employer].; [employer], Draft. 08-27-2016 07:57-0400 Diastolic blood pressure 86 mm[Hg] [employer] (Scribe) [employer], [employer].; [employer], Inc. Comment on above: Patient Position: Sitting; Cuff Location : Left Arm; Cuff Size: Large 08-27-2016 07:57-0400 Heart rate 86 /min [employer] (Scribe) [employer], [employer].; [employer], Inc. Comment on above: Pattern: Regular 08-27-2016 07:57-0400 Systolic blood pressure 144 mm[Hg] Darnell Marques (Scribe) [employer], [employer].; [employer], Inc. Comment on above: Patient Position: Sitting; Cuff Location : Left Arm; Cuff Size: Large 06-25-2016 10:48-0400 Body height 180.34 cm Darnell Marques (Scribe) [employer], [employer].; [address] 06-25-2016 10:48-0400 Body mass index (BMI) [Ratio] 30.96 kg/m2 Darnell Marques (Scribe) [employer].; [employer], [employer] 06-25-2016 10:48-0400 Body surface area Derived from formula 2.2 m2 Darnell Marques (Scribe) [employer], [employer].; [address]. 06-25-2016 10:48-0400 Body weight 100.7 kg [employer] (Scribe) [employer].; [address] 06-25-2016 10:48-0400 Diastolic blood pressure 102 mm[Hg] Darnell Marques (Scribe) [employer], [employer].; [employer], Draft. Comment on above: Patient Position: Sitting; Cuff Location : Left Arm; Cuff Size: Standard 06-25-2016 10:48-0400 Heart rate 80 /min Darnell Marques (Scribe) [employer], [employer].; [address]. Comment on above: Pattern: Regular 06-25-2016 10:48-0400 Systolic blood pressure 166 mm[Hg] Darnell Marques (Scribe) [employer].; [address]. Comment on above: Patient Position: Sitting; Cuff Location : Left Arm; Cuff Size: Standard 06-02-2012 13:13-0400 Diastolic blood pressure 84 mm[Hg] ZamzamMariela Sheth EMBROIDERY WORKER [employer].; [address]. Comment on above: Patient Position: Sitting; Cuff Location : Left Arm; Cuff Size: Large 06-02-2012 13:13-0400 Heart rate 78 /min Zamzam Domenic EMBROIDERY WORKER [address] Comment on above: Pattern: Regular 06-02-2012 13:13-0400 Systolic blood pressure 120 mm[Hg] Zamzam Rule MERCEDEZ [employer].; [employer], Draft. Comment on above: Patient Position: Sitting; Cuff Location : Left Arm; Cuff Size: Large 05-30-2012 15:03-0500 Body height 180.34 cm Nikki Sandhu LPN [facility], Inc.; [facility] 05-30-2012 15:03-0500 Body mass index (BMI) [Ratio] 30.68 kg/m2 Nikki Sandhu LPN [facility], Inc.; [employer]. [facility], Inc. 05-30-2012 15:03-0500 Body surface area Derived from formula 2.2 m2 Nikki Sandhu LPN [facility], Inc.; [employer]. [facility], Inc. 05-30-2012 15:03-0500 Body weight 99.79 kg Nikki Sandhu LPN [facility], Inc.; [employer] [facility], Inc. 03-31-2012 09:59-0500 Body height 186.06 cm Meagan Nation LPN [facility], Inc.; [employer], [employer] 03-31-2012 09:59-0500 Body mass index (BMI) [Ratio] 28.3 kg/m2 Meagan Nation LPN [facility], Inc.; [employer]. [facility], Inc. 03-31-2012 09:59-0500 Body surface area Derived from formula 2.23 m2 Meagan Nation LPN [facility], Inc.; [employer] [facility], [facility]. 03-31-2012 09:59-0500 Body weight 97.98 kg Meagan Nation LPN [facility], [facility].; [employer] 03-31-2012 09:59-0500 Diastolic blood pressure 96 mm[Hg] Meagan Nation LPN [facility], [facility].; [employer]. Comment on above: Patient Position: Sitting; Cuff Location : Left Arm; Cuff Size: Standard 03-31-2012 09:59-0500 Heart rate 88 /min Meagan Nation LPN [place] [employer] [facility], [facility].; [employer], Draft. Comment on above: Pattern: Regular 03-31-2012 09:59-0500 Systolic blood pressure 141 mm[Hg] Meagan Nation LPN [place] [employer]. [facility], Inc.; [employer], [employer]. Comment on above: Patient Position: Sitting; Cuff Location : Left Arm; Cuff Size: Standard 12-26-2011 15:24-0400 Body height 186.06 cm Savannahrupesh Rangel EMBROIDERY WORKER [employer] [facility], Inc.; [employer] 12-26-2011 15:24-0400 Body mass index (BMI) [Ratio] 27.65 kg/m2 Savannah L Richert EMBROIDERY WORKER [employer] [facility], Inc.; [employer], [employer] 12-26-2011 15:24-0400 Body surface area Derived from formula 2.21 m2 Savannah L Richert EMBROIDERY WORKER [employer] [facility], Inc.; [employer], [employer]. 12-26-2011 15:24-0400 Body weight 95.71 kg Savannah Ana Rangel EMBROIDERY WORKER [employer] [facility], Inc.; [employer], [employer]. 12-26-2011 15:24-0400 Diastolic blood pressure 86 mm[Hg] Savannah L Franklinert EMBROIDERY WORKER [employer] [facility] [employer] Comment on above: Patient Position: Sitting; Cuff Location : Left Arm; Cuff Size: Standard 12-26-2011 15:24-0400 Heart rate 94 /min Savannahrupesh Rangel EMBROIDERY WORKER [employer] [facility] [employer] Comment on above: Pattern: Regular 12-26-2011 15:24-0400 Systolic blood pressure 127 mm[Hg] Savannah Ana Rangel EMBROIDERY WORKER [employer] [facility] [employer] Comment on above: Patient Position: Sitting; Cuff Location : Left Arm; Cuff Size: Standard 06-08-2010 14:56-0400 Body height 186.06 cm Salima Felix RN Work Phone: [employer] [address] 06-08-2010 14:56-0400 Body mass index (BMI) [Ratio] 27.91 kg/m2 Salima Felix RN Work Phone: [employer] 06-08-2010 14:56-0400 Body surface area Derived from formula 2.22 m2 Salima Felix RN Work Phone: [employer] 06-08-2010 14:56-0400 Body weight 96.62 kg Salima Felix RN Work Phone: [facility] 06-08-2010 14:56-0400 Heart rate 94 /min Salima Felix RN Work Phone: [facility] [facility] [facility]. Comment on above: Pattern: Regular Encounters Encounter Date Encounter Type Care Provider Facility Start: 02-04-2025 ambulatory Alden Fast Facility:[facility] Start: 10-07-2024 Review Isabel Frias Work Phone: [facility] [facility] Start: 08-25-2024 End: 08-25-2024 Subsequent hospital visit by physician [facility] Comment on above: Elevated prostate sp ecific antigen (PSA) Start: 08-25-2024 End: 08-25-2024 ambulatory [facility] Start: 08-10-2024 End: 08-10-2024 ambulatory Alden Fast Facility:[facility] Start: 06-22-2024 Encounter for preprocedural laboratory examination Alden Melendez [facility] Start: 06-12-2024 End: 06-12-[address] Alden Melendez DO Work Phone: [facility] Work Phone: Start: 06-12-2024 End: 06-12-[address] Alden Melendez DO -Cat Scan, [facility] Work Phone: Start: 06-12-2024 End: 06-12-2024 ambulatory Alden Melendez Facility:[facility] Start: 05-23-2024 ambulatory Alden Melendez Facility:[facility] Start: 05-23-2024 Non-patient / Non-visit Dr. Rhiannon Ricardo MD -[facility] Start: 05-22-2024 End: 05-22-[address] Alden Melendez DO Work Phone: [facility] Work Phone: Start: 05-22-2024 End: 05-22-[address] Alden Melendez DO -Cardiovascular Services Work Phone: Start: 05-22-2024 End: 05-22-2024 ambulatory Alden Fast Facility:[facility] Start: 05-22-2024 Non-patient / Non-visit Dr. Rhiannon Ricardo MD -[facility] Start: 04-24-2024 ambulatory [facility] Facility:[facility] Start: 04-24-2024 Non-patient / Non-visit Dr. Shankar VERAS -[facility] Work Phone: Start: 04-24-2024 End: 04-24-[address] Alden Melendez DO -Pulmonary Services/Neurology Work Phone: Start: 04-24-2024 End: 04-24-2024 ambulatory [facility] Facility:[facility] Start: 04-09-2024 End: 04-09-[address] Al Campoverde MD -[facility] Start: 04-09-2024 End: 04-09-2024 ambulatory Al Campoverde Facility:[facility] Start: 07-01-2023 End: 07-01-2023 ambulatory PA Isabel Chu Work Phone: [facility] Work Phone: Start: 07-01-2023 End: 07-01-2023 Patient encounter procedure PA Isabel Chu Work Phone: [facility]-Cat Scan, [facility] Work Phone: Start: 06-24-2023 End: 06-24-2023 ambulatory PA Isabel Chu Work Phone: [facility] Work Phone: Start: 06-24-2023 End: 06-24-2023 Patient encounter procedure PA Isabel Chu Work Phone: [facility] Work Phone: Start: 06-06-2023 End: 06-06-2023 Subsequent hospital visit by physician Aristeo Ne Aron [facility] Comment on above: Hyperlipidemia, unsp ecified Start: 05-27-2023 End: 05-27-2023 Patient encounter procedure PA Isabel Chu Work Phone: [facility] Work Phone: Start: 04-09-2023 End: 04-09-2023 Patient encounter status Coby Gomez MA [facility] Start: 04-09-2023 End: 04-09-2023 Periodic preventive med est patient 40-64yrs Isabel Chu PA-C [facility] Start: 04-09-2023 Review Isabel Chu P A-C Work Phone: [facility] Start: 04-04-2023 End: 04-05-2023 Orders Isabel Chu PA-C Work Phone: [facility] Start: 03-11-2023 End: 03-11-2023 Orders Isabel Chu PA-C Work Phone: [facility] [facility] Start: 12-03-2022 End: 12-03-2022 Office outpatient visit 15 minutes Isabel Chu PA-C [facility] Start: 09-19-2022 End: 09-19-2022 Office outpatient visit 25 minutes Isabel Cuh PA-C Work Phone: [facility] Start: 06-01-2022 ambulatory [facility] Start: 04-24-2022 End: 04-24-2022 Patient encounter procedure PA Isabel Chu Work Phone: [facility] Start: 04-24-2022 End: 04-24-2022 Office outpatient visit 40 minutes Isabel Chu PA-C Work Phone: [facility] [facility] Start: 04-18-2022 End: 04-18-2022 ambulatory PA Isabel Chu Work Phone: [facility] Work Phone: Start: 04-18-2022 End: 04-18-2022 Patient encounter procedure PA Isabel Chu Work Phone: [facility] Start: 01-10-2022 End: 01-10-2022 Patient encounter procedure PA Isabel Chu Work Phone: [facility] Start: 10-31-2021 End: 10-31-2021 Patient encounter status Isabel Chu PA-C Work Phone: [facility]; [facility] Start: 10-31-2021 End: 10-31-2021 Periodic preventive med est patient 40-64yrs Isabel Chu PA-C Work Phone: [facility] Start: 10-24-2021 End: 10-24-2021 Orders Isabel Chu PA-C Work Phone: [facility] Start: 08-16-2021 End: 08-16-2021 Patient encounter procedure PA Isabel Chu Work Phone: [facility] Start: 08-14-2021 End: 08-14-2021 Patient encounter procedure PA Isabel Chu Work Phone: [facility] Start: 07-26-2021 Non-patient / Non-visit PA Alondra ecca Chu Work Phone: [facility] Start: 07-26-2021 End: 07-26-2021 Admission to same day surgery center PA Isabel Chu Work Phone: [facility] Start: 07-21-2021 End: 07-21-2021 Patient encounter procedure PA Isabel Chu Work Phone: [facility] Start: 07-11-2021 End: 07-11-2021 Patient encounter procedure PA Isabel Chu Work Phone: [facility] Start: 07-10-2021 End: 07-10-2021 Admission to establishment Isabel Chu PA-C Work Phone: [employer] [facility] Start: 07-07-2021 Non-patient / Non-visit PA Alondra ediea Chu Work Phone: [facility] Start: 07-07-2021 End: 07-07-2021 Admission to same day surgery center PA Isabel Chu Work Phone: [facility] Start: 06-23-2021 End: 06-23-2021 Patient encounter procedure PA Isabel Chu Work Phone: [facility] Start: 06-08-2021 End: 06-08-2021 Patient encounter procedure PA Isabel Chu Work Phone: [facility] Start: 06-02-2021 End: 06-02-2021 Patient encounter procedure PA Isabel Chu Work Phone: [facility] Start: 06-02-2021 End: 06-02-2021 Patient encounter procedure PA Isabel Chu Work Phone: [facility] Start: 05-31-2021 End: 05-31-2021 Patient encounter procedure PA Isabel Chu Work Phone: [facility]Pulmonary Medicine [facility] Start: 05-03-2021 End: 05-03-2021 Orders Isabel Chu PA-C Work Phone: [address]. Start: 05-02-2021 End: 05-02-2021 Office outpatient visit 25 minutes Isabel Chu PA-C Work Phone: [employer] [facility] Start: 04-24-2021 End: 04-24-2021 Orders Isabel Chu PA-C Work Phone: [employer] Start: 04-20-2021 End: 04-20-2021 Orders Isabel Chu PA-C Work Phone: [employer] Start: 04-04-2021 End: 04-04-2021 Patient encounter procedure PA Isabel Chu Work Phone: [facility] Start: 03-09-2021 End: 03-09-2021 Patient encounter procedure PA Isabel Chu Work Phone: [facility]-P[facility] Medicine [facility] Start: 02-28-2021 Patient encounter procedure PA Isabel Chu Work Phone: [facility] Start: 12-02-2020 End: 12-02-2020 Office outpatient visit 25 minutes Isabel Chu PA-C Work Phone: [facility] Start: 10-12-2020 End: 10-12-2020 Telephone follow-up Isabel Chu PA-C Work Phone: [facility] [facility] Start: 10-11-2020 End: 10-11-2020 Medication Isabel Chu PA-C Work Phone: [facility] [facility] Start: 10-09-2020 End: 10-09-2020 Emergency department patient visit [facility] Start: 10-07-2020 End: 10-07-2020 Office outpatient visit 15 minutes Isabel Chu PA-C Work Phone: [employer] [facility] Start: 07-13-2020 End: 07-14-2020 ambulatory [facility] Start: 06-21-2020 End: 06-21-2020 Orders Isabel Chu PA-C Work Phone: [facility] [facility] Start: 06-02-2020 End: 06-02-2020 Office outpatient visit 25 minutes Isabel Chu PA-C Work Phone: [facility] [facility] Start: 05-26-2020 End: 05-26-2020 Orders Isabel Chu PA-C Work Phone: [employer] Start: 04-04-2020 End: 04-04-2020 Office outpatient visit 15 minutes Isabel Chu PA-C Work Phone: [address]. Start: 03-02-2020 End: 03-02-2020 Office outpatient visit 25 minutes Isabel Chu PA-C Work Phone: [address]. Start: 02-09-2020 End: 02-09-2020 Telephone follow-up Isabel Chu PA-C Work Phone: [address]. Start: 02-03-2020 End: 02-03-2020 Telephone follow-up Isabel Chu PA-C Work Phone: [facility] [facility] Start: 08-06-2019 End: 08-06-2019 Office outpatient visit 25 minutes Isabel Chu PA-C Work Phone: [address]. Start: 05-07-2019 End: 05-07-2019 Office outpatient visit 25 minutes Isabel Chu PA-C Work Phone: [employer] [facility] Start: 05-07-2019 End: 05-07-2019 Patient encounter status Kat Cotto LPN [employer] [address] Start: 04-28-2019 End: 04-29-2019 Orders Isabel Chu PA-C Work Phone: [address]. Start: 01-02-2019 End: 01-02-2019 Office outpatient visit 25 minutes Isabel Chu PA-C Work Phone: [address]. Start: 08-27-2018 End: 08-28-2018 Orders Isabel Chu PA-C Work Phone: [address]. Start: 08-26-2018 End: 08-26-2018 Office outpatient visit 25 minutes Isabel Chu PA-C Work Phone: [facility] Start: 04-14-2018 End: 04-14-2018 Office outpatient visit 25 minutes Isabel Chu PA-C Work Phone: [address]. Start: 03-28-2018 End: 03-31-2018 Orders Isabel Chu PA-C Work Phone: [address]. Start: 03-12-2018 End: 03-13-2018 Office outpatient visit 25 minutes Isabel Chu PA-C Work Phone: [address]. Start: 08-07-2017 End: 08-09-2017 Office outpatient visit 15 minutes Isabel Chu PA-C Work Phone: [address]. Start: 08-02-2017 End: 08-02-2017 Historical Summary Isabel Chu PA-C Work Phone: [address]. Start: 06-07-2017 End: 06-07-2017 Orders Isabel Chu PA-C Work Phone: [address]. Start: 05-30-2017 End: 05-30-2017 Office outpatient visit 15 minutes Isabel Chu PA-C Work Phone: [address]. Start: 02-07-2017 End: 02-07-2017 Office outpatient visit 15 minutes Isabel Chu PA-C Work Phone: [facility] Start: 02-07-2017 End: 02-07-2017 Patient encounter status Isabel Chu PA-C Work Phone: [address] Start: 01-24-2017 End: 01-24-2017 Orders Isabel Chu PA-C Work Phone: [address]. Start: 12-18-2016 End: 12-18-2016 Orders Isabel Chu PA-C Work Phone: [facility] Start: 11-14-2016 End: 11-14-2016 Telephone follow-up Isabel Chu PA-C Work Phone: [address]. Start: 08-27-2016 End: 08-27-2016 Office outpatient visit 15 minutes Isabel Chu PA-C Work Phone: [employer] Start: 06-25-2016 End: 06-25-2016 Patient encounter procedure Isabel Chu PA-C Work Phone: [employer]. Start: 06-02-2012 End: 06-02-2012 Nursing evaluation of patient and report Isabel Chu PA-C Work Phone: [employer]. Start: 05-31-2012 End: 05-31-2012 Medication Isabel Chu PA-C Work Phone: [employer]. Start: 05-30-2012 End: 05-30-2012 Patient encounter procedure Isabel Chu PA-C Work Phone: [employer]. Start: 05-30-2012 End: 05-30-2012 Routine general medical examination at a [facility] care facility Nikki Sandhu LPN [employer] [address] Start: 05-29-2012 End: 05-29-2012 Orders Isabel Chu PA-C Work Phone: [employer]. Start: 05-29-2012 End: 05-29-2012 Historical Summary Isabel Chu PA-C Work Phone: [employer]. Start: 03-31-2012 End: 04-01-2012 Patient encounter procedure Isabel Chu PA-C Work Phone: [employer]. Start: 12-26-2011 End: 12-28-2011 Patient encounter procedure Isabel Chu PA-C Work Phone: [employer] Start: 06-08-2010 End: 06-08-2010 Patient encounter procedure Isabel Chu PA-C Work Phone: [facility] Start: 06-08-2010 End: 06-08-2010 Routine general medical examination at a [facility] facility Isabel Chu PA-C Work Phone: [employer] [facility]; [address]. Start: 05-31-2010 End: 05-31-2010 Orders Isabel Chu PA-C Work Phone: [facility] Start: 05-31-2010 End: 05-31-2010 Routine general medical examination at a health care facility Isabel Chu PA-C Work Phone: [address] Start: 05-08-2010 End: 05-08-2010 Orders Isabel Chu PA-C Work Phone: [address]. Start: 05-08-2010 End: 05-08-2010 Routine general medical examination at a health care facility Isabel Chu PA-C Work Phone: [address] Follow-up encounter Jennifer kendall RN [employer] [address]. Follow-up encounter Isabel Ricardo abel PA-C Work Phone: [facility] [facility]; [address] Patient encounter status Ольга Jarrett LPN [address] Procedures Date Procedure Procedure Detail Performing Clinician Start: 08-25-2024 Mri pelvis w/o & w/c ontrast material Andrés Bermudez MD Work Phone: Start: 06-12-2024 CT angiography of he ad and neck Dr. Alden Melendez DO Work Phone: Start: 05-22-2024 Radionuclide imaging of perfusion of myocardium under exercise stress Dr. Alden Melendez DO Work Phone: Start: 04-09-2024 X-ray of lumbar spin e, two or three views Dr. Alden Melendez DO Work Phone: Start: 07-01-2023 CT of thorax with contrast PA Isabel Vlad Work Phone: Start: 06-06-2023 Ct heart no contrast quant eval coronry calcium Alden Melendez DO Work Phone: Start: 04-09-2023 End: 04-09-2023 Depression screening Isabel J Chu PA-C Work Phone: Start: 04-09-2023 End: 04-09-2023 Scr dep neg, no plan reqd Isabel J Chu PA-C Work Phone: Start: 04-04-2023 End: 04-04-2023 Hemoglobin A1c/Hemoglobin.total in Blood Coby Gomez MA Comment on above: 7.2 Start: 04-04-2023 End: 04-04-2023 Lab findings surveillance Coby Guerrero Comment on above: Results:. 160 Start: 04-04-2023 End: 04-04-2023 Lipid panel results documented & reviewed Coby Gomez MA Start: 04-04-2023 Lipid 1996 panel - S kathryn or Plasma Aristeo 2 Start: 04-24-2022 End: 04-24-2022 Hemoglobin A1c/Hemoglobin.total in Blood Ernestina Sheth EMBROIDERY WORKER Comment on above: 7.0 Start: 04-18-2022 Ultrasonography of abdomen PA Isabel Chu Work Phone: Start: 04-18-2022 Ultrasound elastography PA Isabel Chu Work Phone: Start: 10-31-2021 End: 10-31-2021 Depression screening Isabel J Chu PA-C Work Phone: Start: 10-31-2021 End: 10-31-2021 Scr dep neg, no plan reqd Isabel J Chu PA-C Work Phone: Start: 10-24-2021 End: 10-24-2021 Lab findings surveillance Ernestina Constantino cruz EMBROIDERY WORKER Comment on above: Results:. 175 Start: 10-24-2021 End: 10-24-2021 Lipid panel results documented & reviewed Ernestina Sheth EMBROIDERY WORKER Start: 08-16-2021 Ultrasonography of abdomen PA Isabel Chu Work Phone: Start: 08-16-2021 Ultrasound elastography PA Isabel Chu Work Phone: Start: 07-26-2021 End: 07-26-2021 Viral antigen assay PA Isabel Chu Work Phone: Start: 07-26-2021 Hemorrhoidectomy PA Alondra ecca Chu Work Phone: Start: 07-23-2021 End: 07-23-2021 hemmorhoids removed Jennifer Solomon RN Start: 07-07-2021 End: 07-07-2021 Screening colonoscopy Kat Cotto LPN Comment on above: Dr. Marshall Normal. hugo Solares epeat 5 years- Anal fissure/hemorrhoids Start: 07-07-2021 Colonoscopy Aristeo 2 Start: 07-06-2021 End: 07-06-2021 Viral antigen assay PA Isabel Chu Work Phone: Start: 06-23-2021 Computed tomography of abdomen and pelvis with contrast PA Isabel Chu Work Phone: Start: 06-08-2021 End: 06-08-2021 Ova OR parasites identification PA Isabel Chu Work Phone: Start: 03-25-2021 End: 03-25-2021 Prostate specific antigen measurement Zamzam Domenic L[facility]BN Comment on above: 3.03 Start: 06-02-2020 End: [...] panel - Serum or Plasma Ernestina Sheth LPN Comment on above: Manuel Start: 06-08-2010 End: [...] DTaP/Tdap/Td Vaccines (3 - Td or Tdap) [facility] Start: 07-08-2031 Screening for malign ant neoplasm of colon [facility] Start: 04-04-2028 Lipid panel Lipid Panel [facility] Start: 11-23-2024 Influenza vaccination Influenz a Vaccine (Season Ended) [facility] Start: 11-24-2023 COVID-19 Vaccine () COVID-19 Vaccine () [facility] Start: 10-08-2023 Patient encounter procedure [employer] Start: 04-09-2023 Patient encounter procedure Medical; PHYSICAL - physical [employer] Start: 09-Apr-2023 8:20 ROYER Chu Appointment Request [address] Start: 03-27-2023 Patient encounter procedure Medical; PHYSICAL - physical [employer] Start: 27-Mar-2023 8:20 ROYER Chu Appointment Request [address] Start: 03-21-2023 Comprehensive metabo lic panel CMP w/ GFR* ([id number]) Start: 21-Mar-[address] Start: 03-21-2023 Hemoglobin glycosyla manny a1c HEMOGLOBIN A1C* ([id number]) Start: 21-Mar-[address] Start: 03-21-2023 Lipid panel LIPID PANEL ([id number]) Start: 21-Mar-[address] Start: 03-21-2023 Nursing evaluation o f patient and report Medical; Nurse visit - fasting labs-RJB [address]. Start: 21-Mar-2023 8:00 ROOM, PROCEDURE (DRAW) Appointment Request [address]. Start: 11-23-2022 Influenza vaccination Influenza Vacc ine (#1) [facility] Start: 07-26-2021 Anesthesia anorectal procedure ANESTH ANORECTAL SURGERY [facility] Work Phone: Start: 07-26-2021 Hemorrhoidectomy int & xtrnl 2/> column/kyle REMOVE IN/EX HEM GROUPS 2+ [facility] Work Phone: Start: 07-11-2021 Patient referral [facility] Work Phone: Start: 07-07-2021 Colonoscopy w/biopsy single/multiple COLONOSCOPY AND BIOPSY [facility] Work Phone: Start: 2020 Hepatitis B Vaccines (1 of 3 - Risk 3-dose series) Hepatitis B Vaccines (1 of 3 - Risk 3-dose series) [facility] Start: 2020 RSV High Risk: (Elde rly (60+) or Population) (1 - Risk 60-74 years 1-dose series) RSV High Risk: (Elderly (60+) or Population) (1 - Risk 60-74 years 1-dose series) [facility] Start: 2010 Pneumococcal vaccination Pneum ococcal Vaccine (1 of 1 - PCV) [facility] Start: 2010 Zoster Vaccines (1 of 2) Zoste r Vaccines (1 of 2) [facility] Start: 11-05-1979 Hepatitis A Vaccines (1 of 2 - Risk 2-dose series) Hepatitis A Vaccines (1 of 2 - Risk 2-dose series) [facility] Start: 1978 Diabetes mellitus screening Diabetes Screening [facility] Start: 1978 Hepatitis C screening Hepatitis C Sc reening [facility] Start: 1961 MMR Vaccines (1 of 1 - Standard series) MMR Vaccines (1 of 1 - Standard series) [facility] Start: 05-07-1961 COVID-19 Vaccine (#1) COVID-19 Vacci ne (#1) [facility] Start: 1960 HIV screening HIV Screening [facility] Start: 1960 Screening for malign ant neoplasm of colon [facility] Start: 1960 Yearly Adult Physical Yearly Adult P hysical [facility] End: 06-06-2023 CT for calcium scoring WO contrast and CTA W contrast IV Heart and coronary arteries [facility] Service Area Work Phone: Comment on above: Once for 1 Occurrenc es starting 06/06/2023 until 06/06/2023 Patient referral [facility] Work Phone: Immunizations Immunization Date Immunization Notes Care Provider Fa nghia 03-02-2020 influenza, injectabl e, quadrivalent, contains preservative Isabel Chu PA-C Work Phone: [facility]; [address]. Comment on above: Site: Left ArmVIS Gi mansoor: * Influenza - Inactivated (11/06/18) 03-02-2020 influenza virus vaccine, unspecified formulation [address] Work Phone: 05-07-2019 tetanus toxoid, redu sage diphtheria toxoid, and acellular pertussis vaccine, adsorbed Isabel Chu PA-C Work Phone: [facility]; [address]. Comment on above: Site: Left ArmVIS Gi mansoor: * Tdap (Tetanus, Diphtheria, Pertussis) (05/18/14) 05-07-2019 Shingrix 50 MCG/0.5M L Intramuscular Suspension Reconstituted Isabel Chu PA-C Work Phone: [facility]; [facility] Payers Date Payer Category Payer Self-pay [id number] 2024 Self-pay [id number] 2023 Managed Care (Private) [employer] [id number] 2023 Unknown 2023 Unknown [id number] 1960 Unknown [id number] 1960 Unknown [id number] 1960 Unknown [id number] 1959 Unknown [id number] Unknown [id number] Unknown [id number] Unknown [id number] Unknown [id number] .[id number] Unknown [id number] .[id number] Unknown [id number] .[id number] Unknown [id number] Unknown [id number] Unknown [id number] Social History Date Type Detail Facility Start: 06-02-2021 End: 05-27-2023 Tobacco smoking status WYIS Unknown if ever smoked [facility] Start: 1960 Sex Assigned At Male [facility] Alcohol Use: Alcohol Use: ; Moderate alcohol use. [facility] Caffeine Use [facility] Current Work/Study Status: Current Work/Study Status: ; Self-employed. [facility] Self-employed [facility] [employer] [facility] Work Phone: Moderate alcohol use [employer] [facility] [employer] Work Phone: Start: 1960 Sex Assigned At Not on file [facility] Work Phone: Gender identity Not on file [facility] Work Phone: Start: 04-09-2024 Tobacco smoking stat [facility] Ex-smoker (finding) [facility] Start: 06-02-2024 End: 06-22-2024 Sex Male (finding) [facility] Start: 08-15-2024 End: 08-25-2024 Exposure to SARS-CoV-2 (event) Not sure [facility] Functional Status Date Assessment Result Facility 07-26-2021 Functional status [facility] Work Phone: Mental Status Date Assessment Result Facility 07-26-2021 Cognitive function Voice/Name [facility] Work Phone: 07-07-2021 Cognitive function Voice/Name [facility] Work Phone: Clinical Notes 06-12-2024 Note Date & Type Note Facility 06-12-2024 Radiology Diagnostic study note [facility] Imaging Services [address] [place], [place] [id number] CTA Head AND Neck W/ Contrast MR#: [id number] Acct: [id number] Name: KEITH JOSHI Rep #: [id number] : 1960 M 63 From: Richi Ivey MD PCP: Dr. Alden Melendez DO Status: REG CLI Study:CTA Head AND Neck W/ Contrast Date of E xam: 06/12/24 Exam# [id number] Ordering Dr: Rita Melendez ra, DO PROCEDURE: CTA HEAD AND NECK W/ CONTRAST 06/12/2024 REASON FOR EXAM: CTA OF BOTH CAROTID ARTERIES (ATTN EXTERNAL CAROTID) - ABNORMAL C TECHNIQUE: CTA imaging of the head and neck from the aortic arch to the skull vertex with intravenous contrast. 3D reconstructions. Coronal and Sagittal reconstruction series were provided. One or more dose reduction techniques were used (e.g., Automated exposure control, adjustment of the mA and/or kV according to patient size, use of iterative reconstruction technique). CONTRAST: Isovue 370 VOLUME: 100mL RADIATION DOSE SUMMARY: CTDlvol: 28 mGy DLP: 1685.72 mGycm COMPARISON: None FINDINGS: Aortic Arch: Normal size and branching pattern. Mild atherosclerotic plaque. Brachiocephalic and Subclavians: Mild atherosclerotic plaque without significantstenosis. RIGHT Carotid: Right CCA: Unremarkable. Right ICA: Mild calcified and soft plaque. Maximum stenosis (NASCET): <50 % Right ECA: Unremarkable. LEFT Carotid: Left CCA: Unremarkable. Left ICA: Mild calcified and soft plaque. Maximum stenosis (NASCET): <50 % Left ECA: Unremarkable. Vertebrals: Codominant. Arise from the subclavians. Both vertebrals form the basilar. RIGHT Vertebral: Unremarkable. LEFT Vertebral: Unremarkable. Anatomy: [place] anatomy is normal. Aneurysm or avm: No intracranial aneurysms or large vascular malformations are identified. Anterior cerebral arteries: Unremarkable: Middle cerebral arteries: Unremarkable. Basilar artery: Unremarkable. Posterior cerebral arteries: Unremarkable. Other major branches of the posterior circulation: Unremarkable. Major venous structures: Unremarkable. CT/CTA Head AND Neck W/ Contrast IMPRESSION: RIGHT CAROTID: Calcified plaque at the carotid bifurcation causing less than 50%narrowing of the right internal carotid artery LEFT CAROTID: Calcific plaque at the carotid bifurcation causing less than 50% narrowing. VERTEBRALS: Unremarkable INTRACRANIAL: Menorrhagia Reading Location: [facility] CC: Dr. Alden Melendez DO ~ Nylon Winder: Signed [facility] Evaluation note Diagnosis Onset Date BMI 29.0-29.9,adult acute GIANA (obstructive sleep apnea) acute GIANA (obstructive sleep apnea) acute Essential (primary) hypertension chronic Hyperlipidemia chronic BMI 29.0-29.9,adult acute GIANA (obstructive sleep apnea) acute Blood per rectum acute Diarrhea acute Fecal incontinence acute Rectal pain acute Tenesmus acute [facility] Work Phone: Evaluation note* Diagnosis Onset Date Resolution Status GIANA (obstructive sleep apnea) acute Essential (primary) hypertension chronic Hyperlipidemia chronic BMI 29.0-29.9,adult acute GIANA (obstructive sleep apnea) acute Blood per rectum acute Diarrhea acute Fecal incontinence acute Rectal pain acute Tenesmus acute Anal fissure acute External hemorrhoid, bleeding acute Fatty liver acute External hemorrhoid, bleeding acute Hemorrhoids, internal, with bleeding acute [facility] Work Phone: Evaluation note* Diagnosis Onset Date Resolution Status BMI 29.0-29.9,adult acute GIANA (obstructive sleep apnea) acute Blood per rectum acute Diarrhea acute Fecal incontinence acute Rectal pain acute Tenesmus acute Anal fissure acute External hemorrhoid, bleeding acute Fatty liver acute External hemorrhoid, bleeding acute Hemorrhoids, internal, with bleeding acute External hemorrhoid, bleeding acute [facility] Work Phone: Evaluation note* Diagnosis Onset Date Resolution Status GIANA (obstructive sleep apnea) acute Essential (primary) hypertension chronic Hyperlipidemia chronic NAFLD (nonalcoholic fatty liver disease) chronic [facility] Work Phone: Evaluation note* Diagnosis Hyperlipidemia, unspecified documented in this encounter [facility] Work Phone: Evaluation note* Diagnosis Hyperlipidemia, unspecified documented in this encounter [facility] Work Phone: Evaluation note* Diagnosis Onset Date Resolution Status GIANA (obstructive sleep apnea) acute Essential (primary) hypertension chronic Hyperlipidemia chronic [facility] Work Phone: Evaluation noteNo assessment information available [facility] Work Phone: Evaluation note* Diagnosis Elevated prostate specific antigen (PSA) documented in this encounter [facility] Work Phone: Reason for referral (narrative)No reason for referral [facility] Work Phone: Reason for visit Narrative* Imaging (Routine) - Authorized Specialty Diagnoses / Procedures Referred By Contac t Referred To Contact Radiology Diagnoses Elevated prostate specific antigen (PSA) Procedures MR prostate with bridger boundaries if pirads 3 or above Andrés Bermudez MD [address] [place] [id number] Phone: tel: fax: Referral ID Status Reason Start Date Expiration Date Visits Requested Visits Authorized [id number] Authorized Perform Procedure 08/20/2024 08/20/2025 1 1 [facility] Work Phone: Summary Purpose Family History No Family History Records Found Relationship Condition Age at Onset Recorded Date/T sp father Coronary artery disease Unknown History of coronary artery bypass surgery Unknown Anxiety Unknown Cardiac disease Unknown Mental disorder Unknown Attempted suicide Unknown grandfather Cardiac disease Unknown mother Malignant neoplasm of breast Unknown Malignant melanoma Unknown Cancer Status:Active Comments:Mother. Melanoma, Hodgkin's, Non Hodgkin's [...] ts:Mother. Advance Directives No Advanced Directives Records Found Advance Directive Response Recorded Date/ Time Name of Medical Power of Engine Setter July 04, 2021 3:36pm Living Will Yes July 24, 2021 1: 02pm Power of Engine Setter Yes July 24, 2021 1:02pm Advance Directive Response Recorded Date/ Time Living Will Yes July 24, 2021 12 :02pm Power of Engine Setter Yes July 24, 2021 12:02pm Advance Directive Response Recorded Date/ Time Living Will Yes July 24, 2021 1: 02pm Power of Engine Setter Yes July 24, 2021 1:02pm Chief Complaint and Reason for Visit Chief Complaint GIANA 6 wk FU 3 M FU 4 M FU BLOODY/ MUCOUS STOOLS E ORDERS E-ORDER Reason for Visit BMI 29.0-29.9,adult GIANA (obstructive sleep apnea) GIANA (obstructive sleep apnea) Essential (primary) hypertension Hyperlipidemia BMI 29.0-29.9,adult GIANA (obstructive sleep apnea) Blood per rectum Diarrhea Fecal incontinence Rectal pain Tenesmus Chief Complaint 3 M FU 4 M FU BLOODY/ MUCOUS STOOLS E ORDERS E-ORDER DIARRHEA Pre-Surgical Testing PAT 2 WK FU ANAL FISSURE/HEMORRHOIDS HEMORRHOIDECTOMY HEMORRHOIDECTOMY Reason for Visit GIANA (obstructive sle ep apnea) Essential (primary) hypertension Hyperlipidemia BMI 29.0-29.9,adult GIANA (obstructive sleep apnea) Blood per rectum Diarrhea Fecal incontinence Rectal pain Tenesmus Anal fissure External hemorrhoid, bleeding Fatty liver External hemorrhoid, bleeding Hemorrhoids, internal, with bleeding Chief Complaint 4 M FU BLOODY/ MUCOUS STOOLS E ORDERS E-ORDER DIARRHEA Pre-Surgical Testing PAT 2 WK FU ANAL FISSURE/HEMORRHOIDS HEMORRHOIDECTOMY HEMORRHOIDECTOMY Hemorrhoids 07/26/21 FATTY LIVER Reason for Visit BMI 29.0-29.9,adult GIANA (obstructive sleep apnea) Blood per rectum Diarrhea Fecal incontinence Rectal pain Tenesmus Anal fissure External hemorrhoid, bleeding Fatty liver External hemorrhoid, bleeding Hemorrhoids, internal, with bleeding External hemorrhoid, bleeding Chief Complaint 3 M FU FATTY LIVER 6 mo f/u INT LABS Reason for Visit GIANA (obstructive sle ep apnea) Essential (primary) hypertension Hyperlipidemia NAFLD (nonalcoholic fatty liver disease) Chief Complaint 1 Y FU PREV PFM PT PSA Reason for Visit GIANA (obstructive sle ep apnea) Essential (primary) hypertension Hyperlipidemia Chief Complaint 1 Y FU PREV PFM PT PSA Localized enlarged lymph nodes Reason for Visit GIANA (obstructive sle ep apnea) Essential (primary) hypertension Hyperlipidemia Chief Complaint Admit Date XRAY April 09, 2024 1 0:20am PALP April 24, 2024 7 :55am PALP April 24, 2024 8 :20am HEART DISEASE/SYNCOPE May 22 12:00am HEART DISEASE/SYNCOPE May 22 6:05am HEART DISEASE/SYNCOPE May 23, 2024 11 :02am Chief Complaint Admit Date XRAY April 09, 2024 1 0:20am PALP April 24, 2024 7 :55am PALP April 24, 2024 8 :20am HEART DISEASE/SYNCOPE May 22 12:00am HEART DISEASE/SYNCOPE May 22 6:05am SYNCOPE May 22, 2024 8:38am HEART DISEASE/SYNCOPE May 23, 2024 11 :02am CTA OF CAROTID ARTERIES June 12, 2024 8:54am Reason for Referral Specialty Diagnoses / Procedures Referred By Ibrahima t Referred To Contact Radiology Diagnoses Hyperlipidemia, unspecified Procedures CT cardiac scoring wo IV contrast New, Alden Guerrero DO [address] [address] Referral ID Status Reason Start Date Expiration Date Visits Requested Visits Authorized [id number] Authorized Perform Procedure 06/03/2023 06/02/2024 1 1 Additional Source Comments (unrecognized sect ion and content) No Status Records FoundNo Status Records FoundNo Status Records FoundNo Status Records FoundNo Status Records FoundNo Status Records FoundNo Status Records FoundNo Status Records Found INFORMATION SOURCE (unrecogn ized section and content) DATE CREATED AUTHOR 03/07/2018 [facility] ([place]) DATE CREATED AUTHOR AUTHOR'S ORGANIZ ATION 01/29/2020 [facility] DATE CREATED AUTHOR AUTHOR'S ORGANIZ ATION 07/20/2020 [facility] DATE CREATED AUTHOR AUTHOR'S ORGANIZ ATION 09/09/2021 [facility] DATE CREATED AUTHOR AUTHOR'S ORGANIZ ATION 10/27/2021 [facility] DATE CREATED AUTHOR AUTHOR'S ORGANIZ ATION 06/02/2022 [facility] DATE CREATED AUTHOR AUTHOR'S ORGANIZ ATION 08/29/2024 [facility] DATE CREATED AUTHOR AUTHOR'S ORGANIZ ATION 01/29/2025 [facility] Goals (unrecognized section and content) Goals may be documented in a n alternate sectionGoals may be documented in an alternate sectionGoals may be documented in an alternate sectionGoals may be documented in an alternate sectionGoals may be documented in an alternate sectionGoals may be documented in an alternate sectionGoals may be documented in an alternate sectionGoals may be documented in an alternate section Care Teams (unrecognized sec tion and content) Team Status: Active Member Role Status Dates JOES CHEN Family Provider Active DIANA Martinez Primary Care Provider Active Team Status: Inactive Member Role Status Dates DIANA Martinez Primary Care Provider, Referring Pro vider Active Kat Purvis PA, PA Attending Provider Active Team Status: Inactive Member Role Status Dates DIANA Martinez Primary Care Provider, Referring Pro vider Active Isabel Jaramillo INSIDE CHANNEL ACCOUNT MANAGER, INSIDE CHANNEL ACCOUNT MANAGER-C Attending Provider Active Team Status: Inactive Member Role Status Dates DIANA Martinez Primary Care Provider Active Isabel Jaramillo INSIDE CHANNEL ACCOUNT MANAGER, INSIDE CHANNEL ACCOUNT MANAGER-C Attending Provider Active Team Status: Active Member Role Status Dates DIANA Martinez Primary Care Provider Active Isabel Jaramillo INSIDE CHANNEL ACCOUNT MANAGER, INSIDE CHANNEL ACCOUNT MANAGER-C Attending Provider, Referrin g Provider Active Commercial Drafter Relationship Specialty Start Date End Date Alden Melendez DO [address] [id number] PCP - General Internal Medicine 06/03/23 Commercial Drafter Relationship Specialty Start Date End Date Alden Melendez DO [address] [facility] [address] [place] [address] PCP - General Internal Medicine 06/03/23 Team Status: Active Member Role Status Dates JOSE CHEN Family Provider Active Dr. Alden Melendez DO Primary Care Provider Active Team Status: Inactive Member Role Status Dates Dr. Alden Melendez DO Primary Care Provider Active Nikki Gay Attending Provider, Referring Provide r Active Team Status: Inactive Member Role Status Dates Dr. Alden Melendez DO Primary Care Provide r, Attending Provider, Referring Provider Active Team Status: Active Member Role Status Dates Dr. Alden Melendez DO Primary Care Provider Active Team Status: Inactive Member Role Status Dates Dr. Alden Melendez DO Primary Care Provider Active Start: April 09, 2024 End: April 09, 2024 Dr. Al Campoverde MD Attending Provider Active S tart: April 09, 2024 End: April 09, 2024 Team Status: Inactive Member Role Status Dates Dr. Alden Melendez DO Primary Care Provider Active Start: April 24, 2024 End: April 24, 2024 Dr. Alden Melendez DO Attending Provider Active St art: April 24, 2024 End: April 24, 2024 Dr. Alden Melendez DO Referring Provider Active St art: April 24, 2024 End: April 24, 2024 Team Status: Active Member Role Status Dates Dr. Alden Melendez DO Primary Care Provider Active Start: April 24, 2024 Dr. Alden Melendez DO Referring Provider Active St art: April 24, 2024 Dr. Al Campoverde MD Attending Provider Active S tart: April 24, 2024 Team Status: Active Member Role Status Dates Dr. Alden Melendez DO Primary Care Provider Active Start: May 22, 2024 Dr. Alden Melendez DO Referring Provider Active St art: May 22, 2024 Dr. Jamie Ricardo MD Attending Provider Activ e Start: May 22, 2024 Team Status: Inactive Member Role Status Dates Dr. Alden Melendez DO Primary Care Provider Active Start: May 22, 2024 End: May 22, 2024 Dr. Alden Melendez DO Attending Provider Active St art: May 22, 2024 End: May 22, 2024 Dr. Alden Melendez DO Referring Provider Active St art: May 22, 2024 End: May 22, 2024 Team Status: Active Member Role Status Dates Dr. Alden Melendez DO Primary Care Provider Active Start: May 23, 2024 Dr. Alden Melendez DO Referring Provider Active St art: May 23, 2024 Dr. Alden Melendez DO Other Provider Active Start: May 23, 2024 Dr. Jamie Ricardo MD Attending Provider Activ e Start: May 23, 2024 Team Status: Active Member Role Status Dates Dr. Constantin Adkins MD Attending Provider Active Start: May 22, 2024 Dr. Alden Melendez DO Referring Provider Active St art: May 22, 2024 Team Status: Inactive Member Role Status Dates Dr. Alden Melendez DO Primary Care Provider Active Start: June 12, 2024 End: June 12, 2024 Dr. Alden Melendez DO Attending Provider Active St art: June 12, 2024 End: June 12, 2024 Dr. Alden Melendez DO Referring Provider Active St art: June 12, 2024 End: June 12, 2024 Commercial Drafter Relationship Specialty Start Date End Date Alden Melendez DO [address] [facility] [address] [place], [place] [id number] PCP - General Internal Medicine 06/03/23 Reason for Visit (unrecogniz ed section and content) Specialty Diagnoses / Procedures Referred By Contac t Referred To Contact Radiology Diagnoses Hyperlipidemia, unspecified Procedures CT cardiac scoring wo IV contrast Alden Melendez DO [address] [facility] [address] [place] [address] Referral ID Status Reason Start Date Expiration Date Visits Requested Visits Authorized [id number] Authorized Perform Procedure 06/03/2023 06/02/2024 1 1 FOR RECORDS PERTAINING TO PATIENTS WHO ARE [...] BE BASED ON THE PRIMARY CLINICAL RECORDS. [facility]. provides no warranty or guarantee of the accuracy or completeness of information in this document.
== END | disposition home or self-care (01) ==
LOC: US 07:16
PROVIDERS: PCP Internal Medicine; Referring Provider Internal Medicine; Visit Provider Internal Medicine
DX: K76.0 Fatty (change of) liver, not elsewhere classified (principal)
CPT/HCPCS: 76705; 76981

== ENCOUNTER → 2025-03-22 | Outpatient (CLI) | payer OTHER, SELFPAY ==
[2025-03-22 12:13] LABS: Hematocrit 47.9 % (40-54); Hemoglobin 16.9 g/dL (13.0-16.5); Immature Granulocytes Count 0.050 X10^3/uL (0.0-0.0); Mean Corp Hgb Conc 35.3 g/dL (32-36); Mean Corpuscular Volume 88.2 fL (80-94); Mean Platelet Vol. 10.2 fl (6.2-12.0); NRBC Flagged by Analyzer 0 % (0-5); Platelet Count 191 K/mm3 (150-450); RBC Distribution Width CV 13.2 % (11.6-14.6); RBC Distribution Width SD 42.6 fl (35.1-43.9); Red Blood Count 5.43 M/mm3 (4.6-6.2); White Blood Count 6.8 K/mm3 (4.4-11.0)
[2025-03-22 12:25] LABS: Creatinine, Urine (random) 144.00 mg/dL (39.00-259.00); Microalbumin,Random Urine 52.7 mg/L (<20 mg/L)
[2025-03-22 12:53] LABS: AST(SGOT) 16 U/L (<=37); Alanine Aminotransfer ALT/SGPT 17 U/L (<=46); Albumin, Serum 4.7 g/dL (3.4-4.8); Alkaline Phosphatase 61 U/L (40-129); Anion Gap 12 (7-18); BUN 15 mg/dL (4-19); BUN/Creat Ratio 12.1 RATIO (10-20); Calcium,Total 9.5 mg/dL (7.6-11.0); Carbon Dioxide 27.2 mmol/L (20.0-29.0); Chloride 97 mmol/L (96-106); Cholesterol 186 mg/dL (<=200); Globulin 2.6 g/dL (2.2-4.2); Glucose 157 mg/dL (70-99); Low Density Lipoprotein Calc. 114 mg/dL; Potassium 3.8 mmol/L (3.5-5.1); Triglycerides 167 mg/dL; Very Low Density Lipoprotein 33 mg/dL (5-40); cholesterol:hdl ratio screen 4.39
== END | disposition home or self-care (01) ==
LOC: CIMLAB 09:38
PROVIDERS: PCP Internal Medicine; Referring Provider Internal Medicine; Visit Provider Internal Medicine
DX: E11.21 Type 2 diabetes mellitus with diabetic nephropathy (principal); K76.0 Fatty (change of) liver, not elsewhere classified; E78.5 Hyperlipidemia, unspecified
CPT/HCPCS: 36415; 80053; 80061; 82043; 82105; 82570; 83036; 85025